=== PATIENT | female | born 1975 | race Caucasian/White ===

== ENCOUNTER 2017-08-04 16:05 | Emergency (ER) | payer MEDICAID, SELFPAY ==
[2017-08-04 16:06] VITALS: BP 149/93; PULSE 108; RESP 14; TEMP 36.5; BMI 62.7
--- NOTE | 2017-08-04 16:38 | ED.VISSUMM ---
- ER Visit Summary Date of Service: 08/04/17 Chief Complaint: Vomiting and diarrhea History of Present Illness: The patient is a [address] Wall. She reports that she has vomiting diarrhea that began approximately 3 days ago. States is vomited 7-8 times without blood or emesis. She has had multiple episodes of diarrhea. She reports that her stools are black after Pepto-Bismol. She has not had any blood in her stools. Patient denies any dysuria or frequency. She reports she has hematuria that began this morning. Less much. Approximate 1 month ago. Patient complains of aching, sharp abdominal pains 1010 worsening a 10 currently is worsened by nothing including movement. Is also relieved by nothing. She reports that she went to [facility] last night and had a CAT scan as well as a urinalysis. CAT scan showed a 3 cm mass on her right kidney, but did not show renal or ureteral stones. Patient denies sick contacts. Has not been camping out of the country. No possible bad food exposure. Does not drink well water. No recent antibiotic use. Physical Examination: Vitals: Stable. Afebrile. General: Well-nourished and well-developed. Head: Normocephalic atraumatic. Neck: Supple, no lymphadenopathy. No JVD. Nontender. Cardiovascular: Regular rate and rhythm. No murmurs. Respiratory: No respiratory distress. Clear to auscultation bilaterally. Abdominal: Soft, moderate tenderness palpation to the right upper and right lower quadrants, no localized pain at McBurney's point, nondistended, normal bowel sounds. No guarding, rebound, or peritoneal signs. Back: Moderate right CVA tenderness. Extremities: Nontender, no edema. Skin: Normal color, no rash. Neurologic: Alert and oriented ?3. Cranial nerves II through XII are intact. Normal strength and sensation. Psych: Normal affect. Test Results: CBC was normal. Chem-7 is marked for chloride of 108 and calcium of 8.4. LFTs are marked for an albumin of 2.9, AST of 48. Lipase is normal. The urinalysis from yesterday at [place] was obtained and is negative. The read from the CT was obtained as well. There were no ureteral or renal stones. She did have a 3.2 cm complicated cyst versus mass in her right kidney. Emergency Department Course and Treatment: Patient had an IV placed. She is given a liter bolus of normal saline. She was treated with Toradol and Zofran. She has had no vomiting or diarrhea while here. Treatment Plan: Patient was discussed with Dr. Smyth. She is instructed to get a CD with the CAT scan on it and follow-up with him in a week for further evaluation of this. She will be discharged with Phenergan for her vomiting and diarrhea. Instructed to follow-up with Dr. Wall in 1-2 days if this is not improving. Disposition: To home in improved and stable condition. Impression: 1. Vomiting/diarrhea. 2. 3.2 cm complicated cyst/mass right kidney. This note was generated with [employer] dictation software. It may contain incorrect words, spelling, and punctuation that were not noted in review of the chart prior to signing ED Disposition - Plan for ED Patient: Disposition: Home or Assisted Living Chief Complaint: Nausea/Vomiting Instructions: ED Vomiting Diarrhea Nonspecific Ad Prescriptions: ProMETHAzine [Phenergan Suppository] 25 mg RECTAL Q6H PRN PRN #6 suppos. PRN Reason: Nausea ProMETHAzine [Phenergan] 25 mg PO Q6H PRN PRN #10 tablet PRN Reason: Nausea Referrals: Matthew Smyth MD [STAFF PHYSICIAN] - 1 Week Additional Instructions: Go to medical records at [facility] and ask them for a CD with your CAT scan on it so Dr. Smyth can look at it.
[2017-08-04] MEDS: Ketorolac 30 MG/ML Syringe IV (16:56)
[2017-08-04] MEDS: Ondansetron 4 MG/2 ML Vial IV (16:56)
[2017-08-04] MEDS: 0.9% Normal Saline 1,000 ML 1000 ML IV (16:56)
[2017-08-04 16:57] LABS: Absolute Lymphocyte Count 1.46 X10^3/ul (0.83-4.51); Absolute Neutrophil Count 3.6 X10^3/uL (2.0-7.7); Basophil# 0.01 X10^3/uL; Basophil% 0.2 % (0-1); Eosinophil# 0.12 X10^3/uL; Eosinophils% 2.1 % (0-5); Hematocrit 40.4 % (37-47); Hemoglobin 12.8 g/dl (12.0-15.0); Lymphocyte # 1.46 X10^3/ul (4.0); Lymphocyte % 25.1 % (19-41); Mean Corp Hgb Conc 31.7 g/gl (32-36); Mean Corpuscular Hgb 30.6 pg (27.0-32.0); Mean Corpuscular Volume 96.7 fL (81-99); Mean Platelet Vol. 8.8 fl (6.2-12.0); Monocyte# 0.58 X10^3/uL; Neutrophil # 3.63 X10^3/uL (2.7-7.7); Neutrophil % 62.4 % (47-70); POSITIVE COUNT NO; POSITIVE DIFFERENTIAL NO; POSITIVE MORPHOLOGY NO; Platelet Count 242 K/mm3 (150-450); Red Blood Count 4.18 M/mm3 (4.2-5.4); White Blood Count 5.8 K/mm3 (4.4-11.0)
[2017-08-04 17:06] LABS: AST(SGOT) 48 U/L (15-37); Alanine Aminotransfer ALT/SGPT 49 U/L (13-56); Albumin, Serum 2.9 g/dL (3.2-5.0); Alkaline Phosphatase 79 U/L (45-117); Anion Gap 5 (5-15); BUN 10 mg/dL (7-18); BUN/Creat Ratio 9.9 RATIO (10-20); Bilirubin, Direct 0.14 mg/dL (0.00-0.30); Calcium,Total 8.4 mg/dL (8.5-10.1); Chloride 108 mmol/L (98-107); Creatinine, Serum 1.01 mg/dL (0.55-1.02); EST Glomerular Filtration Rate 64 mL/min (>60); Est Glom Filt Rate - Afr Amer 77 mL/min (>60); Estimated Creatinine Clearance 67.93 ml/min; Globulin 3.7 g/dL (2.2-4.2); Glucose 99 mg/dL (74-106); Lipase 85 U/L (73-393); Potassium 3.6 mmol/L (3.5-5.1); Protein, Total 6.6 g/dL (6.4-8.2); Sodium Level 143 mmol/L (136-145)
[2017-08-04 18:12] VITALS: PULSE 90; RESP 18; O2SAT 96
== END 2017-08-04 18:14 | disposition home or self-care (01) ==
LOC: ED 16:36
PROVIDERS: Emergency Provider Emergency Medicine; Family Provider Family Medicine; PCP Family Medicine
DX: R11.2 Nausea with vomiting, unspecified (principal); R19.7 Diarrhea, unspecified; R31.9 Hematuria, unspecified; I10 Essential (primary) hypertension; M54.9 Dorsalgia, unspecified; G89.29 Other chronic pain; Z79.899 Other long term (current) drug therapy; Z87.891 Personal history of nicotine dependence
CPT/HCPCS: 80048; 80076; 83690; 85025; 96361; 96374; 96375; 99283; J2405

== ENCOUNTER 2017-12-10 13:10 | Emergency (ER) | payer SELFPAY ==
[2017-12-10 13:10] VITALS: BP 134/94; PULSE 112; RESP 20; TEMP 36.6; O2SAT 97; BMI 61.8
--- NOTE | 2017-12-10 13:32 | CT_ITS ---
STUDY: CT ABDOMEN AND PELVIS WITHOUT CONTRAST REASON FOR EXAM: Female, 42 years old. RT FLANK PIAN, HX RT KIDNEY CA RADIATION DOSAGE (If Supplied By Facility): CTDIvol = ( 24.18 ) mGy, DLP = ( 1292.70 ) mGycm TECHNIQUE: Transaxial images were obtained from the dome of the diaphragm to the symphysis pubis without oral contrast, and without intravenous contrast. Sagittal and coronal images were reconstructed. Individualized dose optimization techniques were used for this CT. COMPARISON: None. FINDINGS: The visualized lung bases are unremarkable. The visualized portions of the heart are within normal limits. There is decreased attenuation of the liver consistent with steatosis. There are surgical clips in the gallbladder fossa consistent with a prior cholecystectomy. Normal spleen. Normal pancreas. Normal bilateral adrenal glands. Postsurgical changes are noted in the right kidney. Normal left kidney. Normal visualized stomach. Normal small intestine. Normal colon. The appendix is visualized and appears normal. Normal abdominal aorta. Normal inferior vena cava. Normal retroperitoneum. Normal urinary bladder. There is a small umbilical hernia containing fat. There are postsurgical changes and degenerative changes of the visualized lumbar spine. CT/Abdomen/Pelvis without Cont IMPRESSION: Fatty infiltration of the liver. There is no evidence of recurrent neoplasm or metastatic disease. Electronically Signed: Chaparrita Weber MD at 14:35 EDT Tel , Service support ,
--- NOTE | 2017-12-10 13:33 | ED.DCSUM_ITS ---
- ER Visit Summary Date of Service: 12/10/17 Chief Complaint: Right flank pain History of Present Illness: The patient is a 42 F presents with 2 days of intermittent right flank pain radiating anteriorly. She describes it as a sharp stabbing pain, not affected by movements or position. No hematuria or dysuria. No anterior abdominal discomfort. No right upper quadrant abdominal pain. She denies history of kidney stone but she did have a kidney mass removed at [facility] on September 03, 2017. She states that she was told that it was cancer and they believed they removed it in its entirety but she has not followed up since then. Physical Examination: Vitals are within normal limits. She is not in distress. Neck is supple. Heart tones are regular and without murmur. Lungs are clear bilaterally. Abdomen is soft and nontender. Minimal right flank tenderness but overlying skin looks normal. No rash. No fluctuance. Test Results: Urine did reveal blood. CT negative for stone or recurrent metastatic disease Emergency Department Course and Treatment: Urinalysis revealed blood. No evidence of stone or recurrent disease on CT scan. Her pain was addressed and she felt better. Exact cause unclear but she has no evidence of an acute surgical abdomen and I believe she can safely follow-up with her doctor. She will return if worse. Treatment Plan: Aloe up with family physician Disposition: Home stable condition Impression: Initial encounter right flank pain uncertain etiology This note was generated with [employer] dictation software. It may contain incorrect words, spelling, and punctuation that were not noted in review of the chart prior to signing ED Disposition - Plan for ED Patient: Chief Complaint: Flank Pain Instructions: ED Flank Pain Uncertain Cause Referrals: Taran Wall MD [Primary Care Provider] -
[2017-12-10 13:45] LABS: Bacteria 0 SEEN /hpf (None Seen); Mucous, Urine 0 SEEN /hpf (<or=2+); White Blood Cells 0 SEEN /hpf (0-5)
[2017-12-10] MEDS: oxyCODONE 5 MG Tablet PO (13:48)
[2017-12-10 13:50] LABS: Color, Urine Straw (Yellow); Glucose, Dipstick 100 mg/dl (Normal); Ketone-Dipstick Negative (Negative); Leukocyte Esterase-Dipstick 25 /ul (Negative); Nitrite-Dipstick Negative (Negative); Occult Blood-Urine 250 /ul (Negative); Protein-Dipstick Negative (Negative); Specific Gravity, Urine 1.005 (1.002-1.030); Urine Bilirubin Dipstick Negative (Negative); Urine Clarity Sl. Cloudy (Clear); Urine Urobilinogen Normal (Normal)
[2017-12-10 14:06] LABS: Red Blood Cells-Urine 5-10 SEEN /hpf (0-5); Squamous Epithelial Cells - UA 0-5 SEEN /hpf (5-10)
[2017-12-10 15:20] VITALS: BP 149/78; PULSE 94; RESP 22; O2SAT 98
--- NOTE | 2017-12-10 15:20 | ED.RN ---
THIS NURSE REVIEWED D/C INSTRUCTIONS WITH PT. PT VERBALIZED UNDERSTANDING OF INSTRUCTIONS. PT DENIES FURTHER NEEDS OR QUESTIONS AT THIS TIME.
== END 2017-12-10 15:21 | disposition home or self-care (01) ==
LOC: ED 14:15
PROVIDERS: Emergency Provider Emergency Medicine; Family Provider Family Medicine; PCP Family Medicine
DX: R10.9 Unspecified abdominal pain (principal); M54.9 Dorsalgia, unspecified; R11.0 Nausea; I10 Essential (primary) hypertension; Z79.899 Other long term (current) drug therapy
CPT/HCPCS: 74176; 81001; 99283

== ENCOUNTER 2018-01-02 16:26 | Emergency (ER) | payer MEDICAID, SELFPAY ==
[2018-01-02] VITALS (14 sets, daily range): BP systolic 123–149; BP diastolic 63–104; PULSE 74–133; RESP 14–24; TEMP 36–37.1; O2SAT 96–100; BMI 59.8
--- NOTE | 2018-01-02 16:56 | ED.RN ---
PT very anxious. Gave emotional support as she was hyperventilating in triage. Placd in 2nd triage room. PT began vomiting in 2nd triage bay. Washcloth and vomit bags given. PT vomited all over herself and on blanket. Sweating. New vitals taken. Emotional support given again.
--- NOTE | 2018-01-02 17:23 | RAD_ITS ---
STUDY: X-RAY CHEST REASON FOR EXAM: Female, 42 years old. ET tube placement TECHNIQUE: Single AP portable view of the chest. COMPARISON: 12/27/2014 FINDINGS: ET tube is noted terminating roughly 4 cm from ming. Enteric tube in the stomach. Lungs are moderately hypoinflated with bibasilar atelectasis. Borderline cardiomegaly. Mildly elevated right hemidiaphragm. Osseous structures are within normal limits RAD/Chest 1 View (Portable) IMPRESSION: ET tube and enteric tube as above. Hypoinflated lungs with bibasilar atelectasis Electronically Signed: Stanislaw Becerril DO at 18:34 EDT Tel , Service support ,
--- NOTE | 2018-01-02 17:23 | CT_ITS ---
STUDY: CT BRAIN WITHOUT CONTRAST REASON FOR EXAM: Female, 42 years old. Altered mental status RADIATION DOSAGE (If Supplied By Facility): CTDIvol = ( 96.72 ) mGy, DLP = ( 1878.48 ) mGycm TECHNIQUE: Transaxial CT imaging of the brain was performed without administration of intravenous contrast material. Individualized dose optimization techniques were used for this CT. COMPARISON: August 01, 2015 FINDINGS: Normal soft tissue structures. Normal calvarium. There is mild cerebral atrophy with widening of the extra-axial spaces and ventricular dilatation. Normal white matter tracts of the cerebral hemispheres. Normal basal ganglia and thalami. Normal brainstem. Normal cerebellum. There is no intracranial hemorrhage. There is an area of mildly decreased attenuation in the right frontal lobe as well as the left temporoparietal lobe. Normal visualized paranasal sinuses. ET tube and enteric tube are noted CT/Brain/Head without Contrast IMPRESSION: Decreased attenuation in the left temporoparietal lobe as well as the right frontal lobe. Findings are suspicious for acute stroke. Recommend MRI brain to further evaluate Electronically Signed: Stanislaw Becerril DO at 18:30 EDT Tel , Service support ,
--- NOTE | 2018-01-02 17:23 | EKG12_ITS ---
Test Reason : Blood Pressure : / mmHG Vent. Rate : 102 BPM Atrial Rate : 102 BPM P-R Int : 168 ms QRS Dur : 102 ms QT Int : 372 ms P-R-T Axes : 045 004 028 degrees QTc Int : 484 ms Sinus tachycardia Low voltage QRS Borderline ECG Confirmed by FIONA RICHARDS, REYNA ([id number]), newspaper copy editor MARYELLEN BARTLETT ([id number]) on 01/08/2018 1:00:59 PM Referred By: DANIELLE Confirmed By:REYNA JAIMES MD
[2018-01-02] MEDS: Etomidate 20 MG/10 ML Vial IV (17:33)
[2018-01-02] MEDS: Succinylcholine Chloride 200 MG/10 ML Vial 125 MG IV (17:34)
[2018-01-02] MEDS: Propofol 200 MG/20 ML Vial 50 MG IV BOLUS (17:44)
[2018-01-02 17:45] LABS: Bedside Glucose 177 mg/dL (70-110)
[2018-01-02] MEDS: Propofol 10MG/Ml 1,000 MG/100 ML Bottle 10.097 MG CONT INF (17:46)
[2018-01-02 17:56] LABS: Absolute Lymphocyte Count 4.23 X10^3/ul (0.83-4.51); Absolute Neutrophil Count 7.9 X10^3/uL (2.0-7.7); Basophil# 0.06 X10^3/uL; Basophil% 0.4 % (0-1); Eosinophils% 1.5 % (0-5); Hematocrit 43.9 % (37-47); Hemoglobin 14.9 g/dl (12.0-15.0); Lymphocyte # 4.23 X10^3/ul (4.0); Lymphocyte % 31.2 % (19-41); Mean Corp Hgb Conc 33.9 g/gl (32-36); Mean Corpuscular Hgb 30.9 pg (27.0-32.0); Mean Corpuscular Volume 91.1 fL (81-99); Mean Platelet Vol. 9.8 fl (6.2-12.0); Monocyte# 1.06 X10^3/uL; Monocyte% 7.8 % (0-10); Neutrophil # 7.93 X10^3/uL (2.7-7.7); Neutrophil % 58.6 % (47-70); POSITIVE COUNT NO; POSITIVE DIFFERENTIAL NO; POSITIVE MORPHOLOGY NO; Platelet Count 352 K/mm3 (150-450); RBC Distribution Width CV 12.8 % (11.6-14.6); RBC Distribution Width SD 41.9 fl (35.1-43.9); Red Blood Count 4.82 M/mm3 (4.2-5.4); White Blood Count 13.6 K/mm3 (4.4-11.0)
[2018-01-02 18:03] LABS: Prothrombin Time (Protime)PT. 13.6 SECONDS (11.7-14.9)
[2018-01-02 18:04] LABS: Partial Thromboplast Time 21.5 Seconds (24.1-36.2)
[2018-01-02 18:13] LABS: ALB/GLOB Ratio 0.9 RATIO (0.9-2.4); AST(SGOT) 56 U/L (15-37); Alanine Aminotransfer ALT/SGPT 53 U/L (13-56); Albumin, Serum 3.7 g/dL (3.2-5.0); Alkaline Phosphatase 93 U/L (45-117); Anion Gap 12 (5-15); BUN 8 mg/dL (7-18); BUN/Creat Ratio 7.3 RATIO (10-20); Calcium,Total 9.4 mg/dL (8.5-10.1); Chloride 104 mmol/L (98-107); Creatinine, Serum 1.09 mg/dL (0.55-1.02); EST Glomerular Filtration Rate 58 mL/min (>60); Est Glom Filt Rate - Afr Amer 71 mL/min (>60); Estimated Creatinine Clearance 62.94 ml/min; Globulin 4.2 g/dL (2.2-4.2); Glucose 179 mg/dL (74-106); Potassium 3.5 mmol/L (3.5-5.1); Protein, Total 7.9 g/dL (6.4-8.2); Sodium Level 140 mmol/L (136-145)
[2018-01-02 18:27] LABS: Lactic Acid 3.2 mmol/L (0.4-2.0)
--- NOTE | 2018-01-02 18:28 | ED.RN ---
LAB CALLED CRITICAL LAB ON PATIENT. LACTIC 3.2, DR SANTOS NOTIFIED
--- NOTE | 2018-01-02 18:56 | CT_ITS ---
STUDY: CTA NECK WITH CONTRAST REASON FOR EXAM: Female, 42 years old. Possible stroke RADIATION DOSAGE (If Supplied By Facility): CTDIvol = ( 13.04 ) mGy, DLP = ( 954.14 ) mGycm TECHNIQUE: CT angiography with multi-detector data acquisition was performed from the aortic arch to the skull base following intravenous administration of 100 ml of Isovue 370 contrast. MIP images were reconstructed from the axial data set. Post-processing of the angiographic images was performed, with multiplanar reformation and 3D reconstruction. Individualized dose optimization techniques were used for this CT. COMPARISON: None. FINDINGS: Nearly nondiagnostic exam with poor IV contrast opacification of the internal carotid arteries as well as the basilar artery and vertebral arteries. Grossly, there appears to be no evidence of large aneurysm or overt occlusion. Findings on CT had earlier demonstrated possible stroke. MRI is needed to further evaluate. IMPRESSION: Nearly nondiagnostic exam with poor IV contrast opacification of the great vessels of the head and neck. Grossly, no evidence of large aneurysm or overt occlusion. Again, MRI brain is recommended to further evaluate CT/CTA Neck W/WO Contrast IMPRESSION: Normal bilateral cervical carotid and vertebral arteries. Electronically Signed: Stanislaw Becerril DO at 21:23 EDT Tel , Service support ,
--- NOTE | 2018-01-02 18:56 | CT_ITS ---
STUDY: CTA OF THE BRAIN REASON FOR EXAM: Female, 42 years old. Headache. Possible CVA RADIATION DOSAGE (If Supplied By Facility): CTDIvol = ( 13.04 ) mGy, DLP = ( 954.14 ) mGycm TECHNIQUE: CT angiography was performed with a multi-detector CT scanner. Data acquisition was obtained from the skull base through the vertex following intravenous administration of 100 ml of Isovue-370. MIP images were reconstructed from the axial data set. Post-processing of the angiographic images was performed, with multiplanar reformation and 3D reconstruction. Individualized dose optimization techniques were used for this CT. COMPARISON: None. FINDINGS: Nearly nondiagnostic exam with poor IV contrast opacification of the internal carotid arteries as well as the basilar artery and vertebral arteries. Grossly, there appears to be no evidence of large aneurysm or overt occlusion. Findings on CT had earlier demonstrated possible stroke. MRI is needed to further evaluate. CT/CTA Head W/WO Contrast IMPRESSION: Nearly nondiagnostic exam with poor IV contrast opacification of the great vessels of the head and neck. Grossly, no evidence of large aneurysm or overt occlusion. Again, MRI brain is recommended to further evaluate N.B. : The above information has been verbally conveyed by Stanislaw Becerril DO to Dr. Williamson, Covering Physician, on 01/02/2018 20:35:03 (ET). Electronically Signed: Stanislaw Becerril DO at 20:35 EDT Tel , Service support , N.B. : The above information has been verbally conveyed by Stanislaw Becerril DO to Dr. Williamson, Covering Physician, on 01/02/2018 20:35:03 (ET).
[2018-01-02] MEDS: levETIRAcetam IV 1,000 MG/100 ML BAG 400 MG IV (19:16)
[2018-01-02] MEDS: 0.9% Normal Saline 1,000 ML 250 ML IV ×2 (19:21→22:18)
[2018-01-02 19:29] LABS: Bacteria 0 SEEN /hpf (None Seen); Mucous, Urine 0 SEEN /hpf (<or=2+); Red Blood Cells-Urine 0 SEEN /hpf (0-5); White Blood Cells 0 SEEN /hpf (0-5)
[2018-01-02 19:58] LABS: Color, Urine Yellow (Yellow); Glucose, Dipstick Normal (Normal); Ketone-Dipstick 5 mg/dl (Negative); Leukocyte Esterase-Dipstick Negative /ul (Negative); Nitrite-Dipstick Negative (Negative); Occult Blood-Urine Negative /ul (Negative); Protein-Dipstick 30 mg/dl (Negative); Urine Bilirubin Dipstick Negative (Negative); Urine Clarity Cloudy (Clear); Urine Urobilinogen Normal (Normal)
[2018-01-02 20:06] LABS: Bedside Glucose 169 mg/dL (70-110)
[2018-01-02 20:10] LABS: Base Excess 1 mmol/L (-2 to +2); Bicarbonate 27.1 mmol/L (22-26); Blood Gas Specimen Type ART; FI02 60; Mode A-C; O2 Delivery Device Vent; PEEP 5; PO2 135 mmHG (75-100); RR 14; SITE R Radial; SO2 99 % (95-99); Time Given 2005; Total Carbon Dioxide 29 mmol/L; Vt 452; pCO2 55.9 mmHg (35-45); pH 7.29 (7.35-7.45)
[2018-01-02 20:22] LABS: Squamous Epithelial Cells - UA 0-5 SEEN /hpf (5-10)
[2018-01-02 20:23] LABS: Hyaline Cast 10-25 SEEN /lpf (0-5)
[2018-01-02 21:50] LABS: Reflex Lactate? Y
--- NOTE | 2018-01-02 21:50 | ED.VISSUMM ---
- ER Visit Summary Date of Service: 01/02/18 Chief Complaint: Altered mental status History of Present Illness: The patient is a 42 F who was triaged for headache for several days. By the time I saw her, the history was limited. She was actively retching, and she was repeatedly asking for Abhijit. She would not cooperate in her exam or provide any historical information. According to the family, she was admitted to [place] about 2 weeks ago for possible stroke. She was sent home the next day and told that she did not have a stroke, according to the family. She has been having a headache for several days and followed up with her PCP today. She was having facial numbness, and was referred to the emergency department for possible stroke. Upon arrival and placement in her room, she became repetitive and less responsive. She has a history of anxiety, paresthesias, vertigo, hypertension, hyperlipidemia, PE. She takes aspirin, but it is unknown if she takes any other blood thinners. No recent fevers or illnesses. Physical Examination: Afebrile and vital signs remarkable for a heart rate of 101 and respiratory rate of 24. Airway is patent, and she repeatedly asks for Abhijit. Lungs are clear. Heart is regular. GCS 12, 4+3+5. She could not cooperate in the neurologic exam or answer questions. She did not have any repetitive movements other than her vocalizations. I believe I noted some disconjugate gaze, but could not reproduce this. She did not have repetitive eye movements. Her pupils were round and reactive. Head appears atraumatic. Neck was nontender. Abdomen soft and nontender. Extremities grossly atraumatic. Skin is flushed and diaphoretic. Test Results: See below Emergency Department Course and Treatment: Patient was seen immediately. Glucose testing was 177. Patient was unable to provide history or cooperate with the exam. I attempted to get information from the family. They did not know the testing she had at [place] or her diagnosis. They did not know if she was on blood thinners or much about her past medical history. They did not know her physician's name. They said that she was normal this morning, but it is unclear when her symptoms started. Patient continued retching. I was concerned for intracranial bleed. I am concerned that she will not be able to protect her airway. She was moved to the resuscitation room right away, where she did vomit. She was sitting upright and we did suction her airway. Patient was intubated for airway protection. She was medicated with etomidate and succinylcholine. Intubated successfully using a Glidescope. Good color change on capnography. Bilateral breath sounds. Stomach quiet. Good pulse ox. Patient was sedated with propofol and placed on a ventilator. CT head showed findings concerning for an acute stroke in the left temporoparietal regions and right frontal region. Patient was discussed with neurology, Dr. Bueno. He recommended MRI brain and CTA head and neck. He also recommended starting Keppra as her repetitive vocalizations and possible abnormal eye movements could be seizure activity. I did not feel that TPA would be a safe option given the unclear onset time, the unclear previous diagnosis, and her constellation of symptoms currently. He also advised that the patient will need care at a facility with 24 hour EEG potentially. Patient was treated with Keppra. We were unable to obtain an MRI secondary to her morbid obesity. CTA head and neck was performed. I called radiology when the read was not coming through. They said that the images were limited and non-diagnostic. There were no major arterial issues. MRI was recommended. The remainder of her workup showed a white count of 13.6, glucose 179, creatinine 1.09, normal INR, and PTT of 21.5. ABG was done and cultures were done. Lactate was 3.2. Patient's vital signs remained stable. She did not have seizure activity while sedated. Family requested [facility] for admission, but they had no ICU beds available. They then requested [facility]. Patient was discussed with Dr. Carreno and accepted. He did request that I speak with Dr. Allen, and at the time of this dictation, I have not heard back from her. Patient will be transferred by ambulance for higher level of care. Will continue to monitor while awaiting transport. Treatment Plan: As above Disposition: Transfer to [facility] Impression: 1. Acute ischemic stroke This note was generated with [employer] software. It may contain incorrect words, spelling, and punctuation that were not noted in review of the chart prior to signing ED Disposition - Plan for ED Patient: Disposition: [facility] Chief Complaint: Headache Referrals: Taran Wall MD [Primary Care Provider] -
--- NOTE | 2018-01-02 22:02 | ED.DCSUM_ITS ---
- ER Visit Summary Date of Service: 01/02/18 Chief Complaint: Altered mental status History of Present Illness: The patient is a 42 F who was triaged for headache for several days. By the time I saw her, the history was limited. She was actively retching, and she was repeatedly asking for Abhijit. She would not cooperate in her exam or provide any historical information. According to the family, she was admitted to [place] about 2 weeks ago for possible stroke. She was sent home the next day and told that she did not have a stroke, according to the family. She has been having a headache for several days and followed up with her PCP today. She was having facial numbness, and was referred to the emergency department for possible stroke. Upon arrival and placement in her room, she became repetitive and less responsive. She has a history of anxiety, paresthesias, vertigo, hypertension, hyperlipidemia, PE. She takes aspirin, but it is unknown if she takes any other blood thinners. No recent fevers or illnesses. Physical Examination: Afebrile and vital signs remarkable for a heart rate of 101 and respiratory rate of 24. Airway is patent, and she repeatedly asks for Abhijit. Lungs are clear. Heart is regular. GCS 12, 4+3+5. She could not cooperate in the neurologic exam or answer questions. She did not have any repetitive movements other than her vocalizations. I believe I noted some disconjugate gaze, but could not reproduce this. She did not have repetitive eye movements. Her pupils were round and reactive. Head appears atraumatic. Neck was nontender. Abdomen soft and nontender. Extremities grossly atraumatic. Skin is flushed and diaphoretic. Test Results: See below Emergency Department Course and Treatment: Patient was seen immediately. Glucose testing was 177. Patient was unable to provide history or cooperate with the exam. I attempted to get information from the family. They did not know the testing she had at [place] or her diagnosis. They did not know if she was on blood thinners or much about her past medical history. They did not know her physician's name. They said that she was normal this morning, but it is unclear when her symptoms started. Patient continued retching. I was concerned for intracranial bleed. I am concerned that she will not be able to protect her airway. She was moved to the resuscitation room right away, where she did vomit. She was sitting upright and we did suction her airway. Patient was intubated for airway protection. She was medicated with etomidate and succinylcholine. Intubated successfully using a Glidescope. Good color change on capnography. Bilateral breath sounds. Stomach quiet. Good pulse ox. Patient was sedated with propofol and placed on a ventilator. CT head showed findings concerning for an acute stroke in the left temporoparietal regions and right frontal region. Patient was discussed with neurology, Dr. Bueno. He recommended MRI brain and CTA head and neck. He also recommended starting Keppra as her repetitive vocalizations and possible abnormal eye movements could be seizure activity. I did not feel that TPA would be a safe option given the unclear onset time, the unclear previous diagnosis, and her constellation of symptoms currently. He also advised that the patient will need care at a facility with 24 hour EEG potentially. Patient was treated with Keppra. We were unable to obtain an MRI secondary to her morbid obesity. CTA head and neck was performed. I called radiology when the read was not coming through. They said that the images were limited and non -diagnostic. There were no major arterial issues. MRI was recommended. The remainder of her workup showed a white count of 13.6, glucose 179, creatinine 1.09, normal INR, and PTT of 21.5. ABG was done and cultures were done. Lactate was 3.2. Patient's vital signs remained stable. She did not have seizure activity while sedated. Family requested [facility] for admission, but they had no ICU beds available. They then requested [facility]. Patient was discussed with Dr. Carreno and accepted. He did request that I speak with Dr. Allen, and at the time of this dictation, I have not heard back from her. Patient will be transferred by ambulance for higher level of care. Will continue to monitor while awaiting transport. Treatment Plan: As above Disposition: Transfer to [facility] Impression: 1. Acute ischemic stroke This note was generated with [employer] software. It may contain incorrect words, spelling, and punctuation that were not noted in review of the chart prior to signing ED Disposition - Plan for ED Patient: Disposition: [facility] Chief Complaint: Headache Referrals: Taran Wall MD [Primary Care Provider] -
== END 2018-01-02 22:15 | disposition short-term general hospital (02) ==
PROVIDERS: Emergency Provider Emergency Medicine; Family Provider Family Medicine; PCP Family Medicine
DX: I63.9 Cerebral infarction, unspecified (principal); I10 Essential (primary) hypertension; E78.5 Hyperlipidemia, unspecified; F41.9 Anxiety disorder, unspecified; E66.01 Morbid (severe) obesity due to excess calories; Z79.82 Long term (current) use of aspirin; Z79.899 Other long term (current) drug therapy; Z86.711 Personal history of pulmonary embolism; Z87.891 Personal history of nicotine dependence
CPT/HCPCS: 31500; 31720; 36415; 36600; 51702; 70450; 70496; 70498; 71045; 80053; 81001; 82803; 82962; 83605; 85025; 85610; 85730; 87040; 87086; 93005; 94002; 96365; 96366; 96367; 96375; 99251; 99285; J7030; Q9967; A4216; G0463; J0330

== ENCOUNTER 2018-04-10 11:32 | Day surgery (SDC) | payer MEDICAID, SELFPAY ==
[2018-04-10] VITALS (8 sets, daily range): BP systolic 119–151; BP diastolic 80–101; PULSE 79–87; RESP 14–16; TEMP 36.8–37.1; O2SAT 80–98; BMI 55.9
--- NOTE | 2018-04-10 11:54 | RAD_ITS ---
STUDY: X-RAY - LEFT WRIST REASON FOR EXAM: Female, 43 years old. TECHNIQUE: view(s) of the wrist were obtained. COMPARISON: None. FINDINGS: Normal visualized distal radius and ulna. There is mild degenerative change of the radiocarpal joint. Normal distal radioulnar articulation. There is a visualized possible small cleft in the scaphoid. There is trace degenerative change at the scaphoid lunate joint space. Normal carpal articulations. Normal carpometacarpal articulation of the thumb. Normal second through fifth carpometacarpal articulations. Normal visualized metacarpal bones. The soft tissue structures are unremarkable. RAD/Wrist min 3 Views IMPRESSION: Minimal degenerative change no visualized fracture. Electronically Signed: Andressa Camargo MD at 9:22 EDT Tel , Service support ,
--- NOTE | 2018-04-10 11:54 | RAD_ITS ---
STUDY: X-RAY - RIGHT WRIST REASON FOR EXAM: Female, 43 years old. 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 COMPARISON: None. FINDINGS: Normal visualized distal radius and ulna. Normal radiocarpal articulation. Normal distal radioulnar articulation. Normal carpal bones. Normal carpal articulations. Normal carpometacarpal articulation of the thumb. Normal second through fifth carpometacarpal articulations. Normal visualized metacarpal bones. The soft tissue structures are unremarkable. RAD/Wrist min 3 Views IMPRESSION: Normal x-ray examination of the wrist. Electronically Signed: Andressa Camargo MD at 9:20 EDT Tel , Service support ,
--- NOTE | 2018-04-10 11:55 | RAD_ITS ---
STUDY: X-RAY - RIGHT HAND REASON FOR EXAM: Female, 43 years old. 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 COMPARISON: None. FINDINGS: Normal radiocarpal articulation. Normal distal radioulnar joint. Normal visualized carpal bones. Normal carpal articulations Normal carpometacarpal articulation of the thumb. Normal second through fifth carpometacarpal joints. Normal metacarpi. Normal metacarpophalangeal joint of the thumb. Normal interphalangeal joint of the thumb. Normal proximal and distal phalanges of the thumb. Normal metacarpophalangeal joints of the second through fifth fingers. Normal proximal and distal interphalangeal joints of the second through fifth fingers. Normal phalanges of the second through fifth fingers. The soft tissue structures are unremarkable. RAD/Hand Min 3 Views IMPRESSION: Normal x-ray examination of the hand. Electronically Signed: Andressa Camargo MD at 9:20 EDT Tel , Service support ,
--- NOTE | 2018-04-10 11:55 | RAD_ITS ---
STUDY: X-RAY - LEFT HAND REASON FOR EXAM: Female, 43 years old. 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 TECHNIQUE: 3 view(s) of the hand. COMPARISON: None. FINDINGS: Normal radiocarpal articulation. Normal distal radioulnar joint. Normal visualized carpal bones. Normal carpal articulations Normal carpometacarpal articulation of the thumb. Normal second through fifth carpometacarpal joints. Normal metacarpi. Normal metacarpophalangeal joint of the thumb. Normal interphalangeal joint of the thumb. Normal proximal and distal phalanges of the thumb. Normal metacarpophalangeal joints of the second through fifth fingers. Normal proximal and distal interphalangeal joints of the second through fifth fingers. Normal phalanges of the second through fifth fingers. The soft tissue structures are unremarkable. RAD/Hand Min 3 Views IMPRESSION: Normal x-ray examination of the hand. Electronically Signed: Andressa Camargo MD at 9:21 EDT Tel , Service support ,
[2018-04-10 12:46] LABS: Internal QC Validated? YES +Cl - CLEAR BKGD; Pregnancy, Urine Negative Negative
[2018-04-10 13:10] LABS: Bedside Glucose 97 mg/dL (70-110)
[2018-04-10 13:30] LABS: Amphetamine Urine VISTA NEGATIVE (<1000 ng/mL); Barbiturate Urine VISTA NEGATIVE (< 200 ng/mL); Benzodiazepine Urine VISTA NEGATIVE (< 200 ng/mL); Cocaine Urine VISTA NEGATIVE (< 300 ng/mL); Ecstacy Urine VISTA NEGATIVE (< 500 ng/mL); Methadone Urine VISTA NEGATIVE (< 300 ng/mL); PCP Urine VISTA NEGATIVE (< 25 ng/mL); THC Urine VISTA NEGATIVE (< 50 ng/mL); Vista UDS pH Range 6
--- NOTE | 2018-04-10 13:45 | RAD_ITS ---
STUDY: X-RAY - LUMBAR SPINE REASON FOR EXAM: Female, 43 years old. Block L5-S1 level. TECHNIQUE: 1 view(s) of the lumbar spine were obtained. COMPARISON: None FINDINGS: Single intraoperative view demonstrate posterior spinal fusion changes with interpeduncular screws and rods from L3 to S1. There are status post laminectomy changes at L3-L5. Gary are demonstrated on the left at the level of the L2-3, L3-4, L4-5, and L5-S1 disc space levels. RAD/Spine 1 View Any Level IMPRESSION: Posterior spinal fusion changes and postlaminectomy changes as detailed above. Gary are demonstrated at the L2-3, L3-4, L4-5, and L5-S1 disc space levels on the left. Electronically Signed: Darrick Casanova MD at 17:12 EDT , Service support ,
--- NOTE | 2018-04-10 14:03 | DCINST_ITS ---
- Discharge Diagnoses Current Active Problems: Lower back pain Reason(s) for Visit for Discharge Instructions: Right side lumbar facets injection under fluoroscopy guidance You will use the following diet at home:: No restrictions Your food should be the consistency of: Regular Discharge Activity: Return to Normal Activity Return to work on:: 04/13/18 May shower in (days): 1 May resume sexual activity in: No Restrictions Weight Bearing Status: Weight bearing as tolerated Call your doctor if your incision/area has: Continuous Slow Oozing, Sudden Increased Bleeding, Increased Pain/ Swelling, Increased Redness, Swelling at the incision site Call your doctor if you observe: Numbness or Tingling, Uncontrolled pain Suture Line Care: Avoid Pulling/Pushing, Avoid Pinching/Bending Cleanse incision/area with: Soap & Water Instructions: What Is Osteoarthritis? Allergies/Adverse Reactions: Allergies amoxicillin trihydrate [From Augmentin] Allergy (Verified 04/10/18 12:36) Rash buspirone HCl [From BuSpar] Allergy (Verified 04/10/18 12:36) Hives fentanyl Allergy (Verified 04/10/18 12:36) Other hallucinations latex Allergy (Verified 04/10/18 12:36) Rash morphine Allergy (Verified 04/10/18 12:36) Itching EMOTIONAL potassium clavulanate [From Augmentin] Allergy (Verified 04/10/18 12:36) Rash Medications to take at Discharge Baclofen [Lioresal] 10 mg PO TID PRN PRN 12/27/14 Amlodipine [Norvasc] 5 mg PO DAILY 08/01/15 Quetiapine Fumarate [Seroquel] 300 mg PO QHS 12/06/15 Benztropine [Cogentin] 1 mg PO QHS 01/13/17 Furosemide [Lasix] 20 mg PO DAILY PRN 01/13/17 Nabumetone [Relafen] 500 mg PO BID 01/13/17 Venlafaxine XR [Effexor Xr] 150 mg PO BID 01/13/17 Aspirin [Aspirin, Baby] 81 mg PO DAILY@0800 01/02/18 Atorvastatin Calcium [Lipitor] 20 mg PO DAILY 01/02/18 Docusate Sodium [Stool Softener] 100 mg PO BID PRN PRN 01/02/18 Metformin HCl 500 mg PO DAILY 01/02/18 Nystatin/Triamcin Cream [Mycolog] 1 applic TOPICAL BID 01/02/18 Ranitidine [Zantac] 150 mg PO BID 01/02/18 traMADol [Ultram] 50 mg PO BID 04/10/18 Primary Care Physician: Taran Wall MD [Primary Care Provider] - Test Results: Test results from this visit will be discussed in further detail at your follow- up appointment, if applicable.
--- NOTE | 2018-04-10 14:03 | PCM.OPRPT ---
Problem List (1) Chronic low back pain Status: Chronic Qualifiers: (2) Spondylosis of lumbar region without myelopathy or radiculopathy Status: Chronic Report of Operation Date of Procedure: 04/10/18 Pre-Operative Diagnosis: Lumbar facets spondylosis without radiculopathy or myelopathy Post-Operative Diagnosis: Same Surgery/Procedure Performed:: Right side lumbar facets injection at the level of the right side L3-4, L4-5, L5-S1, under fluoroscopy guidance Description of Surgical Findings:: Under sterile conditions. Patient placed in the prone position, pressure points were padded, patient was ready from the nursing and the anesthesia team. After identification of the side and the target area for the block under guided fluoroscopy, the entry site was marked with marking pen. I used Betadine for sterilization of the skin, sterile draping were applied. Using 25-gauge needle to infiltrate the skin with local anesthesia using preservative-free lidocaine 0.5% injected 2.5 mL at each site of entry. Using oblique fluoroscopy, accessed the right medial nerve branch supplying the [right] lumbar facets L3-4, L4-5, L5-S1 using 22-gauge spinal needle. After confirmation of appropriate needle placement to the targeted area with AP and lateral fluoroscopy, injected 2.5 mL mixture of preservative-free Marcaine 0.5% and Kenalog [20] mg at each site. [place] was removed, pressure dressing were applied. Patient tolerated the procedure well and was taken to the recovery. Type of Anesthesia:: Local MAC, MAC Special Medications: Bupivacaine 0.5%, lidocaine 0.5% preservative-free Estimated Blood Loss (mL): None Description of Procedure: See above - Complications None
[2018-04-10] MEDS: Triamcinolone Acetonide 40 MG/ML Vial (14:18)
[2018-04-10] MEDS: Bupivacaine Mpf 0.5% 30 ML VIAL (14:18)
== END 2018-04-10 15:31 | disposition home or self-care (01) ==
LOC: SDC 12:16 → AC 12:17
PROVIDERS: Family Provider Family Medicine; PCP Family Medicine; Referring Provider Anesthesiology; Visit Provider Anesthesiology
PROC: 3E0T3BZ Introduction of Anesthetic Agent into Peripheral Nerves and Plexi, Percutaneous Approach (ICD-10-PCS; CPT 64493; principal; 2018-04-10 13:40)
DX: M47.26 Other spondylosis with radiculopathy, lumbar region (principal); M48.062 Spinal stenosis, lumbar region with neurogenic claudication; M51.26 Other intervertebral disc displacement, lumbar region; M51.27 Other intervertebral disc displacement, lumbosacral region; M51.36 Other intervertebral disc degeneration, lumbar region; M51.37 Other intervertebral disc degeneration, lumbosacral region; M46.1 Sacroiliitis, not elsewhere classified; G89.4 Chronic pain syndrome; M48.07 Spinal stenosis, lumbosacral region; M96.1 Postlaminectomy syndrome, not elsewhere classified; M79.10 Myalgia, unspecified site; E11.9 Type 2 diabetes mellitus without complications; I10 Essential (primary) hypertension; F32.9 Major depressive disorder, single episode, unspecified; F41.9 Anxiety disorder, unspecified; E66.9 Obesity, unspecified; F17.210 Nicotine dependence, cigarettes, uncomplicated; Z79.899 Other long term (current) drug therapy; Z86.73 Personal history of transient ischemic attack (TIA), and cerebral infarction without residual deficits; Z86.711 Personal history of pulmonary embolism
CPT/HCPCS: 64493; 64494; 64495; 64483; 72020; 73110; 73130; 80307; 81025; 82962; J7120; J2405

== ENCOUNTER 2018-04-13 14:03 | Emergency (ER) | payer MEDICAID, SELFPAY ==
[2018-04-13 14:48] VITALS: BP 157/98; PULSE 88; RESP 16; TEMP 36.7; O2SAT 98; BMI 55.8
[2018-04-13 14:51] VITALS: BP 157/98; PULSE 88; RESP 16; O2SAT 98
--- NOTE | 2018-04-13 15:04 | ED.VISSUMM ---
- ER Visit Summary Date of Service: 04/13/18 Chief Complaint: Abdominal wall pain History of Present Illness: The patient is a 43 F who states that over the weekend she was stretching and had a hernia come out on her upper abdomen. She states that she went to [place] where she had a CT and was discharged home. Last night due to the pain she states she had a syncopal episode went back to [place]. Today she called general surgery (Dr. Rascon's office) and schedule appointment for Friday. She states in talking with the surgical nurse she told him about her ER visits and was requested that she come back to the emergency department here in [place] to see what can be done about her pain. Physical Examination: Afebrile vital signs are stable Morbidly obese female with no obvious palpable hernia at rest. Diastases is felt. Test Results: CT from 2 days ago was reviewed. Emergency Department Course and Treatment: Recommendations for abdominal binder and a few oxycodone will be given. Impression: 1. Abdominal wall hernia This note was generated with [employer] dictation software. It may contain incorrect words, spelling, and punctuation that were not noted in review of the chart prior to signing ED Disposition - Plan for ED Patient: Disposition: Home or Assisted Living Chief Complaint: Abd Pain Instructions: What Is a Hernia? Prescriptions: Oxycodone [Oxyir] 5 mg PO Q6H PRN PRN 3 Days #12 tab PRN Reason: Pain Referrals: Troy Ghosh MD [STAFF PHYSICIAN] - Additional Instructions: Abdominal binder if you will be moving or attempting to sit up. I would recommend not taking the tramadol if you will be taking the oxycodone.
--- NOTE | 2018-04-13 15:08 | ED.DCSUM_ITS ---
- ER Visit Summary Date of Service: 04/13/18 Chief Complaint: Abdominal wall pain History of Present Illness: The patient is a 43 F who states that over the weekend she was stretching and had a hernia come out on her upper abdomen. She states that she went to [place] where she had a CT and was discharged home. Last night due to the pain she states she had a syncopal episode went back to [place]. Today she called general surgery (Dr. Rascon's office) and schedule appointment for Friday. She states in talking with the surgical nurse she told him about her ER visits and was requested that she come back to the emergency department here in [place] to see what can be done about her pain. Physical Examination: Afebrile vital signs are stable Morbidly obese female with no obvious palpable hernia at rest. Diastases is felt. Test Results: CT from 2 days ago was reviewed. Emergency Department Course and Treatment: Recommendations for abdominal binder and a few oxycodone will be given. Impression: 1. Abdominal wall hernia This note was generated with [employer] dictation software. It may contain incorrect words, spelling, and punctuation that were not noted in review of the chart prior to signing ED Disposition - Plan for ED Patient: Disposition: Home or Assisted Living Chief Complaint: Abd Pain Instructions: What Is a Hernia? Prescriptions: Oxycodone [Oxyir] 5 mg PO Q6H PRN PRN 3 Days #12 tab PRN Reason: Pain Referrals: Troy Ghosh MD [STAFF PHYSICIAN] - Additional Instructions: Abdominal binder if you will be moving or attempting to sit up. I would recommend not taking the tramadol if you will be taking the oxycodone.
--- NOTE | 2018-04-13 15:11 | NURSING ---
VERBAL ORDER GIVEN FOR ADAM VALENZUELA BY DR MARCUS. BINDER OBTAINED FROM [facility]. Wendie BE RN
[2018-04-13] MEDS: oxyCODONE 5 MG Tablet PO (15:59)
[2018-04-13 16:00] VITALS: BP 162/83; PULSE 90; RESP 14; O2SAT 98
== END 2018-04-13 16:01 | disposition home or self-care (01) ==
LOC: ED 15:26
PROVIDERS: Emergency Provider Emergency Medicine; Family Provider Family Medicine; PCP Family Medicine
DX: K46.9 Unspecified abdominal hernia without obstruction or gangrene (principal); E11.9 Type 2 diabetes mellitus without complications; I10 Essential (primary) hypertension; E66.01 Morbid (severe) obesity due to excess calories; Z79.82 Long term (current) use of aspirin; Z79.899 Other long term (current) drug therapy
CPT/HCPCS: 99282

== ENCOUNTER 2018-04-24 11:51 | Day surgery (SDC) | payer MEDICAID, SELFPAY ==
[2018-04-24 12:18] VITALS: BP 130/81; PULSE 77; RESP 18; TEMP 37.4; O2SAT 97; BMI 54.4
[2018-04-24 12:21] LABS: Internal QC Validated? YES +Cl - CLEAR BKGD; Pregnancy, Urine Negative Negative
[2018-04-24 12:35] LABS: Bedside Glucose 95 mg/dL (70-110)
--- NOTE | 2018-04-24 13:45 | RAD_ITS ---
STUDY: Fluoroscopic intraoperative- LUMBAR SPINE REASON FOR EXAM: Female, 43 years old. Fluoroscopic intraoperative study TECHNIQUE: 4 view(s) of the lumbar spine were obtained. COMPARISON: None FINDINGS: There are 4 fluoroscopic images provided with a lumbar spinal fusion in progress. RAD/L/S Spine Min 4 Views IMPRESSION: 4 views of fluoroscopy. Fluoroscopy time recorded is 7.9 seconds per the technologist. Electronically Signed: Andressa Camargo MD at 16:53 EDT Tel , Service support ,
[2018-04-24] MEDS: Bupivacaine Mpf 0.5% 30 ML VIAL (14:30)
[2018-04-24] MEDS: Triamcinolone Acetonide 40 MG/ML Vial (14:30)
--- NOTE | 2018-04-24 14:42 | DCINST_ITS ---
- Discharge Diagnoses Current Active Problems: Lower back pain lumbar facet spondylosis Reason(s) for Visit for Discharge Instructions: Left side lumbar facet blocks You will use the following diet at home:: No restrictions Your food should be the consistency of: Regular Discharge Activity: Return to Normal Activity Return to work on:: 04/27/18 May shower in (days): 1 May resume sexual activity in: No Restrictions Weight Bearing Status: Weight bearing as tolerated Call your doctor if your incision/area has: Continuous Slow Oozing, Swelling at the incision site Call your doctor if you observe: Coldness, Increased Pain, Uncontrolled pain Suture Line Care: Avoid Pulling/Pushing, Avoid Pinching/Bending Cleanse incision/area with: Soap & Water Instructions: What Is Osteoarthritis? Allergies/Adverse Reactions: Allergies amoxicillin trihydrate [From Augmentin] Allergy (Verified 04/13/18 14:51) Rash buspirone HCl [From BuSpar] Allergy (Verified 04/13/18 14:51) Hives fentanyl Allergy (Verified 04/13/18 14:51) Other hallucinations latex Allergy (Verified 04/13/18 14:51) Rash morphine Allergy (Verified 04/13/18 14:51) Itching EMOTIONAL potassium clavulanate [From Augmentin] Allergy (Verified 04/13/18 14:51) Rash Medications to take at Discharge Baclofen [Lioresal] 10 mg PO TID PRN PRN 12/27/14 Amlodipine [Norvasc] 5 mg PO DAILY 08/01/15 Quetiapine Fumarate [Seroquel] 300 mg PO QHS 12/06/15 Benztropine [Cogentin] 1 mg PO QHS 01/13/17 Furosemide [Lasix] 20 mg PO DAILY PRN 01/13/17 Nabumetone [Relafen] 500 mg PO BID 01/13/17 Venlafaxine XR [Effexor Xr] 150 mg PO BID 01/13/17 Aspirin [Aspirin, Baby] 81 mg PO DAILY@0800 01/02/18 Atorvastatin Calcium [Lipitor] 20 mg PO DAILY 01/02/18 Docusate Sodium [Stool Softener] 100 mg PO BID PRN PRN 01/02/18 Metformin HCl 500 mg PO DAILY 01/02/18 Nystatin/Triamcin Cream [Mycolog] 1 applic TOPICAL BID 01/02/18 Ranitidine [Zantac] 150 mg PO BID 01/02/18 traMADol [Ultram] 50 mg PO BID 04/10/18 Primary Care Physician: Taran Wall MD [Primary Care Provider] - Test Results: Test results from this visit will be discussed in further detail at your follow- up appointment, if applicable.
--- NOTE | 2018-04-24 14:43 | PCM.OPRPT ---
Problem List (1) Spondylosis of lumbar region without myelopathy or radiculopathy Status: Chronic Report of Operation Date of Procedure: 04/24/18 Pre-Operative Diagnosis: Lumbar facet spondylosis Post-Operative Diagnosis: Same Surgery/Procedure Performed:: Left side lumbar facet blocks at the level of the L3-4 L4-5 L5-S1 under fluoroscopy guidance Description of Surgical Findings:: Under sterile conditions. Patient placed in the prone position, pressure points were padded, patient was ready from the nursing and the anesthesia team. After identification of the side and the target area for the block under guided fluoroscopy, the entry site was marked with marking pen. I used Betadine for sterilization of the skin, sterile draping were applied. Using 25-gauge needle to infiltrate the skin with local anesthesia using preservative-free lidocaine 0.5% injected 2.5 mL at each site of entry. Using oblique fluoroscopy, accessed the left medial nerve branch supplying the left lumbar facets L3-4, L4-5, L5-S1 using 22-gauge spinal needle. After confirmation of appropriate needle placement to the targeted area with AP and lateral fluoroscopy, injected 2.5 mL mixture of preservative-free Marcaine 0.5% and Kenalog [20] mg at each site. [place] was removed, pressure dressing were applied. Patient tolerated the procedure well and was taken to the recovery. Type of Anesthesia:: Local MAC, MAC Special Medications: Lidocaine 1% preservative-free, bupivacaine 0.5% preservative-free, Kenalog 80 mg total Description of Procedure: See above - Complications None
[2018-04-24 14:44] VITALS: BP 102/72; BP 130/81; PULSE 75; RESP 16; TEMP 36.8; O2SAT 100
[2018-04-24 14:50] VITALS: BP 100/75; BP 130/81; PULSE 80; RESP 16; O2SAT 100
[2018-04-24 14:55] VITALS: BP 108/72; BP 130/81; PULSE 75; RESP 16; O2SAT 100
[2018-04-24 15:00] VITALS: BP 106/70; BP 130/81; PULSE 75; RESP 16; TEMP 36.6; O2SAT 99
[2018-04-24 15:19] VITALS: BP 130/81
== END 2018-04-24 15:21 | disposition home or self-care (01) ==
LOC: SDC 11:53 → AC 11:54
PROVIDERS: Anesthesiology; Family Provider Family Medicine; PCP Family Medicine; Referring Provider Anesthesiology; Visit Provider Anesthesiology
PROC: 3E0T3BZ Introduction of Anesthetic Agent into Peripheral Nerves and Plexi, Percutaneous Approach (ICD-10-PCS; CPT 64493; principal; 2018-04-24 13:40)
DX: M47.26 Other spondylosis with radiculopathy, lumbar region (principal); M47.27 Other spondylosis with radiculopathy, lumbosacral region; M51.16 Intervertebral disc disorders with radiculopathy, lumbar region; M51.27 Other intervertebral disc displacement, lumbosacral region; M51.37 Other intervertebral disc degeneration, lumbosacral region; M51.36 Other intervertebral disc degeneration, lumbar region; M51.26 Other intervertebral disc displacement, lumbar region; M48.07 Spinal stenosis, lumbosacral region; M96.1 Postlaminectomy syndrome, not elsewhere classified; M46.1 Sacroiliitis, not elsewhere classified; G89.4 Chronic pain syndrome; E11.9 Type 2 diabetes mellitus without complications; I10 Essential (primary) hypertension; F32.9 Major depressive disorder, single episode, unspecified; F41.9 Anxiety disorder, unspecified; E66.9 Obesity, unspecified; Z68.43 Body mass index [BMI] 50.0-59.9, adult; Z79.899 Other long term (current) drug therapy; Z86.711 Personal history of pulmonary embolism; Z86.73 Personal history of transient ischemic attack (TIA), and cerebral infarction without residual deficits; Z87.891 Personal history of nicotine dependence
CPT/HCPCS: 01992; 64493; 64494; 64495; 64483; 72100; 72110; 81025; 82962; J7120; J3490

== ENCOUNTER → 2018-05-08 20:19 | Outpatient (CLI) | payer MEDICAID, SELFPAY | PROVIDERS: Family Provider Family Medicine; PCP Family Medicine; Visit Provider Nurse Practitioner Primary Care | DX: G47.33 Obstructive sleep apnea (adult) (pediatric) (principal) | CPT/HCPCS: 95810 ==

== ENCOUNTER → 2018-06-05 20:00 | Outpatient (CLI) | payer MEDICAID, SELFPAY ==
[2018-05-14 16:06] VITALS: BMI 62.7
== END ==
PROVIDERS: Family Provider Family Medicine; PCP Family Medicine; Visit Provider Nurse Practitioner Primary Care
DX: G47.33 Obstructive sleep apnea (adult) (pediatric) (principal)
CPT/HCPCS: 95811

== ENCOUNTER 2018-10-16 10:44 | Day surgery (SDC) | payer MEDICAID, SELFPAY ==
[2018-05-14 16:06] VITALS: BMI 62.7
[2018-10-16] VITALS (9 sets, daily range): BP systolic 106–121; BP diastolic 53–79; PULSE 71–82; RESP 16–20; TEMP 36.4–37; O2SAT 94–100; BMI 49.4
[2018-10-16 11:22] LABS: Internal QC Validated? YES +Cl - CLEAR BKGD; Pregnancy, Urine Negative Negative
[2018-10-16 11:38] LABS: Amphetamine Urine VISTA NEGATIVE (<1000 ng/mL); Barbiturate Urine VISTA NEGATIVE (< 200 ng/mL); Benzodiazepine Urine VISTA NEGATIVE (< 200 ng/mL); Cocaine Urine VISTA NEGATIVE (< 300 ng/mL); Ecstacy Urine VISTA NEGATIVE (< 500 ng/mL); Methadone Urine VISTA NEGATIVE (< 300 ng/mL); PCP Urine VISTA NEGATIVE (< 25 ng/mL); THC Urine VISTA NEGATIVE (< 50 ng/mL); Vista UDS pH Range 5
--- NOTE | 2018-10-16 12:30 | RAD_ITS ---
PROCEDURE: Lumbar facet L3-S1 left side injection. DATE OF EXAMINATION: October 16, 2018. INDICATION: Female, 43 years old. Lower back pain. Status post posterior fusion. PHYSICIAN: Syeda FLUOROSCOPY TIME (if supplied): (0:24) minutes/seconds RADIATION DOSAGE (If Supplied By Facility): CTDIvol = ( ) mGy, DLP = ( ) mGycm PROCEDURE/TECHNIQUE: 3, intraprocedural, fluoroscopic spot images of the lumbosacral spine in anterior and posterior projection demonstrate appropriate needle tip placement. There is no plain film evidence of hardware failure. There are no significant incidental findings. RAD/L/S Spine Min 4 Views IMPRESSION: 3, intraprocedural, fluoroscopic spot images of the lumbosacral spine in anterior and posterior projection demonstrate appropriate needle tip placement. There is no plain film evidence of hardware failure. There are no significant incidental findings. Comment: Fluoroscopy services provided for clinical procedure. Please refer to operating physician's procedure note for additional detail. Electronically Signed: Gregorio Cash MD at 11:36 EDT , Service support ,
[2018-10-16] MEDS: Triamcinolone Acetonide 40 MG/ML Vial (14:05)
[2018-10-16] MEDS: Bupivacaine 0.25% 30 ML Vial (14:06)
--- NOTE | 2018-10-16 14:10 | DCINST_ITS ---
- Discharge Diagnoses Current Active Problems: Lower back pain Reason(s) for Visit for Discharge Instructions: Left-sided lumbar facet block under fluoroscopy guidance You will use the following diet at home:: No restrictions Your food should be the consistency of: Regular Your liquids should be the consistency of: Regular/Thin Discharge Activity: Return to Normal Activity, No Restrictions, May Drive, May Not Drive, May Shower Return to work on:: 10/19/18 May shower in (days): 1 May resume sexual activity in: No Restrictions Weight Bearing Status: Weight bearing as tolerated, Toe touch weight bearing Call your doctor if your incision/area has: Continuous Slow Oozing, Sudden Increased Bleeding, Increased Pain/ Swelling, Increased Redness, Foul Smelling Discharge, Swelling at the incision site Call your doctor if you observe: Fever of 101 or Higher, Coldness, Increased Pain, Numbness or Tingling, Chest pain, Increased palpitations (irregular heartbeat), Calf discomfort, Uncontrolled pain Suture Line Care: Avoid Pulling/Pushing, Avoid Pinching/Bending Remove Dressing in (days):: 1 Cleanse incision/area with: Soap & Water Allergies/Adverse Reactions: Allergies amoxicillin trihydrate [From Augmentin] Allergy (Verified 10/16/18 11:20) Rash buspirone HCl [From BuSpar] Allergy (Verified 10/16/18 11:20) Hives fentanyl Allergy (Verified 10/16/18 11:20) Other hallucinations latex Allergy (Verified 10/16/18 11:20) Rash morphine Allergy (Verified 10/16/18 11:20) Itching EMOTIONAL potassium clavulanate [From Augmentin] Allergy (Verified 10/16/18 11:20) Rash Medications to take at Discharge Baclofen [Lioresal] 10 mg PO TID PRN PRN 12/27/14 Amlodipine [Norvasc] 5 mg PO DAILY 08/01/15 Quetiapine Fumarate [Seroquel] 300 mg PO QHS 12/06/15 Benztropine [Cogentin] 1 mg PO QHS 01/13/17 Furosemide [Lasix] 20 mg PO DAILY PRN 01/13/17 Nabumetone [Relafen] 500 mg PO BID 01/13/17 Venlafaxine XR [Effexor Xr] 150 mg PO BID 01/13/17 Aspirin [Aspirin, Baby] 81 mg PO DAILY@0800 07/06/18 Atorvastatin Calcium [Lipitor] 20 mg PO DAILY 01/02/18 Docusate Sodium [Stool Softener] 100 mg PO BID PRN PRN 01/02/18 Metformin HCl 500 mg PO DAILY 01/02/18 Nystatin/Triamcin Cream [Mycolog] 1 applic TOPICAL BID 01/02/18 Ranitidine [Zantac] 150 mg PO BID 01/02/18 traMADol [Ultram] 50 mg PO BID 04/10/18 Primary Care Physician: Taran Wall MD [Primary Care Provider] - Test Results: Test results from this visit will be discussed in further detail at your follow- up appointment, if applicable. Please Follow Up With: Shantanu Landa MD
--- NOTE | 2018-10-16 14:10 | PCM.OPRPT ---
Problem List (1) Chronic low back pain Status: Chronic Qualifiers: (2) Spondylosis of lumbar region without myelopathy or radiculopathy Status: Chronic Report of Operation Date of Procedure: 10/16/18 Pre-Operative Diagnosis: Lumbar facet spondylosis Post-Operative Diagnosis: Same Surgery/Procedure Performed:: Left-sided lumbar facets injection under fluoroscopy guidance Description of Surgical Findings:: Under sterile conditions. Patient placed in the prone position, pressure points were padded, patient was ready from the nursing and the anesthesia team. After identification of the side and the target area for the block to the left lumbar facets region under guided fluoroscopy, the entry site was marked with marking pen. I used Betadine for sterilization of the skin, sterile draping were applied. Using 25-gauge needle to infiltrate the skin with local anesthesia using preservative-free lidocaine 0.5% injected 2.5 mL at each site of entry. Using oblique fluoroscopy, accessed the left medial nerve branch supplying the left lumbar facets L3-4, L4-5, L5-S1 using 22-gauge 5 inch length spinal needle. After confirmation of appropriate needle placement to the targeted area with AP and lateral fluoroscopy, injected 2.5 mL mixture of preservative-free Marcaine 0.5% and Kenalog [10] mg at each site. Total Kenalog injected 40 mg [place] was removed, pressure dressing were applied. Patient tolerated the procedure well and was taken to the recovery. Type of Anesthesia:: Local MAC Special Medications: Kenalog 40 mg, bupivacaine 0.5% preservative-free, lidocaine 1% preservative-free for local anesthesia Estimated Blood Loss (mL): None - Complications None
== END 2018-10-16 15:38 | disposition home or self-care (01) ==
LOC: SDC 10:49 → AC 10:50
PROVIDERS: Anesthesiology; Family Provider Family Medicine; PCP Family Medicine; Referring Provider Anesthesiology; Visit Provider Anesthesiology
PROC: 3E0T3BZ Introduction of Anesthetic Agent into Peripheral Nerves and Plexi, Percutaneous Approach (ICD-10-PCS; CPT 64493; principal; 2018-10-16 12:25)
DX: M47.816 Spondylosis without myelopathy or radiculopathy, lumbar region (principal); G89.29 Other chronic pain; E11.9 Type 2 diabetes mellitus without complications; Z79.899 Other long term (current) drug therapy; Z79.82 Long term (current) use of aspirin; F17.200 Nicotine dependence, unspecified, uncomplicated; E66.9 Obesity, unspecified; M96.1 Postlaminectomy syndrome, not elsewhere classified; M48.062 Spinal stenosis, lumbar region with neurogenic claudication; M46.1 Sacroiliitis, not elsewhere classified
CPT/HCPCS: 64493; 64494; 64495; 64483; 72110; 80307; 81025; J7120; J3490

== ENCOUNTER 2018-11-13 11:57 | Day surgery (SDC) | payer MEDICAID, SELFPAY ==
[2018-05-14 16:06] VITALS: BMI 62.7
[2018-10-16 11:30] VITALS: BMI 49.4
[2018-11-13] VITALS (7 sets, daily range): BP systolic 101–145; BP diastolic 66–87; PULSE 69–76; RESP 16–18; TEMP 36.4–37.2; O2SAT 97–100; BMI 46.7
[2018-11-13 12:27] LABS: Internal QC Validated? YES +Cl - CLEAR BKGD; Pregnancy, Urine Negative Negative
[2018-11-13 12:45] LABS: Bedside Glucose 71 mg/dL (70-110)
--- NOTE | 2018-11-13 13:30 | RAD_ITS ---
STUDY: X-RAY - LUMBAR SPINE REASON FOR EXAM: Female, 43 years old. Sacroiliac joint injection. TECHNIQUE: 3 intraoperative cone-down view(s) of the lumbar spine were obtained. COMPARISON: None FINDINGS: The spinal needle is seen at the right sacroiliac joint. RAD/Spine 1 View Any Level IMPRESSION: Intraoperative imaging provided for right sacroiliac joint injection. Electronically Signed: Wesly Llanes, at 15:22 EDT , Service support ,
[2018-11-13] MEDS: Bupivacaine 0.25% 30 ML Vial (14:17)
[2018-11-13] MEDS: Triamcinolone Acetonide 40 MG/ML Vial ×2 (14:17)
--- NOTE | 2018-11-13 14:27 | DCINST_ITS ---
- Discharge Diagnoses Current Active Problems: Chronic lumbosacral lower back pain Reason(s) for Visit for Discharge Instructions: Right sacral iliac joint injection and right piriformis muscle injection You will use the following diet at home:: No restrictions Your food should be the consistency of: Regular Discharge Activity: Return to Normal Activity May resume sexual activity in: No Restrictions Weight Bearing Status: Weight bearing as tolerated Call your doctor if your incision/area has: Continuous Slow Oozing, Increased Redness, Foul Smelling Discharge Call your doctor if you observe: Fever of 101 or Higher, Coldness, Increased Pain, Uncontrolled pain Suture Line Care: Avoid Pulling/Pushing, Avoid Pinching/Bending Remove Dressing in (days):: 1 Cleanse incision/area with: Soap & Water Allergies/Adverse Reactions: Allergies amoxicillin trihydrate [From Augmentin] Allergy (Verified 10/16/18 11:20) Rash buspirone HCl [From BuSpar] Allergy (Verified 10/16/18 11:20) Hives fentanyl Allergy (Verified 11/13/18 12:23) Other hallucinations allargy to patch only. does fine with iv latex Allergy (Verified 10/16/18 11:20) Rash potassium clavulanate [From Augmentin] Allergy (Verified 10/16/18 11:20) Rash Medications to take at Discharge Amlodipine [Norvasc] 5 mg PO DAILY 08/01/15 Quetiapine Fumarate [Seroquel] 300 mg PO QHS 12/06/15 Benztropine [Cogentin] 1 mg PO QHS 01/13/17 Furosemide [Lasix] 20 mg PO DAILY PRN 01/13/17 Venlafaxine XR [Effexor Xr] 100 mg PO BID 01/13/17 Aspirin [Aspirin, Baby] 81 mg PO DAILY@0800 01/02/18 Docusate Sodium [Stool Softener] 100 mg PO BID PRN PRN 01/02/18 Nystatin/Triamcin Cream [Mycolog] 1 applic TOPICAL BID 01/02/18 Oxybutynin Chloride [Oxybutynin Chloride ER] 15 mg PO BID 11/13/18 Pantoprazole Sodium [Protonix] 20 mg PO BID 11/13/18 Quetiapine Fumarate [Seroquel] 300 mg PO DAILY 11/13/18 Primary Care Physician: Taran Wall MD [Primary Care Provider] - Test Results: Test results from this visit will be discussed in further detail at your follow- up appointment, if applicable. Please Follow Up With: Shantanu Landa MD
--- NOTE | 2018-11-13 14:32 | OP.PCM_ITS ---
Problem List (1) Sacroiliitis, not elsewhere classified Status: Acute (2) Sacroiliitis, not elsewhere classified Status: Acute (3) Myalgia, other site Status: Acute (4) Myalgia, other site Status: Acute (5) Piriformis muscle pain Status: Acute (6) Piriformis muscle pain Status: Acute (7) Piriformis syndrome Status: Acute (8) Piriformis syndrome Status: Acute Report of Operation Date of Procedure: 11/13/18 Pre-Operative Diagnosis: Right sacroiliac joint pain and right sacroiliitis, right sacroiliac joint dysfunction, right piriformis syndrome Post-Operative Diagnosis: Same Surgery/Procedure Performed:: Right piriformis muscle and right sacral iliac joint injection under fluoroscopy guidance Description of Surgical Findings:: Under sterile conditions. Patient placed in the prone position, pressure points were padded, patient was ready from the nursing and the anesthesia team. After identification of the side and the target area for the block under guided fluoroscopy, the entry site was marked with marking pen. Direction to the right sacroiliac joint under oblique angle fluoroscopy, identified the fluoroscopy image for the right sacroiliac joint, also identified fluoroscopy image for the right pyriformis muscle I used Betadine for sterilization of the skin, sterile draping were applied. Using 25-gauge needle to infiltrate the skin with local anesthesia using preservative-free lidocaine 0.5% injected 2.5 mL at each site of entry. Using oblique fluoroscopy, accessed the [right] sacroiliac joint and right pyriformis muscle using 22-gauge spinal needle. Identification of the joints by injecting of Omnipaque/contrast solution 5 mL showed good distribution across the sacroiliac joint and right pyriformis muscle After confirmation of appropriate needle placement to the targeted area with AP and lateral fluoroscopy, injected 2.5 mL mixture of preservative-free Marcaine 0.5% and Kenalog [80 mg total for both sacroiliac joint and right pyriformis muscle gluteal muscles [place] was removed, pressure dressing were applied. Patient tolerated the procedure well and was taken to the recovery. Type of Anesthesia:: Local MAC Special Medications: Kenalog 80 mg, lidocaine 0.5% preservative-free, Marcaine 0.5% preservative-free
== END 2018-11-13 15:35 | disposition home or self-care (01) ==
LOC: SDC 11:58 → AC 12:09
PROVIDERS: Anesthesiology; Family Provider Family Medicine; PCP Family Medicine; Referring Provider Anesthesiology; Visit Provider Anesthesiology
PROC: 3E0U3GC Introduction of Other Therapeutic Substance into Joints, Percutaneous Approach (ICD-10-PCS; CPT 27096; principal; 2018-11-13 13:25)
DX: M46.1 Sacroiliitis, not elsewhere classified (principal); M53.3 Sacrococcygeal disorders, not elsewhere classified; M79.18 Myalgia, other site; G57.01 Lesion of sciatic nerve, right lower limb; G89.29 Other chronic pain; M25.562 Pain in left knee; E11.9 Type 2 diabetes mellitus without complications; I10 Essential (primary) hypertension; F32.9 Major depressive disorder, single episode, unspecified; F41.9 Anxiety disorder, unspecified; E66.01 Morbid (severe) obesity due to excess calories; Z68.42 Body mass index [BMI] 45.0-49.9, adult; F17.200 Nicotine dependence, unspecified, uncomplicated; Z79.82 Long term (current) use of aspirin; Z79.899 Other long term (current) drug therapy; Z86.711 Personal history of pulmonary embolism
CPT/HCPCS: 01992; 20552; 27096; 64483; 72020; 73564; 81025; 82962; J7120; J2405

== ENCOUNTER → 2018-11-13 17:18 | Outpatient (CLI) | payer MEDICAID, SELFPAY ==
[2018-11-13 12:29] VITALS: BMI 46.7
--- NOTE | 2018-11-13 17:24 | RAD_ITS ---
STUDY: X-RAY - LEFT KNEE REASON FOR EXAM: Female, 43 years old. Pain TECHNIQUE: 5 view(s) of the knee. COMPARISON: None. FINDINGS: Normal visualized distal femur. Normal visualized proximal tibia and fibula. Normal proximal tibiofibular articulation. There is mild degenerative arthrosis of the medial femorotibial compartment. Normal lateral femorotibial compartment. Normal patellofemoral articulation. The soft tissue structures are unremarkable. RAD/Knee 4 or More Views IMPRESSION: Mild medial compartment osteoarthritis. Electronically Signed: Taran Owens MD at 20:27 EDT Tel , Service support ,
== END ==
PROVIDERS: Family Provider Family Medicine; PCP Family Medicine; Referring Provider Anesthesiology; Visit Provider Anesthesiology
DX: M25.562 Pain in left knee (principal)
CPT/HCPCS: 73564

== ENCOUNTER 2018-11-27 16:14 | Observation (INO) | payer MEDICAID, SELFPAY ==
[2018-11-13 12:29] VITALS: BMI 46.7
[2018-11-27] VITALS (8 sets, daily range): BP systolic 117–163; BP diastolic 54–103; PULSE 62–126; RESP 14–27; TEMP 36.3–37; O2SAT 96–99; BMI 45.5; BMI 44.6; BMI 44.7
--- NOTE | 2018-11-27 16:24 | VDLE_ITS ---
Reason For Study: RLE swelling RIGHT GSV is normal. CFV is compressible, spontaneous, phasic, competent and demonstrates normal augmentation. FV is compressible, spontaneous, phasic, competent and demonstrates normal augmentation. POP V is compressible, spontaneous, phasic, competent and demonstrates normal augmentation. T/P Trunk is compressible. PTV is compressible. RT PerV is compressible. Procedure Exam performed portable in ED. The study was technically difficult. Due to body habitus and leg tenderness from cellulitis. A preliminary report was called and/or faxed to ED. Interpretation Summary Deep veins of the right lower extremity are patent and compressible segmentally. There is no evidence of right lower extremity deep vein thrombosis. Valvular competence appears intact within the proximal deep venous system on the right . The right greater saphenous vein appears patent and compressible segmentally. Ordering Physician: Hemant Salinas Referring Physician: Taran Wall Performed By: Marivel Arroyo, ANGIE, RVT
--- NOTE | 2018-11-27 16:25 | EKG12_ITS ---
Test Reason : CELULITIS Blood Pressure : / mmHG Vent. Rate : 092 BPM Atrial Rate : 092 BPM P-R Int : 154 ms QRS Dur : 090 ms QT Int : 356 ms P-R-T Axes : -19 -01 024 degrees QTc Int : 440 ms Normal sinus rhythm with sinus arrhythmia Low voltage QRS Confirmed by FIONA RICHARDS, REYNA ([id number]), food editor MARYELLEN BARTLETT ([id number]) on 11/30/2018 1:45:38 PM Referred By: Ta Roberts Confirmed By:REYNA JAIMES MD
--- NOTE | 2018-11-27 16:25 | ED.VIS.GEN ---
History of Present Illness Chief Complaint: Cellulitis Detail of Chief Complaint: To ER because of concern for cellulitis by PCP Informant: Patient Onset: Days Context: Sudden Onset Timing: Continuous Quality: Discoloration right lower extremity beyond outlined area Location: Right leg Current Severity: Mild Maximum Severity: Moderate Worsened by: Nothing Relieved by: Patient states no longer bright red. Now purplish in color and swollen Associated Symptoms: Patient is tachycardic and she is tachypnic with minimal effort. Narrative: Patient is a 43-year-old woman who was recently admitted to [facility] for cellulitis with sepsis right lower leg. She was released from the hospital 2 days ago. She was seen by her doctor and sent to the ER for worsening cellulitis. Patient reports subjective fever. She does report palpitations and shortness of breath with activity. She noted that the leg is swollen. She states the leg was initially bright red. Is no longer bright red. She has no history of PE or DVT. She reports she is no longer on medicine for diabetes because she lost 138 pounds intentionally. She denies chest pain, pleuritic chest pain, hemoptysis. She denies orthopnea or PND. Prior similar symptoms: No Recent Illness/Hospitalization: Yes - Past Medical History (1) Hypertension Status: Chronic (2) Morbid obesity with body mass index of 50 or higher Status: Chronic (3) Pulmonary emboli Status: Chronic (4) Tobacco abuse disorder Status: Chronic Past Medical History - Allergies and Home Meds Allergies/Adverse Reactions: Allergies amoxicillin trihydrate [From Augmentin] Allergy (Verified 11/27/18 16:15) Rash buspirone HCl [From BuSpar] Allergy (Verified 11/27/18 16:15) Hives fentanyl Allergy (Verified 11/27/18 16:15) Other hallucinations allargy to patch only. does fine with iv latex Allergy (Verified 11/27/18 16:15) Rash potassium clavulanate [From Augmentin] Allergy (Verified 11/27/18 16:15) Rash Primary Care Physician: Taran Wall MD [Primary Care Provider] - Prior records reviewed: Yes - There is history of PE Surgical History: cholecystectomy, - - Cholecystectomy, multiple back surgeries x4 Lives: Alone Smoking Status: Current every day smoker Alcohol: None - Family History Maternal Family History: Reports: No pertinent history Paternal Family History: Reports: Heart Disease Review of Systems General: Denies: Chills, Fever, Malaise, Subjective, Sweats Eyes: Denies: Visual changes - bilaterally, Blurred Vision - bilaterally ENT: Denies: Bilateral ear pain, Rhinorrhea, Sore throat Cardiovascular: Reports: Heart racing. Denies: Chest pain, Palpitations Respiratory: Reports: Dyspnea on exertion. Denies: Dyspnea, Sputum, Orthopnea, Paroxysmal nocturnal dyspnea Gastrointestinal: Denies: Abdominal pain, Nausea, Vomiting, Diarrhea, Melena, Hematochezia Genitourinary: Denies: Dysuria, Hematuria, Frequency Musculoskeletal: Reports: Swelling, Extremity Pain. Denies: Myalgias, Arthralgias, Neck pain, Back pain Skin: Reports: Rash Neurological: Denies: Headache, Weakness, Parasthesia Psych: Denies: Depression Endocrine: Denies: Polyuria Hematologic: Denies: Easy bruising, Easy bleeding Physical Exam Vital Signs/Narrative: Vital Signs Temp Pulse Resp BP Pulse Ox 11/27/18 16:15 97.7 F L 126 H 16 163/103 H 97 Inital Vital Signs reviewed: Yes General: Well nourished, Well developed, Obese, No Acute Distress Head: Normocephalic, Atraumatic Eyes: Perrl, EOMI. Negative for: Pale conjunctiva, Scleral icterus, - ENT: Moist mucous membranes, No rhinorrhea, TM's clear Neck: Supple, Nontender, No lymphadenopathy, No JVD Cardiovascular: Regular rhythm, No murmurs, Normal S1, Normal S2, Tachycardia Respiratory: CTA bilaterally, Chest nontender, - - Patient is breathing more rapidly and 6 times a minute and breathing is labored with conversational dyspnea with activity. Abdomen: Soft, Nontender, Nondistended, Normal bowel sounds, No masses Back: Nontender. Negative for: Normal Inspection Extremities: No edema, Tenderness - There is tenderness along the distribution of deep venous system. There is significant swelling with discoloration. Concerned this represents a DVT and not cellulitis. There is no popliteal or inguinal lymphadenopathy.. Negative for: Nontender Skin: Normal color, Rash. Negative for: Cyanosis, Diaphoresis, Jaundice Neurological: Alert, Oriented x3, Cranial nerves II-XII grossly intact, Normal Strength, Normal Sensation Psychological: Normal affect, Normal Mood Diagnostic/Tx/Re-eval Chest X-Ray - ED: 2 View, Read by ED Physician, Normal, Heart, Lungs, Mediastinum, Bony Structures, No Acute Disease, - - Tory volume is slightly diminished. There is degenerative changes of the thoracic vertebrae noted on lateral. Impressions Chest X-Ray 11/27/18 16:52 IMPRESSION: Normal x-ray examination of the chest. Electronically Signed: Taran Owens MD at 17:16 EDT Tel , Service support , Chest CTA 11/27/18 17:31 IMPRESSION: No pulmonary embolus. Pericardial effusion. Electronically Signed: Taran Owens MD at 18:18 EDT Tel , Service support , 11/27/18 16:52 Chest PA and Lateral [RAD] Stat 11/27/18 17:31 CTA Chest W/WO Contrast [CT] Stat Laboratory Results 11/27/18 11/27/18 16:47 16:47 WBC 10.7 RBC 4.83 Hgb 14.4 Hct 43.2 MCV 89.4 MCH 29.8 MCHC 33.3 RDW 13.4 RDW Differential 43.5 Plt Count 336 MPV 9.6 Immature Gran % (Auto) 0.800 Neut % (Auto) 66.9 Lymph % (Auto) 23.6 [place] % (Auto) 7.9 Eos % (Auto) 0.5 Baso % (Auto) 0.3 Absolute Neuts (auto) 7.1 Absolute Lymphs (auto) 2.52 Total Counted Not Reportable Sodium 139 Potassium 3.7 Chloride 106 Carbon Dioxide 24.0 Anion Gap 9 BUN 20 H Creatinine 0.95 Estim Creat Clear Calc 71.48 Est GFR (MDRD) Af Amer 82 Est GFR (MDRD) Non-Af 68 BUN/Creatinine Ratio 21.1 H Glucose 120 H Calcium 9.3 - Rhythm Strip Rhythm Strip: Sinus Tach Rate: 120 - EKG Initial EKG Interpretation: Sinus Rhythm - Ventricular rate is 92. There is respiratory variation. The EKG is otherwise normal. [place] interval, QRS duration and axis are normal. - Medical Decision Making With prior history of pulmonary embolus tachycardia dyspnea with minimal activity need to entertain possibility of PE. Her right lower leg is markedly swollen compared to left with discoloration of toes on the distribution deep venous system. Will obtain venous duplex study to assess for DVT. If there is a DVT presumed she has a PE. Baseline blood work was obtained to assess CBC and rule out anemia. BMP was obtained to assess electrolytes, CO2 anion gap and renal function in the event a CTA is indicated. EKG was obtained to determine rhythm since she is tachycardic with a heart rate of 126 and evaluate for ischemia. Patient was made aware of CAT scan results. Upon further questioning she had exertional dyspnea over the past 3 days. In light of the pericardial effusion which radiologist measured 16 mm in depth will call hospitalist for admission and echo in the morning. Will add troponin, ESR and CRP. The hospitalist requested I speak with Dr. Chaves. I spoke with Dr. Chaves explain patient's history physical concerns. He states he will evaluate her in the emerge department and perform a bedside ultrasound to determine if it is appropriate to keep her aunt was to come to the hospital versus transfer to tertiary care center. Dr. Chaves did evaluated. Based on his bedside portable ultrasound machine EF appears normal. He recommended 23 observation formal echo in the morning and will determine if the nuclear stress test is warranted. ED Disposition - Plan for ED Patient: Disposition: Acute Care Hospital [facility] Diagnosis: Acute pericardial effusion, Dyspnea on effort, Sinus tachycardia seen on radiation monitor Referrals: Taran Wall MD [Primary Care Provider] -
--- NOTE | 2018-11-27 16:30 | ED.DCSUM_ITS ---
History of Present Illness Chief Complaint: Cellulitis Detail of Chief Complaint: To ER because of concern for cellulitis by PCP Informant: Patient Onset: Days Context: Sudden Onset Timing: Continuous Quality: Discoloration right lower extremity beyond outlined area Location: Right leg Current Severity: Mild Maximum Severity: Moderate Worsened by: Nothing Relieved by: Patient states no longer bright red. Now purplish in color and swollen Associated Symptoms: Patient is tachycardic and she is tachypnic with minimal effort. Narrative: Patient is a 43-year-old woman who was recently admitted to [facility] for cellulitis with sepsis right lower leg. She was released from the hospital 2 days ago. She was seen by her doctor and sent to the ER for worsening cellulitis. Patient reports subjective fever. She does report palpitations and shortness of breath with activity. She noted that the leg is swollen. She states the leg was initially bright red. Is no longer bright red. She has no history of PE or DVT. She reports she is no longer on medicine for diabetes because she lost 138 pounds intentionally. She denies chest pain, pleuritic chest pain, hemoptysis. She denies orthopnea or PND. Prior similar symptoms: No Recent Illness/Hospitalization: Yes - Past Medical History (1) Hypertension Status: Chronic (2) Morbid obesity with body mass index of 50 or higher Status: Chronic (3) Pulmonary emboli Status: Chronic (4) Tobacco abuse disorder Status: Chronic Past Medical History - Allergies and Home Meds Allergies/Adverse Reactions: Allergies amoxicillin trihydrate [From Augmentin] Allergy (Verified 11/27/18 16:15) Rash buspirone HCl [From BuSpar] Allergy (Verified 11/27/18 16:15) Hives fentanyl Allergy (Verified 11/27/18 16:15) Other hallucinations allargy to patch only. does fine with iv latex Allergy (Verified 11/27/18 16:15) Rash potassium clavulanate [From Augmentin] Allergy (Verified 11/27/18 16:15) Rash Primary Care Physician: Taran Wall MD [Primary Care Provider] - Prior records reviewed: Yes - There is history of PE Surgical History: cholecystectomy, - - Cholecystectomy, multiple back surgeries x4 Lives: Alone Smoking Status: Current every day smoker Alcohol: None - Family History Maternal Family History: Reports: No pertinent history Paternal Family History: Reports: Heart Disease Review of Systems General: Denies: Chills, Fever, Malaise, Subjective, Sweats Eyes: Denies: Visual changes - bilaterally, Blurred Vision - bilaterally ENT: Denies: Bilateral ear pain, Rhinorrhea, Sore throat Cardiovascular: Reports: Heart racing. Denies: Chest pain, Palpitations Respiratory: Reports: Dyspnea on exertion. Denies: Dyspnea, Sputum, Orthopnea, Paroxysmal nocturnal dyspnea Gastrointestinal: Denies: Abdominal pain, Nausea, Vomiting, Diarrhea, Melena, Hematochezia Genitourinary: Denies: Dysuria, Hematuria, Frequency Musculoskeletal: Reports: Swelling, Extremity Pain. Denies: Myalgias, Arthralgias, Neck pain, Back pain Skin: Reports: Rash Neurological: Denies: Headache, Weakness, Parasthesia Psych: Denies: Depression Endocrine: Denies: Polyuria Hematologic: Denies: Easy bruising, Easy bleeding Physical Exam Vital Signs/Narrative: Vital Signs Temp Pulse Resp BP Pulse Ox 11/27/18 16:15 97.7 F L 126 H 16 163/103 H 97 Inital Vital Signs reviewed: Yes General: Well nourished, Well developed, Obese, No Acute Distress Head: Normocephalic, Atraumatic Eyes: Perrl, EOMI. Negative for: Pale conjunctiva, Scleral icterus, - ENT: Moist mucous membranes, No rhinorrhea, TM's clear Neck: Supple, Nontender, No lymphadenopathy, No JVD Cardiovascular: Regular rhythm, No murmurs, Normal S1, Normal S2, Tachycardia Respiratory: CTA bilaterally, Chest nontender, - - Patient is breathing more rapidly and 6 times a minute and breathing is labored with conversational dyspnea with activity. Abdomen: Soft, Nontender, Nondistended, Normal bowel sounds, No masses Back: Nontender. Negative for: Normal Inspection Extremities: No edema, Tenderness - There is tenderness along the distribution of deep venous system. There is significant swelling with discoloration. Concerned this represents a DVT and not cellulitis. There is no popliteal or inguinal lymphadenopathy.. Negative for: Nontender Skin: Normal color, Rash. Negative for: Cyanosis, Diaphoresis, Jaundice Neurological: Alert, Oriented x3, Cranial nerves II-XII grossly intact, Normal Strength, Normal Sensation Psychological: Normal affect, Normal Mood Diagnostic/Tx/Re-eval Chest X-Ray - ED: 2 View, Read by ED Physician, Normal, Heart, Lungs, Mediastinum, Bony Structures, No Acute Disease, - - Tory volume is slightly diminished. There is degenerative changes of the thoracic vertebrae noted on lateral. Impressions Chest X-Ray 11/27/18 16:52 IMPRESSION: Normal x-ray examination of the chest. Electronically Signed: Taran Owens MD at 17:16 EDT Tel , Service support , Chest CTA 11/27/18 17:31 IMPRESSION: No pulmonary embolus. Pericardial effusion. Electronically Signed: Taran Owens MD at 18:18 EDT Tel , Service support , 11/27/18 16:52 Chest PA and Lateral [RAD] Stat 11/27/18 17:31 CTA Chest W/WO Contrast [CT] Stat Laboratory Results 11/27/18 11/27/18 16:47 16:47 WBC 10.7 RBC 4.83 Hgb 14.4 Hct 43.2 MCV 89.4 MCH 29.8 MCHC 33.3 RDW 13.4 RDW Differential 43.5 Plt Count 336 MPV 9.6 Immature Gran % (Auto) 0.800 Neut % (Auto) 66.9 Lymph % (Auto) 23.6 [place] % (Auto) 7.9 Eos % (Auto) 0.5 Baso % (Auto) 0.3 Absolute Neuts (auto) 7.1 Absolute Lymphs (auto) 2.52 Total Counted Not Reportable Sodium 139 Potassium 3.7 Chloride 106 Carbon Dioxide 24.0 Anion Gap 9 BUN 20 H Creatinine 0.95 Estim Creat Clear Calc 71.48 Est GFR (MDRD) Af Amer 82 Est GFR (MDRD) Non-Af 68 BUN/Creatinine Ratio 21.1 H Glucose 120 H Calcium 9.3 - Rhythm Strip Rhythm Strip: Sinus Tach Rate: 120 - EKG Initial EKG Interpretation: Sinus Rhythm - Ventricular rate is 92. There is respiratory variation. The EKG is otherwise normal. [place] interval, QRS duration and axis are normal. - Medical Decision Making With prior history of pulmonary embolus tachycardia dyspnea with minimal activity need to entertain possibility of PE. Her right lower leg is markedly swollen compared to left with discoloration of toes on the distribution deep venous system. Will obtain venous duplex study to assess for DVT. If there is a DVT presumed she has a PE. Baseline blood work was obtained to assess CBC and rule out anemia. BMP was obtained to assess electrolytes, CO2 anion gap and renal function in the event a CTA is indicated. EKG was obtained to determine rhythm since she is tachycardic with a heart rate of 126 and evaluate for ischemia. Patient was made aware of CAT scan results. Upon further questioning she had exertional dyspnea over the past 3 days. In light of the pericardial effusion which radiologist measured 16 mm in depth will call hospitalist for admission and echo in the morning. Will add troponin, ESR and CRP. The hospitalist requested I speak with Dr. Chaves. I spoke with Dr. Chaves explain patient's history physical concerns. He states he will evaluate her in the emerge department and perform a bedside ultrasound to determine if it is appropriate to keep her aunt was to come to the hospital versus transfer to tertiary care center. Dr. Chaves did evaluated. Based on his bedside portable ultrasound machine EF appears normal. He recommended 23 observation formal echo in the morning and will determine if the nuclear stress test is warranted. ED Disposition - Plan for ED Patient: Disposition: Acute Care Hospital [facility] Diagnosis: Acute pericardial effusion, Dyspnea on effort, Sinus tachycardia seen on instructional design technologist Referrals: Taran Wall MD [Primary Care Provider] -
--- NOTE | 2018-11-27 16:33 | ED.RN ---
PT WITH ERYTHEMATIC AND PURPLE DISCOLORATION TO RIGHT LOWER LEG. PT REPORTS IT STARTED ON FRIDAY AND SHE WAS ADMITTED TO [facility] ON FRIDAY FOR CELLULITIS. PT REDNESS SPREADING BEYOND MARKED POINT. INCREASED PAIN IN RIGHT LOWER EXTREMITY. PULSES INTACT +2/2. AREA NON BLANCHABLE.
--- NOTE | 2018-11-27 16:52 | RAD_ITS ---
STUDY: X-RAY CHEST REASON FOR EXAM: Female, 43 years old. Shortness of breath TECHNIQUE: Frontal and lateral views of the chest. COMPARISON: 01/02/2018 FINDINGS: The lungs are clear and expanded. There is no demonstrated pleural abnormality. Normal size heart. Normal mediastinum and marilin. Normal visualized pulmonary arteries. Normal visualized aortic arch and descending thoracic aorta. Normal visualized thoracic spine. Normal visualized ribs, clavicles, and shoulders. There is no demonstrated abnormality of the visualized soft tissue structures of the upper abdomen. RAD/Chest PA and Lateral IMPRESSION: Normal x-ray examination of the chest. Electronically Signed: Taran Owens MD at 17:16 EDT Tel , Service support ,
[2018-11-27 17:10] LABS: Anion Gap 9 (5-15); BUN 20 mg/dL (7-18); BUN/Creat Ratio 21.1 RATIO (10-20); Calcium,Total 9.3 mg/dL (8.5-10.1); Chloride 106 mmol/L (98-107); Creatinine, Serum 0.95 mg/dL (0.55-1.02); EST Glomerular Filtration Rate 68 mL/min (>60); Est Glom Filt Rate - Afr Amer 82 mL/min (>60); Estimated Creatinine Clearance 71.48 ml/min; Glucose 120 mg/dL (74-106); Potassium 3.7 mmol/L (3.5-5.1); Sodium Level 139 mmol/L (136-145)
[2018-11-27 17:28] LABS: Absolute Lymphocyte Count 2.52 X10^3/ul (0.83-4.51); Absolute Neutrophil Count 7.1 X10^3/uL (2.0-7.7); Basophil# 0.03 X10^3/uL; Basophil% 0.3 % (0-1); Eosinophil# 0.05 X10^3/uL; Eosinophils% 0.5 % (0-5); Hematocrit 43.2 % (37-47); Hemoglobin 14.4 g/dl (12.0-15.0); Lymphocyte # 2.52 X10^3/ul (4.0); Lymphocyte % 23.6 % (19-41); Mean Corp Hgb Conc 33.3 g/gl (32-36); Mean Corpuscular Hgb 29.8 pg (27.0-32.0); Mean Corpuscular Volume 89.4 fL (81-99); Mean Platelet Vol. 9.6 fl (6.2-12.0); Monocyte# 0.84 X10^3/uL; Monocyte% 7.9 % (0-10); Neutrophil # 7.14 X10^3/uL (2.7-7.7); Neutrophil % 66.9 % (47-70); Platelet Count 336 K/mm3 (150-450); RBC Distribution Width CV 13.4 % (11.6-14.6); RBC Distribution Width SD 43.5 fl (35.1-43.9); Red Blood Count 4.83 M/mm3 (4.2-5.4); White Blood Count 10.7 K/mm3 (4.4-11.0)
--- NOTE | 2018-11-27 17:31 | CT_ITS ---
STUDY: CTA CHEST REASON FOR EXAM: Female, 43 years old. Dyspnea RADIATION DOSAGE (If Supplied By Facility): CTDIvol = ( 12.66 ) mGy, DLP = ( 539.46 ) mGycm TECHNIQUE: The examination was performed with the intravenous administration of 100 IV Isovue 370. Post-processing of the angiographic images was performed, with multiplanar reformation and 3D reconstruction. Individualized dose optimization techniques were used for this CT. COMPARISON: 02/05/2017 FINDINGS: Normal enhancement of the main pulmonary artery and right and left pulmonary arteries. Normal enhancement of the bilateral peripheral pulmonary arteries. There is no demonstrated pulmonary embolism. Normal thoracic aorta and visualized great vessels. There is no demonstrated aortic dissection. Pericardial effusion measuring 16 mm in depth. Normal mediastinum. Normal hilar regions. Normal visualized trachea and bronchi. The lungs are well expanded. Normal pulmonary parenchyma. Normal pleura. Normal chest wall structures. Normal osseous structures. Anterior abdominal wall hernia containing a portion of transverse colon. Gastric bypass. CT/CTA Chest W/WO Contrast IMPRESSION: No pulmonary embolus. Pericardial effusion. Electronically Signed: Taran Owens MD at 18:18 EDT Tel , Service support ,
[2018-11-27 17:34] LABS: POSITIVE COUNT NO; POSITIVE DIFFERENTIAL NO; POSITIVE MORPHOLOGY NO
[2018-11-27] MEDS: Ondansetron 4 MG/2 ML Vial IV (17:47)
[2018-11-27] MEDS: morphine 8 MG/ML Syringe 6 MG IV (17:47)
--- NOTE | 2018-11-27 19:16 | ED.RN ---
PER DR. YUAN. SEPSIS SCREENING CAN BE COMPLETED.
--- NOTE | 2018-11-27 19:24 | HP.PCM_ITS ---
Problem List (1) Pericardial effusion Status: Acute (2) Cellulitis of leg, right Status: Acute History of Present Illness Date of Admission: 11/27/18 Chief Complaint: worsening of recent right leg cellulitis The patient is a 43 year old F with a significant history of hypertension; morbid obesity status post gastric sleeve surgery in August 2018 with resolution of diabetes mellitus; pulmonary embolism; and anxiety disorder who presented to the emergency department because of worsening of right leg cellulitis. Reportedly she may have been bitten by a spider about 2 weeks ago and afterwards developed redness; swelling and pain of her right leg. She was admitted at [facility] on November 22, 2018 and was discharged on November 25, 2018. Reportedly, while inpatient at [facility] she got treated with vancomycin; doxycycline IV and a third antibiotic, that she can not remember the name. She was eventually discharged home on doxycycline p.o. However she reported that while at home she was having low-grade fever with maximal temperature of 100.1 F for which she took Tylenol. Also she reports chills; nausea and pain at her right leg.. She thinks that her cellulitis was rather worsening. She saw her PCP who also noted that the redness on the right lower leg had extended beyond a marked area. She was advised to come to emergency department. Emergent department doctor actually thought that her cellulitis was improving. However because patient complained of shortness of breath a decision was made to admit patient. Patient complains of shortness of breath with mild exertion that has been going on for about 1 week. Venous Doppler of the lower extremities did not show DVT. However a CT chest showed pericardial effusion. Emergency department doctor discussed the case with cardiology who did a bedside echocardiogram. Reportedly her bedside echocardiogram showed normal ejection fraction. Per emergency department doctor cardiology wants patient to be admitted for a comprehensive echo next day. Past Medical History Past Medical History (Chronic Problems): Chronic Problems Anxiety disorder (Chronic) Morbid obesity with body mass index of 50 or higher (Chronic) Pulmonary emboli (Chronic) Chronic low back pain (Chronic) Hypertension (Chronic) Spondylosis of lumbar region without myelopathy or radiculopathy (Chronic) Tobacco abuse disorder (Chronic) Allergies amoxicillin trihydrate [From Augmentin] Allergy (Verified 11/27/18 16:15) Rash buspirone HCl [From BuSpar] Allergy (Verified 11/27/18 16:15) Hives fentanyl Allergy (Verified 11/27/18 16:15) Other hallucinations allargy to patch only. does fine with iv latex Allergy (Verified 11/27/18 16:15) Rash potassium clavulanate [From Augmentin] Allergy (Verified 11/27/18 16:15) Rash Home Medications: Ambulatory Orders Medication Instructions Recorded Amlodipine [Norvasc] 5 mg PO DAILY 08/01/15 Pantoprazole Sodium [Protonix] 20 mg PO BID 11/13/18 Docusate Sodium 200 mg PO QHS PRN PRN 11/27/18 Doxycycline Hyclate 100 mg PO BID 11/27/18 Gabapentin [Neurontin] 300 mg PO BID 11/27/18 Hydrocodone Bitart/Apap 5-325 1 tablet PO BID PRN PRN 11/27/18 [[place] 5MG-325MG] Hydroxyzine HCl 25 mg PO DAILY PRN PRN 11/27/18 Methocarbamol [Robaxin] 500 mg PO BID 11/27/18 Nystatin [Nystop] 1 applic TP TID PRN PRN 11/27/18 Oxybutynin [Ditropan] 5 mg PO BID 11/27/18 Quetiapine Fumarate [Seroquel] 300 mg PO DAILY 11/27/18 Venlafaxine HCl [Effexor] 100 mg PO BID 11/27/18 Surgical History: cholecystectomy, - - Cholecystectomy, multiple back surgeries x4 Lives: With Family Smoking Status: Former smoker Alcohol: None - *Family History Maternal History Items: Heart Disease, Stroke Paternal History Items: Cancer, Diabetes, Heart Disease Review of Systems Constitutional: Reports: Chills, Fever, Weight Change - Lost about 130 pounds after gastric sleeve surgery in August 2018. HEENT: Denies: Head Aches, Sinus Congestion, Sinus Drainage Cardiovascular: Denies: Chest Pain, Palpitations Respiratory: Reports: Shortness of breath upon exertion. Denies: Cough, Shortness of breath at rest, Sputum production Gastrointestinal: Reports: Nausea. Denies: Abdominal Pain, Vomiting Genitourinary: Denies: Dysuria Musculoskeletal: Denies: Joint Pain, Joint Tenderness Skin: Denies: Rash, Wounds Neurological: Denies: Numbness, Tingling, Focal weakness Psychiatric: Reports: Anxiety. Denies: Homicidal Ideations, Suicidal Ideations Hematologic/ Lymphatic: Denies: Easy Bruising, Easy Bleeding VTE Information - Inpt Only VTE Present on Admission: No VTE Mechan Device Prophylaxis: None VTE Pharm Prophylaxis ordered?: Yes Patient Problems: Active and Suspected Problems Acute pericardial effusion (Acute) Dyspnea on effort (Acute) Sinus tachycardia seen on nuclear monitoring technician (Acute) Pericardial effusion (Acute) Cellulitis of leg, right (Acute) - Physical Exam General: Alert, Oriented x3, Cooperative HEENT: Atraumatic, PERRLA, EOMI, Normocephalic Neck: Supple, No JVD, Negative Carotid Bruits Lungs: Clear to auscultation, Normal air movement, Tachypneic Cardiovascular: Regular rate, No murmurs Abdomen: Bowel Sounds Present, Soft, Non Tender Extremities: No edema, Capillary Refill Less than 3 Seconds Skin: - - Erythema and increased warmth on right leg. Scabbed area on right leg attributed to probably a spider bite. Musculoskeletal: Tenderness - R leg Neurological: Neuro grossly intact Psych/Mental Status: Normal Affect, Appropriate Vital Signs Temp Pulse Resp BP Pulse Ox 98.6 F 72 27 H 119/79 99 11/27/18 17:38 11/27/18 18:43 11/27/18 18:43 11/27/18 18:43 11/27/18 18:43 Oxygen Delivery Method Room Air Weight: 128 kg Body Mass Index (BMI) 45.5 Finger Stick Blood Glucose 169 Laboratory Tests Past 24 Hrs 11/27/18 11/27/18 16:47 16:47 WBC 10.7 RBC 4.83 Hgb 14.4 Hct 43.2 MCV 89.4 MCH 29.8 MCHC 33.3 RDW 13.4 RDW Differential 43.5 Plt Count 336 MPV 9.6 Immature Gran % (Auto) 0.800 Neut % (Auto) 66.9 Lymph % (Auto) 23.6 Villalba % (Auto) 7.9 Eos % (Auto) 0.5 Baso % (Auto) 0.3 Absolute Neuts (auto) 7.1 Absolute Lymphs (auto) 2.52 Total Counted Not Reportable Sodium 139 Potassium 3.7 Chloride 106 Carbon Dioxide 24.0 Anion Gap 9 BUN 20 H Creatinine 0.95 Estim Creat Clear Calc 71.48 Est GFR (MDRD) Af Amer 82 Est GFR (MDRD) Non-Af 68 BUN/Creatinine Ratio 21.1 H Glucose 120 H Calcium 9.3 Assessment/Plan All Active Problems Sacroiliitis, not elsewhere classified (Acute) Sacroiliitis, not elsewhere classified (Acute) Myalgia, other site (Acute) Myalgia, other site (Acute) Piriformis muscle pain (Acute) Piriformis muscle pain (Acute) Piriformis syndrome (Acute) Piriformis syndrome (Acute) Acute pericardial effusion (Acute) Dyspnea on effort (Acute) Sinus tachycardia seen on nuclear monitoring technician (Acute) Pericardial effusion (Acute) Cellulitis of leg, right (Acute) Spondylosis of lumbar region without myelopathy or radiculopathy (Acute) Paresthesia of right upper and lower extremity (Acute) Vertigo, constant (Acute) The patient is a 43 year old F with a significant history of hypertension; morbid obesity status post gastric sleeve surgery in August 2018 with resolution of diabetes mellitus; pulmonary embolism; and anxiety disorder who presented to the emergency department because of worsening of right leg cellulitis; shortness of breath with mild exertion and found to have a pericardial effusion on chest CT. Right leg cellulitis We will continue home doxycycline. Meanwhile we will add clindamycin for toxic effects of strep. Trend CBC and BMP. Get blood cultures. Continue home [place] that she takes for chronic back pain. [place] will be ordered for moderate pain. She reported she was given Dilaudid at [facility]. We will start patient on morphine as needed for severe pain. At our emergency department she received 4 mg morphine. Zofran as needed for pain. Continue home Colace PRN pain. Pericardial effusion Patient shortness of breath and radiographic evidence of pericardial effusion. Echocardiogram ordered. Trend troponin. ESR and CRP ordered emergency department was elevated. Get [facility] consult Hypertension On presentation blood pressure was markedly increased at 163/103. However her blood pressure was noted to to be trending down. Amlodipine continued Trend blood pressure and adjust blood pressure medications. Chronic back pain Neurontin; Methocarbamol and [place] prn. Anxiety Disorder Seroquel;Venlafaxine and hydroxyzine continued. Overactive bladder Ditropan continued GERD Protonix continued. DVT prophylaxis Because of her morbid obesity we will put on Lovenox 40 mEq subcutaneous twice daily. Code Visit Inpatient E&M: 28474 Init Hosp L3
[2018-11-27] MEDS: Morphine 4 MG/ML Syringe IV (19:54)
--- NOTE | 2018-11-27 20:44 | ED.RN ---
Dr. Chaves at bedside.
[2018-11-27 20:53] LABS: Erythrocyte Sedimentation Rate 96 mm/hr (0-20)
--- NOTE | 2018-11-27 22:12 | CON.PCM_ITS ---
Reason for Consult Date of Consultation: 11/27/18 Reason for Consultation: Pericardial effusion. Chest discomfort. Shortness of breath. Hypertension. Cellulitis. Obesity History of Present Illness: The patient is a 43 year old white female who is referred for evaluation of pericardial effusion. The patient states the best of her knowledge she has no definitive neovascular history. She states she has been evaluated noninvasively in the past at [facility] where she underwent diagnostic cardiac catheterization which she believes was negative and then a later date a transthoracic echocardiogram which she also believes was negative. She has not required continued outpatient cardiovascular follow-up. Her concerns recently have been the report of an insect bite to her right calf area with subsequent findings compatible with cellulitis. She states this [facility] based upon concerns of fever and cellulitis. She was released home. She presented to her PCP this day for follow-up. Based upon continued concerns of low-grade fevers and an abnormal appearing lower extremity with erythema and edema and also a purplish discoloration she was referred to the emergency department for evaluation. There she was thought to have resolving cellulitis, however, based upon concerns of possible underlying venous thrombosis she underwent evaluation with a noninvasive study which was reportedly negative. Also based upon a past history of thromboembolic disease with pulmonary emboli she underwent a chest CT scan which was negative for great vessel disease or thromboembolic disease but raise concerns of a pericardial effusion. She states she has had intermittent low-grade fevers. She has not complained of ongoing chest discomfort, especially positional suggestive of underlying pericarditis, other than when she takes a deep breath and feels back discomfort. She states she has been somewhat chronically short of breath which she has contributed to her obesity. She denies any other history of acute orthopnea or PND or previous lower extremity edema. There is been no near syncope or syncope. She states she has undergone gastric sleeve surgery earlier this year. Following that she was anticoagulated for approximately 1 month. She states that she has lost well over 100 pounds but still unfortunately remains obese. In the emergency department she was evaluated. She was found to have elevated ESR and CRP levels. An ECG was obtained which demonstrated sinus rhythm with low voltage QRS with no acute ECG changes. Cardiology was consulted to evaluate the patient based upon concerns of the p ericardial effusion. A quick look hand-held bedside portable transthoracic echocardiogram was performed. This was a technically diminished quality study thought secondary the patient's underlying body habitus. However, based on the images obtained, there appeared to be the suggestion of grossly normal right and left ventricular size, wall motion, and systolic function and potentially a small pericardial effusion with no obvious evidence of cardiovascular compromise. [] Past Medical History Allergies/Adverse Reactions: Allergies amoxicillin trihydrate [From Augmentin] Allergy (Verified 11/27/18 16:15) Rash buspirone HCl [From BuSpar] Allergy (Verified 11/27/18 16:15) Hives fentanyl Allergy (Verified 11/27/18 16:15) Other hallucinations allargy to patch only. does fine with iv latex Allergy (Verified 11/27/18 16:15) Rash potassium clavulanate [From Augmentin] Allergy (Verified 11/27/18 16:15) Rash Home Medications: Ambulatory Orders Medication Instructions Recorded Amlodipine [Norvasc] 5 mg PO DAILY 08/01/15 Pantoprazole Sodium [Protonix] 20 mg PO BID 11/13/18 Docusate Sodium 200 mg PO QHS PRN PRN 11/27/18 Doxycycline Hyclate 100 mg PO BID 11/27/18 Gabapentin [Neurontin] 300 mg PO BID 11/27/18 Hydrocodone Bitart/Apap 5-325 1 tablet PO BID PRN PRN 11/27/18 [[place] 5MG-325MG] Hydroxyzine HCl 25 mg PO DAILY PRN PRN 11/27/18 Methocarbamol [Robaxin] 500 mg PO BID 11/27/18 Nystatin [Nystop] 1 applic TP TID PRN PRN 11/27/18 Oxybutynin [Ditropan] 5 mg PO BID 11/27/18 Quetiapine Fumarate [Seroquel] 300 mg PO DAILY 11/27/18 Venlafaxine HCl [Effexor] 100 mg PO BID 11/27/18 Past Medical History (Chronic Problems): Chronic Problems Anxiety disorder (Chronic) Morbid obesity with body mass index of 50 or higher (Chronic) Pulmonary emboli (Chronic) Chronic low back pain (Chronic) Hypertension (Chronic) Spondylosis of lumbar region without myelopathy or radiculopathy (Chronic) Tobacco abuse disorder (Chronic) Surgical History: cholecystectomy, - - Cholecystectomy, multiple back surgeries x4 - *Family History Maternal History Items: Heart Disease, Stroke Paternal History Items: Cancer, Diabetes, Heart Disease Lives: With Family Smoking Status: Former smoker Alcohol: None Drugs: None Review of Systems - Review of Systems General: Reports: Fever. Denies: Fatigue, Night Sweats Cardiovascular: Reports: Chest Discomfort, Shortness of Breath, Peripheral Edema. Denies: Orthopnea, PND, Palpitations, Lightheadedness, Dizziness, Near Syncope, Syncope Respiratory: Reports: Shortness of Breath. Denies: Cough, Sputum Production, Hemoptysis Gastrointestinal: Reports: Abdominal Discomfort - Epigastric tenderness to palpation. Denies: Hematemesis, Hematochezia, Melena Genitourinary: Denies: Dysuria, Hematuria Skin: Denies: Rash Subjectve: This is a 43-year-old obese white female who appears to be in no acute distress. Objective: Vital Signs Temp Pulse Resp BP Pulse Ox 98.4 F 82 20 H 132/73 H 96 11/27/18 21:27 11/27/18 21:27 11/27/18 21:27 11/27/18 21:27 11/27/18 21:27 Oxygen Delivery Method Room Air Weight: 282 lb 3.067 oz Body Mass Index (BMI) 45.5 Finger Stick Blood Glucose 169 General: Awake, Alert, Oriented x 3, Cooperative, No Acute Distress, Obese HEENT: Atraumatic, Normocephalic, PERRL, EOMI, Sclera Non Icteric Oral: Moist Mucosa Neck: Supple, Good ROM, No JVD Lungs: - - No obvious rales or rhonchi Cardiovascular: Regular Rhythm, Normal S1, Normal S2 Abdomen: Bowel Sounds Present, Soft, - - Positive epigastric tenderness to palpation Extremities: Moderate RLE Edema Musculoskeletal: Erythema - Right lower extremity, Warmth - Right lower extremity Psych/Mental Status: Appropriate 11/27/18 16:47: WBC 10.7, RBC 4.83, Hgb 14.4, Hct 43.2, MCV 89.4, MCH 29.8, MCHC 33.3, RDW 13.4, RDW Differential 43.5, Plt Count 336, MPV 9.6, Immature Gran % (Auto) 0.800, Neut % (Auto) 66.9, Lymph % (Auto) 23.6, Luna % (Auto) 7.9, Eos % (Auto) 0.5, Baso % (Auto) 0.3, Absolute Neuts (auto) 7.1, Total Counted Not Reportable 11/27/18 16:47: Sodium 139, Potassium 3.7, Chloride 106, Carbon Dioxide 24.0, Anion Gap 9, BUN 20 H, Creatinine 0.95, Est GFR (MDRD) Af Amer 82, Est GFR (MDRD) Non-Af 68, BUN/Creatinine Ratio 21.1 H, Glucose 120 H, Calcium 9.3 11/27/18 16:47: Troponin I < 0.015 Rhythm: Sinus rhythm EKG: As noted above ECHO: As noted above Chest CT Scan: As noted above Assessment/Plan 1. Pericardial effusion The patient does have an underlying pericardial effusion noted by chest CT scan and subsequently noted by quick look hand-held bedside portable transthoracic echocardiogram. Based upon the echocardiographic images obtained, which were technically difficult secondary to patient's underlying body habitus, the pericardial effusion appeared to be small and there appeared to be no obvious cardiovascular compromise. The etiology of the pericardial effusion is unclear at this time. It is unclear as to whether or not the patient has had a chronic pericardial effusion that has been unknown. It is unclear whether this could be related to an underlying acute inflammatory or infectious related issue at this time if and especially noting the patient has the right lower extremity ongoing cellulitis. At the present time the patient is going to be monitored. A request will be made for a formal transthoracic echocardiogram for further evaluation and care. As the patient's clinical course progresses she may or may not need further cardiovascular diagnostic studies and/or therapeutic intervention with respect to the pericardial effusion. 2. Chest discomfort The patient has chest discomfort when she takes a deep breath. It appears somewhat pleuritic in nature. She has been evaluated for any acute drastic issues involving great vessel disease or thromboembolic disease. Based upon her chest CT scan this was unremarkable. The patient has undergone invasive and noninvasive cardiovascular evaluation in the past which did not demonstrate any evidence of underlying CAD according to her interpretation. She states she never required any additional cardiovascular diagnostic studies, intervention, or follow-up. At the moment she can be followed noninvasively with appropriate laboratory studies and ECG follow-up. She can be considered for a pharmacologic stress nuclear imaging study to evaluate for any obvious evidence of ongoing myocardial ischemia that would warrant further evaluation care when deemed appropriate. She may need continued noncardiac evaluation of her discomfort. 3. Shortness of breath She does have an element of shortness of breath. She states this is been somewhat chronic. She is contributed this to her obesity despite her marked weight loss. She has undergone evaluation for any acute thoracic related issues/pulmonary issues as noted above. This is been negative. She is not known to have other cardiovascular disease that would contribute to her shortness of breath and dyspnea. She will continue noninvasive cardiovascular evaluation as noted above. 4. Hypertension She will need to continue medical management as deemed appropriate. 5. Cellulitis She does have right lower extremity cellulitis. She will continue evaluation care per internal medicine. 6. Obesity She has undergone evaluation care for this. She has lost over 100 pounds. Comment: The patient also had epigastric discomfort on examination. Is unclear whether this is related to her previous gastric sleeve surgery and whether this contributes to her difficulty with chest discomfort with deep inspiration, etc. She may need further evaluation and care by internal medicine for this issue. Comment: The patient's case was discussed and reviewed with patient and Dr. Salinas of the [facility] emergency department staff. This note was generated with [employer] dictation software. It may contain incorrect words, spelling, and punctuation that were not noted in checking the note before signing.
[2018-11-28] VITALS (12 sets, daily range): BP systolic 108–154; BP diastolic 59–92; PULSE 64–84; RESP 14–16; TEMP 36.4–36.9; O2SAT 94–97
[2018-11-28] MEDS: Doxycycline 100 MG CAPSULE PO ×3 (00:58→21:29)
[2018-11-28] MEDS: Oxybutynin 5 MG Tablet PO ×3 (00:58→21:28)
[2018-11-28] MEDS: Gabapentin 300 MG Capsule PO ×3 (00:59→21:30)
[2018-11-28] MEDS: Pantoprazole Sodium 20 MG Tablet PO ×3 (01:00→21:30)
[2018-11-28] MEDS: Methocarbamol 500 MG Tablet PO ×3 (01:00→21:30)
[2018-11-28] MEDS: QUEtiapine 100 MG Tablet 300 MG PO ×2 (01:00→21:30)
[2018-11-28] MEDS: Morphine 2 MG/ML Syringe IV ×6 (01:17→23:57)
[2018-11-28 05:20] LABS: Anion Gap 9 (5-15); BUN 17 mg/dL (7-18); BUN/Creat Ratio 21.1 RATIO (10-20); Calcium,Total 8.9 mg/dL (8.5-10.1); Chloride 109 mmol/L (98-107); EST Glomerular Filtration Rate 83 mL/min (>60); Est Glom Filt Rate - Afr Amer 100 mL/min (>60); Estimated Creatinine Clearance 84.88 ml/min; Glucose 99 mg/dL (74-106); Potassium 3.9 mmol/L (3.5-5.1); Sodium Level 139 mmol/L (136-145)
--- NOTE | 2018-11-28 05:55 | ECHOCS_ITS ---
Reason For Study: DYSPNEA/SOB Procedure This was a 2D Doppler, Color Flow transthoracic echocardiogram. The study was technically difficult. Due to body habitus. Contrast injection was performed. Exam performed portable in patient room. Left Ventricle Normal LV size. Left ventricular systolic function is normal. The estimated ejection fraction is 60 %. Transmitral doppler flow suggestive of impaired relaxation of left ventricle. No regional wall motion abnormalities noted. Right Ventricle Normal RV size. Normal systolic function. Atria Normal left atrium. Normal right atrium. No doppler evidence for ASD. Mitral Valve There is no mitral annular calcification. Normal mitral valve. Trivial mitral valve insufficiency. Tricuspid Valve Normal tricuspid valve. Trivial tricuspid valve insufficiency. Unable to estimate RV systolic pressure/pulmonary artery pressure due to technically difficult study. Aortic Valve The aortic valve is not well visualized. Pulmonic Valve The pulmonic valve is not well visualized. Great Vessels Normal sized aortic root. Pericardium/Pleural Epicardial fat. Trivial pericardial effusion. There are no echocardiographic indications of cardiac tamponade. Medication Diluted definity 3.0ml given slow IV push to enhance endocardial definition. MMode/2D Measurements & Calculations LVIDd: 4.6 cm IVSd: 0.91 cm Ao root diam: 2.8 cm LVIDs: 2.9 cm LVPWd: 0.84 cm RVDd: 2.9 cm FS: 37.5 % LAV(MOD-bp): 40.8 ml LA A4 area: 15.2 cm2 LA dimension(2D): 3.6 cm LAV(MOD-bp) Indexed: 17.6 ml/m2 LAV(MOD-sp2): 34.5 ml LAV(MOD-sp4): 39.4 ml RA A4 area: 13.1 cm2 Time Measurements MV dec time: 0.22 sec Doppler Measurements & Calculations MV E max chavez: 80.1 cm/sec Lat Peak E' Chavez: 8.8 cm/sec Med Peak E' Chavez: 6.7 cm/sec MV A max chavez: 89.5 cm/sec E/E' lat: 9.1 E/E' med: 11.9 MV E/A: 0.90 Ao V2 max: 136.5 cm/sec LV V1 max: 108.0 cm/sec PA V2 max: 96.3 cm/sec Ao max P.5 mmHg LV V1 max P.7 mmHg Interpretation Summary The study was technically difficult. Contrast injection was performed. Left ventricular systolic function is normal. The estimated ejection fraction is 60 %. Trivial mitral valve insufficiency. Trivial tricuspid valve insufficiency. Epicardial fat. Trivial pericardial effusion. There are no echocardiographic indications of cardiac tamponade. Unable to estimate RV systolic pressure/pulmonary artery pressure due to technically difficult study. Transmitral doppler flow suggestive of impaired relaxation of left ventricle Ordering Physician: Ta Roberts Referring Physician: Taran Wall Performed By: Marivel Arroyo RDCS, RVT
--- NOTE | 2018-11-28 05:55 | EKG12_ITS ---
Test Reason : AM EKG Blood Pressure : / mmHG Vent. Rate : 061 BPM Atrial Rate : 061 BPM P-R Int : 150 ms QRS Dur : 098 ms QT Int : 426 ms P-R-T Axes : 007 000 016 degrees QTc Int : 428 ms Normal sinus rhythm Normal ECG Confirmed by FIONA RICHARDS, REYNA ([id number]), electronic news gathering editor MARYELLEN BARTLETT ([id number]) on 12/04/2018 6:47:42 AM Referred By: Ta Roberts Confirmed By:REYNA JAIMES MD
[2018-11-28 06:05] LABS: Hematocrit 39.4 % (37-47); Hemoglobin 13.5 g/dl (12.0-15.0); Mean Corp Hgb Conc 34.3 g/gl (32-36); Mean Corpuscular Hgb 31.2 pg (27.0-32.0); Mean Platelet Vol. 9.2 fl (6.2-12.0); Platelet Count 270 K/mm3 (150-450); RBC Distribution Width CV 13.5 % (11.6-14.6); RBC Distribution Width SD 45.2 fl (35.1-43.9); Red Blood Count 4.33 M/mm3 (4.2-5.4); White Blood Count 7.6 K/mm3 (4.4-11.0)
[2018-11-28 06:06] LABS: Scan Indicated on CBC? Y/N NO
[2018-11-28 06:09] LABS: International Normalized Ratio 1.1
[2018-11-28 06:10] LABS: Partial Thromboplast Time 28.7 Seconds (24.1-36.2)
--- NOTE | 2018-11-28 10:49 | PCM.PN.HOSP ---
Patient Problems: Active and Suspected Problems Acute pericardial effusion (Acute) Dyspnea on effort (Acute) Sinus tachycardia seen on psychiatric social worker (Acute) Pericardial effusion (Acute) Cellulitis of leg, right (Acute) Subjective: Still with redness on right leg. Was hospitalized at [facility] with cellulitis from 11/22-and discharged with doxycylcine, which she said she was complaint with. Vitals/I&O's: Vital Signs Temp Pulse Resp BP Pulse Ox 36.4 C L 64 16 119/63 94 11/28/18 05:00 11/28/18 06:55 11/28/18 05:00 11/28/18 05:00 11/28/18 07:11 Oxygen Delivery Method Room Air Weight: 125.5 kg Body Mass Index (BMI) 44.6 Finger Stick Blood Glucose 169 Intake and Output for Last 24 Hours 11/26/18 11/27/18 11/28/18 23:59 23:59 23:59 Intake Total 502 / 502 Balance 502 / 502 General: Alert, No apparent distress HEENT: Atraumatic, Normocephalic Oral: Moist Mucosa, No Gingival or Mucosal Lesions/ Ulcerations Neck: No Nodes, Thyroid Normal Size and Texture Lungs: Clear to auscultation, Normal air movement Cardiovascular: Regular rate, Regular Rhythm, - - distant HS. Abdomen: Bowel Sounds Present, Soft Extremities: No edema, No Calf Tenderness Psych/Mental Status: Normal Affect, Appropriate Laboratory Results 11/27/18 16:47: WBC 10.7, RBC 4.83, Hgb 14.4, Hct 43.2, MCV 89.4, MCH 29.8, MCHC 33.3, RDW 13.4, RDW Differential 43.5, Plt Count 336, MPV 9.6, Immature Gran % (Auto) 0.800, Neut % (Auto) 66.9, Lymph % (Auto) 23.6, [place] % (Auto) 7.9, Eos % (Auto) 0.5, Baso % (Auto) 0.3, Absolute Neuts (auto) 7.1, Absolute Lymphs (auto) 2.52, Total Counted Not Reportable 11/27/18 16:47: Sodium 139, Potassium 3.7, Chloride 106, Carbon Dioxide 24.0, Anion Gap 9, BUN 20 H, Creatinine 0.95, Estim Creat Clear Calc 71.48, Est GFR (MDRD) Af Amer 82, Est GFR (MDRD) Non-Af 68, BUN/Creatinine Ratio 21.1 H, Glucose 120 H, Calcium 9.3 11/27/18 16:47: Troponin I < 0.015, C-React Prot Ext Range 24.80 H 11/27/18 16:47: ESR 96 H 11/27/18 22:59: Troponin I < 0.015 11/28/18 01:50: Troponin I < 0.015 11/28/18 04:30: Sodium 139, Potassium 3.9, Chloride 109 H, Carbon Dioxide 21.0, Anion Gap 9, BUN 17, Creatinine 0.80, Estim Creat Clear Calc 84.88, Est GFR (MDRD) Af Amer 100, Est GFR (MDRD) Non-Af 83, BUN/Creatinine Ratio 21.1 H, Glucose 99, Calcium 8.9, Troponin I < 0.015 11/28/18 05:48: GRAYSON Screen Pending, ALBA-1 Antibody Pending, SS-A/Ro IgG Antibody Pending, SS-B/La IgG Antibody Pending, Sm ([place]) Antibody Pending, WHIPPED TOPPING SUPERVISOR Antibody Pending, Scl-70 Scleroderma Ab Pending, Double Strand DNA Ab Pending, Centromere B Antibody Pending 11/28/18 05:48: WBC 7.6, RBC 4.33, Hgb 13.5, Hct 39.4, MCV 91.0, MCH 31.2, MCHC 34.3, RDW 13.5, RDW Differential 45.2 H, Plt Count 270, MPV 9.2 11/28/18 05:48: PT 14.0, INR 1.1, APTT 28.7 Current Medications Acetaminophen (Tylenol) 650 mg PO Q6H PRN PRN PRN Reason: Mild pain 1-3/Temp > 100.7 F Hydrocodone Bitart/Acetaminophen ([place] 5mg-325mg) 1 tablet PO BID PRN PRN PRN Reason: MODERATE PAIN (4-5/10) Amlodipine Besylate (Norvasc) 5 mg PO DAILY ISATU Dextrose (D50w Syringe) 0 gm IV X1 PRN; Protocol PRN Reason: Hypoglycemia Docusate Sodium (Colace) 200 mg PO QHS PRN PRN PRN Reason: Constipation Doxycycline Monohydrate (Doxycycline) 100 mg PO BID [facility] Last Admin: 11/28/18 00:58 Dose: 100 mg Enoxaparin Sodium (Lovenox) 40 mg SC BID [facility] Last Admin: 11/28/18 00:26 Dose: Not Given Gabapentin (Neurontin) 300 mg PO BID [facility] Last Admin: 11/28/18 00:59 Dose: 300 mg Glucagon () 1 mg IM .X1 PRN PRN Reason: Hypoglycemia Hydroxyzine Pamoate (Vistaril Pamoate Capsule) 25 mg PO DAILY PRN PRN PRN Reason: ANXIETY Vancomycin IV Pharmacy to Dose (1 ea/ Sodium Chloride) 500 mls @ 250 mls/hr IV X1 PRN; Protocol PRN Reason: Rx to Dose Melatonin (Melatonin) 3 mg PO QHS PRN PRN PRN Reason: INSOMNIA Methocarbamol (Robaxin) 500 mg PO BID [facility] Last Admin: 11/28/18 01:00 Dose: 500 mg Morphine Sulfate () 2 mg IV Q3H PRN PRN PRN Reason: Severe Pain (7-10/10) Last Admin: 11/28/18 05:09 Dose: 2 mg Nystatin (Mycostatin Powder) 1 applic TOPICAL TID [facility]; Protocol Last Admin: 11/28/18 05:10 Dose: Not Given Ondansetron HCl (Zofran) 4 mg IV Q8H PRN PRN PRN Reason: NAUSEA/VOMITING Oxybutynin Chloride (Ditropan) 5 mg PO BID [facility] Last Admin: 11/28/18 00:58 Dose: 5 mg Pantoprazole Sodium (Protonix) 20 mg PO BID [facility] Last Admin: 11/28/18 01:00 Dose: 20 mg Quetiapine Fumarate (Seroquel) 300 mg PO DAILY@2200 [facility] Last Admin: 11/28/18 01:00 Dose: 300 mg Sodium Chloride () 5 - 15 ml IV UD PRN PRN Reason: SALINE FLUSH Venlafaxine HCl (Effexor) 100 mg PO BID [facility] Last Admin: 11/28/18 00:59 Dose: 100 mg Medical Necessity - Tobacco Use Smoking Status: Former smoker Tobacco Use: Cigarettes Assessment/Plan All Active Problems Sacroiliitis, not elsewhere classified (Acute) Sacroiliitis, not elsewhere classified (Acute) Myalgia, other site (Acute) Myalgia, other site (Acute) Piriformis muscle pain (Acute) Piriformis muscle pain (Acute) Piriformis syndrome (Acute) Piriformis syndrome (Acute) Acute pericardial effusion (Acute) Dyspnea on effort (Acute) Sinus tachycardia seen on psychiatric social worker (Acute) Pericardial effusion (Acute) Cellulitis of leg, right (Acute) Spondylosis of lumbar region without myelopathy or radiculopathy (Acute) Paresthesia of right upper and lower extremity (Acute) Vertigo, constant (Acute) 1. RLE cellulitis expanded beyond the prior line of demarcation check MRSA DC clindamycin, start vancomycin monitor reviewed records from [facility] 2. pericardial effusion reviewed records from [facility] December 2017: no pericardial effusion at that time follow up echo Autoimmune panel ordered cardiology following 3. chest pain: resting only stress performed in [place] in 05/2018, which was negative (could not find out why an exercise portion not completed) stress ordered trops negative x 4 4. VTE prophylaxis: LMWH Code Visit Inpatient E&M: 99970 Subs Hosp L2
--- NOTE | 2018-11-28 10:59 | PN_ITS ---
Patient Problems: Active and Suspected Problems Acute pericardial effusion (Acute) Dyspnea on effort (Acute) Sinus tachycardia seen on panel monitor (Acute) Pericardial effusion (Acute) Cellulitis of leg, right (Acute) Subjective: Still with redness on right leg. Was hospitalized at [facility] with cellulitis from 11/22-and discharged with doxycylcine, which she said she was complaint with. Vitals/I&O's: Vital Signs Temp Pulse Resp BP Pulse Ox 36.4 C L 64 16 119/63 94 11/28/18 05:00 11/28/18 06:55 11/28/18 05:00 11/28/18 05:00 11/28/18 07:11 Oxygen Delivery Method Room Air Weight: 125.5 kg Body Mass Index (BMI) 44.6 Finger Stick Blood Glucose 169 Intake and Output for Last 24 Hours 11/26/18 11/27/18 11/28/18 23:59 23:59 23:59 Intake Total 502 / 502 Balance 502 / 502 General: Alert, No apparent distress HEENT: Atraumatic, Normocephalic Oral: Moist Mucosa, No Gingival or Mucosal Lesions/ Ulcerations Neck: No Nodes, Thyroid Normal Size and Texture Lungs: Clear to auscultation, Normal air movement Cardiovascular: Regular rate, Regular Rhythm, - - distant HS. Abdomen: Bowel Sounds Present, Soft Extremities: No edema, No Calf Tenderness Psych/Mental Status: Normal Affect, Appropriate Laboratory Results 11/27/18 16:47: WBC 10.7, RBC 4.83, Hgb 14.4, Hct 43.2, MCV 89.4, MCH 29.8, MCHC 33.3, RDW 13.4, RDW Differential 43.5, Plt Count 336, MPV 9.6, Immature Gran % (Auto) 0.800, Neut % (Auto) 66.9, Lymph % (Auto) 23.6, [place] % (Auto) 7.9, Eos % (Auto) 0.5, Baso % (Auto) 0.3, Absolute Neuts (auto) 7.1, Absolute Lymphs (auto) 2.52, Total Counted Not Reportable 11/27/18 16:47: Sodium 139, Potassium 3.7, Chloride 106, Carbon Dioxide 24.0, Anion Gap 9, BUN 20 H, Creatinine 0.95, Estim Creat Clear Calc 71.48, Est GFR (MDRD) Af Amer 82, Est GFR (MDRD) Non-Af 68, BUN/Creatinine Ratio 21.1 H, Glucose 120 H, Calcium 9.3 11/27/18 16:47: Troponin I < 0.015, C-React Prot Ext Range 24.80 H 11/27/18 16:47: ESR 96 H 11/27/18 22:59: Troponin I < 0.015 11/28/18 01:50: Troponin I < 0.015 11/28/18 04:30: Sodium 139, Potassium 3.9, Chloride 109 H, Carbon Dioxide 21.0, Anion Gap 9, BUN 17, Creatinine 0.80, Estim Creat Clear Calc 84.88, Est GFR (MDRD) Af Amer 100, Est GFR (MDRD) Non-Af 83, BUN/Creatinine Ratio 21.1 H, Glucose 99, Calcium 8.9, Troponin I < 0.015 11/28/18 05:48: GRAYSON Screen Pending, ALBA-1 Antibody Pending, SS-A/Ro IgG Antibody Pending, SS-B/La IgG Antibody Pending, Sm ([place]) Antibody Pending, DESK CLERKS SUPERVISOR Antibody Pending, Scl-70 Scleroderma Ab Pending, Double Strand DNA Ab Pending, Centromere B Antibody Pending 11/28/18 05:48: WBC 7.6, RBC 4.33, Hgb 13.5, Hct 39.4, MCV 91.0, MCH 31.2, MCHC 34.3, RDW 13.5, RDW Differential 45.2 H, Plt Count 270, MPV 9.2 11/28/18 05:48: PT 14.0, INR 1.1, APTT 28.7 Current Medications Acetaminophen (Tylenol) 650 mg PO Q6H PRN PRN PRN Reason: Mild pain 1-3/Temp > 100.7 F Hydrocodone Bitart/Acetaminophen ([place] 5mg-325mg) 1 tablet PO BID PRN PRN PRN Reason: MODERATE PAIN (4-5/10) Amlodipine Besylate (Norvasc) 5 mg PO DAILY ISATU Dextrose (D50w Syringe) 0 gm IV X1 PRN; Protocol PRN Reason: Hypoglycemia Docusate Sodium (Colace) 200 mg PO QHS PRN PRN PRN Reason: Constipation Doxycycline Monohydrate (Doxycycline) 100 mg PO BID [facility] Last Admin: 11/28/18 00:58 Dose: 100 mg Enoxaparin Sodium (Lovenox) 40 mg SC BID [facility] Last Admin: 11/28/18 00:26 Dose: Not Given Gabapentin (Neurontin) 300 mg PO BID [facility] Last Admin: 11/28/18 00:59 Dose: 300 mg Glucagon () 1 mg IM .X1 PRN PRN Reason: Hypoglycemia Hydroxyzine Pamoate (Vistaril Pamoate Capsule) 25 mg PO DAILY PRN PRN PRN Reason: ANXIETY Vancomycin IV Pharmacy to Dose (1 ea/ Sodium Chloride) 500 mls @ 250 mls/hr IV X1 PRN; Protocol PRN Reason: Rx to Dose Melatonin (Melatonin) 3 mg PO QHS PRN PRN PRN Reason: INSOMNIA Methocarbamol (Robaxin) 500 mg PO BID [facility] Last Admin: 11/28/18 01:00 Dose: 500 mg Morphine Sulfate () 2 mg IV Q3H PRN PRN PRN Reason: Severe Pain (7-10/10) Last Admin: 11/28/18 05:09 Dose: 2 mg Nystatin (Mycostatin Powder) 1 applic TOPICAL TID [facility]; Protocol Last Admin: 11/28/18 05:10 Dose: Not Given Ondansetron HCl (Zofran) 4 mg IV Q8H PRN PRN PRN Reason: NAUSEA/VOMITING Oxybutynin Chloride (Ditropan) 5 mg PO BID [facility] Last Admin: 11/28/18 00:58 Dose: 5 mg Pantoprazole Sodium (Protonix) 20 mg PO BID [facility] Last Admin: 11/28/18 01:00 Dose: 20 mg Quetiapine Fumarate (Seroquel) 300 mg PO DAILY@2200 [facility] Last Admin: 11/28/18 01:00 Dose: 300 mg Sodium Chloride () 5 - 15 ml IV UD PRN PRN Reason: SALINE FLUSH Venlafaxine HCl (Effexor) 100 mg PO BID [facility] Last Admin: 11/28/18 00:59 Dose: 100 mg Medical Necessity - Tobacco Use Smoking Status: Former smoker Tobacco Use: Cigarettes Assessment/Plan All Active Problems Sacroiliitis, not elsewhere classified (Acute) Sacroiliitis, not elsewhere classified (Acute) Myalgia, other site (Acute) Myalgia, other site (Acute) Piriformis muscle pain (Acute) Piriformis muscle pain (Acute) Piriformis syndrome (Acute) Piriformis syndrome (Acute) Acute pericardial effusion (Acute) Dyspnea on effort (Acute) Sinus tachycardia seen on panel monitor (Acute) Pericardial effusion (Acute) Cellulitis of leg, right (Acute) Spondylosis of lumbar region without myelopathy or radiculopathy (Acute) Paresthesia of right upper and lower extremity (Acute) Vertigo, constant (Acute) 1. RLE cellulitis * expanded beyond the prior line of demarcation * check MRSA * DC clindamycin, start vancomycin * monitor * reviewed records from [facility] 2. pericardial effusion * reviewed records [facility] December 2017: no pericardial effusion at that time * follow up echo * Autoimmune panel ordered * cardiology following 3. chest pain: * resting only stress performed in [place] in 05/2018, which was negative (could not find out why an exercise portion not completed) * stress ordered * trops negative x 4 4. VTE prophylaxis: LMWH Code Visit Inpatient E&M: 90915 Subs Hosp L2
[2018-11-28] MEDS: amLODIPine 5 MG Tablet PO (11:01)
[2018-11-28] MEDS: Enoxaparin 40 MG/0.4 ML Syringe SC ×2 (11:02→21:29)
--- NOTE | 2018-11-28 11:02 | PCM.RX.CS ---
Consult Pharmacy has been consulted to manage selected antiobiotic: Vancomycin Type of Consult: New start Suspected Infection: Skin/Soft tissue Prior Doses of Antibiotics Received/Current Regimen: NONE Labs: Sodium 139 mmol/L (136-145) 11/28/18 04:30 Potassium 3.9 mmol/L (3.5-5.1) 11/28/18 04:30 Chloride 109 mmol/L (98-107) H 11/28/18 04:30 Carbon Dioxide 21.0 mmol/L (21.0-32.0) 11/28/18 04:30 Anion Gap 9 (5-15) 11/28/18 04:30 BUN 17 mg/dL (7-18) 11/28/18 04:30 Creatinine 0.80 mg/dL (0.55-1.02) 11/28/18 04:30 Est GFR (MDRD) Af Amer 100 mL/min (>60) 11/28/18 04:30 Est GFR (MDRD) Non-Af 83 mL/min (>60) 11/28/18 04:30 BUN/Creatinine Ratio 21.1 RATIO (10-20) H 11/28/18 04:30 Glucose 99 mg/dL (74-106) 11/28/18 04:30 Weight used for dosin.5 kg Estimated Creatinine Clearance: 85 ML/MIN Goal Trough: 15-20 mcg/mL Pharmacy Plan for Drug Dosing: Pharmacy to manage vancomycin per consult. Initial dose and scheduled dose is the same, will just start with scheduled dosing. PLAN/RECOMMENDATIONS 1. Vancomycin 2000mg IV Q12hrs to start 11/28/18 @1130 2. Trough scheduled prior to 4th total dose 11/29/18 @2300 3. Pharmacy Service will continue to monitor and adjust dosing as required.
[2018-11-28] MEDS: 0.9% NaCl Peripheral Flush Adult/Peds IV ×3 (11:10→20:18)
--- NOTE | 2018-11-28 12:38 | STRESSREP ---
Stress Test Report Date: 11-28-18 Procedure: Pharmacologic stress nuclear imaging study Indications: Chest pain Consent: Per the patient Procedure: The patient underwent pharmacologic (Regadenoson) evaluation with a peak heart rate of 98 beats per minute (55 %predicted maximal heart rate) and a peak blood pressure of 118/64 mmHg. The baseline ECG demonstrated normal sinus rhythm. The peak pharmacologic ECG demonstrated no obvious ECG changes. There were no cardiac dysrhythmias pretest, during pharmacologic infusion, or recovery. There was no complaint of chest discomfort during pharmacologic infusion or recovery. The examination was discontinued secondary to completion of protocol. Impression: 1. Pharmacologic (Regadenoson) evaluation 2. Peak pharmacologic ECG with no obvious ECG changes. 3. There were no cardiac dysrhythmias pretest, during pharmacologic infusion, or recovery. 4. Nuclear images pending Myocardial perfusion imaging study: Technique: The patient was injected with 15.0 millicuries of technetium 99m Cardiolite and subsequently rest SPECT Cardiolite nuclear imaging was obtained in the horizontal long, vertical long, and short axis views. The patient underwent pharmacologic (Regadenoson) evaluation with a peak heart rate of 98 beats per minute (55 % percent predicted maximal heart rate) and a peak blood pressure of 118/64 mmHg. The patient was injected with 45.0 millicuries of technetium 99m Cardiolite and subsequently stress SPECT Cardiolite nuclear imaging was obtained in the horizontal long, vertical long, and short axis views. A gated Cardiolite study at peak stress was obtained. Interpretation: Rest and stress SPECT Cardiolite nuclear imaging status post realignment, normalization, and attenuation correction demonstrate relative uniform tracer uptake and myocardial perfusion appearing within normal limits. There is end systolic thickening and brightening. The gated Cardiolite study demonstrates myocardial thickening and inward wall motion. The reported LVEF is 80 %. Impression: 1. Rest and stress SPECT Cardiolite nuclear imaging demonstrate relative uniform tracer uptake and myocardial perfusion appearing within normal limits. 2. The gated Cardiolite study reports an LVEF of 80 %. This note was generated with [employer] software. It may contain incorrect words, spelling, and punctuation that were not noted in checking the note before signing.
--- NOTE | 2018-11-28 14:23 | PN.CARD_ITS ---
Subjectve: The patient was evaluated earlier this day. She had no new acute cardiovascular complaints. Objective: Vital Signs Temp Pulse Resp BP Pulse Ox 97.9 F 78 14 139/75 H 97 11/28/18 10:55 11/28/18 11:33 11/28/18 10:55 11/28/18 10:55 11/28/18 10:55 Oxygen Delivery Method Room Air Weight: 276 lb 10.882 oz Body Mass Index (BMI) 44.6 Finger Stick Blood Glucose 169 Intake and Output for Last 24 Hours 11/26/18 11/27/18 11/28/18 23:59 23:59 23:59 Intake Total 742 / 742 Balance 742 / 742 General: Awake, Alert, Oriented x 3, Cooperative, No Acute Distress, Obese HEENT: Atraumatic, Normocephalic, PERRL, EOMI, Sclera Non Icteric Oral: Moist Mucosa Neck: Supple, Good ROM, No JVD Lungs: - - No obvious rales or rhonchi Cardiovascular: Regular Rhythm, Normal S1, Normal S2 Abdomen: Bowel Sounds Present, Soft, - - Positive epigastric tenderness to palpation Extremities: Moderate RLE Edema Psych/Mental Status: Appropriate 11/27/18 16:47: WBC 10.7, RBC 4.83, Hgb 14.4, Hct 43.2, MCV 89.4, MCH 29.8, MCHC 33.3, RDW 13.4, RDW Differential 43.5, Plt Count 336, MPV 9.6, Immature Gran % (Auto) 0.800, Neut % (Auto) 66.9, Lymph % (Auto) 23.6, [place] % (Auto) 7.9, Eos % (Auto) 0.5, Baso % (Auto) 0.3, Absolute Neuts (auto) 7.1, Total Counted Not Reportable 11/27/18 16:47: Sodium 139, Potassium 3.7, Chloride 106, Carbon Dioxide 24.0, Anion Gap 9, BUN 20 H, Creatinine 0.95, Est GFR (MDRD) Af Amer 82, Est GFR (MDRD) Non-Af 68, BUN/Creatinine Ratio 21.1 H, Glucose 120 H, Calcium 9.3 11/27/18 16:47: Troponin I < 0.015 11/27/18 22:59: Troponin I < 0.015 11/28/18 01:50: Troponin I < 0.015 11/28/18 04:30: Sodium 139, Potassium 3.9, Chloride 109 H, Carbon Dioxide 21.0, Anion Gap 9, BUN 17, Creatinine 0.80, Est GFR (MDRD) Af Amer 100, Est GFR (MDRD) Non-Af 83, BUN/Creatinine Ratio 21.1 H, Glucose 99, Calcium 8.9, Troponin I < 0.015 11/28/18 05:48: WBC 7.6, RBC 4.33, Hgb 13.5, Hct 39.4, MCV 91.0, MCH 31.2, MCHC 34.3, RDW 13.5, RDW Differential 45.2 H, Plt Count 270, MPV 9.2 11/28/18 05:48: PT 14.0, INR 1.1, APTT 28.7 Rhythm: Sinus rhythm EKG: Sinus rhythm Echocardiogram: Interpretation Summary The study was technically difficult. Contrast injection was performed. Left ventricular systolic function is normal. The estimated ejection fraction is 60 %. Trivial mitral valve insufficiency. Trivial tricuspid valve insufficiency. Epicardial fat. Trivial pericardial effusion. There are no echocardiographic indications of cardiac tamponade. Unable to estimate RV systolic pressure/pulmonary artery pressure due to technically difficult study. Transmitral doppler flow suggestive of impaired relaxation of left ventricle Stress test: Stress Test Report Date: 11-28-18 Procedure: Pharmacologic stress nuclear imaging study Indications: Chest pain Consent: Per the patient Procedure: The patient underwent pharmacologic (Regadenoson) evaluation with a peak heart rate of 98 beats per minute (55 %predicted maximal heart rate) and a peak blood pressure of 118/64 mmHg. The baseline ECG demonstrated normal sinus rhythm. The peak pharmacologic ECG demonstrated no obvious ECG changes. There were no cardiac dysrhythmias pretest, during pharmacologic infusion, or recovery. There was no complaint of chest discomfort during pharmacologic infusion or recovery. The examination was discontinued secondary to completion of protocol. Impression: 1. Pharmacologic (Regadenoson) evaluation 2. Peak pharmacologic ECG with no obvious ECG changes. 3. There were no cardiac dysrhythmias pretest, during pharmacologic infusion, or recovery. 4. Nuclear images pending Myocardial perfusion imaging study: Technique: The patient was injected with 15.0 millicuries of technetium 99m Cardiolite and subsequently rest SPECT Cardiolite nuclear imaging was obtained in the horizontal long, vertical long, and short axis views. The patient underwent pharmacologic (Regadenoson) evaluation with a peak heart rate of 98 beats per minute (55 % percent predicted maximal heart rate) and a peak blood pressure of 118/64 mmHg. The patient was injected with 45.0 millicuries of technetium 99m Cardiolite and subsequently stress SPECT Cardiolite nuclear imaging was obtained in the horizontal long, vertical long, and short axis views. A gated Cardiolite study at peak stress was obtained. Interpretation: Rest and stress SPECT Cardiolite nuclear imaging status post realignment, normalization, and attenuation correction demonstrate relative uniform tracer uptake and myocardial perfusion appearing within normal limits. There is end systolic thickening and brightening. The gated Cardiolite study demonstrates myocardial thickening and inward wall motion. The reported LVEF is 80 %. Impression: 1. Rest and stress SPECT Cardiolite nuclear imaging demonstrate relative uniform tracer uptake and myocardial perfusion appearing within normal limits. 2. The gated Cardiolite study reports an LVEF of 80 %. Medical Necessity - Tobacco Use Smoking Status: Former smoker Tobacco Use: Cigarettes Assessment/Plan 1. Pericardial effusion The patient has undergone further evaluation with transthoracic echocardiogram. Based upon her echocardiographic images it appears she has an underlying epicardial fat pad and a trivial pericardial effusion with no obvious cardiovascular compromise. The present time it does not appear she requires further cardiac diagnostic studies or therapeutic intervention with respect to this finding. She should continue noncardiovascular evaluation of her underlying inflammatory/infectious disease issue. 2. Chest discomfort The patient has also undergone further evaluation with cardiac enzyme analysis. This was negative. Her ECG is demonstrated no acute ECG changes. Her pharmacologic stress nuclear imaging study demonstrates no obvious evidence of underlying stress-induced myocardial ischemia. She should continue noncardiac evaluation of her chest discomfort. 3. Shortness of breath She does have an element of shortness of breath. She states this is been somewhat chronic. She is contributed this to her obesity despite her marked weight loss. She has undergone evaluation for any acute thoracic related issues/pulmonary issues as noted above. This is been negative. Based upon her above noninvasive studies it does not appear that she has an underlying obvious cardiovascular issue to explain her shortness of breath/dyspnea. Thus she should continue noncardiac evaluation of this concern. 4. Hypertension She will need to continue medical management as deemed appropriate. 5. Cellulitis She does have right lower extremity cellulitis. She will continue evaluation care per internal medicine. 6. Obesity She has undergone evaluation care for this. She has lost over 100 pounds. Comment: The patient also had epigastric discomfort on examination. Is unclear whether this is related to her previous gastric sleeve surgery and whether this contributes to her difficulty with chest discomfort with deep inspiration, etc. She may need further evaluation and care by internal medicine for this issue. Comment: From a cardiovascular standpoint, at the present time, barring a change in her clinical course, it does not appear she requires further cardiac diagnostic studies or therapeutic intervention other than risk factor evaluation care as deemed appropriate. She can be reassessed from a cardiovascular standpoint as deemed appropriate. Otherwise she will continue under the care of internal medicine for her noncardiovascular conditions. This note was generated with [employer] dictation software. It may contain incorrect words, spelling, and punctuation that were not noted in checking the note before signing.
[2018-11-28] MEDS: Nystatin Powder 15gm Bottle 1 APPLIC TOPICAL ×2 (16:16→21:27)
--- NOTE | 2018-11-28 22:54 | NURSING ---
IV restart attempted x 3, unable to obtain. Called nursing construction supervisor/carpenter to start.
[2018-11-29] VITALS: PULSE 88
[2018-11-29 02:56] VITALS: BP 114/57; PULSE 87; RESP 18; TEMP 36.6; O2SAT 97
[2018-11-29 03:26] VITALS: PULSE 67
[2018-11-29 05:47] VITALS: BP 113/76; PULSE 53; RESP 16
[2018-11-29] MEDS: Morphine 2 MG/ML Syringe IV ×2 (05:49→09:33)
[2018-11-29] MEDS: 0.9% NaCl Peripheral Flush Adult/Peds IV ×2 (05:50→09:33)
[2018-11-29] MEDS: Nystatin Powder 15gm Bottle 1 APPLIC TOPICAL (05:50)
[2018-11-29 06:56] VITALS: PULSE 67
[2018-11-29 08:44] VITALS: BP 118/58; PULSE 60; RESP 14; TEMP 36.6; O2SAT 99
[2018-11-29] MEDS: Gabapentin 300 MG Capsule PO (08:48)
[2018-11-29] MEDS: Oxybutynin 5 MG Tablet PO (08:48)
[2018-11-29] MEDS: Pantoprazole Sodium 20 MG Tablet PO (08:48)
[2018-11-29] MEDS: Methocarbamol 500 MG Tablet PO (08:48)
[2018-11-29] MEDS: Doxycycline 100 MG CAPSULE PO (08:49)
[2018-11-29] MEDS: amLODIPine 5 MG Tablet PO (08:49)
[2018-11-29] MEDS: Enoxaparin 40 MG/0.4 ML Syringe SC (10:25)
--- NOTE | 2018-11-29 10:33 | PCM.DC ---
- Discharge Diagnoses Current Active Problems: Current Active and Chronic Problems Acute pericardial effusion (Acute) Dyspnea on effort (Acute) Sinus tachycardia seen on night monitor (Acute) Pericardial effusion (Acute) Cellulitis of leg, right (Acute) You will use the following diet at home:: No restrictions Your food should be the consistency of: Regular Discharge Activity: Return to Normal Activity Call your doctor if your incision/area has: Increased Pain/ Swelling, Increased Redness Call your doctor if you observe: Fever of 101 or Higher Allergies/Adverse Reactions: Allergies amoxicillin trihydrate [From Augmentin] Allergy (Verified 11/27/18 16:15) Rash buspirone HCl [From BuSpar] Allergy (Verified 11/27/18 16:15) Hives fentanyl Allergy (Verified 11/27/18 16:15) Other hallucinations allargy to patch only. does fine with iv latex Allergy (Verified 11/27/18 16:15) Rash potassium clavulanate [From Augmentin] Allergy (Verified 11/27/18 16:15) Rash Medications to take at Discharge Amlodipine [Norvasc] 5 mg PO DAILY 08/01/15 Pantoprazole Sodium [Protonix] 20 mg PO BID 11/13/18 Docusate Sodium 200 mg PO QHS PRN PRN 11/27/18 Gabapentin [Neurontin] 300 mg PO BID 11/27/18 Hydrocodone Bitart/Apap 5-325 [[place] 5/325] 1 tablet PO BID PRN PRN 11/27/18 Hydroxyzine HCl 25 mg PO QHS PRN PRN 11/27/18 Methocarbamol [Robaxin] 500 mg PO BID 11/27/18 Nystatin [Nystop] 1 applic TP TID PRN PRN 11/27/18 Oxybutynin [Ditropan] 5 mg PO BID 11/27/18 Quetiapine Fumarate [Seroquel] 300 mg PO QHS 11/27/18 Venlafaxine HCl [Effexor] 100 mg PO BID 11/27/18 Ibuprofen 600 mg PO 4X/DAY #1 tablet 11/29/18 Smz/Tmp Ds [Bactrim Ds] 1 tablet PO BID #12 tablet 11/29/18 The following prescriptions were given: Smz/Tmp Ds [Bactrim Ds] 1 tablet PO BID #12 tablet Ibuprofen 600 mg PO 4X/DAY #1 tablet Primary Care Physician: Taran Wall MD [Primary Care Provider] - Within 1 Week Test Results: Test results from this visit will be discussed in further detail at your follow-up appointment, if applicable. Proposed Discharge Date: 11/29/18
--- NOTE | 2018-11-29 10:35 | PCM.DC.SUM ---
Discharge Date and Diagnosis - Problem List Patient Problems: Active and Suspected Problems Cellulitis of right leg without foot (Acute) Cellulitis of leg, right (Acute) Date of Admission: 11/27/18 Date of Discharge: 11/29/18 - Primary Discharge Diagnosis Active and Suspected Problems Cellulitis of right leg without foot (Acute) Acute pericardial effusion (Acute) Dyspnea on effort (Acute) Sinus tachycardia seen on phototypesetting equipment monitor (Acute) Pericardial effusion (Acute) Cellulitis of leg, right (Acute) 1. RLE cellulitis improving with vancomycin will DC with Bactrim DS (no keflex given pcn allergy). dc doxycylcine. for 6 more days (7 total) reviewed records from [facility] 2. pericardial effusion ruled out epicardial fat on echo reviewed records from [facility] December 2017: no pericardial effusion at that time no further cardiac work up. 3. chest pain: stress negative resting only stress performed in [place] in 05/2018, which was negative (could not find out why an exercise portion not completed) trops negative x 4 - Secondary Discharge Diagnosis Chronic Problems Anxiety disorder (Chronic) Morbid obesity with body mass index of 50 or higher (Chronic) Pulmonary emboli (Chronic) Chronic low back pain (Chronic) Hypertension (Chronic) Spondylosis of lumbar region without myelopathy or radiculopathy (Chronic) Tobacco abuse disorder (Chronic) Hospital Course and Treatment Imaging Results: Clinical Impression(s) from Imaging Studies Chest X-Ray 11/27/18 16:52 IMPRESSION: Normal x-ray examination of the chest. Electronically Signed: Taran Owens MD at 17:16 EDT Tel , Service support , Chest CTA 11/27/18 17:31 IMPRESSION: No pulmonary embolus. Pericardial effusion. Electronically Signed: Taran Owens MD at 18:18 EDT Tel , Service support , Carl Chaves MD: cardiology. Operations: None Procedures: 2-D Echocardiogram, Stress test Summary of Care Provided: The patient is a 43 year old F is with worsening of her colitis. Patient was seen at outside hospital and was discharged on the . Patient was discharged with doxycycline. Patient noted increased redness of her lower extremity. Patient was started on Alistair Meissen but it was really not improving much and then subsequent changed over to vancomycin did have dramatic improvement. Patient today will be discharged with the Bactrim to complete a 7-day course of antibiotics including the day of vancomycin that she received here. Patient had a CAT scan because she was having chest pain and showed a possible pericardial effusion. Patient was seen in consultation by cardiology and did a preliminary echocardiogram that showed no tamponade. Patient underwent a formal echocardiogram that just showed epicardial fat. Therefore the effusion that was seen was really this epicardial fat. She did have a trace pericardial effusion but not what was seen on the CAT scan. No further cardiac work-up was necessary. Patient did have chest pain and did undergo stress test that was negative. No additional chest pain work-up was necessary. Patient was also very concerned about pain medications and ask for pain medications for her cellulitis. Patient has some very faint cellulitis at this point time and no additional narcotic pain medication is warranted outside of the [place] that she is been prescribed recently. Patient may take some ibuprofen on top of that, if needed.[] Patient Problems: Active and Suspected Problems Cellulitis of right leg without foot (Acute) Cellulitis of leg, right (Acute) - Physical Exam General: Alert, No apparent distress HEENT: Atraumatic, Normocephalic Oral: Moist Mucosa, No Gingival or Mucosal Lesions/ Ulcerations Neck: No Nodes, Thyroid Normal Size and Texture Skin: - - decreasing erythema of RLE. no induration. Psych/Mental Status: Normal Affect, Appropriate Vital Signs Temp Pulse Resp BP Pulse Ox 36.6 C 60 14 118/58 L 99 11/29/18 08:44 11/29/18 08:44 11/29/18 08:44 11/29/18 08:44 11/29/18 08:44 Oxygen Delivery Method Room Air Weight: 125.5 kg Body Mass Index (BMI) 44.6 Finger Stick Blood Glucose 169 Intake and Output for Last 24 Hours 11/27/18 11/28/18 11/29/18 23:59 23:59 23:59 Intake Total 1392 / 1392 240 / 240 Balance 1392 / 1392 240 / 240 Discharge Diet: Low fat/ Low Cholesterol Discharge Activity: Return to Normal Activity Call your doctor if your incision/area has: Increased Pain/ Swelling, Increased Redness Call your doctor if you observe: Fever of 101 or Higher Home Medications: Medications to take at Discharge Amlodipine [Norvasc] 5 mg PO DAILY 08/01/15 Pantoprazole Sodium [Protonix] 20 mg PO BID 11/13/18 Docusate Sodium 200 mg PO QHS PRN PRN 11/27/18 Gabapentin [Neurontin] 300 mg PO BID 11/27/18 Hydrocodone Bitart/Apap 5-325 [[place] 5/325] 1 tablet PO BID PRN PRN 11/27/18 Hydroxyzine HCl 25 mg PO QHS PRN PRN 11/27/18 Methocarbamol [Robaxin] 500 mg PO BID 11/27/18 Nystatin [Nystop] 1 applic TP TID PRN PRN 11/27/18 Oxybutynin [Ditropan] 5 mg PO BID 11/27/18 Quetiapine Fumarate [Seroquel] 300 mg PO QHS 11/27/18 Venlafaxine HCl [Effexor] 100 mg PO BID 11/27/18 Ibuprofen 600 mg PO 4X/DAY #1 tablet 11/29/18 Smz/Tmp Ds [Bactrim Ds] 1 tablet PO BID #12 tablet 11/29/18 Following Prescrptions Were Given to Patient: Smz/Tmp Ds [Bactrim Ds] 1 tablet PO BID #12 tablet Ibuprofen 600 mg PO 4X/DAY #1 tablet Primary Care Physician: Taran Wall MD [Primary Care Provider] - Within 1 Week Disposition: Home Minutes spent on discharge:: 32 Patient Condition:: Good Medical Necessity - Tobacco Use Smoking Status: Former smoker Tobacco Use: Cigarettes Meaningful Use Info Meaningful Use Diagnoses (Choose all that apply): None applicable Code Visit Inpatient E&M: 13063 Disch Hosp
--- NOTE | 2018-11-29 10:39 | DS.PCM_ITS ---
Discharge Date and Diagnosis - Problem List Patient Problems: Active and Suspected Problems Cellulitis of right leg without foot (Acute) Cellulitis of leg, right (Acute) Date of Admission: 11/27/18 Date of Discharge: 11/29/18 - Primary Discharge Diagnosis Active and Suspected Problems Cellulitis of right leg without foot (Acute) Acute pericardial effusion (Acute) Dyspnea on effort (Acute) Sinus tachycardia seen on director of cardiac cath lab (Acute) Pericardial effusion (Acute) Cellulitis of leg, right (Acute) 1. RLE cellulitis * improving with vancomycin * will DC with Bactrim DS (no keflex given pcn allergy). dc doxycylcine. for 6 more days (7 total) * reviewed records from [facility] 2. pericardial effusion * ruled out * epicardial fat on echo * reviewed records from [facility] December 2017: no pericardial effusion at that time * no further cardiac work up. 3. chest pain: * stress negative * resting only stress performed in [place] in 05/2018, which was negative (could not find out why an exercise portion not completed) * trops negative x 4 - Secondary Discharge Diagnosis Chronic Problems Anxiety disorder (Chronic) Morbid obesity with body mass index of 50 or higher (Chronic) Pulmonary emboli (Chronic) Chronic low back pain (Chronic) Hypertension (Chronic) Spondylosis of lumbar region without myelopathy or radiculopathy (Chronic) Tobacco abuse disorder (Chronic) Hospital Course and Treatment Imaging Results: Clinical Impression(s) from Imaging Studies Chest X-Ray 11/27/18 16:52 IMPRESSION: Normal x-ray examination of the chest. Electronically Signed: Taran Owens MD at 17:16 EDT Tel , Service support , Chest CTA 11/27/18 17:31 IMPRESSION: No pulmonary embolus. Pericardial effusion. Electronically Signed: Taran Owens MD at 18:18 EDT Tel , Service support , Carl Chaves MD: cardiology. Operations: None Procedures: 2-D Echocardiogram, Stress test Summary of Care Provided: The patient is a 43 year old F is with worsening of her colitis. Patient was seen at outside hospital and was discharged on the . Patient was discharged with doxycycline. Patient noted increased redness of her lower extremity. Patient was started on Alistair Meissen but it was really not improving much and then subsequent changed over to vancomycin did have dramatic improvement. Patient today will be discharged with the Bactrim to complete a 7-day course of antibiotics including the day of vancomycin that she received here. Patient had a CAT scan because she was having chest pain and showed a possible pericardial effusion. Patient was seen in consultation by cardiology and did a preliminary echocardiogram that showed no tamponade. Patient underwent a formal echocardiogram that just showed epicardial fat. Therefore the effusion that was seen was really this epicardial fat. She did have a trace pericardial effusion but not what was seen on the CAT scan. No further cardiac work-up was necessary. Patient did have chest pain and did undergo stress test that was negative. No additional chest pain work-up was necessary. Patient was also very concerned about pain medications and ask for pain medications for her cellulitis. Patient has some very faint cellulitis at this point time and no additional narcotic pain medication is warranted outside of the [place] that she is been prescribed recently. Patient may take some ibuprofen on top of that, if needed.[] Patient Problems: Active and Suspected Problems Cellulitis of right leg without foot (Acute) Cellulitis of leg, right (Acute) - Physical Exam General: Alert, No apparent distress HEENT: Atraumatic, Normocephalic Oral: Moist Mucosa, No Gingival or Mucosal Lesions/ Ulcerations Neck: No Nodes, Thyroid Normal Size and Texture Skin: - - decreasing erythema of RLE. no induration. Psych/Mental Status: Normal Affect, Appropriate Vital Signs Temp Pulse Resp BP Pulse Ox 36.6 C 60 14 118/58 L 99 11/29/18 08:44 11/29/18 08:44 11/29/18 08:44 11/29/18 08:44 11/29/18 08:44 Oxygen Delivery Method Room Air Weight: 125.5 kg Body Mass Index (BMI) 44.6 Finger Stick Blood Glucose 169 Intake and Output for Last 24 Hours 11/27/18 11/28/18 11/29/18 23:59 23:59 23:59 Intake Total 1392 / 1392 240 / 240 Balance 1392 / 1392 240 / 240 Discharge Diet: Low fat/ Low Cholesterol Discharge Activity: Return to Normal Activity Call your doctor if your incision/area has: Increased Pain/ Swelling, Increased Redness Call your doctor if you observe: Fever of 101 or Higher Home Medications: Medications to take at Discharge Amlodipine [Norvasc] 5 mg PO DAILY 08/01/15 Pantoprazole Sodium [Protonix] 20 mg PO BID 11/13/18 Docusate Sodium 200 mg PO QHS PRN PRN 11/27/18 Gabapentin [Neurontin] 300 mg PO BID 11/27/18 Hydrocodone Bitart/Apap 5-325 [[place] 5/325] 1 tablet PO BID PRN PRN 11/27/18 Hydroxyzine HCl 25 mg PO QHS PRN PRN 11/27/18 Methocarbamol [Robaxin] 500 mg PO BID 11/27/18 Nystatin [Nystop] 1 applic TP TID PRN PRN 11/27/18 Oxybutynin [Ditropan] 5 mg PO BID 11/27/18 Quetiapine Fumarate [Seroquel] 300 mg PO QHS 11/27/18 Venlafaxine HCl [Effexor] 100 mg PO BID 11/27/18 Ibuprofen 600 mg PO 4X/DAY #1 tablet 11/29/18 Smz/Tmp Ds [Bactrim Ds] 1 tablet PO BID #12 tablet 11/29/18 Following Prescrptions Were Given to Patient: Smz/Tmp Ds [Bactrim Ds] 1 tablet PO BID #12 tablet Ibuprofen 600 mg PO 4X/DAY #1 tablet Primary Care Physician: Taran Wall MD [Primary Care Provider] - Within 1 Week Disposition: Home Minutes spent on discharge:: 32 Patient Condition:: Good Medical Necessity - Tobacco Use Smoking Status: Former smoker Tobacco Use: Cigarettes Meaningful Use Info Meaningful Use Diagnoses (Choose all that apply): None applicable Code Visit Inpatient E&M: 88391 Disch Hosp
--- NOTE | 2018-11-29 11:02 | PN.CARD_ITS ---
Subjectve: The patient states she is feeling better overall. She notes her right lower extremity appears to be improved with respect to erythema and edema. She has no other new acute cardiovascular complaints. Objective: Vital Signs Temp Pulse Resp BP Pulse Ox 97.9 F 60 14 118/58 L 99 11/29/18 08:44 11/29/18 08:44 11/29/18 08:44 11/29/18 08:44 11/29/18 08:44 Oxygen Delivery Method Room Air Weight: 276 lb 10.882 oz Body Mass Index (BMI) 44.6 Finger Stick Blood Glucose 169 Intake and Output for Last 24 Hours 11/27/18 11/28/18 11/29/18 23:59 23:59 23:59 Intake Total 1392 / 1392 240 / 240 Balance 1392 / 1392 240 / 240 General: Awake, Alert, Oriented x 3, Cooperative, No Acute Distress HEENT: Atraumatic, Normocephalic, PERRL, EOMI, Sclera Non Icteric Oral: Moist Mucosa Neck: Supple, Good ROM, No JVD Lungs: Clear to auscultation Cardiovascular: Regular Rhythm, Normal S1, Normal S2 Abdomen: Bowel Sounds Present, Soft, Non Tender Extremities: Mild RLE Edema Musculoskeletal: Erythema - Right lower extremity: Improved compared to admission Neurological: No Focal Motor or Sensory Deficit Psych/Mental Status: Appropriate Rhythm: Sinus rhythm Medical Necessity - Tobacco Use Smoking Status: Former smoker Tobacco Use: Cigarettes Assessment/Plan 1. Pericardial effusion The patient has undergone further evaluation with transthoracic echocardiogram. Based upon her echocardiographic images it appears she has an underlying epicardial fat pad and a trivial pericardial effusion with no obvious cardiovascular compromise. At the the present time it does not appear she requires further cardiac diagnostic studies or therapeutic intervention with respect to this finding. She should continue noncardiovascular evaluation of her underlying inflammatory/infectious disease issue. 2. Chest discomfort The patient has also undergone further evaluation with cardiac enzyme analysis. This was negative. Her ECG is demonstrated no acute ECG changes. Her pharmacologic stress nuclear imaging study demonstrates no obvious evidence of underlying stress-induced myocardial ischemia. She should continue noncardiac evaluation of her chest discomfort. 3. Shortness of breath She does have an element of shortness of breath. She states this is been some what chronic. She is contributed this to her obesity despite her marked weight loss. She has undergone evaluation for any acute thoracic related issues/pulmonary issues as noted above. This is been negative. Based upon her above noninvasive studies it does not appear that she has an underlying obvious cardiovascular issue to explain her shortness of breath/dyspnea. Thus she should continue noncardiac evaluation of this concern. 4. Hypertension She will need to continue medical management as deemed appropriate. 5. Cellulitis She does have right lower extremity cellulitis. Her antibiotics have been adjusted. Her right lower extremity appears to be much improved at this time. 6. Obesity She has undergone evaluation care for this. She has lost over 100 pounds. Comment: The patient also had epigastric discomfort on examination. Is unclear whether this is related to her previous gastric sleeve surgery and whether this contributes to her difficulty with chest discomfort with deep inspiration, etc. She may need further evaluation and care by internal medicine for this issue. Comment: From a cardiovascular standpoint, at the present time, barring a change in her clinical course, it does not appear she requires further cardiac diagnostic studies or therapeutic intervention other than risk factor evaluation care as deemed appropriate. She can be reassessed from a cardiovascular standpoint as deemed appropriate. Otherwise she will continue under the care of internal medicine for her noncardiovascular conditions. Comment: The above was discussed and reviewed with the [facility] hospitalist staff. This note was generated with [employer] dictation software. It may contain incorrect words, spelling, and punctuation that were not noted in checking the note before signing.
--- NOTE | 2018-11-29 12:39 | CM.UR ---
RN CM Assessment Met face to face with patient for initial transition planning/care coordination assessment. Introduced myself and my role. Verb understanding and agreement for assessment. Presentation: To ER w/concerns of cellulitis. + palpitations and sob. PCP: guerita Specialists: only bariatrics team at [facility] Preferred Pharmacy: [facility] Insurance: [employer] Prescription Benefit: Yes via [employer]. No co-pay for medications. LNOK: Father. Home: Lives in 2 story home with her boyfriend, brother and father. ADLs: independent. DME: Walker, shower chair and grab bars. Uses [facility] in [place]. SNF/HHC: Had home PT once but doesn't remember agency name; was in [facility] as well. Advance Directives: none on file. Keegan Quan (best friend is her DPOA for healthcare per patient). DC PLAN: Home, no needs. Patient did express she would like compression for her legs. States she has occasional swelling and asked about compression wraps. Explained with what she is describing sounds more appropriate for compression stockings. Explained she just needs to get an RX from her PCP and take to DME to get measured. Also instructed on self care for preventing and treating LE edema. Verb understanding. Denies any other needs at this time. Bety Rose RN, CCM.
[2018-12-01 12:03] LABS: ANTINUCLEAR ANTIBODIES DIRECT Negative (Negative)
== END 2018-11-29 13:18 | disposition home or self-care (01) | DRG 383 ==
LOC: ED 19:14 → PCU 21:43
PROVIDERS: Internal Medicine Cardiovascular Disease; Admitting Provider Hospitalist; Emergency Provider Emergency Medicine; Family Provider Family Medicine; PCP Family Medicine; Referring Provider Hospitalist
DX: L03.115 Cellulitis of right lower limb (principal); R07.9 Chest pain, unspecified; E66.01 Morbid (severe) obesity due to excess calories; G89.29 Other chronic pain; I10 Essential (primary) hypertension; F41.9 Anxiety disorder, unspecified; N32.81 Overactive bladder; R06.02 Shortness of breath; R00.0 Tachycardia, unspecified; M47.816 Spondylosis without myelopathy or radiculopathy, lumbar region; K21.9 Gastro-esophageal reflux disease without esophagitis; Z68.41 Body mass index [BMI] 40.0-44.9, adult; Z79.899 Other long term (current) drug therapy; Z86.711 Personal history of pulmonary embolism; Z98.84 Bariatric surgery status; Z87.891 Personal history of nicotine dependence
CPT/HCPCS: 36415; 71046; 71275; 78452; 80048; 84484; 85025; 85027; 85610; 85652; 85730; 86038; 86140; 86225; 86235; 87040; 87081; 93005; 93017; 93306; 93971; 97162; 97165; 97530; 99218; 99285; A9500; J7040; Q9957; Q9967; A4216; C8929; G0378; J2405; J2785

== ENCOUNTER 2018-12-22 12:40 | Inpatient (IN) | payer MEDICAID, SELFPAY ==
[2018-11-27 22:17] VITALS: BMI 44.6
[2018-12-22] VITALS (21 sets, daily range): BP systolic 78–154; BP diastolic 36–130; PULSE 71–137; RESP 11–29; TEMP 36.6–36.9; O2SAT 95–100; BMI 44.4; BMI 44.3
--- NOTE | 2018-12-22 12:45 | EKG12_ITS ---
Test Reason : VTAC Blood Pressure : / mmHG Vent. Rate : 072 BPM Atrial Rate : 072 BPM P-R Int : 150 ms QRS Dur : 094 ms QT Int : 362 ms P-R-T Axes : -13 -05 008 degrees QTc Int : 396 ms Normal sinus rhythm Low voltage QRS Borderline ECG Confirmed by CHARLES PRECIADO ([id number]), film editor RAMÓN LOCKETT ([id number]) on 12/23/2018 1:43:07 PM Referred By: Yuri Walsh Confirmed By:CHARLES PRECAIDO
--- NOTE | 2018-12-22 13:10 | RAD_ITS ---
STUDY: X-RAY CHEST REASON FOR EXAM: Female, 43 years old. TECHNIQUE: COMPARISON: November 27, 2018. FINDINGS: There is limited infiltration in the left base behind the heart, Otherwise the rest of the lung anguiano and costophrenic angles are clear. The heart is not enlarged. The trachea is in the midline. The visualized bones are intact RAD/Chest 1 View (Portable) IMPRESSION: Limited infiltrate left lower lobe new since November 27, 2018 Electronically Signed: Zion Vieira, at 13:34 EDT Tel , Service support ,
--- NOTE | 2018-12-22 13:25 | MRI_ITS ---
STUDY: MRI LUMBAR SPINE WITH AND WITHOUT CONTRAST REASON FOR EXAM: Female, 43 years old. Low back pain and urinary retention TECHNIQUE: Standardized fat and water weighted pulse sequences were obtained in the sagittal and axial planes. 25 IV Dotarem was administered for the contrast portion of the examination. COMPARISON: September 30, 2016 FINDINGS: T12-L1: Normal endplates. Normal disc height, hydration and morphology. Normal bilateral facet joints. Normal central canal and bilateral lateral recesses. Normal bilateral intervertebral neural foramina. Normal lumbar lordosis. There is no substantial scoliosis. Normal conus medullaris that terminates at the L1 level. Bilateral posterior pedicle fusions from L3 through L5. L1-2: Bulging annulus and bilateral facet and ligamentum flavum hypertrophy with moderate central canal and mild bilateral foraminal stenoses. L2-3: Bulging annulus and bilateral facet hypertrophy with moderate central canal and mild bilateral foraminal stenoses. L3-4: Bilateral laminectomies. Disc space fusion. Residual disc osteophyte complex with mild central canal stenosis and moderate right and mild left foraminal stenoses. L4-5: Bilateral laminectomies. Probable prior discectomy. Residual disc osteophyte complex with moderate right and mild left foraminal stenoses. L5-S1: Bilateral laminectomies. No residual compressive sequelae. Normal visualized sacral ala. A well-defined stable T2 hyperintense fluid collection is present along the dorsal margin of the thecal sac at the L4-5 level that measures 1.9 x 2.5 x 1.2 cm, likely a small postoperative seroma. MRI/Spine Lumbar W/WO Contrast IMPRESSION: Multilevel degenerative disease and postoperative change as described, not significant changed compared to prior study. Moderate central canal stenoses at L1-2 and L2-3. Moderate foraminal stenosis on the right at L3-4. Stable seroma along the dorsal margin of the thecal sac at the L4-5 level. Electronically Signed: Taran Owens MD at 16:25 EDT Tel , Service support ,
[2018-12-22 13:27] LABS: Absolute Neutrophil Count 6.9 X10^3/uL (2.0-7.7); Basophil# 0.01 X10^3/uL; Basophil% 0.1 % (0-1); Hematocrit 42.1 % (37-47); Hemoglobin 14.3 g/dl (12.0-15.0); Lymphocyte % 12.4 % (19-41); Mean Corpuscular Hgb 30.5 pg (27.0-32.0); Mean Corpuscular Volume 89.8 fL (81-99); Mean Platelet Vol. 9.3 fl (6.2-12.0); Monocyte% 1.2 % (0-10); Neutrophil # 6.94 X10^3/uL (2.7-7.7); Neutrophil % 86.2 % (47-70); Platelet Count 268 K/mm3 (150-450); RBC Distribution Width CV 13.7 % (11.6-14.6); RBC Distribution Width SD 44.3 fl (35.1-43.9); Red Blood Count 4.69 M/mm3 (4.2-5.4); White Blood Count 8.1 K/mm3 (4.4-11.0)
[2018-12-22 13:28] LABS: POSITIVE COUNT NO; POSITIVE DIFFERENTIAL NO; POSITIVE MORPHOLOGY NO
[2018-12-22] MEDS: Ondansetron 4 MG/2 ML Vial IV ×2 (13:35→16:20)
[2018-12-22] MEDS: HYDROmorphone 0.5 MG/0.5 ML SYRINGE IV (13:35)
[2018-12-22 13:42] LABS: Anion Gap 14 (5-15); BUN 17 mg/dL (7-18); BUN/Creat Ratio 18.5 RATIO (10-20); Calcium,Total 9.2 mg/dL (8.5-10.1); Chloride 108 mmol/L (98-107); Creatinine, Serum 0.92 mg/dL (0.55-1.02); EST Glomerular Filtration Rate 71 mL/min (>60); Est Glom Filt Rate - Afr Amer 86 mL/min (>60); Estimated Creatinine Clearance 73.81 ml/min; Glucose 157 mg/dL (74-106); Potassium 3.6 mmol/L (3.5-5.1); Sodium Level 141 mmol/L (136-145)
--- NOTE | 2018-12-22 14:04 | ED.RN ---
IV LOCATED IN LEFT AC INFILTRATED. WARM BLANKET APPLIED TO SITE. SECOND IV STARTED AND INFILTRATED LINE REMOVE. DR. CARDOZA MADE AWARE. Wendie BE RN [id number]
[2018-12-22] MEDS: LORazepam 2 MG/ML Syringe 1 MG IV (14:40)
[2018-12-22 16:17] LABS: Bacteria 0 SEEN /hpf (None Seen); Mucous, Urine 0 SEEN /hpf (<or=2+)
[2018-12-22] MEDS: Morphine 4 MG/ML Syringe IV (16:20)
[2018-12-22 16:23] LABS: Color, Urine Yellow (Yellow); Glucose, Dipstick Normal (Normal); Ketone-Dipstick 50 mg/dl (Negative); Leukocyte Esterase-Dipstick Negative /ul (Negative); Nitrite-Dipstick Negative (Negative); Occult Blood-Urine Negative /ul (Negative); Protein-Dipstick 15 mg/dl (Negative); Urine Bilirubin Dipstick Negative (Negative); Urine Clarity Clear (Clear); Urine Urobilinogen Normal (Normal)
--- NOTE | 2018-12-22 16:34 | EKG12_ITS ---
Test Reason : CP PALPS Blood Pressure : / mmHG Vent. Rate : 098 BPM Atrial Rate : 098 BPM P-R Int : 150 ms QRS Dur : 092 ms QT Int : 348 ms P-R-T Axes : 040 005 028 degrees QTc Int : 444 ms Sinus rhythm with marked sinus arrhythmia Low voltage QRS Borderline ECG Confirmed by CHARLES PRECIADO ([id number]), production editor RAMÓN LOCKETT ([id number]) on 12/23/2018 1:43:29 PM Referred By: Yuri Walsh Confirmed By:CHARLES PRECIADO
[2018-12-22 16:39] LABS: Red Blood Cells-Urine 0-5 SEEN /hpf (0-5); Squamous Epithelial Cells - UA 0-5 SEEN /hpf (5-10); White Blood Cells 0-5 SEEN /hpf (0-5)
--- NOTE | 2018-12-22 16:54 | ED.VISSUMM ---
- ER Visit Summary Date of Service: 12/22/18 Chief Complaint: Back pain, palpitations History of Present Illness: The patient is a 43 F who had back pain starting last night. She states when across her lower back and down her left leg. She went to [facility] where a CAT scan per patient revealed a distended bladder. Comer was placed and 1200 cc of urine was drained. She states she still has back pain. This morning she had some chest pressure and her heart was racing. She went back to [facility]. She states that they dismissed her without doing anything other than an EKG. Patient was admitted here earlier this month with cellulitis. While here she is complaining of chest pain. Troponins were negative and she had a stress test that was unremarkable. A CTA of her chest was also negative. There was concerned that she may have a pericardial effusion but she was evaluate by cardiology and this was found to be very trivial. Physical Examination: Vital signs in triage include a blood pressure of 07/23/1993, temp 97.8, heart rate 137, respiratory rate 16, pulse ox 96% on room air. The time of my examination her heart rate was 106. Patient sitting upright in bed. She is in no acute distress. Heart is slightly tachycardic and regular. Lung sounds clear. Abdomen is soft and nontender. Back examination was tenderness through the mid lumbar region. Neuro exam reveals decreased sensation to light touch to the left lower extremity. She has strong distal pulses. She has good strength. She has 2+ bilateral patellar reflexes. Test Results: EKG is sinus at 98 with no acute ischemia. CBC is normal. Chemistry studies reveal bicarb of 19. Her glucose is 157. Urinalysis shows 50 ketones. Troponin is negative. Portable chest x-ray shows limited infiltrate in the left lower lobe. Emergency Department Course and Treatment: Patient initially received Dilaudid and Zofran for pain. MRI of the lumbar spine was obtained secondary to prior surgical history as well as problems with urinary retention. She was given 1 mg of Ativan prior to MRI. MRI reveals multilevel degenerative changes with postop changes similar to prior. Moderate canal stenosis is noted at L1-2 and L2-3. There is a stable seroma over the dorsal thecal sac of L4-5. Patient did receive a dose of morphine after returning from MRI. I was notified a short time later that patient appeared to have runs of V. tach and was complaining of increased chest pain. equipment monitor phototypesetting history is reviewed. There are at least 2 separate episodes that do appear to be consistent with V. tach, the longest of which lasted 26 beats. There are other episodes that appear to be more consistent with artifact. Patient was given 150 mg of IV amiodarone and drip is initiated. Patient is on continuous cardiac monitoring at this time but has not had any further runs. I spoke with cardiology. She will likely undergo cardiac cath tomorrow. Treatment Plan: [] Disposition: Admit Impression: 1. V. tach with chest pain 2. Back pain This note was generated with [employer] dictation software. It may contain incorrect words, spelling, and punctuation that were not noted in review of the chart prior to signing ED Disposition - Plan for ED Patient: Referrals: Taran Wall MD [Primary Care Provider] -
--- NOTE | 2018-12-22 17:12 | ED.RN ---
upon pt returning from mri pt started having runs of v tach. pt was placed on monitor and given amiodarone 150 mg iv and drip started. unable to obtain a 12 lead with v tach. multiple obtained on portable monitor. 1:1 care started and orders placed by ed dr for admission. chris christian, rn [id number]
--- NOTE | 2018-12-22 17:18 | PCM.HP.STD ---
<Aparna Britt - Last Filed: 12/22/18 17:37> Problem List (1) Cellulitis of right leg without foot Status: Resolved (2) Sacroiliitis, not elsewhere classified Status: Chronic (3) Sinus tachycardia seen on potline monitor Status: Resolved (4) Pericardial effusion Status: Ruled-out (5) Spondylosis of lumbar region without myelopathy or radiculopathy Status: Chronic (6) Paresthesia of right upper and lower extremity Status: Chronic (7) Anxiety disorder Status: Chronic (8) Morbid obesity with body mass index of 50 or higher Status: Chronic (9) Pulmonary emboli Status: Chronic (10) Chronic low back pain Status: Chronic (11) Hypertension Status: Chronic (12) Spondylosis of lumbar region without myelopathy or radiculopathy Status: Chronic (13) Tobacco abuse disorder Status: Chronic History of Present Illness Date of Admission: 12/22/18 Chief Complaint: Palpitations, chest pain. The patient is a 43 year old F who presents to the emergency room due to palpitations, chest pain and lower back pain. Patient reports she developed significant lower back pain 2 days ago and reports she had minimal urine output. She then went to [facility] last night where she was found to have urinary retention and Comer was placed with a leg bag and she was discharged home. She continues to have lower back pain and this morning began having heart palpitations. She describes associated shortness of breath and chest pain which radiates to her left shoulder. She reports palpitations and associated symptoms are worsened with movement. Denies other current complaints. She has a past medical history of hypertension, morbid obesity, anxiety, chronic back pain. Past Medical History Past Medical History (Chronic Problems): Chronic Problems Sacroiliitis, not elsewhere classified (Chronic) Spondylosis of lumbar region without myelopathy or radiculopathy (Chronic) Paresthesia of right upper and lower extremity (Chronic) Anxiety disorder (Chronic) Morbid obesity with body mass index of 50 or higher (Chronic) Pulmonary emboli (Chronic) Chronic low back pain (Chronic) Hypertension (Chronic) Spondylosis of lumbar region without myelopathy or radiculopathy (Chronic) Tobacco abuse disorder (Chronic) Allergies amoxicillin trihydrate [From Augmentin] Allergy (Verified 12/22/18 12:42) Rash buspirone HCl [From BuSpar] Allergy (Verified 12/22/18 12:42) Hives fentanyl Allergy (Verified 12/22/18 12:42) Other hallucinations allargy to patch only. does fine with iv latex Allergy (Verified 12/22/18 12:42) Rash potassium clavulanate [From Augmentin] Allergy (Verified 12/22/18 12:42) Rash Home Medications: Ambulatory Orders Medication Instructions Recorded Amlodipine [Norvasc] 5 mg PO BID 08/01/15 Pantoprazole Sodium [Protonix] 20 mg PO BID 11/13/18 Docusate Sodium 200 mg PO QHS PRN PRN 11/27/18 Gabapentin [Neurontin] 300 mg PO BID 11/27/18 Hydrocodone Bitart/Apap 5-325 1 tablet PO BID PRN PRN 11/27/18 [Raymond 5/325] Hydroxyzine HCl 25 mg PO QHS PRN PRN 11/27/18 Methocarbamol [Robaxin] 500 mg PO BID 11/27/18 Nystatin [Nystop] 1 applic TP TID PRN PRN 11/27/18 Oxybutynin [Ditropan] 5 mg PO BID 11/27/18 Quetiapine Fumarate [Seroquel] 300 mg PO QHS 11/27/18 Venlafaxine HCl [Effexor] 100 mg PO BID 11/27/18 Surgical History: - - Cholecystectomy, multiple back surgeries x4. 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 Denies: Edema, Light Headedness, Syncope Respiratory: Reports: Shortness of breath upon exertion. Denies: Cough, Shortness of breath at rest, Sputum production Gastrointestinal: Denies: Constipation, Diarrhea, Nausea, Vomiting Genitourinary: Reports: Retention. Denies: Dysuria, Frequency, Incontinence Musculoskeletal: Reports: Back Pain. Denies: Joint Pain, Joint Tenderness Skin: Denies: Rash, Wounds Neurological: Denies: Numbness, Tingling, Focal weakness Psychiatric: Reports: Anxiety, Depression Hematologic/ Lymphatic: Denies: Easy Bruising, Easy Bleeding VTE Information - Inpt Only VTE Present on Admission: No VTE Mechan Device Prophylaxis: None VTE Pharm Prophylaxis ordered?: Yes Patient Problems: Active and Suspected Problems NSVT (nonsustained ventricular tachycardia) (Acute) Urinary retention (Acute) - Physical Exam General: Alert, Oriented x3, Cooperative HEENT: Atraumatic, PERRLA, EOMI, Normocephalic Neck: Supple, No JVD, Negative Carotid Bruits Lungs: Clear to auscultation, Diminished Cardiovascular: Regular rate, Regular Rhythm, Normal S1, Normal S2, No murmurs Abdomen: Bowel Sounds Present, Soft, Non Tender, Non-Distended, Obese Extremities: No clubbing, No cyanosis, No edema, Capillary Refill Less than 3 Seconds Skin: No rashes, No breakdown, - - Feet right lower extremity erythema secondary to recent cellulitis. Appears mostly resolved. Musculoskeletal: No Tenderness to Palpation of Joints or Extremities Neurological: Cranial nerves II-XII grossly intact, Neuro grossly intact Vital Signs Temp Pulse Resp BP Pulse Ox 97.8 F 72 23 H 136/91 H 97 12/22/18 12:40 12/22/18 17:11 12/22/18 17:11 12/22/18 17:11 12/22/18 17:11 Oxygen Flow Rate (L/min) 2 Oxygen Delivery Method Nasal Cannula Weight: 275 lb Body Mass Index (BMI) 44.4 Finger Stick Blood Glucose 169 Laboratory Tests Past 24 Hrs 12/22/18 12/22/18 12/22/18 13:14 13:14 16:13 WBC 8.1 RBC 4.69 Hgb 14.3 Hct 42.1 MCV 89.8 MCH 30.5 MCHC 34.0 RDW 13.7 RDW Differential 44.3 H Plt Count 268 MPV 9.3 Immature Gran % (Auto) 0.100 Neut % (Auto) 86.2 H Lymph % (Auto) 12.4 L Morehouse % (Auto) 1.2 Eos % (Auto) 0.0 Baso % (Auto) 0.1 Absolute Neuts (auto) 6.9 Absolute Lymphs (auto) 1.00 Total Counted Not Reportable Sodium 141 Potassium 3.6 Chloride 108 H Carbon Dioxide 19.0 L Anion Gap 14 BUN 17 Creatinine 0.92 Estim Creat Clear Calc 73.81 Est GFR (MDRD) Af Amer 86 Est GFR (MDRD) Non-Af 71 BUN/Creatinine Ratio 18.5 Glucose 157 H Calcium 9.2 Troponin I < 0.015 Urine Color Yellow Urine Clarity Clear Urine pH 7.0 Ur Specific Oatman 1.010 Urine Protein 15 H Urine Glucose (UA) Normal Urine Ketones 50 H Urine Occult Blood Negative Urine Nitrite Negative Urine Bilirubin Negative Urine Urobilinogen Normal Ur Leukocyte Esterase Negative Urine RBC 0-5 SEEN Urine WBC 0-5 SEEN Ur Squamous Epith Cells 0-5 SEEN Urine Bacteria 0 SEEN Urine Mucus 0 SEEN Assessment/Plan All Active Problems NSVT (nonsustained ventricular tachycardia) (Acute) Urinary retention (Acute) Sinus tachycardia seen on potline monitor (Resolved) Cellulitis of right leg without foot (Resolved) Pericardial effusion (Ruled-out) 1. Possible wide complex tachycardia/Chest pain-amiodarone initiated in ER due to episodes which appeared to be V. tach. Cardiology consulted. Trend enzymes. Check mag. Anticipate cardiac catheterization tomorrow. Patient had echo earlier in November 2017 which showed an EF of 60%, epicardial fat, trivial pericardial effusion. She also had a stress test November 28, 2017 which was negative for ischemia. Monitor telemetry. 2. Acute on chronic back pain-MRI of lumbar spine completed which shows multilevel degenerative disease and postoperative change, not significant compared to prior study. Moderate central canal stenosis at L1-L2 and L2-L3. Moderate foraminal stenosis on the right at L3-L4. Continue gabapentin regimen. PRN pain regimen. Obtain MRI of the thoracic spine. Outpatient follow-up with spine surgery. 3. Urinary retention-Comer catheter placed at outside hospital. Follow-up with urology as outpatient. Continue Ditropan regimen. 4. Hypertension-stable, continue amlodipine regimen. 5. Morbid obesity-encouraged diet and lifestyle modifications. Nutrition consult. 6. Anxiety/Depression-continue Effexor, Seroquel regimen. 7. GERD-continue PPI. DVT prophylaxis-Lovenox subcu This patient was seen by AMALIA Barron under the supervision of Dr. Walsh. <Yuri Walsh - Last Filed: 12/22/18 17:46> Problem List (1) NSVT (nonsustained ventricular tachycardia) Status: Acute (2) Urinary retention Status: Acute History of Present Illness The patient is a 43 year old F presents with back pain and a urinary retention. Went to outside hospital and received a Comer but was still having the back pain. Presented to the ER here and had an MRI that showed no acute process. After coming back from MRI was noted the patient was having nonsustained ventricular tachycardia around 26 beats at times. Cardiology was contacted and patient received a bolus of amiodarone and then an amiodarone drip. Patient does state that she is having chest pain and shortness of breath radiating to her shoulder. [] Past Medical History Allergies amoxicillin trihydrate [From Augmentin] Allergy (Verified 12/22/18 12:42) Rash buspirone HCl [From BuSpar] Allergy (Verified 12/22/18 12:42) Hives fentanyl Allergy (Verified 12/22/18 12:42) Other hallucinations allargy to patch only. 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 Denies: Edema, Light Headedness, Syncope Respiratory: Reports: Shortness of breath upon exertion. Denies: Cough, Shortness of breath at rest, Sputum production Gastrointestinal: Denies: Constipation, Diarrhea, Nausea, Vomiting Genitourinary: Reports: Retention. Denies: Dysuria, Frequency, Incontinence Musculoskeletal: Reports: Back Pain. Denies: Joint Pain, Joint swelling Skin: Denies: Rash, Wounds Neurological: Denies: Focal weakness, Numbness, Tingling Psychiatric: Reports: Anxiety, Depression Hematologic/ Lymphatic: Denies: Easy Bruising, Easy Bleeding VTE Information - Inpt Only VTE Present on Admission: No VTE Mechan Device Prophylaxis: None VTE Pharm Prophylaxis ordered?: Yes - Physical Exam General: Alert, Cooperative HEENT: Atraumatic, Normocephalic Oral: Moist Mucosa, No Gingival or Mucosal Lesions/ Ulcerations Neck: No Nodes, Thyroid Normal Size and Texture Lungs: Clear to auscultation, Normal air movement, No rhonchi, No wheeze Cardiovascular: Regular rate, Regular Rhythm, Normal S1, Normal S2, No murmurs, - - Telemetry reviewed and patient had what may have the nonsustained ventricular tachycardia on several occasions during her visit in the emergency room. Abdomen: Bowel Sounds Present, Soft, Non Tender, Non-Distended, Obese Skin: No rashes, No breakdown, - Neurological: - - DTRs 3 out of 4 in the lower extremity's bilaterally. Diminished sensation in the left lower extremity as compared to the right. Psych/Mental Status: Normal Affect, Appropriate Vital Signs Temp Pulse Resp BP Pulse Ox 36.6 C 72 23 H 136/91 H 97 12/22/18 12:40 12/22/18 17:11 12/22/18 17:11 12/22/18 17:11 12/22/18 17:11 Oxygen Flow Rate (L/min) 2 Oxygen Delivery Method Nasal Cannula Weight: 124.738 kg Body Mass Index (BMI) 44.4 Finger Stick Blood Glucose 169 Laboratory Tests Past 24 Hrs 12/22/18 12/22/18 12/22/18 13:14 13:14 16:13 WBC 8.1 RBC 4.69 Hgb 14.3 Hct 42.1 MCV 89.8 MCH 30.5 MCHC 34.0 RDW 13.7 RDW Differential 44.3 H Plt Count 268 MPV 9.3 Immature Gran % (Auto) 0.100 Neut % (Auto) 86.2 H Lymph % (Auto) 12.4 L Morehouse % (Auto) 1.2 Eos % (Auto) 0.0 Baso % (Auto) 0.1 Absolute Neuts (auto) 6.9 Absolute Lymphs (auto) 1.00 Total Counted Not Reportable Sodium 141 Potassium 3.6 Chloride 108 H Carbon Dioxide 19.0 L Anion Gap 14 BUN 17 Creatinine 0.92 Estim Creat Clear Calc 73.81 Est GFR (MDRD) Af Amer 86 Est GFR (MDRD) Non-Af 71 BUN/Creatinine Ratio 18.5 Glucose 157 H Calcium 9.2 Troponin I < 0.015 Urine Color Yellow Urine Clarity Clear Urine pH 7.0 Ur Specific Oatman 1.010 Urine Protein 15 H Urine Glucose (UA) Normal Urine Ketones 50 H Urine Occult Blood Negative Urine Nitrite Negative Urine Bilirubin Negative Urine Urobilinogen Normal Ur Leukocyte Esterase Negative Urine RBC 0-5 SEEN Urine WBC 0-5 SEEN Ur Squamous Epith Cells 0-5 SEEN Urine Bacteria 0 SEEN Urine Mucus 0 SEEN Assessment/Plan Patient seen and examined independently. Data reviewed. I agree with the above note by the nurse practitioner. 1. Possible nonsustained ventricular tachycardia Received amiodarone bolus and currently on amiodarone drip Cardiology consultation. Possible left heart catheterization on the . 2. Back pain: Lumbar spine MRI showed no acute process. Given the urinary retention, will check thoracic spine MRI. 3. Urinary retention Patient denies issues with constipation May consider taking the catheter out here to check a postvoid residual. Patient stated at the outside facility she 1200 cc of urine in her bladder on the catheterized her. 4. Chronic pain Reviewed the patient's OARRS and shows that she is receiving Raymond 5/[address] Landa. Last received on December 13. She had received 28 at that time. In addition receives gabapentin. Did receive hydromorphone in the emergency room. We will not add anything additional at this time. 5. VTE prophylaxis with Lovenox
--- NOTE | 2018-12-22 17:30 | ED.RN ---
per dr menard order for 150mg iv push wanted. unable to order as ordered.
--- NOTE | 2018-12-22 17:33 | CASEMGMT ---
RN CM Assessment Introduced role of RN CM to patient.? Patient is alert, oriented and able?to participate in RN CM Assessment. ?Care providers, pharmacy, and demographics verified. Presentation: Lower Back pain radiating down leg, Went to [facility] and had CT-revealed a distended bladder, Comer was placed. C/o still having back pain and this morning chest pressure and heart racing. Went back to [facility]- had an EKG done and dismissed her per patient. Admit Dx: V. Tach Re-Admit: Yes, 11/27-11/29/18 for Cellulitis, Pericardial Effusion?- Per ER MD note patient was evaluated by Cardiology and this was found to be very trivial. Barriers/Issues: None PCP: Taran Wall Specialists: Bariatrics Team at [facility], [facility]- Dr Landa Preferred Pharmacy: [facility] Insurance: Employma Rx Benefit: Yes? LNOK: Father Gian Mccall [phone], Brother Abhijit Mccall [phone] LW/HPOA: Per patient states has a HPOA who is her friend Keegan Quan- states she has a copy at home. Living Arrangements:?Lives in a 2 story with her boyfriend, brother and father. Has 1 step in the back to enter. States on the side of home has about 12 steps to get to her bedroom. ADL?s: Independent with ambulation and ADL's Transportation: Patient drives, drove self to hospital. States if unable to drive self at time of DC, a family member would be able to take her home. DME: Walker, Shower Chair, grab bars. Uses [facility] in [place]. HHC: Has had HH in the past SNF: Past- [facility] Goal: Home, does not think will have any needs. DC PLAN: Home with no anticipated needs identified at this time, CM remains available for any emerging needs. MELANIE White
[2018-12-22] MEDS: HYDROcodone Bitartrate/Apap 5/325 Tablet PO ×2 (18:07→23:40)
--- NOTE | 2018-12-22 20:59 | CON.PCM_ITS ---
Problem List (1) NSVT (nonsustained ventricular tachycardia) Status: Acute (2) Chest pain Status: Acute (3) Hypertension Status: Chronic Reason for Consult Date of Consultation: 12/22/18 History of Present Illness: The patient is a 43 year old white female who is referred for evaluation of nonsustained ventricular tachycardia and chest pain superimposed upon a history of hypertension as well as a history of a previous pericardial effusion. The patient was recently evaluated on 11-27-18 for concerns of a pericardial effusion found during a noninvasive cardiovascular evaluation including a chest CT scan as well as chest discomfort and shortness of breath superimposed upon hypertension, cellulitis, and morbid obesity. During that evaluation she had a chest CT scan based upon concerns of a history of possible underlying thromboembolic disease. Her chest CT scan was negative at that time for great vessel disease or thrombi embolic disease but raised concerns of underlying pericardial effusion. At that time she had no hemodynamic compromise. She had undergone additional evaluation which included a transthoracic echocardiogram. This was a technically diminished quality study and contrast enhancement was used in the left ventricle appeared to be normal with an LVEF of 60% with no hemodynamically significant valvular heart disease and only a trivial pe ricardial effusion being found. Also based upon her chest discomfort she underwent a pharmacologic stress nuclear imaging study which appeared to demonstrate myocardial perfusion within normal limits with a gated LVEF of 60%. She required no further cardiovascular diagnostic studies or therapeutic intervention at that time. She continued ongoing evaluation care for her lower extremity cellulitis. She presents now back for initial concerns of urinary retention being treated at an outside emergency department. She states she was due to be transferred to [facility] for further urologic evaluation but was released home with a urinary catheter. Based upon her concerns of her urologic issues and concerns of chest discomfort which she describes as a combination of heavy and sharp as well as having palpitations she elected to present to the [facility] emergency department for further evaluation and care. During her evaluation in the emergency department she was found on cardiac rhythm monitor to have concerns of nonsustained wide- complex tachycardia being compatible with a combination of artifact as well as nonsustained ventricular tachycardia. Her cardiac enzymes were negative. Her baseline ECG demonstrated sinus rhythm with no acute ECG changes. She was noted to have low voltage QRS which was noted on previous electrocardiograms. She was treated medically with IV amiodarone and subsequently placed in the PCU for further evaluation and care. She continues with an indwelling urinary catheter. She states she was feeling fine with respect to any concerns of chest discomfort and palpitations until approximately 1 to 2 days ago. She has noticed these events over the last 1 to 2 days. She has chronic shortness of breath. She has not noted any acute orthopnea or PND or worsening lower extremity peripheral pitting edema. Her right lower extremity, which was a site of her previous cellulitis, has demonstrated resolving erythema. She states she has no longer been on antibiotic therapy. She is also had no near syncope or syncope but believes she may have had transient episodes of lightheadedness. [] Past Medical History Allergies/Adverse Reactions: Allergies amoxicillin trihydrate [From Augmentin] Allergy (Verified 12/22/18 12:42) Rash buspirone HCl [From BuSpar] Allergy (Verified 12/22/18 12:42) Hives fentanyl Allergy (Verified 12/22/18 12:42) Other hallucinations allargy to patch only. does fine with iv latex Allergy (Verified 12/22/18 12:42) Rash potassium clavulanate [From Augmentin] Allergy (Verified 12/22/18 12:42) Rash Home Medications: Ambulatory Orders Medication Instructions Recorded RX: Amlodipine [Norvasc] 5 mg PO BID 08/01/15 RX: Pantoprazole Sodium [Protonix] 20 mg PO BID 11/13/18 RX: Docusate Sodium 200 mg PO QHS PRN PRN 11/27/18 RX: Gabapentin [Neurontin] 300 mg PO BID 11/27/18 RX: Hydrocodone Bitart/Apap 5-325 1 tablet PO BID PRN PRN 11/27/18 [Climax 5/325] RX: Hydroxyzine HCl 25 mg PO QHS PRN PRN 11/27/18 RX: Methocarbamol [Robaxin] 500 mg PO BID 11/27/18 RX: Nystatin [Nystop] 1 applic TP TID PRN PRN 11/27/18 RX: Oxybutynin [Ditropan] 5 mg PO BID 11/27/18 RX: Quetiapine Fumarate [Seroquel] 300 mg PO QHS 11/27/18 RX: Venlafaxine HCl [Effexor] 100 mg PO BID 11/27/18 Past Medical History (Chronic Problems): Chronic Problems Sacroiliitis, not elsewhere classified (Chronic) Spondylosis of lumbar region without myelopathy or radiculopathy (Chronic) Paresthesia of right upper and lower extremity (Chronic) Anxiety disorder (Chronic) Morbid obesity with body mass index of 50 or higher (Chronic) Pulmonary emboli (Chronic) Chronic low back pain (Chronic) Hypertension (Chronic) Spondylosis of lumbar region without myelopathy or radiculopathy (Chronic) Tobacco abuse disorder (Chronic) Surgical History: - Psychiatric History: Anxiety, Depression 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 Denies: Orthopnea, PND, Peripheral Edema, Dizziness, Near Syncope, Syncope Respiratory: Reports: Shortness of Breath. Denies: Cough, Sputum Production, Hemoptysis Gastrointestinal: Denies: Hematemesis, Hematochezia, Melena Genitourinary: Denies: Dysuria, Hematuria Skin: Denies: Rash Subjectve: This is a 43-year-old obese white female who appears to be resting comfortably in the supine position at this time in no acute distress. Objective: Vital Signs Temp Pulse Resp BP Pulse Ox 98.4 F 101 H 16 93/79 100 12/22/18 17:53 12/22/18 19:00 12/22/18 19:00 12/22/18 19:00 12/22/18 19:00 Oxygen Flow Rate (L/min) 2 Oxygen Delivery Method Nasal Cannula Weight: 274 lb 11.135 oz Body Mass Index (BMI) 44.3 Finger Stick Blood Glucose 169 Intake and Output for Last 24 Hours 12/20/18 12/21/18 12/22/18 23:59 23:59 23:59 Intake Total 280.6 / 280.6 Output Total 200 / 200 Balance 80.6 / 80.6 General: Awake, Alert, Oriented x 3, Cooperative, No Acute Distress, Obese HEENT: Atraumatic, Normocephalic, PERRL, EOMI Oral: Moist Mucosa Neck: Supple, Good ROM, No JVD Lungs: Clear to auscultation Cardiovascular: Regular Rhythm, Normal S1, Normal S2 Vascular: No Carotid Bruits Abdomen: Bowel Sounds Present, Soft, Non Tender Extremities: Trace RLE Edema, Trace LLE Edema Musculoskeletal: Erythema - Right lower extremity Psych/Mental Status: Appropriate 12/22/18 13:14: WBC 8.1, RBC 4.69, Hgb 14.3, Hct 42.1, MCV 89.8, MCH 30.5, MCHC 34.0, RDW 13.7, RDW Differential 44.3 H, Plt Count 268, MPV 9.3, Immature Gran % (Auto) 0.100, Neut % (Auto) 86.2 H, Lymph % (Auto) 12.4 L, [place] % (Auto) 1.2, Eos % (Auto) 0.0, Baso % (Auto) 0.1, Absolute Neuts (auto) 6.9, Total Counted Not Reportable 12/22/18 13:14: Sodium 141, Potassium 3.6, Chloride 108 H, Carbon Dioxide 19.0 L , Anion Gap 14, BUN 17, Creatinine 0.92, Est GFR (MDRD) Af Amer 86, Est GFR (MDRD) Non-Af 71, BUN/Creatinine Ratio 18.5, Glucose 157 H, Calcium 9.2, Troponin I < 0.015 12/22/18 16:13: Urine Color Yellow, Urine Clarity Clear, Urine pH 7.0, Ur Specific [place] 1.010, Urine Protein 15 H, Urine Glucose (UA) Normal, Urine Ketones 50 H, Urine Occult Blood Negative, Urine Nitrite Negative, Urine Bilirubin Negative, Urine Urobilinogen Normal, Ur Leukocyte Esterase Negative, Urine RBC 0-5 SEEN, Urine WBC 0-5 SEEN 12/22/18 18:05: Troponin I < 0.015 Rhythm: As noted above EKG: As noted above ECHO: As noted above Stress Test: As noted above Cardiac Cath: Adding to the patient she had undergone previous evaluation with diagnostic cardiac catheterization which she believes was performed at [facility] in [place], [place] in the past which was reportedly negative and required no further cardiovascular follow-up. The report is unavailable for review. Chest x-ray: Per the radiology report there is concern of a limited infiltrate in the left lower lobe area: Please see the official report Assessment/Plan 1. Nonsustained wide-complex tachycardia/nonsustained ventricular tachycardia The patient presents with a history of chest discomfort, chronic shortness of breath, and palpitations. During her evaluation she has been noted to have episodes of nonsustained wide-complex tachycardia concerning for nonsustained ventricular tachycardia. Based upon review of her cardiac rhythm strips there are cardiac rhythm strip suggestive of underlying artifact. However there are cardiac rhythm strips that are more challenging to interpret and may be compatible with nonsustained wide-complex tachycardia/nonsustained ventricular tachycardia. This would be in the setting of a recent transthoracic echocardiogram suggesting overall preserved left ventricular wall motion and systolic function and a pharmacologic stress nuclear imaging study suggesting no obvious ongoing myocardial ischemia. At the present time the patient will continue to be monitored. She continues with cardiac enzyme follow-up and ECG follow-up. Her left ventricular wall motion systolic function can be reassessed with a transthoracic echocardiogram. However based upon her ongoing symptoms and objective findings she should be considered for further definitive evaluation of her coronary anatomy with diagnostic cardiac catheterization which may or may not lead to additional evaluation and/or care. The procedure and risks were discussed with her. She was agreeable to this approach. In the meantime she will continue medical management. This will include the addition of beta-darnell therapy as tolerated as well as continuation of her antiarrhythmic with IV amiodarone therapy. 2. Chest pain She does have chest pain. Again it is unclear as to whether this is truly cardiac or noncardiac as her symptoms are somewhat mixed. She has recently undergone noninvasive evaluation as noted above. Her current cardiac enzymes are negative. Her ECG demonstrates no acute ECG changes. At the present time she will continue her noninvasive evaluation. However she will be considered for further definitive evaluation of her coronary anatomy with diagnostic cardiac catheterization especially in light of any concerns of her underlying rhythm with a nonsustained wide-complex tachycardia. In the meantime she will continue medical therapy. This can include the addition of aspirin/antiplatelet agents, nitrates as needed, beta-blockers, and anticoagulants as deemed appropriate. 3. Hypertension She does have a history of hypertension. She will continue medical management with adjustment of medications as deemed appropriate. Comment: The patient's case has been discussed and reviewed with the patient and Dr. Gordon of the [facility] emergency department staff. This note was generated with Briggoation software. It may contain incorrect words, spelling, and punctuation that were not noted in checking the note before signing.
--- NOTE | 2018-12-22 21:13 | ECHOCS_ITS ---
Reason For Study: ARRHYTHMIA Procedure This was a 2D Doppler, Color Flow transthoracic echocardiogram. The study was technically difficult. Due to body habitus. Contrast injection was performed. Limited views were obtained. Exam performed portable in patient room. Left Ventricle Normal LV size. Left ventricular systolic function is normal. The estimated ejection fraction is 60 %. Unable to assess diastolic dysfunction. Right Ventricle Normal RV size. Normal systolic function. Atria Normal left atrium. Normal right atrium. Mitral Valve There is no mitral annular calcification. Normal mitral valve. Tricuspid Valve Normal tricuspid valve. Aortic Valve The aortic valve is not well visualized. Pulmonic Valve The pulmonic valve is not well visualized. Pericardium/Pleural No pericardial effusion. Epicardial fat. Medication Diluted definity 2.5ml given slow IV push to enhance endocardial definition. MMode/2D Measurements & Calculations LVIDd: 5.5 cm IVSd: 1.0 cm Ao root diam: 2.9 cm LVIDs: 4.0 cm LVPWd: 1.0 cm LA dimension: 3.6 cm RVDd: 3.0 cm FS: 27.4 % LAV(MOD-bp): 50.7 ml LA A4 area: 17.4 cm2 RA A4 area: 15.3 cm2 LAV(MOD-bp) Indexed: 22.2 ml/m2 LAV(MOD-sp2): 49.7 ml LAV(MOD-sp4): 45.6 ml Interpretation Summary The study was technically difficult. Contrast injection was performed. Limited views were obtained. Left ventricular systolic function is normal. The estimated ejection fraction is 60 %. No pericardial effusion. Epicardial fat. Unable to assess diastolic dysfunction. Ordering Physician: Carl Chaves Referring Physician: Taran Wall Performed By: Marivel Arroyo, ANGIE, RVT
[2018-12-22] MEDS: QUEtiapine 100 MG Tablet 300 MG PO (22:06)
[2018-12-22] MEDS: Methocarbamol 500 MG Tablet PO (22:07)
[2018-12-22] MEDS: Pantoprazole Sodium 20 MG Tablet PO (22:07)
[2018-12-22] MEDS: Oxybutynin 5 MG Tablet PO (22:07)
[2018-12-22] MEDS: Gabapentin 300 MG Capsule PO (22:08)
[2018-12-22] MEDS: amLODIPine 5 MG Tablet PO (22:08)
[2018-12-22] MEDS: Aspirin 325 MG Tablet PO (22:11)
[2018-12-22] MEDS: Clopidogrel Bisulfate 300 MG Tablet PO (22:11)
[2018-12-22] MEDS: Metoprolol Tartrate 25 MG Tablet PO (22:11)
[2018-12-22] MEDS: hydrOXYzine PAM 25 MG Capsule PO (22:22)
[2018-12-23] VITALS (21 sets, daily range): BP systolic 95–118; BP diastolic 52–86; PULSE 64–82; RESP 12–18; TEMP 36.4–37.1; O2SAT 96–100
[2018-12-23] MEDS: Morphine 2 MG/ML Syringe IV ×2 (01:07→06:10)
[2018-12-23] MEDS: 0.9% NaCl Peripheral Flush Adult/Peds IV ×6 (01:08→21:52)
--- NOTE | 2018-12-23 05:55 | EKG12_ITS ---
Test Reason : Blood Pressure : / mmHG Vent. Rate : 051 BPM Atrial Rate : 051 BPM P-R Int : 152 ms QRS Dur : 102 ms QT Int : 448 ms P-R-T Axes : 003 004 029 degrees QTc Int : 412 ms Sinus bradycardia with sinus arrhythmia Otherwise normal ECG When compared with ECG of 22-DEC-2018 16:37, MANUAL COMPARISON REQUIRED, DATA IS UNCONFIRMED Confirmed by CHARLES PRECIADO ([id number]), news editor RAMÓN LOCKETT ([id number]) on 12/23/2018 2:19:55 PM Referred By: Yuri Walsh Confirmed By:CHARLES PRECIADO
[2018-12-23] MEDS: Metoprolol Tartrate 25 MG Tablet PO ×2 (06:10→21:50)
[2018-12-23] MEDS: amLODIPine 5 MG Tablet PO ×2 (06:10→21:51)
[2018-12-23 06:28] LABS: Prothrombin Time (Protime)PT. 12.8 SECONDS (11.7-14.9)
[2018-12-23 06:29] LABS: Partial Thromboplast Time 22.2 Seconds (24.1-36.2)
[2018-12-23 06:35] LABS: Absolute Lymphocyte Count 2.73 X10^3/ul (0.83-4.51); Basophil# 0.02 X10^3/uL; Basophil% 0.1 % (0-1); Eosinophil# 0.02 X10^3/uL; Eosinophils% 0.1 % (0-5); Hematocrit 39.4 % (37-47); Hemoglobin 13.4 g/dl (12.0-15.0); Lymphocyte # 2.73 X10^3/ul (4.0); Lymphocyte % 18.6 % (19-41); Mean Corpuscular Hgb 30.5 pg (27.0-32.0); Mean Corpuscular Volume 89.7 fL (81-99); Mean Platelet Vol. 9.8 fl (6.2-12.0); Monocyte# 0.84 X10^3/uL; Monocyte% 5.7 % (0-10); Neutrophil # 11.01 X10^3/uL (2.7-7.7); Neutrophil % 75.2 % (47-70); Platelet Count 257 K/mm3 (150-450); RBC Distribution Width SD 45.8 fl (35.1-43.9); Red Blood Count 4.39 M/mm3 (4.2-5.4); White Blood Count 14.7 K/mm3 (4.4-11.0)
[2018-12-23 06:39] LABS: Differential Indicated SCAN CRITERIA MET; POSITIVE COUNT YES; POSITIVE DIFFERENTIAL NO; POSITIVE MORPHOLOGY NO
[2018-12-23 06:44] LABS: Anion Gap 10 (5-15); BUN 13 mg/dL (7-18); BUN/Creat Ratio 14.8 RATIO (10-20); Calcium,Total 8.8 mg/dL (8.5-10.1); Chloride 114 mmol/L (98-107); Creatinine, Serum 0.88 mg/dL (0.55-1.02); EST Glomerular Filtration Rate 74 mL/min (>60); Est Glom Filt Rate - Afr Amer 90 mL/min (>60); Estimated Creatinine Clearance 77.17 ml/min; Glucose 98 mg/dL (74-106); Potassium 4.1 mmol/L (3.5-5.1); Sodium Level 144 mmol/L (136-145)
[2018-12-23 06:54] LABS: Differential Comment SCANNED; Platelet Estimate ADEQUATE (ADEQ)
[2018-12-23 07:57] LABS: Internal QC Validated? YES +Cl - CLEAR BKGD; Pregnancy, Urine Negative Negative
--- NOTE | 2018-12-23 08:49 | PN.CARD_ITS ---
Subjectve: The patient stated she rested calmly last night. She does not recall having additional chest pain or palpitations. The patient is now status post di agnostic cardiac catheterization no obvious adverse event. Objective: Vital Signs Temp Pulse Resp BP Pulse Ox 97.6 F L 67 18 98/65 100 12/23/18 06:05 12/23/18 06:10 12/23/18 06:05 12/23/18 06:10 12/23/18 06:05 Oxygen Flow Rate (L/min) 2 Oxygen Delivery Method Room Air Weight: 274 lb 11.135 oz Body Mass Index (BMI) 44.3 Finger Stick Blood Glucose 169 Intake and Output for Last 24 Hours 12/21/18 12/22/18 12/23/18 23:59 23:59 23:59 Intake Total 428.6 / 428.6 Output Total 900 / 900 350 / 350 Balance -471.4 / -471.4 -350 / -350 General: Awake, Alert, Oriented x 3, Cooperative, No Acute Distress, Obese HEENT: Atraumatic, Normocephalic, PERRL, EOMI, Sclera Non Icteric Oral: Moist Mucosa Neck: Supple, Good ROM, No JVD Lungs: Clear to auscultation Cardiovascular: Regular Rhythm, Normal S1, Normal S2 Vascular: - - Normal right brachial pulse Abdomen: Bowel Sounds Present, Soft, Non Tender Extremities: Trace RLE Edema, Severe RLE Edema, Trace LLE Edema Musculoskeletal: Erythema - Right lower extremity Neurological: No Focal Motor or Sensory Deficit Psych/Mental Status: Appropriate 12/22/18 13:14: WBC 8.1, RBC 4.69, Hgb 14.3, Hct 42.1, MCV 89.8, MCH 30.5, MCHC 34.0, RDW 13.7, RDW Differential 44.3 H, Plt Count 268, MPV 9.3, Immature Gran % (Auto) 0.100, Neut % (Auto) 86.2 H, Lymph % (Auto) 12.4 L, [place] % (Auto) 1.2, Eos % (Auto) 0.0, Baso % (Auto) 0.1, Absolute Neuts (auto) 6.9, Total Counted Not Reportable 12/22/18 13:14: Sodium 141, Potassium 3.6, Chloride 108 H, Carbon Dioxide 19.0 L , Anion Gap 14, BUN 17, Creatinine 0.92, Est GFR (MDRD) Af Amer 86, Est GFR (MDRD) Non-Af 71, BUN/Creatinine Ratio 18.5, Glucose 157 H, Calcium 9.2, Troponin I < 0.015 12/22/18 16:13: Urine Color Yellow, Urine Clarity Clear, Urine pH 7.0, Ur Specif ic [place] 1.010, Urine Protein 15 H, Urine Glucose (UA) Normal, Urine Ketones 50 H, Urine Occult Blood Negative, Urine Nitrite Negative, Urine Bilirubin Negative, Urine Urobilinogen Normal, Ur Leukocyte Esterase Negative, Urine RBC 0-5 SEEN, Urine WBC 0-5 SEEN 12/22/18 18:05: Troponin I < 0.015 12/22/18 20:40: Troponin I < 0.015 12/23/18 06:00: Sodium 144, Potassium 4.1, Chloride 114 H, Carbon Dioxide 20.0 L , Anion Gap 10, BUN 13, Creatinine 0.88, Est GFR (MDRD) Af Amer 90, Est GFR (MDRD) Non-Af 74, BUN/Creatinine Ratio 14.8, Glucose 98, Calcium 8.8 12/23/18 06:00: WBC 14.7 H, RBC 4.39, Hgb 13.4, Hct 39.4, MCV 89.7, MCH 30.5, MCHC 34.0, RDW 14.0, RDW Differential 45.8 H, Plt Count 257, MPV 9.8, Immature Gran % (Auto) 0.300, Neut % (Auto) 75.2 H, Lymph % (Auto) 18.6 L, [place] % (Auto) 5.7, Eos % (Auto) 0.1, Baso % (Auto) 0.1, Absolute Neuts (auto) 11.0 H, Total Counted Not Reportable 12/23/18 06:00: PT 12.8, INR 1.0, APTT 22.2 L Rhythm: Sinus rhythm EKG: Sinus rhythm; no acute ECG changes ECHO: Pending Cardiac Cath: Preliminary report: Overall left ventricular systolic function appears to be preserved with an estimated LVEF 55%; left coronary dominant system; angiographically normal-appearing coronary arteries Medical Necessity - Tobacco Use Smoking Status: Former smoker Tobacco Use: Cigarettes Assessment/Plan 1. Nonsustained wide-complex tachycardia/nonsustained ventricular tachycardia The patient presents with a history of chest discomfort, chronic shortness of breath, and palpitations. During her evaluation she has been noted to have episodes of nonsustained wide-complex tachycardia concerning for nonsustained ventricular tachycardia. Based upon review of her cardiac rhythm strips there are cardiac rhythm strip suggestive of underlying artifact. However there are cardiac rhythm strips that are more challenging to interpret and may be compatible with nonsustained wide-complex tachycardia/nonsustained ventricular tachycardia. The patient has now undergone evaluation with cardiac enzymes. They have remained negative. Her follow-up ECG is demonstrated sinus rhythm with no acute ECG changes. Her cardiac rhythm has remained sinus rhythm. She is now undergoing evaluation with diagnostic cardiac catheterization. Her overall LV systolic function appears to be preserved. Her coronary anatomy appears to demonstrate angiographically normal-appearing coronary arteries. At the present time she will continue medical management as deemed appropriate. Based upon concerns of her cardiac rhythm strips consideration may have to be given to EP consultation for further evaluation and care. 2. Chest pain The patient has had chest pain. It appears it is not related to classic atherosclerotic coronary artery disease. She needs continued noncardiac evaluation of her chest discomfort. 3. Hypertension She does have a history of hypertension. She will continue medical management with adjustment of medications as deemed appropriate. This note was generated with [employer] dictation software. It may contain incorrect words, spelling, and punctuation that were not noted in checking the note before signing.
--- NOTE | 2018-12-23 09:24 | CL.D_ITS ---
Patient Name: MINA GAINES Study Date: 12/23/2018 Performing: Carl Chaves MD Ht: 66 inches 168 cm : 1975 Wt: 275.9 lbs 125 kg Age: 43 Gender: female BSA: 2.3 PROCEDURE(S) PERFORMED [id number]/LV CLINICAL PROFILE AND INDICATIONS Indications: Suspected CAD, Cardiac Arrythmia Heart Failure: None Stress/Imaging Date: 11/28/2018Stress Test with SPECT MPI: Negative Angina Classification Anginal Classification w/in 2 Weeks: No symptoms CAD Presentations: Other: Ventricular Tachycardia CONCLUSIONS Elevated Left Ventricular End Diastolic Pressure Normal LV size, wall motion,and systolic function LVEF: by LV gram 55 % Normal coronary arteries RECOMMENDATIONS Risk factor modification Medical therapy DESCRIPTION OF PROCEDURE The patient arrived to the procedure lab. The risks and benefits of the procedure as well as a full d escription of our services here and current unavailability of surgical backup were fully explained to the patient and/or their significant other prior to the catheterization. The Timeout was completed, verifying the correct patient and procedure. The patient's procedural site was prepped and draped in the usual fashion. Local anesthetic was given subcutaneously to left brachial region with Lidocaine 2 %. Using a modified Seldinger technique, arterial access was obtained via the right brachial artery, a 6Fr sheath was inserted. Right Coronary Artery selective angiography was then performed in multipl e views using a 5 Fr. 4.0 [place] catheter. Left Coronary Artery selective angiography was performed in multiple views using a 5 Fr. 4.0 [place] catheter. Left Ventriculography was performed in JOYA projecti on using a 5 Fr. [place] catheter. LV to AO pullback pressures were then recorded.The arterial sheath was pulled and manual compression applied until hemostasis is achieved. CORONARY ANGIOGRAPHY DOMINANCE: Left Dominant LEFT HEART ASSESSMENT Left Ventricular Ejection Fraction: by LV Gram 55 % Normal LV wall motion Elevated Left Ventricular End Diastolic Pressure LVEDP: 19 mmHg LEFT MAIN: Angiographically normal LEFT ANTERIOR DESCENDING ARTERY: Angiographically normal CIRCUMFLEX ARTERY: Angiographically normal RIGHT CORONARY ARTERY: Angiographically normal VALVE FINDINGS: Normal Aortic Valve function Normal Mitral Valve function AORTIC ROOT: Angiographically normal COMPLICATIONS No Complications PROCEDURE MEDICATIONS Fentanyl 50 mcg IV Versed 1 mg IV Versed 1 mg IV Fentanyl 50 mcg IV Oxygen: 2 L/min via nasal cannula Baby Aspirin (81mg) 1 Tabs PO @ 12/23/2018 07:43:29 Plavix 75 mg PO 12/23/2018 07:43:29 SUMMARY OF HEMODYNAMIC DATA Time AIR REST ECG 07:29:49 AO 98/72 (86) SA 08:25:06 LV 115/0, 18 08:34:34 LV 117/-1, 19 08:34:42 LV 116/-2, 20 08:35:47 LVp 117/-3, 15 08:35:52 AOp 110/69 (89) 08:35:57 AO 111/70 (91) 08:36:06 Signed By Carl Chaves MD On 12/23/2018 9:24:16 AM Carl Chaves MD
--- NOTE | 2018-12-23 09:28 | CASEMGMT ---
According to [facility] Website, the following [facility] are In-network with [facility]: [facility], [facility], , [place], [facility], [facility], [facility], [facility], [facility], and [facility]. Thompson BSN RN CM
[2018-12-23] MEDS: Oxybutynin 5 MG Tablet PO ×2 (11:16→21:50)
[2018-12-23] MEDS: Gabapentin 300 MG Capsule PO ×2 (11:16→21:50)
[2018-12-23] MEDS: HYDROcodone Bitartrate/Apap 5/325 Tablet PO ×2 (11:16→18:21)
[2018-12-23] MEDS: Pantoprazole Sodium 20 MG Tablet PO ×2 (11:16→21:51)
[2018-12-23] MEDS: Methocarbamol 500 MG Tablet PO ×2 (11:16→21:51)
--- NOTE | 2018-12-23 13:08 | CHAPLAIN ---
Type of Pastoral Visit _x__ Initial Visit ___ Follow-up Visit ___ On-call Visit ___ General Patient Visit ___ Spiritual Assessment ___ Family Conference ___ Bereavement ___ Rapid Response ___ Code Blue ___ Other (describe below) Pastoral Care Referral From _x__ Patient ___ Family ___ Nurse ___ Physician ___ Risk Tech ___ Nurse Practitioner Physician Assistant ___ Other (describe below) Sacrament/Intervention _x__ Active listening ___ Anointing ___ Spiritism ___ Bereavement ___ Communion ___ Nayla exploration ___ ___ Life review _x__ Prayer ___ Reconciliation ___ Sacrament of Sick _x__ Supportive presence ___ Wedding ___ Other (describe below) Pastoral Comments
--- NOTE | 2018-12-23 13:34 | MRI_ITS ---
STUDY: MRI THORACIC SPINE WITHOUT CONTRAST REASON FOR EXAM: Female, 43 years old. Back pain, urinary retention, hyperreflexia TECHNIQUE: Standardized fat and water weighted pulse sequences were obtained in the sagittal and axial planes. COMPARISON: None. FINDINGS: Normal kyphosis of the thoracic spine. There is no substantial scoliosis. T1-2, T2-3, T4-5, T6-7, T9-10, T11-12: Normal endplates. Normal disc hydration, heights and morphology of the corresponding intervertebral discs. Normal central canal and intervertebral neural foramina at the corresponding levels. T3-4: Disc osteophyte complex without compressive sequelae. T5-6: Disc space narrowing and desiccation. T7-8: Disc osteophyte complex without compressive sequelae. T8-9: Right paracentral disc protrusion with minimal central canal stenosis. T10-11: Small central disc protrusion without compressive sequelae. Normal visualized thoracic cord. MRI/Spine Thoracic (Routine) IMPRESSION: Multilevel degenerative disease as described. No evidence of cord pathology or nerve root impingement. No acute compression fracture. Electronically Signed: Taran Owens MD at 16:03 EDT Tel , Service support ,
[2018-12-23] MEDS: LORazepam 2 MG/ML Syringe 1 MG IV (13:37)
[2018-12-23] MEDS: Heparin Injection (Vial) 5,000 UNIT/ML VIAL 5000 UNIT SC ×2 (13:37→21:50)
--- NOTE | 2018-12-23 14:38 | PCM.PROGNOTE ---
<Aparna Britt - Last Filed: 12/23/18 14:55> Patient Problems: Active and Suspected Problems NSVT (nonsustained ventricular tachycardia) (Acute) Urinary retention (Acute) Chest pain (Acute) Subjective: Patient seen and examined. Underwent cardiac catheterization this morning which showed normal coronary arteries. Patient continues to complain of palpitations and shortness of breath. Complains of severe back pain. - Physical Exam General: Alert, Oriented x3, Cooperative HEENT: Atraumatic, PERRLA, EOMI, Normocephalic Neck: Supple, No JVD, Negative Carotid Bruits Lungs: Clear to auscultation, Diminished Cardiovascular: Regular rate, Regular Rhythm, Normal S1, Normal S2, No murmurs Abdomen: Bowel Sounds Present, Soft, Non Tender, Non-Distended, Obese Extremities: No clubbing, No cyanosis, No edema, Capillary Refill Less than 3 Seconds Skin: No rashes, No breakdown Musculoskeletal: No Tenderness to Palpation of Joints or Extremities Neurological: Cranial nerves II-XII grossly intact, Neuro grossly intact Psych/Mental Status: Normal Affect, Appropriate Vital Signs Temp Pulse Resp BP Pulse Ox 98 F 71 18 107/52 L 99 12/23/18 10:45 12/23/18 12:30 12/23/18 12:30 12/23/18 12:30 12/23/18 12:30 Oxygen Flow Rate (L/min) 2 Oxygen Delivery Method Room Air Weight: 274 lb 11.135 oz Body Mass Index (BMI) 44.3 Finger Stick Blood Glucose 169 Intake and Output for Last 24 Hours 12/21/18 12/22/18 12/23/18 23:59 23:59 23:59 Intake Total 428.6 / 428.6 480 / 480 Output Total 900 / 900 500 / 500 Balance -471.4 / -471.4 -20 / -20 Laboratory Tests Past 24 Hrs 12/22/18 12/22/18 12/22/18 16:13 18:05 20:40 WBC RBC Hgb Hct MCV MCH MCHC RDW RDW Differential Plt Count MPV Immature Gran % (Auto) Neut % (Auto) Lymph % (Auto) [place] % (Auto) Eos % (Auto) Baso % (Auto) Absolute Neuts (auto) Absolute Lymphs (auto) Total Counted Differential Comment Platelet Estimate PT INR APTT Sodium Potassium Chloride Carbon Dioxide Anion Gap BUN Creatinine Estim Creat Clear Calc Est GFR (MDRD) Af Amer Est GFR (MDRD) Non-Af BUN/Creatinine Ratio Glucose Calcium Troponin I < 0.015 < 0.015 Urine Color Yellow Urine Clarity Clear Urine pH 7.0 Ur Specific [place] 1.010 Urine Protein 15 H Urine Glucose (UA) Normal Urine Ketones 50 H Urine Occult Blood Negative Urine Nitrite Negative Urine Bilirubin Negative Urine Urobilinogen Normal Ur Leukocyte Esterase Negative Urine RBC 0-5 SEEN Urine WBC 0-5 SEEN Ur Squamous Epith Cells 0-5 SEEN Urine Bacteria 0 SEEN Urine Mucus 0 SEEN Urine Test 12/23/18 12/23/18 12/23/18 06:00 06:00 06:00 WBC 14.7 H RBC 4.39 Hgb 13.4 Hct 39.4 MCV 89.7 MCH 30.5 MCHC 34.0 RDW 14.0 RDW Differential 45.8 H Plt Count 257 MPV 9.8 Immature Gran % (Auto) 0.300 Neut % (Auto) 75.2 H Lymph % (Auto) 18.6 L [place] % (Auto) 5.7 Eos % (Auto) 0.1 Baso % (Auto) 0.1 Absolute Neuts (auto) 11.0 H Absolute Lymphs (auto) 2.73 Total Counted Not Reportable Differential Comment SCANNED Platelet Estimate ADEQUATE PT 12.8 INR 1.0 APTT 22.2 L Sodium 144 Potassium 4.1 Chloride 114 H Carbon Dioxide 20.0 L Anion Gap 10 BUN 13 Creatinine 0.88 Estim Creat Clear Calc 77.17 Est GFR (MDRD) Af Amer 90 Est GFR (MDRD) Non-Af 74 BUN/Creatinine Ratio 14.8 Glucose 98 Calcium 8.8 Troponin I Urine Color Urine Clarity Urine pH Ur Specific [place] Urine Protein Urine Glucose (UA) Urine Ketones Urine Occult Blood Urine Nitrite Urine Bilirubin Urine Urobilinogen Ur Leukocyte Esterase Urine RBC Urine WBC Ur Squamous Epith Cells Urine Bacteria Urine Mucus Urine Test 12/23/18 07:00 WBC RBC Hgb Hct MCV MCH MCHC RDW RDW Differential Plt Count MPV Immature Gran % (Auto) Neut % (Auto) Lymph % (Auto) [place] % (Auto) Eos % (Auto) Baso % (Auto) Absolute Neuts (auto) Absolute Lymphs (auto) Total Counted Differential Comment Platelet Estimate PT INR APTT Sodium Potassium Chloride Carbon Dioxide Anion Gap BUN Creatinine Estim Creat Clear Calc Est GFR (MDRD) Af Amer Est GFR (MDRD) Non-Af BUN/Creatinine Ratio Glucose Calcium Troponin I Urine Color Urine Clarity Urine pH Ur Specific [place] Urine Protein Urine Glucose (UA) Urine Ketones Urine Occult Blood Urine Nitrite Urine Bilirubin Urine Urobilinogen Ur Leukocyte Esterase Urine RBC Urine WBC Ur Squamous Epith Cells Urine Bacteria Urine Mucus Urine Test Negative Medical Necessity - Tobacco Use Smoking Status: Former smoker Tobacco Use: Cigarettes Assessment/Plan All Active Problems NSVT (nonsustained ventricular tachycardia) (Acute) Urinary retention (Acute) Chest pain (Acute) Sinus tachycardia seen on satellite project site monitor (Resolved) Cellulitis of right leg without foot (Resolved) Pericardial effusion (Ruled-out) 1. Possible wide complex tachycardia/Chest pain-Cardiology consulted. Troponin negative. Echo earlier in November 2018 showed an EF of 60%, epicardial fat, trivial pericardial effusion. She also had a stress test November 28, 2018 which was negative for ischemia. Patient underwent cardiac catheterization which showed normal coronary arteries. Cardiology recommended transfer to tertiary facility for EP evaluation. Patient chose [facility]. [facility] weighter, Dr. Nani Coleman was contacted and faxed rhythm strips and EKGs. Dr. Coleman reports he reviewed this with an additional colleague EP and they both feel with 99.9% certainty that this is artifact and not V. tach or other concerning arrhythmia. Recommendation from Dr. Coleman based on review of EKG/rhythm strips as well as known normal coronary arteries and normal EF is to discharge with 30-day event monitor. He did not recommend antiarrhythmic, beta-darnell or initiating any medications prior to reviewing 30-day event monitor. Patient will follow-up with Dr. Coleman following 30-day event monitor completion. Monitor telemetry overnight. 2. Acute on chronic back pain-MRI of lumbar spine completed which shows multilevel degenerative disease and postoperative change, not significant compared to prior study. Moderate central canal stenosis at L1-L2 and L2-L3. Moderate foraminal stenosis on the right at L3-L4. Continue gabapentin regimen. PRN pain regimen. Obtain MRI of the thoracic spine. Outpatient follow-up with spine surgery. 3. Urinary retention-Comer catheter placed at outside hospital. Follow-up with urology as outpatient. Continue Ditropan regimen. MRI of thoracic spine pending as noted above. May remove Comer and check postvoid residual. If patient continues to have urinary retention, will need discharge with Comer catheter and urology follow-up. 4. Hypertension-stable, continue amlodipine regimen. 5. Morbid obesity-encouraged diet and lifestyle modifications. Nutrition consult. 6. Anxiety/Depression-continue Effexor, Seroquel regimen. 7. GERD-continue PPI. DVT prophylaxis-Lovenox subcu Discharge planning: Pending MRI of thoracic spine results. Discharged tomorrow with a 30-day event monitor which was unable to be placed today in time for DC. Prescription given to nursing for 30-day event monitor with Dr. Chaves will read and forward results to EP at [facility]. This patient was seen by AMALIA Barron under the supervision of Dr. Chavez. <Rea Chavez - Last Filed: 12/23/18 16:33> - Physical Exam Vital Signs Temp Pulse Resp BP Pulse Ox 98.7 F 70 16 105/54 L 98 12/23/18 15:41 12/23/18 15:41 12/23/18 15:41 12/23/18 15:41 12/23/18 15:41 Oxygen Flow Rate (L/min) 2 Oxygen Delivery Method Room Air Weight: 124.6 kg Body Mass Index (BMI) 44.3 Finger Stick Blood Glucose 169 Intake and Output for Last 24 Hours 12/21/18 12/22/18 12/23/18 23:59 23:59 23:59 Intake Total 428.6 / 428.6 480 / 480 Output Total 900 / 900 500 / 500 Balance -471.4 / -471.4 -20 / -20 Laboratory Tests Past 24 Hrs 12/22/18 12/22/18 12/22/18 16:13 18:05 20:40 WBC RBC Hgb Hct MCV MCH MCHC RDW RDW Differential Plt Count MPV Immature Gran % (Auto) Neut % (Auto) Lymph % (Auto) [place] % (Auto) Eos % (Auto) Baso % (Auto) Absolute Neuts (auto) Absolute Lymphs (auto) Total Counted Differential Comment Platelet Estimate PT INR APTT Sodium Potassium Chloride Carbon Dioxide Anion Gap BUN Creatinine Estim Creat Clear Calc Est GFR (MDRD) Af Amer Est GFR (MDRD) Non-Af BUN/Creatinine Ratio Glucose Calcium Magnesium Troponin I < 0.015 < 0.015 Urine Color Yellow Urine Clarity Clear Urine pH 7.0 Ur Specific [place] 1.010 Urine Protein 15 H Urine Glucose (UA) Normal Urine Ketones 50 H Urine Occult Blood Negative Urine Nitrite Negative Urine Bilirubin Negative Urine Urobilinogen Normal Ur Leukocyte Esterase Negative Urine RBC 0-5 SEEN Urine WBC 0-5 SEEN Ur Squamous Epith Cells 0-5 SEEN Urine Bacteria 0 SEEN Urine Mucus 0 SEEN Urine Test 12/22/18 12/23/18 12/23/18 20:40 06:00 06:00 WBC 14.7 H RBC 4.39 Hgb 13.4 Hct 39.4 MCV 89.7 MCH 30.5 MCHC 34.0 RDW 14.0 RDW Differential 45.8 H Plt Count 257 MPV 9.8 Immature Gran % (Auto) 0.300 Neut % (Auto) 75.2 H Lymph % (Auto) 18.6 L [place] % (Auto) 5.7 Eos % (Auto) 0.1 Baso % (Auto) 0.1 Absolute Neuts (auto) 11.0 H Absolute Lymphs (auto) 2.73 Total Counted Not Reportable Differential Comment SCANNED Platelet Estimate ADEQUATE PT INR APTT Sodium 144 Potassium 4.1 Chloride 114 H Carbon Dioxide 20.0 L Anion Gap 10 BUN 13 Creatinine 0.88 Estim Creat Clear Calc 77.17 Est GFR (MDRD) Af Amer 90 Est GFR (MDRD) Non-Af 74 BUN/Creatinine Ratio 14.8 Glucose 98 Calcium 8.8 Magnesium 1.9 Troponin I Urine Color Urine Clarity Urine pH Ur Specific [place] Urine Protein Urine Glucose (UA) Urine Ketones Urine Occult Blood Urine Nitrite Urine Bilirubin Urine Urobilinogen Ur Leukocyte Esterase Urine RBC Urine WBC Ur Squamous Epith Cells Urine Bacteria Urine Mucus Urine Test 12/23/18 12/23/18 06:00 07:00 WBC RBC Hgb Hct MCV MCH MCHC RDW RDW Differential Plt Count MPV Immature Gran % (Auto) Neut % (Auto) Lymph % (Auto) [place] % (Auto) Eos % (Auto) Baso % (Auto) Absolute Neuts (auto) Absolute Lymphs (auto) Total Counted Differential Comment Platelet Estimate PT 12.8 INR 1.0 APTT 22.2 L Sodium Potassium Chloride Carbon Dioxide Anion Gap BUN Creatinine Estim Creat Clear Calc Est GFR (MDRD) Af Amer Est GFR (MDRD) Non-Af BUN/Creatinine Ratio Glucose Calcium Magnesium Troponin I Urine Color Urine Clarity Urine pH Ur Specific [place] Urine Protein Urine Glucose (UA) Urine Ketones Urine Occult Blood Urine Nitrite Urine Bilirubin Urine Urobilinogen Ur Leukocyte Esterase Urine RBC Urine WBC Ur Squamous Epith Cells Urine Bacteria Urine Mucus Urine Test Negative Assessment/Plan This patient was seen in conjunction with Aparna Britt NP. I have independently interviewed and examined the patient and reviewed pertinent historical, laboratory, and other data. Please refer to her note for patient's presentation, findings, and recommendations. Patient was seen and examined. Patient complains of palpitations and chest discomfort. She had a cardiac cath done today that was unremarkable. Was recommended by cardiology that patient be transferred to have a weighter. Upon discussion with the weighter by the nurse practitioner, they recommended the patient be discharged with a 30-day event monitor and follow-up with them. Vitals were reviewed -stable Physical Exam: Gen: Morbid obesity, not pale, not jaundiced, alert oriented x3 CVS:HS I +II, regular, no murmurs RESP: CTA GI: BS present and normal, nontender, no palpable organs EXT:No edema Labs reviewed -slight elevation in white cell count ASSESSMENT: 1. Possible wide-complex tachycardia, cardiac cath negative 2. Acute on chronic back pain 3. Acute urinary retention 4. Hypertension 5. Morbid obesity 6. Anxiety/depression 7. GERD 8. Leucocytosis, reactive Meds reviewed Plan: Continue to monitor on telemetry, follow-up on MRI of the back, discontinue Comer catheter Possible discharge in a.m. with 30-day event monitor Code Visit Inpatient E&M: 74393 Subs Hosp L2
[2018-12-23 15:26] LABS: Magnesium 1.9 mg/dL (1.6-2.6)
[2018-12-23] MEDS: QUEtiapine 100 MG Tablet 300 MG PO (21:51)
[2018-12-23] MEDS: hydrOXYzine PAM 25 MG Capsule PO (21:51)
[2018-12-24 03:00] VITALS: PULSE 73
[2018-12-24 03:20] VITALS: BP 93/59; PULSE 62; RESP 16; TEMP 36.5; O2SAT 96
[2018-12-24 05:32] LABS: Absolute Lymphocyte Count 3.61 X10^3/ul (0.83-4.51); Absolute Neutrophil Count 3.6 X10^3/uL (2.0-7.7); Basophil# 0.02 X10^3/uL; Basophil% 0.3 % (0-1); Eosinophil# 0.04 X10^3/uL; Eosinophils% 0.5 % (0-5); Hematocrit 37.8 % (37-47); Hemoglobin 12.2 g/dl (12.0-15.0); Lymphocyte # 3.61 X10^3/ul (4.0); Lymphocyte % 46.3 % (19-41); Mean Corp Hgb Conc 32.3 g/gl (32-36); Mean Corpuscular Volume 92.9 fL (81-99); Mean Platelet Vol. 9.2 fl (6.2-12.0); Monocyte# 0.53 X10^3/uL; Monocyte% 6.8 % (0-10); Neutrophil # 3.57 X10^3/uL (2.7-7.7); Neutrophil % 45.8 % (47-70); Platelet Count 225 K/mm3 (150-450); RBC Distribution Width CV 14.6 % (11.6-14.6); RBC Distribution Width SD 48.9 fl (35.1-43.9); Red Blood Count 4.07 M/mm3 (4.2-5.4); White Blood Count 7.8 K/mm3 (4.4-11.0)
[2018-12-24 05:33] LABS: POSITIVE COUNT NO; POSITIVE DIFFERENTIAL NO; POSITIVE MORPHOLOGY NO
[2018-12-24 05:44] LABS: Anion Gap 6 (5-15); BUN 14 mg/dL (7-18); BUN/Creat Ratio 13.9 RATIO (10-20); Calcium,Total 8.4 mg/dL (8.5-10.1); Chloride 113 mmol/L (98-107); Creatinine, Serum 1.01 mg/dL (0.55-1.02); EST Glomerular Filtration Rate 63 mL/min (>60); Est Glom Filt Rate - Afr Amer 77 mL/min (>60); Estimated Creatinine Clearance 67.23 ml/min; Glucose 82 mg/dL (74-106); Potassium 3.6 mmol/L (3.5-5.1); Sodium Level 148 mmol/L (136-145)
--- NOTE | 2018-12-24 05:55 | EKG12_ITS ---
Test Reason : AM EKG Blood Pressure : / mmHG Vent. Rate : 051 BPM Atrial Rate : 051 BPM P-R Int : 150 ms QRS Dur : 100 ms QT Int : 430 ms P-R-T Axes : 003 -03 027 degrees QTc Int : 396 ms Sinus bradycardia Otherwise normal ECG When compared with ECG of 23-DEC-2018 06:04, No significant change was found Confirmed by CAMRON RICHARDS, JAROCHO ([id number]), web editor RAMÓN LOCKETT ([id number]) on 12/25/2018 11:08:12 AM Referred By: Yuri Walsh Confirmed By:LUCY LYON MD
[2018-12-24] MEDS: Heparin Injection (Vial) 5,000 UNIT/ML VIAL 5000 UNIT SC (06:37)
[2018-12-24 07:15] VITALS: PULSE 61
[2018-12-24] MEDS: Oxybutynin 5 MG Tablet PO (07:53)
[2018-12-24] MEDS: amLODIPine 5 MG Tablet PO (07:53)
[2018-12-24] MEDS: Pantoprazole Sodium 20 MG Tablet PO (07:53)
[2018-12-24] MEDS: Gabapentin 300 MG Capsule PO (07:53)
[2018-12-24] MEDS: Methocarbamol 500 MG Tablet PO (07:53)
[2018-12-24 07:54] VITALS: PULSE 71
[2018-12-24] MEDS: Metoprolol Tartrate 25 MG Tablet PO (07:54)
[2018-12-24 09:20] VITALS: BP 98/57; PULSE 57; RESP 16; TEMP 36.6; O2SAT 97
--- NOTE | 2018-12-24 09:56 | PCM.PN.CARD ---
Subjectve: The patient is awake and alert. She denies ongoing chest discomfort or ongoing palpitations. Objective: Vital Signs Temp Pulse Resp BP Pulse Ox 97.9 F 57 L 16 98/57 L 97 12/24/18 09:20 12/24/18 09:20 12/24/18 09:20 12/24/18 09:20 12/24/18 09:20 Oxygen Flow Rate (L/min) 2 Oxygen Delivery Method Room Air Weight: 274 lb 11.135 oz Body Mass Index (BMI) 44.3 Finger Stick Blood Glucose 169 Intake and Output for Last 24 Hours 12/22/18 12/23/18 12/24/18 23:59 23:59 23:59 Intake Total 428.6 / 428.6 480 / 840 600 / 600 Output Total 900 / 900 1200 / 1200 Balance -471.4 / -471.4 -720 / -360 600 / 600 General: Awake, Alert, Oriented x 3, Cooperative, No Acute Distress, Obese HEENT: Atraumatic, Normocephalic, PERRL, EOMI, Sclera Non Icteric Oral: Moist Mucosa Neck: Supple, Good ROM, No JVD Lungs: Clear to auscultation Cardiovascular: Regular Rhythm, Normal S1, Normal S2 Vascular: - - Right brachial pulse/right radial pulse: 2+/4+; no bruits; no hematoma Abdomen: Bowel Sounds Present, Soft Extremities: Trace RLE Edema, Trace LLE Edema Psych/Mental Status: Appropriate 12/22/18 20:40: Magnesium 1.9 12/24/18 05:10: WBC 7.8, RBC 4.07 L, Hgb 12.2, Hct 37.8, MCV 92.9, MCH 30.0, MCHC 32.3, RDW 14.6, RDW Differential 48.9 H, Plt Count 225, MPV 9.2, Immature Gran % (Auto) 0.300, Neut % (Auto) 45.8 L, Lymph % (Auto) 46.3 H, [place] % (Auto) 6.8, Eos % (Auto) 0.5, Baso % (Auto) 0.3, Absolute Neuts (auto) 3.6, Total Counted Not Reportable 12/24/18 05:10: Sodium 148 H, Potassium 3.6, Chloride 113 H, Carbon Dioxide 29.0, Anion Gap 6, BUN 14, Creatinine 1.01, Est GFR (MDRD) Af Amer 77, Est GFR (MDRD) Non-Af 63, BUN/Creatinine Ratio 13.9, Glucose 82, Calcium 8.4 L Rhythm: Sinus rhythm ECHO: Interpretation Summary The study was technically difficult. Contrast injection was performed. Limited views were obtained. Left ventricular systolic function is normal. The estimated ejection fraction is 60 %. No pericardial effusion. Epicardial fat. Unable to assess diastolic dysfunction. Cardiac catheterization: CORONARY ANGIOGRAPHY DOMINANCE: Left Dominant LEFT HEART ASSESSMENT Left Ventricular Ejection Fraction: by LV Gram 55 % Normal LV wall motion Elevated Left Ventricular End Diastolic Pressure LVEDP: 19 mmHg LEFT MAIN: Angiographically normal LEFT ANTERIOR DESCENDING ARTERY: Angiographically normal CIRCUMFLEX ARTERY: Angiographically normal RIGHT CORONARY ARTERY: Angiographically normal VALVE FINDINGS: Normal Aortic Valve function Normal Mitral Valve function AORTIC ROOT: Angiographically normal Medical Necessity - Tobacco Use Smoking Status: Former smoker Tobacco Use: Cigarettes Assessment/Plan 1. Nonsustained wide-complex tachycardia/nonsustained ventricular tachycardia The patient's case has been reviewed by [facility] electrophysiology as detailed in the [facility] hospitalist note from yesterday. Based upon their review of the patient's cardiac rhythm strips they appeared to be confident that the patient's cardiac rhythm strips represent an underlying artifact as opposed to ventricular tachycardia. They recommended no medical management, outpatient follow-up with a 30-day ambulatory event monitor to correlate any other symptoms with her underlying cardiac rate and rhythm, and they agreed to evaluate her as an outpatient. This is been discussed with the patient and she is agreeable to this approach. 2. Chest pain Her chest discomfort does not appear to be related to classic underlying atherosclerotic CAD. There is no obvious ongoing pericardial involvement. Thus she should be considered for further noncardiac evaluation of her chest discomfort. 3. Hypertension She does have a history of hypertension. She will continue medical management with adjustment of medications as deemed appropriate. This note was generated with [employer] software. It may contain incorrect words, spelling, and punctuation that were not noted in checking the note before signing.
--- NOTE | 2018-12-24 11:29 | DCINST_ITS ---
- Discharge Diagnoses Current Active Problems: Current Active and Chronic Problems NSVT (nonsustained ventricular tachycardia) (Acute) Urinary retention (Acute) Chest pain (Acute) Reason(s) for Visit for Discharge Instructions: Chest pain, palpitations You will use the following diet at home:: Cardiac Your food should be the consistency of: Regular Your liquids should be the consistency of: Regular/Thin Discharge Activity: Return to Normal Activity Additional Instructions: You are going to be discharged with a 30-day event monitor. Follow-up with your manager research and development within 2 weeks. Follow-up with your plumber apprentice within 2 weeks. Continue to take all your medications as prescribed. Allergies/Adverse Reactions: Allergies amoxicillin trihydrate [From Augmentin] Allergy (Verified 12/22/18 12:42) Rash buspirone HCl [From BuSpar] Allergy (Verified 12/22/18 12:42) Hives fentanyl Allergy (Verified 12/22/18 12:42) Other hallucinations allargy to patch only. does fine with iv latex Allergy (Verified 12/22/18 12:42) Rash potassium clavulanate [From Augmentin] Allergy (Verified 12/22/18 12:42) Rash Medications to take at Discharge Amlodipine [Norvasc] 5 mg PO BID 08/01/15 Pantoprazole Sodium [Protonix] 20 mg PO BID 11/13/18 Docusate Sodium 200 mg PO QHS PRN PRN 11/27/18 Gabapentin [Neurontin] 300 mg PO BID 11/27/18 Hydrocodone Bitart/Apap 5-325 [[place] 5/325] 1 tablet PO BID PRN PRN 11/27/18 Hydroxyzine HCl 25 mg PO QHS PRN PRN 11/27/18 Methocarbamol [Robaxin] 500 mg PO BID 11/27/18 Nystatin [Nystop] 1 applic TP TID PRN PRN 11/27/18 Oxybutynin [Ditropan] 5 mg PO BID 11/27/18 Quetiapine Fumarate [Seroquel] 300 mg PO QHS 11/27/18 Venlafaxine HCl [Effexor] 100 mg PO BID 11/27/18 Acetaminophen [Tylenol Tablet] 650 mg PO Q6H PRN PRN tab 12/24/18 Orders to be completed after discharge: 30-Day Event Recorder [[facility]] Location: None Selected Primary Care Physician: Taran Wall MD [Primary Care Provider] - Please follow up with your Primary Care Physician in: within 1-2 weeks Test Results: Test results from this visit will be discussed in further detail at your follow- up appointment, if applicable. Please Follow Up With: Carl Chvaes MD When: in 2 weeks Proposed Discharge Date: 12/24/18
--- NOTE | 2018-12-24 11:30 | NURSING ---
CALLED CARDIOVASCULAR TO SET UP 30 DAY MONITOR
--- NOTE | 2018-12-24 11:31 | DS.PCM_ITS ---
Discharge Date and Diagnosis Date of Admission: 12/22/18 Date of Discharge: 12/24/18 - Primary Discharge Diagnosis Active and Suspected Problems 1. Possible wide-complex tachycardia, cardiac cath negative 2. Acute on chronic back pain 3. Acute urinary retention 4. Hypertension 5. Morbid obesity 6. Anxiety/depression 7. GERD 8. Leucocytosis, reactive - Secondary Discharge Diagnosis Chronic Problems Sacroiliitis, not elsewhere classified (Chronic) Spondylosis of lumbar region without myelopathy or radiculopathy (Chronic) Paresthesia of right upper and lower extremity (Chronic) Anxiety disorder (Chronic) Morbid obesity with body mass index of 50 or higher (Chronic) Pulmonary emboli (Chronic) Chronic low back pain (Chronic) Hypertension (Chronic) Spondylosis of lumbar region without myelopathy or radiculopathy (Chronic) Tobacco abuse disorder (Chronic) Hospital Course and Treatment Imaging Results: Clinical Impression(s) from Imaging Studies Chest X-Ray 12/22/18 13:10 IMPRESSION: Limited infiltrate left lower lobe new since November 27, 2018 Electronically Signed: Zion Vieira, at 13:34 EDT Tel , Service support , Lumbar Spine MRI 12/22/18 13:25 IMPRESSION: Multilevel degenerative disease and postoperative change as described, not significant changed compared to prior study. Moderate central canal stenoses at L1-2 and L2-3. Moderate foraminal stenosis on the right at L3-4. Stable seroma along the dorsal margin of the thecal sac at the L4-5 level. Electronically Signed: Taran Owens MD at 16:25 EDT Tel , Service support , Thoracic Spine MRI 12/23/18 13:34 IMPRESSION: Multilevel degenerative disease as described. No evidence of cord pathology or nerve root impingement. No acute compression fracture. Electronically Signed: Taran Owens MD at 16:03 EDT Tel , Service support , Cardiology Operations: None Procedures: None Summary of Care Provided: 3-year-old patient with chronic back pain who comes in with palpitations chest pain and low back pain. She had gone to [facility] in night before admission and was found to have urine retention and Comer catheter was placed with a leg bag and discharged home she continued to have low back pain and started having palpitations. This was associated with chest pain and shortness of breath. In the ED, she was found to have questionable nonsustained ventricular tachycardia, cardiology was consulted from the ED, receive amiodarone bolus and maintain amiodarone drip. She had a cardiac cath done the next day which showed no acute abnormalities. It was discussed to transfer patient to a tertiary facility for EP evaluation. Upon discussion with the EP team, they felt that patient should rather be discharged 30-day event monitor and follow-up with them in the clinic. Patient had an MRI of the lumbar spine during this admission, that showed moderate central canal stenosis at L1-L2 and L2-L3. Moderate central canal stenosis at L1-L2 and L2-L3. Patient had a Comer catheter removed with no urine retention. She was discharged to follow-up with cardiology and EP in the outpatient. Subjective: On the day of discharge, she complained of feeling sad because her mother was admitted very sick in the hospital. Denies any chest pain or dyspnea. No acute events that happened overnight. Objective: Physical Exam General: Alert, Oriented x3, Cooperative, morbidly obese HEENT: Atraumatic, PERRLA, EOMI, Normocephalic Neck: Supple, No JVD, Negative Carotid Bruits Lungs: Clear to auscultation, Diminished Cardiovascular: Regular rate, Regular Rhythm, Normal S1, Normal S2, No murmurs Abdomen: Bowel Sounds Present, Soft, Non Tender, Non-Distended, Obese Extremities: No clubbing, No cyanosis, No edema, Capillary Refill Less than 3 Seconds Skin: No rashes, No breakdown Musculoskeletal: No Tenderness to Palpation of Joints or Extremities Neurological: Cranial nerves II-XII grossly intact, Neuro grossly intact Psych/Mental Status: Normal Affect, Appropriate - Physical Exam Vital Signs Temp Pulse Resp BP Pulse Ox 97.9 F 57 L 16 98/57 L 97 12/24/18 09:20 12/24/18 09:20 12/24/18 09:20 12/24/18 09:20 12/24/18 09:20 Oxygen Flow Rate (L/min) 2 Oxygen Delivery Method Room Air Weight: 124.6 kg Body Mass Index (BMI) 44.3 Finger Stick Blood Glucose 169 Intake and Output for Last 24 Hours 12/22/18 12/23/18 12/24/18 23:59 23:59 23:59 Intake Total 428.6 / 428.6 480 / 840 600 / 600 Output Total 900 / 900 1200 / 1200 Balance -471.4 / -471.4 -720 / -360 600 / 600 Laboratory Tests Past 24 Hrs 12/22/18 12/24/18 12/24/18 20:40 05:10 05:10 WBC 7.8 RBC 4.07 L Hgb 12.2 Hct 37.8 MCV 92.9 MCH 30.0 MCHC 32.3 RDW 14.6 RDW Differential 48.9 H Plt Count 225 MPV 9.2 Immature Gran % (Auto) 0.300 Neut % (Auto) 45.8 L Lymph % (Auto) 46.3 H [place] % (Auto) 6.8 Eos % (Auto) 0.5 Baso % (Auto) 0.3 Absolute Neuts (auto) 3.6 Absolute Lymphs (auto) 3.61 Total Counted Not Reportable Sodium 148 H Potassium 3.6 Chloride 113 H Carbon Dioxide 29.0 Anion Gap 6 BUN 14 Creatinine 1.01 Estim Creat Clear Calc 67.23 Est GFR (MDRD) Af Amer 77 Est GFR (MDRD) Non-Af 63 BUN/Creatinine Ratio 13.9 Glucose 82 Calcium 8.4 L Magnesium 1.9 Discharge Diet: No Restrictions Discharge Activity: Return to Normal Activity Home Medications: Medications to take at Discharge Amlodipine [Norvasc] 5 mg PO BID 08/01/15 Pantoprazole Sodium [Protonix] 20 mg PO BID 11/13/18 Docusate Sodium 200 mg PO QHS PRN PRN 11/27/18 Gabapentin [Neurontin] 300 mg PO BID 11/27/18 Hydrocodone Bitart/Apap 5-325 [[place] 5/325] 1 tablet PO BID PRN PRN 11/27/18 Hydroxyzine HCl 25 mg PO QHS PRN PRN 11/27/18 Methocarbamol [Robaxin] 500 mg PO BID 11/27/18 Nystatin [Nystop] 1 applic TP TID PRN PRN 11/27/18 Oxybutynin [Ditropan] 5 mg PO BID 11/27/18 Quetiapine Fumarate [Seroquel] 300 mg PO QHS 11/27/18 Venlafaxine HCl [Effexor] 100 mg PO BID 11/27/18 Acetaminophen [Tylenol Tablet] 650 mg PO Q6H PRN PRN tab 12/24/18 Other Amb Orders: 30-Day Event Recorder [[facility]] Location: None Selected Primary Care Physician: Taran Wall MD [Primary Care Provider] - Please follow up with your Primary Care Physician in: within 1-2 weeks Please Follow Up With: Carl Chaves MD When: in 2 weeks Disposition: Home Minutes spent on discharge:: 45 Patient Condition:: Stable Medical Necessity - Tobacco Use Smoking Status: Former smoker Tobacco Use: Cigarettes Meaningful Use Info Meaningful Use Diagnoses (Choose all that apply): None applicable Code Visit Inpatient E&M: 48678 Disch Hosp
== END 2018-12-24 11:43 | disposition home or self-care (01) | DRG 192 ==
LOC: ED 13:38 → PCU 17:27
PROVIDERS: Internal Medicine Cardiovascular Disease; Nurse Practitioner Family; Emergency Provider Emergency Medicine; Family Provider Family Medicine; PCP Family Medicine; Visit Provider Internal Medicine
DX: I47.2 Ventricular tachycardia (principal); I10 Essential (primary) hypertension; E66.01 Morbid (severe) obesity due to excess calories; M48.061 Spinal stenosis, lumbar region without neurogenic claudication; R33.9 Retention of urine, unspecified; Z68.41 Body mass index [BMI] 40.0-44.9, adult; G89.29 Other chronic pain; R07.89 Other chest pain; F32.9 Major depressive disorder, single episode, unspecified; Z87.891 Personal history of nicotine dependence; F41.9 Anxiety disorder, unspecified; K21.9 Gastro-esophageal reflux disease without esophagitis; M47.816 Spondylosis without myelopathy or radiculopathy, lumbar region
CPT/HCPCS: 36415; 71045; 72146; 72158; 80048; 81001; 81025; 83735; 84484; 85025; 85610; 85730; 93005; 93306; 93458; 99152; 99153; 99285; A9575; J7040; Q9957; A4216; C1769; C1894; C8929; J2405; Q9967

== ENCOUNTER → 2018-12-24 11:47 | Outpatient (REF) | payer MEDICAID, SELFPAY ==
[2018-12-22 17:53] VITALS: BMI 44.3
== END ==
LOC: CVS 11:47
PROVIDERS: Family Provider Family Medicine; PCP Family Medicine; Referring Provider Internal Medicine; Visit Provider Internal Medicine
DX: R00.1 Bradycardia, unspecified (principal)
CPT/HCPCS: 93270

== ENCOUNTER 2018-12-25 14:15 | Day surgery (SDC) | payer MEDICAID, SELFPAY ==
[2018-11-27 22:17] VITALS: BMI 44.6
[2018-12-22 17:53] VITALS: BMI 44.3
[2018-12-25] VITALS (7 sets, daily range): BP systolic 99–127; BP diastolic 66–82; PULSE 83–92; RESP 18; TEMP 36.5–37.1; O2SAT 96–98; BMI 45.3
[2018-12-25 14:41] LABS: Internal QC Validated? YES +Cl - CLEAR BKGD; Pregnancy, Urine Negative Negative
[2018-12-25 14:56] LABS: Bedside Glucose 92 mg/dL (70-110)
--- NOTE | 2018-12-25 16:51 | DCINST_ITS ---
- Discharge Diagnoses Current Active Problems: Lower back and sacroiliac joint pain Reason(s) for Visit for Discharge Instructions: Sacroiliac joint injection on the right side You will use the following diet at home:: No restrictions Your food should be the consistency of: Regular Discharge Activity: Return to Normal Activity May shower in (days): 1 May resume sexual activity in: No Restrictions Weight Bearing Status: Weight bearing as tolerated, Full weight bearing, Toe touch weight bearing, No weight bearing Call your doctor if your incision/area has: Continuous Slow Oozing, Sudden Increased Bleeding, Increased Pain/ Swelling, Increased Redness, Foul Smelling Discharge, Swelling at the incision site Call your doctor if you observe: Fever of 101 or Higher, Coldness, Increased Pain Suture Line Care: Avoid Pulling/Pushing, Avoid Pinching/Bending Remove Dressing in (days):: 1 Cleanse incision/area with: Soap & Water Allergies/Adverse Reactions: Allergies amoxicillin trihydrate [From Augmentin] Allergy (Verified 12/25/18 14:28) Rash buspirone HCl [From BuSpar] Allergy (Verified 12/25/18 14:28) Hives fentanyl Allergy (Verified 12/25/18 14:28) Other hallucinations allargy to patch only. does fine with iv latex Allergy (Verified 12/25/18 14:28) Rash potassium clavulanate [From Augmentin] Allergy (Verified 12/25/18 14:28) Rash Medications to take at Discharge Amlodipine [Norvasc] 5 mg PO BID 08/01/15 Pantoprazole Sodium [Protonix] 20 mg PO BID 11/13/18 Docusate Sodium 200 mg PO QHS PRN PRN 11/27/18 Gabapentin [Neurontin] 300 mg PO BID 11/27/18 Hydrocodone Bitart/Apap 5-325 [[place] 5/325] 1 tablet PO BID PRN PRN 11/27/18 Hydroxyzine HCl 25 mg PO QHS PRN PRN 11/27/18 Methocarbamol [Robaxin] 500 mg PO BID 11/27/18 Nystatin [Nystop] 1 applic TP TID PRN PRN 11/27/18 Oxybutynin [Ditropan] 5 mg PO BID 11/27/18 Quetiapine Fumarate [Seroquel] 300 mg PO QHS 11/27/18 Venlafaxine HCl [Effexor] 100 mg PO BID 11/27/18 Acetaminophen [Tylenol Tablet] 650 mg PO Q6H PRN PRN tab 12/24/18 Primary Care Physician: Taran Wall MD [Primary Care Provider] - Test Results: Test results from this visit will be discussed in further detail at your follow- up appointment, if applicable. Please Follow Up With: Shantanu Landa MD
--- NOTE | 2018-12-25 16:52 | PCM.OPRPT ---
Problem List (1) Sacroiliitis, not elsewhere classified Status: Acute (2) Chronic low back pain Status: Chronic Qualifiers: Report of Operation Date of Procedure: 12/25/18 Pre-Operative Diagnosis: Sacroiliac joint dysfunction and sacroiliac joint pain Post-Operative Diagnosis: Same Surgery/Procedure Performed:: Right sacroiliac joint injection under fluoroscopy guidance Description of Surgical Findings:: Under sterile conditions. Patient placed in the prone position, pressure points were padded, patient was ready from the nursing and the anesthesia team. After identification of the side and the target area for the block under guided fluoroscopy, tolerated the right sacroiliac joint under oblique fluoroscopy from AP posterior view, the entry site was marked with marking pen. I used Betadine for sterilization of the skin, sterile draping were applied. Using 25-gauge needle to infiltrate the skin with local anesthesia using preservative-free lidocaine 0.5% injected 5 mL at each site of entry. Using oblique fluoroscopy, accessed the right medial nerve branch supplying the [right] sacroiliac joint posterior border using 22-gauge spinal needle. After confirmation of appropriate needle placement to the targeted area with AP and lateral fluoroscopy, injected 10 mL mixture of preservative-free Marcaine 0.5% and Kenalog [80] mg at each site. [place] was removed, pressure dressing were applied. Patient tolerated the procedure well and was taken to the recovery. Type of Anesthesia:: Local MAC Description of Procedure: See above - Complications None
[2018-12-25] MEDS: Triamcinolone Acetonide 40 MG/ML Vial (17:09)
[2018-12-25] MEDS: Bupivacaine 0.25% 30 ML Vial (17:09)
--- NOTE | 2018-12-25 17:11 | RAD_ITS ---
STUDY: X-RAY - SACROILIAC JOINTS REASON FOR EXAM: Female, 43 years old. Right sacroiliac joint injection TECHNIQUE: 3 intraoperative view(s) of the sacroiliac joint COMPARISON: None. FINDINGS: A needle is noted overlying the inferior aspect of the right sacroiliac joint with injection of contrast confirming location. Sagittal surgical fusion from L3 through S1. Laminectomy of L3-L5. RAD/Fluoro Guided Needle Placement IMPRESSION: Intraoperative localizing images for right sacroiliac joint injection. Electronically Signed: Kyler Handy DO at 18:07 EDT Tel [phone], Service support ,
== END 2018-12-25 18:10 | disposition home or self-care (01) ==
LOC: SDC 14:16 → AC 14:18
PROVIDERS: Anesthesiology; Family Provider Family Medicine; PCP Family Medicine; Referring Provider Anesthesiology; Visit Provider Anesthesiology
PROC: 3E0U3GC Introduction of Other Therapeutic Substance into Joints, Percutaneous Approach (ICD-10-PCS; CPT 27096; principal; 2018-12-25 15:25)
DX: M46.1 Sacroiliitis, not elsewhere classified (principal); M51.16 Intervertebral disc disorders with radiculopathy, lumbar region; M48.062 Spinal stenosis, lumbar region with neurogenic claudication; M47.817 Spondylosis without myelopathy or radiculopathy, lumbosacral region; M51.26 Other intervertebral disc displacement, lumbar region; M51.27 Other intervertebral disc displacement, lumbosacral region; M51.37 Other intervertebral disc degeneration, lumbosacral region; M96.1 Postlaminectomy syndrome, not elsewhere classified; M48.07 Spinal stenosis, lumbosacral region; M47.896 Other spondylosis, lumbar region; G89.4 Chronic pain syndrome; I10 Essential (primary) hypertension; E78.00 Pure hypercholesterolemia, unspecified; G47.30 Sleep apnea, unspecified; E66.9 Obesity, unspecified; F32.9 Major depressive disorder, single episode, unspecified; F41.9 Anxiety disorder, unspecified; F17.200 Nicotine dependence, unspecified, uncomplicated; Z79.899 Other long term (current) drug therapy; Z86.718 Personal history of other venous thrombosis and embolism; Z86.711 Personal history of pulmonary embolism
CPT/HCPCS: 27096; 76000; 77002; 81025; 82962; J7120

== ENCOUNTER 2019-02-05 14:54 | Day surgery (SDC) | payer MEDICAID, SELFPAY ==
[2018-12-25 14:34] VITALS: BMI 45.3
[2019-02-05] VITALS (10 sets, daily range): BP systolic 117–152; BP diastolic 73–92; PULSE 60–70; RESP 18–20; TEMP 36.9–37.2; O2SAT 92–99; BMI 42.2
[2019-02-05 15:24] LABS: Internal QC Validated? YES +Cl - CLEAR BKGD; Pregnancy, Urine Negative Negative
--- NOTE | 2019-02-05 16:15 | RAD_ITS ---
STUDY: X-RAY - LUMBAR SPINE REASON FOR EXAM: Female, 43 years old. Facet block TECHNIQUE: 3 intraoperative view(s) of the lumbar spine were obtained. COMPARISON: None FINDINGS: Status post surgical fusion from L2 to L5 with laminectomy. Localizing needles are noted over the right facets from L2-3 through L5-S1. RAD/L/S Spine Min 4 Views IMPRESSION: Localizing images from facet block of the lumbar spine. Electronically Signed: Kyler Handy DO at 17:55 EDT Tel [phone], Service support ,
[2019-02-05] MEDS: Triamcinolone Acetonide 40 MG/ML Vial (16:38)
[2019-02-05] MEDS: Bupivacaine 0.25% 30 ML Vial (16:39)
--- NOTE | 2019-02-05 16:49 | DCINST_ITS ---
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 Reason(s) for Visit for Discharge Instructions: Lumbar facet spondylosis, patient is here for lumbar facets injection to the right side You will use the following diet at home:: No restrictions Your food should be the consistency of: Regular Discharge Activity: Return to Normal Activity, No Restrictions May shower in (days): 1 May resume sexual activity in: No Restrictions Weight Bearing Status: Weight bearing as tolerated Call your doctor if your incision/area has: Continuous Slow Oozing, Sudden Increased Bleeding, Increased Pain/ Swelling, Increased Redness, Foul Smelling Discharge, Swelling at the incision site Call your doctor if you observe: Fever of 101 or Higher, Coldness, Increased Pain, Numbness or Tingling, Uncontrolled pain Suture Line Care: Avoid Pulling/Pushing, Avoid Pinching/Bending Remove Dressing in (days):: 1 Cleanse incision/area with: Soap & Water Instructions: What Is Osteoarthritis?, Living with Osteoarthritis, Understanding Osteoarthritis, Osteoarthritis: Common Sites, Osteoarthritis: Injections or Surgery Allergies/Adverse Reactions: Allergies amoxicillin trihydrate [From Augmentin] Allergy (Verified 02/03/19 11:50) Rash buspirone HCl [From BuSpar] Allergy (Verified 02/03/19 11:50) Hives fentanyl Allergy (Verified 02/03/19 11:51) hallucinations only with patch hallucinations allargy to patch only. does fine with iv latex Allergy (Verified 02/03/19 11:50) Rash potassium clavulanate [From Augmentin] Allergy (Verified 02/03/19 11:50) Rash Medications to take at Discharge Amlodipine [Norvasc] 5 mg PO DAILY 08/01/15 Pantoprazole Sodium [Protonix] 20 mg PO BID 11/13/18 Docusate Sodium 200 mg PO QHS PRN PRN 11/27/18 Gabapentin [Neurontin] 300 mg PO BID 11/27/18 Hydrocodone Bitart/Apap 5-325 [[place] 5/325] 1 - 2 tablet PO BID PRN PRN 11/27/18 Hydroxyzine HCl 25 mg PO QHS PRN PRN 11/27/18 Methocarbamol [Robaxin] 500 mg PO BID 11/27/18 Nystatin [Nystop] 1 applic TP TID PRN PRN 11/27/18 Oxybutynin [Ditropan] 5 mg PO BID 11/27/18 Quetiapine Fumarate [Seroquel] 300 mg PO QHS 11/27/18 Venlafaxine HCl [Effexor] 100 mg PO BID 11/27/18 Acetaminophen [Tylenol Tablet] 650 mg PO Q6H PRN PRN tab 12/24/18 Primary Care Physician: Taran Wall MD [Primary Care Provider] - Test Results: Test results from this visit will be discussed in further detail at your follow- up appointment, if applicable. Please Follow Up With: Shantanu Landa MD
--- NOTE | 2019-02-05 16:51 | OP.PCM_ITS ---
Problem List (1) Spondylosis of lumbar region without myelopathy or radiculopathy Status: Chronic Report of Operation Date of Procedure: 02/05/19 Pre-Operative Diagnosis: Lumbar facet spondylosis and lower back pain Post-Operative Diagnosis: Lumbar facet spondylosis Surgery/Procedure Performed:: Right sided lumbar facets injection at the level of the L2-3 , L3-4, L4-5 and 5 S1 under fluoroscopy guidance Description of Surgical Findings:: Under sterile conditions. Patient placed in the prone position, pressure points were padded, patient was ready from the nursing and the anesthesia team. After identification of the side and the target area for the block under guided fluoroscopy, the entry site was marked with marking pen. I used Betadine for sterilization of the skin, sterile draping were applied. Using 25-gauge needle to infiltrate the skin with local anesthesia using preservative-free lidocaine 0.5% injected 2.5 mL at each site of entry. Using oblique fluoroscopy, accessed the right medial nerve branch supplying the [right] lumbar facets L2-3, L3-4, L4-5, L5-S1 using 22-gauge spinal needle. After confirmation of appropriate needle placement to the targeted area with AP and lateral fluoroscopy, injected 2.5 mL mixture of preservative-free Marcaine 0.5% and Kenalog [20] mg at each site. [place] was removed, pressure dressing were applied. Patient tolerated the pro cedure well and was taken to the recovery. Type of Anesthesia:: Local MAC - Complications None
== END 2019-02-05 17:38 | disposition home or self-care (01) ==
LOC: SDC 14:55 → AC 14:56
PROVIDERS: Anesthesiology; Family Provider Family Medicine; PCP Family Medicine; Referring Provider Anesthesiology; Visit Provider Anesthesiology
PROC: 3E0T3BZ Introduction of Anesthetic Agent into Peripheral Nerves and Plexi, Percutaneous Approach (ICD-10-PCS; CPT 64493; principal; 2019-02-05 16:10)
DX: M47.816 Spondylosis without myelopathy or radiculopathy, lumbar region (principal); E11.9 Type 2 diabetes mellitus without complications; I10 Essential (primary) hypertension; E78.00 Pure hypercholesterolemia, unspecified; K21.9 Gastro-esophageal reflux disease without esophagitis; F32.9 Major depressive disorder, single episode, unspecified; F17.200 Nicotine dependence, unspecified, uncomplicated; Z79.899 Other long term (current) drug therapy; Z86.711 Personal history of pulmonary embolism; Z86.718 Personal history of other venous thrombosis and embolism
CPT/HCPCS: 01992; 64493; 64494; 64495; 64483; 72110; 81025; J7120

== ENCOUNTER → 2019-02-09 12:00 | Outpatient (CLI) | payer MEDICAID, SELFPAY ==
[2019-02-05 15:36] VITALS: BMI 42.2
--- NOTE | 2019-02-09 12:03 | RAD_ITS ---
STUDY: X-RAY - THORACIC SPINE REASON FOR EXAM: Female, 43 years old. Pain TECHNIQUE: 4 view(s) of the thoracic spine were obtained. COMPARISON: 12/23/2018 FINDINGS: There is no evidence of fracture or dislocation in the thoracic spine. The vertebral body heights are well-maintained. There are stable moderate multilevel degenerative changes. RAD/Thoracic Spine 2 Views IMPRESSION: No fracture or dislocation in the thoracic spine. Stable moderate multilevel degenerative change. Electronically Signed: Sukh Judge, at 17:04 EDT Tel , Service support ,
--- NOTE | 2019-02-09 12:05 | RAD_ITS ---
STUDY: X-RAY - LUMBAR SPINE REASON FOR EXAM: Female, 43 years old. Pain TECHNIQUE: 3 view(s) of the lumbar spine were obtained. COMPARISON: MRI dated 12/22/2018 FINDINGS: There is no evidence of fracture or dislocation in the lumbar spine. There are stable postsurgical changes from posterior fusion of L3-S1 with intact hardware in satisfactory alignment. There is stable moderate degenerative changes. RAD/Lumbar Spine 2 or 3 Views IMPRESSION: No fracture or dislocation in the lumbar spine. Stable postsurgical and degenerative change. Electronically Signed: Sukh Judge, at 17:05 EDT Tel , Service support ,
== END ==
PROVIDERS: Family Provider Family Medicine; PCP Family Medicine; Referring Provider Anesthesiology Pain Medicine; Visit Provider Anesthesiology Pain Medicine
DX: M54.5 Low back pain (principal)
CPT/HCPCS: 72070; 72100

== ENCOUNTER 2019-02-11 14:49 | Emergency (ER) | payer MEDICAID, SELFPAY ==
[2019-02-05 15:36] VITALS: BMI 42.2
[2019-02-11 14:50] VITALS: BP 144/87; PULSE 83; RESP 18; TEMP 36.8; O2SAT 98; BMI 42.3
--- NOTE | 2019-02-11 15:11 | ED.VIS.BACK ---
History of Present Illness Chief Complaint: Back Informant: Patient Onset: Days Context: Gradual Onset Timing: Continuous Quality: Burning Location: Lumbar Current Severity: 02/06 Maximum Severity: 10 Worsened by: improves with: Movement Associated Symptoms: Tingling, Radiation to Left Leg, Urinary Retention Narrative: The patient presents to the emergency department with low back pain. Patient has a history of chronic low back pain. She does follow with pain management. The patient had epidural injections done on the eighth of this month. She states by the next day, she was having increasing pain. She states she was having burning in her back and down her legs. She states that she began to have numbness in her groin and weakness of her left leg. She states the point where she is had 2 falls. She was actually seen at [place] emergency department 2 days ago. She had an MRI which showed severe spinal stenosis. She does feel that she had a low-grade fever yesterday. Also she denies any other systemic symptoms. She is been taking her [place] with little improvement. Prior similar symptoms: No Recent Illness/Hospitalization: No Past Medical History - Allergies and Home Meds Allergies/Adverse Reactions: Allergies amoxicillin trihydrate [From Augmentin] Allergy (Verified 02/11/19 14:52) Rash buspirone HCl [From BuSpar] Allergy (Verified 02/11/19 14:52) Hives fentanyl Allergy (Verified 02/11/19 14:52) hallucinations only with patch hallucinations allargy to patch only. does fine with iv latex Allergy (Verified 02/11/19 14:52) Rash potassium clavulanate [From Augmentin] Allergy (Verified 02/11/19 14:52) Rash Primary Care Physician: Taran Wall MD [Primary Care Provider] - Prior records reviewed: Yes Surgical History: - Lives: With Family Smoking Status: Former smoker Alcohol: None Drugs: None - Family History Maternal Family History: Reports: Heart Disease, Stroke Paternal Family History: Reports: Cancer, Diabetes, Heart Disease Review of Systems General: Denies: Chills, Fever, Sweats Eyes: Denies: Visual changes - bilaterally, Diplopia ENT: Denies: Rhinorrhea, Sore throat Cardiovascular: Denies: Chest pain, Palpitations Respiratory: Denies: Dyspnea, Cough, Dyspnea on exertion Gastrointestinal: Denies: Abdominal pain, Nausea, Vomiting, Diarrhea, Melena, Hematochezia Genitourinary: Denies: Dysuria, Hematuria, Frequency Musculoskeletal: Reports: Arthralgias, Back pain Skin: Denies: Rash, Wounds Neurological: Denies: Headache, Weakness, Numbness Physical Exam Vital Signs/Narrative: Vital Signs Temp Pulse Resp BP Pulse Ox 02/11/19 14:50 98.2 F 83 18 144/87 H 98 Inital Vital Signs reviewed: Yes General: Well nourished - He is, Well developed Head: Normocephalic, Atraumatic Eyes: Perrl, EOMI ENT: Moist mucous membranes, No rhinorrhea Neck: Supple, Nontender Cardiovascular: Regular rate, Regular rhythm, No murmurs Respiratory: No distress, CTA bilaterally, Chest nontender Abdomen: Soft, Nontender, Nondistended, Normal bowel sounds, No masses - The Back: Normal Inspection, Nontender, Positive SLR - Left - Is Extremeties: Nontender, No edema Skin: Normal color, No rash Neuro: Alert, Oriented, Normal Sensation, Normal DTR, Normal Gait, - - Weakness DF, PF Left leg Psychological: Normal affect Diagnostic/Tx/Re-eval Clinical Impression(s) from Imaging Studies Lumbar Spine MRI 02/11/19 16:39 IMPRESSION: Posterior interbody fusion L3-S1. Stable nonspecific posterior paraspinal fluid collection. Multilevel central and lateral spinal stenosis. Electronically Signed: Blaine Leonardo MD at 18:34 EDT , Service support , Abnormal Lab Results 02/11/19 02/11/19 02/11/19 15:35 15:35 16:00 WBC 14.3 H RBC 4.63 Hgb 14.8 Hct 43.5 MCV 94.0 MCH 32.0 MCHC 34.0 RDW Std Deviation 45.5 H RDW Coeff of Satya 13.2 Plt Count 326 MPV 8.9 Immature Gran % (Auto) 0.700 Neut % (Auto) 79.3 H Lymph % (Auto) 13.9 L [place] % (Auto) 5.8 Eos % (Auto) 0.1 Baso % (Auto) 0.2 Absolute Neuts (auto) 11.3 H Absolute Lymphs (auto) 1.98 Nucleated RBC % 0 Sodium 144 Potassium 4.0 Chloride 114 H Carbon Dioxide 24.0 Anion Gap 6 BUN 12 Creatinine 0.85 Estim Creat Clear Calc 79.89 Est GFR (MDRD) Af Amer 93 Est GFR (MDRD) Non-Af 77 BUN/Creatinine Ratio 14.1 Glucose 93 Calcium 9.0 Total Bilirubin 0.20 AST 16 ALT 29 Alkaline Phosphatase 96 Total Protein 6.7 Albumin 3.1 L Globulin 3.6 Albumin/Globulin Ratio 0.9 Urine Color Yellow Urine Clarity Clear Urine pH 7.0 Ur Specific [place] 1.005 Urine Protein Negative Urine Glucose (UA) Normal Urine Ketones Negative Urine Occult Blood Negative Urine Nitrite Negative Urine Bilirubin Negative Urine Urobilinogen Normal Ur Leukocyte Esterase Negative Urine RBC 0 SEEN Urine WBC 0 SEEN Ur Squamous Epith Cells 0 SEEN Urine Bacteria 0 SEEN Urine Mucus 0 SEEN - Medical Decision Making The patient presents with worsening back pain radiating to her left lower extremity. She has diminished strength. She also has diminished sensation in her groin. My concern is obviously for cauda equina. The patient did have a recent MRI, I wanted her to be transferred where she could be evaluated by neurosurgery. Patient requested transfer to [place]. Unfortunately, they would not accept the patient without an MRI. We are able to rearrange and get the patient's MRI done. There is no evidence of acute cord compression, but there is rather significant stenosis. Given the patient's symptoms, I do feel that she is going to require higher level of care. The patient was accepted at [place] and will be transferred. Impression Acute back pain with radiculopathy ED Disposition - Plan for ED Patient: Disposition: Acute Care Hospital - Other Referrals: Taran Wall MD [Primary Care Provider] -
[2019-02-11] MEDS: Ondansetron 4 MG/2 ML Vial IV (15:31)
[2019-02-11] MEDS: Morphine 4 MG/ML Syringe IV (15:32)
[2019-02-11 15:48] VITALS: PULSE 68; RESP 12; O2SAT 94
[2019-02-11 15:49] LABS: Absolute Lymphocyte Count 1.98 X10^3/uL (0.83-4.51); Absolute Neutrophil Count 11.3 X10^3/uL (2.0-7.7); Basophil# 0.03 X10^3/uL; Basophil% 0.2 % (0-1); Eosinophil# 0.02 X10^3/uL; Eosinophils% 0.1 % (0-5); Hematocrit 43.5 % (37-47); Hemoglobin 14.8 g/dL (12.0-15.0); Lymphocyte # 1.98 X10^3/ul (4.0); Lymphocyte % 13.9 % (19-41); Mean Platelet Vol. 8.9 fl (6.2-12.0); Monocyte# 0.83 X10^3/uL; Monocyte% 5.8 % (0-10); NRBC Flagged by Analyzer 0 % (0-5); Neutrophil % 79.3 % (47-70); Platelet Count 326 K/mm3 (150-450); RBC Distribution Width CV 13.2 % (11.6-14.6); RBC Distribution Width SD 45.5 fl (35.1-43.9); Red Blood Count 4.63 M/mm3 (4.2-5.4); White Blood Count 14.3 K/mm3 (4.4-11.0)
[2019-02-11 16:01] LABS: ALB/GLOB Ratio 0.9 RATIO (0.9-2.4); AST(SGOT) 16 U/L (15-37); Alanine Aminotransfer ALT/SGPT 29 U/L (13-56); Albumin, Serum 3.1 g/dL (3.2-5.0); Alkaline Phosphatase 96 U/L (45-117); Anion Gap 6 (5-15); BUN 12 mg/dL (7-18); BUN/Creat Ratio 14.1 RATIO (10-20); Chloride 114 mmol/L (98-107); Creatinine, Serum 0.85 mg/dL (0.55-1.02); EST Glomerular Filtration Rate 77 mL/min (>60); Est Glom Filt Rate - Afr Amer 93 mL/min (>60); Estimated Creatinine Clearance 79.89 ml/min; Globulin 3.6 g/dL (2.2-4.2); Glucose 93 mg/dL (74-106); Protein, Total 6.7 g/dL (6.4-8.2); Sodium Level 144 mmol/L (136-145)
--- NOTE | 2019-02-11 16:04 | ED.RN ---
STRAIGHT CATH FOR 450 ML. PATIENT UNABLE TO FEEL CATHETER. DR. TORREZ NOTIFIED.
[2019-02-11 16:05] LABS: Bacteria 0 SEEN /hpf (None Seen); Mucous, Urine 0 SEEN /hpf (<or=2+); Red Blood Cells-Urine 0 SEEN /hpf (0-5); Squamous Epithelial Cells - UA 0 SEEN /hpf (5-10); White Blood Cells 0 SEEN /hpf (0-5)
[2019-02-11] MEDS: HYDROmorphone 1 MG/ML Syringe IV ×3 (16:07→20:28)
[2019-02-11 16:11] LABS: Color, Urine Yellow (Yellow); Glucose, Dipstick Normal (Normal); Ketone-Dipstick Negative (Negative); Leukocyte Esterase-Dipstick Negative /ul (Negative); Nitrite-Dipstick Negative (Negative); Occult Blood-Urine Negative /ul (Negative); Protein-Dipstick Negative (Negative); Specific Gravity, Urine 1.005 (1.002-1.030); Urine Bilirubin Dipstick Negative (Negative); Urine Clarity Clear (Clear); Urine Urobilinogen Normal (Normal)
--- NOTE | 2019-02-11 16:39 | MRI_ITS ---
STUDY: MRI LUMBAR SPINE WITH AND WITHOUT CONTRAST REASON FOR EXAM: Female, 43 years old. Back pain radiating to the left groin. Recent steroid injection. TECHNIQUE: Standardized fat and water weighted pulse sequences were obtained in the sagittal and axial planes. 24 IV Dotarem was administered for the contrast portion of the examination. COMPARISON: Radiograph lumbar spine February 09, 2019 and MRI lumbar spine December 22, 2018 FINDINGS: T12-L1: Normal endplates. Normal disc height, hydration and morphology. Normal bilateral facet joints. Normal central canal and bilateral lateral recesses. Normal bilateral intervertebral neural foramina. Normal lumbar lordosis. There is no substantial scoliosis. Normal conus medullaris that terminates at the L1 level. L1-2: Mild broadbase annular bulge and trefoil type narrowing of the central and lateral spinal canal. L2-3: Moderate broadbase annular bulge and trefoil type narrowing of the central and lateral spinal canal. L3-4: Moderate left paracentral posterior disc marginal osteophyte and severe narrowing of the neural foramina bilaterally. Central thecal sac measures 7 mm in the midline. Bilateral pedicular screws. L4-5: Bilateral pedicular screws. There is severe narrowing of the neural foramina bilaterally. Central thecal sac is patent. Posterior paraspinal fluid collection measures 10 x 22 mm in AP and transverse dimensions. L5-S1: Bilateral pedicular screws. Moderate hypertrophic facet disease causing moderate narrowing of the neural foramina bilaterally. Central thecal sac is patent. Normal visualized sacral ala. Bilateral pedicular screws in S1. Normal visualized paraspinous soft tissue structures. MRI/Spine Lumbar W/WO Contrast IMPRESSION: Posterior interbody fusion L3-S1. Stable nonspecific posterior paraspinal fluid collection. Multilevel central and lateral spinal stenosis. Electronically Signed: Blaine Leonardo MD at 18:34 EDT , Service support ,
[2019-02-11] MEDS: LORazepam 2 MG/ML Syringe 1 MG IV (16:57)
[2019-02-11 18:09] VITALS: BP 140/80; PULSE 70; RESP 13; O2SAT 97
[2019-02-11] MEDS: diazePAM 5 MG Tablet PO (18:20)
[2019-02-11 19:03] VITALS: BP 158/64; PULSE 61; RESP 17; O2SAT 96
== END 2019-02-11 20:30 | disposition short-term general hospital (02) ==
LOC: ED 15:25
PROVIDERS: Emergency Provider Emergency Medicine; Family Provider Family Medicine; PCP Family Medicine
DX: M54.5 Low back pain (principal); M54.10 Radiculopathy, site unspecified; G89.29 Other chronic pain; R33.9 Retention of urine, unspecified; Z79.899 Other long term (current) drug therapy; Z88.0 Allergy status to penicillin; Z87.891 Personal history of nicotine dependence
CPT/HCPCS: 72158; 80053; 81001; 85025; 96361; 96374; 96375; 96376; 99285; A9575; J7030; P9612; A4216; J2405

== ENCOUNTER → 2019-02-19 13:37 | Outpatient (CLI) | payer MEDICAID, SELFPAY ==
[2019-02-11 14:50] VITALS: BMI 42.3
[2019-02-19 14:38] LABS: Amphetamine Urine VISTA NEGATIVE (<1000 ng/mL); Barbiturate Urine VISTA NEGATIVE (< 200 ng/mL); Benzodiazepine Urine VISTA POSITIVE (< 200 ng/mL); Cocaine Urine VISTA NEGATIVE (< 300 ng/mL); Ecstacy Urine VISTA NEGATIVE (< 500 ng/mL); Methadone Urine VISTA NEGATIVE (< 300 ng/mL); PCP Urine VISTA NEGATIVE (< 25 ng/mL); THC Urine VISTA NEGATIVE (< 50 ng/mL); Vista UDS pH Range 6
== END ==
PROVIDERS: Family Provider Family Medicine; PCP Family Medicine; Referring Provider Anesthesiology; Visit Provider Anesthesiology
DX: F11.20 Opioid dependence, uncomplicated (principal)
CPT/HCPCS: 80307

== ENCOUNTER 2019-02-26 12:51 | Day surgery (SDC) | payer MEDICAID, SELFPAY ==
[2019-02-26] VITALS (7 sets, daily range): BP systolic 116–131; BP diastolic 72–88; PULSE 85–89; RESP 16–20; TEMP 36.3–36.9; O2SAT 93–95; BMI 42.7
[2019-02-26 14:10] LABS: Internal QC Validated? YES +Cl - CLEAR BKGD; Pregnancy, Urine Negative Negative
[2019-02-26] MEDS: Lactated Ringers 1,000 ML 75 ML IV (14:25)
--- NOTE | 2019-02-26 14:59 | PCM.DC ---
- Discharge Diagnoses Current Active Problems: Lower back pain due to lumbar facet spondylosis, worse on the left L3-4, L4-5, L5-S1 Reason(s) for Visit for Discharge Instructions: Receiving left lumbar facet blocks at the left L3-4 L4-5 5 S1 You will use the following diet at home:: No restrictions Your food should be the consistency of: Regular Discharge Activity: Return to Normal Activity May shower in (days): 1 May resume sexual activity in: No Restrictions Weight Bearing Status: Weight bearing as tolerated Call your doctor if your incision/area has: Continuous Slow Oozing, Sudden Increased Bleeding, Increased Pain/ Swelling, Increased Redness, Swelling at the incision site Allergies/Adverse Reactions: Allergies buspirone HCl [From BuSpar] Allergy (Verified 02/11/19 14:52) Hives fentanyl Allergy (Verified 02/11/19 14:52) hallucinations only with patch hallucinations allargy to patch only. does fine with iv latex Allergy (Verified 02/11/19 14:52) Rash Medications to take at Discharge Amlodipine [Norvasc] 5 mg PO DAILY 08/01/15 Pantoprazole Sodium [Protonix] 20 mg PO BID 11/13/18 Gabapentin [Neurontin] 300 mg PO BID 11/27/18 Hydrocodone Bitart/Apap 5-325 [[place] 5/325] 1 - 2 tablet PO TID PRN PRN 11/27/18 Hydroxyzine HCl 25 mg PO QHS PRN PRN 11/27/18 Methocarbamol [Robaxin] 500 mg PO BID 11/27/18 Nystatin [Nystop] 1 applic TP TID PRN PRN 11/27/18 Oxybutynin [Ditropan] 5 mg PO BID 11/27/18 Quetiapine Fumarate [Seroquel] 300 mg PO QHS 11/27/18 Venlafaxine HCl [Effexor] 100 mg PO BID 11/27/18 Acetaminophen [Tylenol Tablet] 650 mg PO Q6H PRN PRN tab 12/24/18 Primary Care Physician: Taran Wall MD [Primary Care Provider] - Test Results: Test results from this visit will be discussed in further detail at your follow-up appointment, if applicable. Please Follow Up With: Shantanu Landa MD
--- NOTE | 2019-02-26 15:01 | PCM.OPRPT ---
Problem List (1) Spondylosis of lumbar region without myelopathy or radiculopathy Status: Acute (2) Spondylosis of lumbar region without myelopathy or radiculopathy Status: Acute Report of Operation Date of Procedure: 02/26/19 Pre-Operative Diagnosis: Lumbar facet spondylosis Post-Operative Diagnosis: Lumbar facet spondylosis Surgery/Procedure Performed:: Left-sided lumbar facet blocks at the level of the left L3-4 L4-5 5 S1 under fluoroscopy guidance Description of Surgical Findings:: Under sterile conditions. Patient placed in the prone position, pressure points were padded, patient was ready from the nursing and the anesthesia team. After identification of the side and the target area for the block under guided fluoroscopy, the entry site was marked with marking pen. I used Betadine for sterilization of the skin, sterile draping were applied. Using 25-gauge needle to infiltrate the skin with local anesthesia using preservative-free lidocaine 0.5% injected 2.5 mL at each site of entry. Using oblique fluoroscopy, accessed the right medial nerve branch supplying the left lumbar facets L3-4, L4-5, L5-S1 using 22-gauge spinal needle. After confirmation of appropriate needle placement to the targeted area with AP and lateral fluoroscopy, injected 2.5 mL mixture of preservative-free Marcaine 0.5% and Kenalog [20] mg at each site. Limestone was removed, pressure dressing were applied. Patient tolerated the procedure well and was taken to the recovery. Type of Anesthesia:: Local MAC - Complications None
--- NOTE | 2019-02-26 15:25 | RAD_ITS ---
PROCEDURE: Left L3-S1 facet joint block. DATE OF EXAMINATION: February 26, 2019. INDICATION: Female, 43 years old. Chronic low back pain. FLUOROSCOPY TIME (if supplied): (0:17) minutes/seconds. 3 coned-down images were obtained. Intraoperative imaging provided for left L3-S1 facet joint block. RAD/Lumbar Spine 2 or 3 Views IMPRESSION: Intraoperative imaging provided for left L3-S1 facet joint block. Electronically Signed: Wesly Llanes, at 9:47 EDT , Service support ,
[2019-02-26] MEDS: Triamcinolone Acetonide 40 MG/ML Vial (15:33)
[2019-02-26] MEDS: Bupivacaine 0.25% 30 ML Vial (15:33)
== END 2019-02-26 16:18 | disposition home or self-care (01) ==
LOC: SDC 12:52 → AC 12:53
PROVIDERS: Anesthesiology; Family Provider Family Medicine; PCP Family Medicine; Referring Provider Anesthesiology; Visit Provider Anesthesiology
PROC: 3E0T3BZ Introduction of Anesthetic Agent into Peripheral Nerves and Plexi, Percutaneous Approach (ICD-10-PCS; CPT 64493; principal; 2019-02-26 14:10)
DX: M47.816 Spondylosis without myelopathy or radiculopathy, lumbar region (principal); M47.817 Spondylosis without myelopathy or radiculopathy, lumbosacral region; M48.07 Spinal stenosis, lumbosacral region; M96.1 Postlaminectomy syndrome, not elsewhere classified; M46.1 Sacroiliitis, not elsewhere classified; G89.4 Chronic pain syndrome; I10 Essential (primary) hypertension; K21.9 Gastro-esophageal reflux disease without esophagitis; F32.9 Major depressive disorder, single episode, unspecified; F41.9 Anxiety disorder, unspecified; F17.200 Nicotine dependence, unspecified, uncomplicated; E66.9 Obesity, unspecified; Z68.41 Body mass index [BMI] 40.0-44.9, adult; Z79.899 Other long term (current) drug therapy; Z86.711 Personal history of pulmonary embolism
CPT/HCPCS: 64493; 64494; 64495; 64483; 72100; 81025; J7120

== ENCOUNTER → 2019-05-18 12:08 | Outpatient (CLI) | payer OTHER, SELFPAY ==
[2019-02-26 13:47] VITALS: BMI 42.7
[2019-05-18 13:07] LABS: Amphetamine Urine VISTA NEGATIVE (<1000 ng/mL); Barbiturate Urine VISTA NEGATIVE (< 200 ng/mL); Benzodiazepine Urine VISTA NEGATIVE (< 200 ng/mL); Cocaine Urine VISTA NEGATIVE (< 300 ng/mL); Ecstacy Urine VISTA NEGATIVE (< 500 ng/mL); Methadone Urine VISTA NEGATIVE (< 300 ng/mL); PCP Urine VISTA NEGATIVE (< 25 ng/mL); THC Urine VISTA NEGATIVE (< 50 ng/mL); Vista UDS pH Range 6
== END ==
PROVIDERS: Family Provider Family Medicine; PCP Family Medicine; Referring Provider Anesthesiology; Visit Provider Anesthesiology
DX: F11.20 Opioid dependence, uncomplicated (principal)
CPT/HCPCS: 80307

== ENCOUNTER 2019-07-05 15:07 | Observation (INO) | payer OTHER, SELFPAY ==
[2019-02-26 13:47] VITALS: BMI 42.7
[2019-07-05] VITALS (10 sets, daily range): BP systolic 95–128; BP diastolic 47–88; PULSE 71–105; RESP 10–18; TEMP 36.3–37.1; O2SAT 95–100; BMI 40.8; BMI 40.3
--- NOTE | 2019-07-05 15:27 | CT_ITS ---
STUDY: CT BRAIN WITHOUT CONTRAST REASON FOR EXAM: Female, 44 years old. LEFT PARASTHESIS, LETHARGIC RADIATION DOSAGE (If Supplied By Facility): CTDIvol = ( 44.99 ) mGy, DLP = ( 812.98 ) mGycm TECHNIQUE: Transaxial CT imaging of the brain was performed without administration of intravenous contrast material. Individualized dose optimization techniques were used for this CT. COMPARISON: No relevant priors. FINDINGS: Normal soft tissue structures. Normal calvarium. Normal size ventricles and extra-axial spaces for the patient''s age. Normal white matter tracts of the cerebral hemispheres. Normal basal ganglia and thalami. Normal brainstem. Normal cerebellum. There is no intracranial hemorrhage. There are no findings of an acute ischemic infarction. Normal visualized paranasal sinuses. CT/Brain/Head without Contrast IMPRESSION: Normal unenhanced CT scan of the brain. Electronically Signed: Stanislaw Becerril DO at 16:29 EST Tel , Service support ,
--- NOTE | 2019-07-05 15:28 | EKG12_ITS ---
Test Reason : Blood Pressure : / mmHG Vent. Rate : 099 BPM Atrial Rate : 099 BPM P-R Int : 152 ms QRS Dur : 092 ms QT Int : 354 ms P-R-T Axes : 029 -06 023 degrees QTc Int : 454 ms Normal sinus rhythm Poor R wave progression Confirmed by FIONA RICHARDS, REYNA ([id number]), manager editorial MARYELLEN BARTLETT ([id number]) on 07/07/2019 11:00:08 AM Referred By: HERNAN Confirmed By:REYNA JAIMES MD
--- NOTE | 2019-07-05 15:30 | RAD_ITS ---
STUDY: X-RAY CHEST REASON FOR EXAM: Female, 44 years old. Fatigue, headache, weakness and tachycardia x 3 days. TECHNIQUE: Single AP portable view of the chest. COMPARISON: Comparison is made with prior study dated December 22, 2018 FINDINGS: EKG electrodes are seen. Stable increased markings at the left lung base suggestive of left basilar atelectasis and/or early infiltrate. There is no demonstrated pleural abnormality. Normal size heart. Normal mediastinum and marilin. Normal visualized pulmonary arteries. Normal visualized aortic arch and descending thoracic aorta. Normal visualized thoracic spine. Normal visualized ribs, clavicles, and shoulders. There is no demonstrated abnormality of the visualized soft tissue structures of the upper abdomen. RAD/Chest 1 View (Portable) IMPRESSION: Stable atelectasis and/or infiltrate in the left lower lobe. Electronically Signed: Wesly Llanes, at 15:50 EST , Service support ,
--- NOTE | 2019-07-05 15:38 | ED.DCSUM_ITS ---
History of Present Illness Chief Complaint: Mental Status Change Informant: Patient Onset: Yesterday Context: Gradual Onset Timing: Continuous Narrative: Patient is a 44-year-old female with history of chronic low back pain and anxiety, hypertension and obesity presenting with fast heart rate and feeling unwell. Patient states she feels that her heart rate has been going fast especially with exertion over the past few days. She states is gone up to 140- 150. She also notes that last night she was starting to have paresthesias on her left side. Patient was seen at [facility] yesterday as well as [place] 4 days ago. Patient was at the hospital last night for chest pain. 4 days ago she was seen for abdominal pain. At that time she was diagnosed with a nonincarcerated ventral hernia. She went to her PCP for follow-up today where she was found to have some mildly garbled speech. They were concerned about a stroke and transferred her to the emergency room by EMS. Patient states she has been having a headache that is on the right side of her head. She states he has a history of migraines but this feels different. She no sometimes her vision feels blurry when she stands up too fast. Patient denies any history of stroke. She denies any fever or chills. She denies any history of stroke. She denies any other complaints at this time. Past Medical History - Allergies and Home Meds Allergies/Adverse Reactions: Allergies buspirone HCl [From BuSpar] Allergy (Verified 07/05/19 15:20) Hives fentanyl Allergy (Verified 07/05/19 15:20) hallucinations only with patch hallucinations allargy to patch only. does fine with iv latex Allergy (Verified 07/05/19 15:20) Rash morphine Adverse Reaction (Verified 07/05/19 15:22) Other emotional and itching Past Medical History: - - Anxiety, obesity, hypertension, hyperglycemia Surgical History: - Smoking Status: Never smoker - Family History Maternal Family History: Family History (Last Reviewed 07/05/19 @ 18:42 by Yuri Walsh DO) Other CVA (cerebral vascular accident) Cancer Diabetes Heart disease Family History: Reports: Heart Disease, Stroke Paternal Family History: Family History (Last Reviewed 07/05/19 @ 18:42 by Yuri Walsh DO) Other CVA (cerebral vascular accident) Cancer Diabetes Heart disease Family History: Reports: Cancer, Diabetes, Heart Disease Review of Systems General: Reports: Malaise. Denies: Chills, Fever, Sweats Eyes: Reports: Blurred Vision - bilaterally. Denies: Visual changes - bilaterally, Diplopia ENT: Denies: Rhinorrhea, Sore throat Cardiovascular: Reports: Chest pain, Heart racing. Denies: Palpitations Respiratory: Denies: Dyspnea, Cough, Dyspnea on exertion Gastrointestinal: Denies: Abdominal pain, Nausea, Vomiting, Diarrhea, Melena, Hematochezia Genitourinary: Denies: Dysuria, Hematuria, Frequency Musculoskeletal: Denies: Back pain, Extremity Pain Skin: Denies: Rash, Wounds Neurological: Reports: Headache, Parasthesia - left sided . Denies: Weakness, Numbness Physical Exam Vital Signs/Narrative: Vital Signs Temp Pulse Resp BP Pulse Ox 07/05/19 15:09 97.8 F 105 H 14 115/88 H 97 Inital Vital Signs reviewed: Yes General: Well nourished, Well developed, Obese, No Acute Distress Head: Normocephalic, Atraumatic Eyes: Perrl, EOMI ENT: Moist mucous membranes, No rhinorrhea, TM's clear Neck: Supple, Nontender, No JVD Cardiovascular: Regular rhythm, No murmurs, Tachycardia Respiratory: No distress, CTA bilaterally, Chest nontender. Negative for: Rales, Rhonchi, Wheezing Abdomen: Soft, Nontender, Nondistended, Normal bowel sounds Back: Nontender, Normal Inspection. Negative for: CVA tenderness Extremities: Nontender, No edema Skin: Normal color, No rash Neurological: Alert, Oriented x3, Cranial nerves II-XII grossly intact, Normal Strength, Parasthesia - Left upper and lower extremity, - - NIH of 1 for subjective paresthesias on left, normal clear speech. Negative for: Weakness Psychological: Normal affect, Normal Mood Diagnostic/Tx/Re-eval Clinical Impression(s) from Imaging Studies Brain CT 07/05/19 15:27 IMPRESSION: Normal unenhanced CT scan of the brain. Electronically Signed: Stanislaw Becerril DO at 16:29 EST Tel , Service support , Chest X-Ray 07/05/19 15:30 IMPRESSION: Stable atelectasis and/or infiltrate in the left lower lobe. Electronically Signed: Wesly Llanes, at 15:50 EST , Service support , Laboratory Data 07/05/19 07/05/19 07/05/19 15:30 15:30 15:30 WBC 7.7 RBC 4.64 Hgb 14.4 Hct 43.4 MCV 93.5 MCH 31.0 MCHC 33.2 RDW Std Deviation 39.9 RDW Coeff of Satya 11.8 Plt Count 278 MPV 8.6 Immature Gran % (Auto) 0.400 Neut % (Auto) 67.6 Lymph % (Auto) 24.6 [place] % (Auto) 6.3 Eos % (Auto) 0.7 Baso % (Auto) 0.4 Absolute Neuts (auto) 5.2 Absolute Lymphs (auto) 1.88 Nucleated RBC % 0 PT 13.9 INR 1.1 APTT 23.9 L D-Dimer Quant (PE/DVT) Sodium 142 Potassium 3.6 Chloride 110 H Carbon Dioxide 28.0 Anion Gap 4 L BUN 10 Creatinine 1.11 H Estim Creat Clear Calc 60.55 Est GFR (MDRD) Af Amer 69 Est GFR (MDRD) Non-Af 57 L BUN/Creatinine Ratio 9.0 L Glucose 126 H Lactic Acid Calcium 9.3 Total Bilirubin 0.40 AST 23 ALT 21 Alkaline Phosphatase 91 Troponin I < 0.015 Total Protein 7.0 Albumin 3.1 L Globulin 3.9 Albumin/Globulin Ratio 0.8 L HCG, Quant Urine Color Urine Clarity Urine pH Ur Specific [place] Urine Protein Urine Glucose (UA) Urine Ketones Urine Occult Blood Urine Nitrite Urine Bilirubin Urine Urobilinogen Ur Leukocyte Esterase Urine RBC Urine WBC Ur Squamous Epith Cells Urine Bacteria Urine Mucus Urine Test 07/05/19 07/05/19 07/05/19 15:30 15:30 15:45 WBC RBC Hgb Hct MCV MCH MCHC RDW Std Deviation RDW Coeff of Satya Plt Count MPV Immature Gran % (Auto) Neut % (Auto) Lymph % (Auto) [place] % (Auto) Eos % (Auto) Baso % (Auto) Absolute Neuts (auto) Absolute Lymphs (auto) Nucleated RBC % PT INR APTT D-Dimer Quant (PE/DVT) < 0.27 L Sodium Potassium Chloride Carbon Dioxide Anion Gap BUN Creatinine Estim Creat Clear Calc Est GFR (MDRD) Af Amer Est GFR (MDRD) Non-Af BUN/Creatinine Ratio Glucose Lactic Acid 1.7 Calcium Total Bilirubin AST ALT Alkaline Phosphatase Troponin I Total Protein Albumin Globulin Albumin/Globulin Ratio HCG, Quant < 1 Urine Color Urine Clarity Urine pH Ur Specific [place] Urine Protein Urine Glucose (UA) Urine Ketones Urine Occult Blood Urine Nitrite Urine Bilirubin Urine Urobilinogen Ur Leukocyte Esterase Urine RBC Urine WBC Ur Squamous Epith Cells Urine Bacteria Urine Mucus Urine Test 07/05/19 07/05/19 17:05 17:05 WBC RBC Hgb Hct MCV MCH MCHC RDW Std Deviation RDW Coeff of Satya Plt Count MPV Immature Gran % (Auto) Neut % (Auto) Lymph % (Auto) [place] % (Auto) Eos % (Auto) Baso % (Auto) Absolute Neuts (auto) Absolute Lymphs (auto) Nucleated RBC % PT INR APTT D-Dimer Quant (PE/DVT) Sodium Potassium Chloride Carbon Dioxide Anion Gap BUN Creatinine Estim Creat Clear Calc Est GFR (MDRD) Af Amer Est GFR (MDRD) Non-Af BUN/Creatinine Ratio Glucose Lactic Acid Calcium Total Bilirubin AST ALT Alkaline Phosphatase Troponin I Total Protein Albumin Globulin Albumin/Globulin Ratio HCG, Quant Urine Color Yellow Urine Clarity Clear Urine pH 5.0 Ur Specific [place] 1.025 Urine Protein 30 H Urine Glucose (UA) Normal Urine Ketones 15 H Urine Occult Blood Negative Urine Nitrite Negative Urine Bilirubin Negative Urine Urobilinogen Normal Ur Leukocyte Esterase Negative Urine RBC 0 SEEN Urine WBC 0-5 SEEN Ur Squamous Epith Cells 0-5 SEEN Urine Bacteria 0 SEEN Urine Mucus 2+ Urine Test Negative - Rhythm Strip Rhythm Strip: Sinus Rhythm Rate: 99 Ectopy: None - EKG Initial EKG Interpretation: Sinus Rhythm, - - Rate of [address] segments normal axis - Medical Decision Making Patient is evaluated for generalized malaise, feeling that her heart is beating fast as well as left-sided paresthesias. Patient symptoms been going on since yesterday and she is not a TPA candidate. A stroke alert is not called. She did have an episode apparently of garbled speech at her PCP office does not have any while in the emergency room. CT of the brain does not show any acute intracranial process. Patient is given aspirin in the emergency room. She is also given IV fluids. Patient is mildly tachycardic in the ER. A d-dimer is negative. She is not having this of breath. She does have chest pain. Her troponin is normal. Patient states she feels fuzzy and possibly she is dehydrated.CBC is unremarkable. CMP is largely normal. Her glucose is mildly elevated at 126. Her lactate is normal at 1.7. Urinalysis does show 15 ketones but no signs of infection. Chest x-ray shows stable atelectasis versus infiltrate of the left lower lobe. While patient has had cough and chest pain she does not have a fever or leukocytosis. Discussed with hospitalist who does not want to start antibiotics at this time. We will continue to monitor her respiratory status. Patient be admitted for evaluation of TIA with her paresthesias. She is agreeable this plan. She stable for the general medical floor at time of disposition. ED Disposition - Plan for ED Patient: Disposition: [facility] Diagnosis: Left leg paresthesias, Dehydration, Chest pain
[2019-07-05] MEDS: 0.9% Normal Saline 1,000 ML 1000 ML IV (15:43)
[2019-07-05] MEDS: Acetaminophen 500 MG Tablet 1000 MG PO (15:43)
[2019-07-05 15:49] LABS: Absolute Lymphocyte Count 1.88 X10^3/uL (0.83-4.51); Absolute Neutrophil Count 5.2 X10^3/uL (2.0-7.7); Basophil# 0.03 X10^3/uL; Basophil% 0.4 % (0-1); Eosinophil# 0.05 X10^3/uL; Eosinophils% 0.7 % (0-5); Hematocrit 43.4 % (37-47); Hemoglobin 14.4 g/dL (12.0-15.0); Lymphocyte # 1.88 X10^3/ul (4.0); Lymphocyte % 24.6 % (19-41); Mean Corp Hgb Conc 33.2 g/dL (32-36); Mean Corpuscular Volume 93.5 fL (81-99); Mean Platelet Vol. 8.6 fl (6.2-12.0); Monocyte# 0.48 X10^3/uL; Monocyte% 6.3 % (0-10); NRBC Flagged by Analyzer 0 % (0-5); Neutrophil # 5.18 X10^3/uL (2.7-7.7); Neutrophil % 67.6 % (47-70); Platelet Count 278 K/mm3 (150-450); RBC Distribution Width CV 11.8 % (11.6-14.6); RBC Distribution Width SD 39.9 fl (35.1-43.9); Red Blood Count 4.64 M/mm3 (4.2-5.4); White Blood Count 7.7 K/mm3 (4.4-11.0)
[2019-07-05 16:05] LABS: ALB/GLOB Ratio 0.8 RATIO (0.9-2.4); AST(SGOT) 23 U/L (15-37); Alanine Aminotransfer ALT/SGPT 21 U/L (13-56); Albumin, Serum 3.1 g/dL (3.2-5.0); Alkaline Phosphatase 91 U/L (45-117); Anion Gap 4 (5-15); BUN 10 mg/dL (7-18); Calcium,Total 9.3 mg/dL (8.5-10.1); Chloride 110 mmol/L (98-107); Creatinine, Serum 1.11 mg/dL (0.55-1.02); EST Glomerular Filtration Rate 57 mL/min (>60); Est Glom Filt Rate - Afr Amer 69 mL/min (>60); Estimated Creatinine Clearance 60.55 ml/min; Globulin 3.9 g/dL (2.2-4.2); Glucose 126 mg/dL (74-106); Potassium 3.6 mmol/L (3.5-5.1); Sodium Level 142 mmol/L (136-145)
[2019-07-05 16:06] LABS: Lactic Acid 1.7 mmol/L (0.4-1.9)
[2019-07-05 16:12] LABS: International Normalized Ratio 1.1; Prothrombin Time (Protime)PT. 13.9 SECONDS (11.7-14.9)
[2019-07-05 16:13] LABS: Partial Thromboplast Time 23.9 Seconds (24.1-36.2)
[2019-07-05 16:20] LABS: hCG Titer Quant., Serum < 1 mIU/mL (1-3)
--- NOTE | 2019-07-05 16:34 | ED.RN ---
called lab about d-dimer, they are running the test now.
[2019-07-05 17:22] LABS: Bacteria 0 SEEN /hpf (None Seen); Red Blood Cells-Urine 0 SEEN /hpf (0-5)
[2019-07-05 17:50] LABS: Internal QC Validated? YES +Cl - CLEAR BKGD; Pregnancy, Urine Negative Negative
[2019-07-05 17:58] LABS: Color, Urine Yellow (Yellow); Glucose, Dipstick Normal (Normal); Ketone-Dipstick 15 mg/dl (Negative); Leukocyte Esterase-Dipstick Negative /ul (Negative); Nitrite-Dipstick Negative (Negative); Occult Blood-Urine Negative /ul (Negative); Protein-Dipstick 30 mg/dl (Negative); Specific Gravity, Urine 1.025 (1.002-1.030); Urine Bilirubin Dipstick Negative (Negative); Urine Clarity Clear (Clear); Urine Urobilinogen Normal (Normal)
[2019-07-05 18:00] LABS: D-Dimer Quantitative (DVT/PE) < 0.27 FEU/ug/m (0.27-0.49)
--- NOTE | 2019-07-05 18:16 | NURSING ---
DR CAMPBELL FOR DR BECERRA
--- NOTE | 2019-07-05 18:41 | PCM.HP.STD ---
History of Present Illness Date of Admission: 07/05/19 Chief Complaint: left sided numbness The patient is a 44 year old F presents with a 1 day history of left-sided paresthesias. Patient states that this occurred last night and went to bed and symptoms still persisted. Patient presented to her primary care's office where she was noted to have some slurred speech. Patient was seeing her primary care physician as a post hospital follow-up for a hernia as well as blood in her stools. But with a slurred speech, patient was directed to the emergency room. In the emergency room, patient had an NIH of 1. The hospital service was contacted for admission for further evaluation of the left-sided numbness. Patient states that she is never had left-sided numbness like this before. She states that left-sided numbness involves her face arm and leg on the left side. [] Past Medical History Past Medical History (Chronic Problems): Chronic Problems (Last Updated 02/21/19 @ 18:05 by Gissel Melara) Essential hypertension (Chronic) Morbid obesity with body mass index of 50 or higher (Chronic) Pulmonary emboli (Chronic) Medical History: Medical History (Last Reviewed 07/05/19 @ 18:42 by Yuri Walsh DO) Essential hypertension (Chronic) I10 Status post left heart catheterization (LHC) (Resolved) Onset Date: ~12/23/18 Z98.890 Normal coronaries NSVT (nonsustained ventricular tachycardia) (Acute) I47.2 Urinary retention (Acute) R33.9 Chest pain (Acute) R07.9 Sinus tachycardia seen on security monitor (Resolved) R00.0 Morbid obesity with body mass index of 50 or higher (Chronic) E66.01 Pulmonary emboli (Chronic) I26.99 Anxiety disorder F41.9 Chronic low back pain M54.5, G89.29 Paresthesia of right upper and lower extremity R20.2 Sacroiliitis, not elsewhere classified M46.1 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 does fine with iv latex Allergy (Verified 07/05/19 15:20) Rash morphine Adverse Reaction (Verified 07/05/19 15:22) Other emotional and itching Home Medications: Ambulatory Orders Medication Instructions Recorded Amlodipine [Norvasc] 5 mg PO BID 08/01/15 Gabapentin [Neurontin] 300 mg PO TID 11/27/18 Hydroxyzine HCl 25 mg PO QHS PRN PRN 11/27/18 Oxybutynin [Ditropan] 5 mg PO BID 11/27/18 Quetiapine Fumarate [Seroquel] 300 mg PO QHS 11/27/18 Venlafaxine HCl [Effexor] 100 mg PO BID 11/27/18 Multivitamin [Multivitamins] 1 tab PO DAILY 07/05/19 Surgical History: - Psychiatric History: Anxiety, Depression 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 Denies: Anorexia, Chills, Malaise Eyes: Denies: Blurred vision, Double vision HEENT: Denies: Head Aches, Sinus Congestion, Sinus Drainage Cardiovascular: Reports: Chest Pain, Palpitations Respiratory: Denies: Cough, Shortness of breath at rest, Sputum production Gastrointestinal: Reports: Hematochezia. Denies: Abdominal Pain, Nausea, Vomiting Genitourinary: Denies: Dysuria Musculoskeletal: Denies: Joint Pain, Joint Tenderness Skin: Denies: Rash, Wounds Neurological: Denies: Numbness, Tingling, Focal weakness Psychiatric: Denies: Anxiety, Depression Hematologic/ Lymphatic: Denies: Easy Bruising, Easy Bleeding, Hx of blood clot VTE Information - Inpt Only VTE Present on Admission: No VTE Mechan Device Prophylaxis: None VTE Pharm Prophylaxis ordered?: No - Physical Exam Vitals/I&O's: Vital Signs Temp Pulse Resp BP Pulse Ox 36.6 C 74 10 L 115/69 100 07/05/19 15:09 07/05/19 17:05 07/05/19 17:05 07/05/19 17:05 07/05/19 17:05 Oxygen Delivery Method Room Air Weight: 114.7 kg Body Mass Index (BMI) 40.8 Finger Stick Blood Glucose 169 General: Alert, Well developed, Well nourished HEENT: Atraumatic, Normocephalic Oral: Moist Mucosa, No Gingival or Mucosal Lesions/ Ulcerations, - - Edentulous in the upper teeth. Neck: No Nodes, Trachea Midline Lungs: Clear to auscultation, Normal air movement Cardiovascular: Regular rate, Regular Rhythm, Normal S1, Normal S2, No murmurs Abdomen: Bowel Sounds Present, Soft, Non Tender, Non-Distended, No Hepato-splenomegaly, Obese, - - Rectal exam with female nurse present, showed no obvious external hemorrhoids. Some light brown stool noted. Extremities: No edema, No Calf Tenderness Skin: No rashes, No breakdown Musculoskeletal: No Tenderness to Palpation of Joints or Extremities, No Muscle Wasting Neurological: Cranial nerves II-XII grossly intact, - - Muscle strength out of 5 in the right upper and right lower extremity. 4-5 in the left upper extremity but there was some giveaway weakness with distraction. Muscle strength is 3 out of 5 in the left lower extremity. Psych/Mental Status: Appropriate, Flat Affect Microbiology Past 72 Hours 07/05/19 15:44 Mucosa - Nose Influenza Types A,B Direct FA (JEREMIE) - Final Laboratory Results 07/05/19 15:30: WBC 7.7, RBC 4.64, Hgb 14.4, Hct 43.4, MCV 93.5, MCH 31.0, MCHC 33.2, RDW Std Deviation 39.9, RDW Coeff of Satya 11.8, Plt Count 278, MPV 8.6, Immature Gran % (Auto) 0.400, Neut % (Auto) 67.6, Lymph % (Auto) 24.6, [place] % (Auto) 6.3, Eos % (Auto) 0.7, Baso % (Auto) 0.4, Absolute Neuts (auto) 5.2, Absolute Lymphs (auto) 1.88, Nucleated RBC % 0 07/05/19 15:30: PT 13.9, INR 1.1, APTT 23.9 L 07/05/19 15:30: Sodium 142, Potassium 3.6, Chloride 110 H, Carbon Dioxide 28.0, Anion Gap 4 L, BUN 10, Creatinine 1.11 H, Estim Creat Clear Calc 60.55, Est GFR (MDRD) Af Amer 69, Est GFR (MDRD) Non-Af 57 L, BUN/Creatinine Ratio 9.0 L, Glucose 126 H, Calcium 9.3, Total Bilirubin 0.40, AST 23, ALT 21, Alkaline Phosphatase 91, Troponin I < 0.015, Total Protein 7.0, Albumin 3.1 L, Globulin 3.9, Albumin/Globulin Ratio 0.8 L 07/05/19 15:30: Lactic Acid 1.7 07/05/19 15:30: D-Dimer Quant (PE/DVT) < 0.27 L 07/05/19 15:45: HCG, Quant < 1 07/05/19 17:05: Urine Test Negative 07/05/19 17:05: Urine Color Yellow, Urine Clarity Clear, Urine pH 5.0, Ur Specific [place] 1.025, Urine Protein 30 H, Urine Glucose (UA) Normal, Urine Ketones 15 H, Urine Occult Blood Negative, Urine Nitrite Negative, Urine Bilirubin Negative, Urine Urobilinogen Normal, Ur Leukocyte Esterase Negative, Urine RBC Pending, Urine WBC Pending, Ur Squamous Epith Cells Pending, Urine Bacteria Pending, Urine Mucus Pending EKG showed sinus tach without any acute changes. Clinical Impression(s) from Imaging Studies Brain CT 07/05/19 15:27 IMPRESSION: Normal unenhanced CT scan of the brain. Electronically Signed: Stanislaw Becerril DO at 16:29 EST Tel , Service support , Chest X-Ray 07/05/19 15:30 IMPRESSION: Stable atelectasis and/or infiltrate in the left lower lobe. Electronically Signed: Wesly Llanes, at 15:50 EST , Service support , Assessment/Plan All Active Problems (Last Updated 02/21/19 @ 18:05 by Gissel Melara) Spondylosis of lumbar region without myelopathy or radiculopathy (Acute) Spondylosis of lumbar region without myelopathy or radiculopathy (Acute) Status post left heart catheterization (LHC) (Resolved ~12/23/18) NSVT (nonsustained ventricular tachycardia) (Acute) Urinary retention (Acute) Chest pain (Acute) Sinus tachycardia seen on security monitor (Resolved) Cellulitis of right leg without foot (Resolved) Pericardial effusion (Ruled-out) 1. Left-sided paresthesias and weakness Possibilities could be a acute versus subacute stroke, radiculopathy versus conversion disorder versus malingering Exam is inconsistent Will proceed with an MRI of the brain, MRA of the head neck, echocardiogram, physical and occupational therapy evaluation Patient did receive aspirin in the emergency room and will continue on the floor If stroke identified on the MRI, then consult neurology 2. Chest pain Patient had a normal cardiac cath back in December 23. No additional work-up at this time unless the quality changes or has other concerning symptoms. 3. Hematochezia Patient reports josé miguel blood in toilet On exam, patient has light brown stool. No obvious external hemorrhoids Hemoglobin is currently stable Patient will need to follow-up with gastroenterology or general surgery on outpatient basis unless patient has voluminous blood while she is here 4. VTE prophylaxis: Not indicated patient is low risk as she is observation status at this time. Code Visit OBSV E&M: 24697 Initial observation care L3
[2019-07-05] MEDS: Aspirin 81 MG TAB.CHEW 324 MG PO (18:47)
[2019-07-05 18:48] LABS: Mucous, Urine 2+ /hpf (<or=2+); Squamous Epithelial Cells - UA 0-5 SEEN /hpf (5-10); White Blood Cells 0-5 SEEN /hpf (0-5)
[2019-07-05] MEDS: DiphenhydrAMINE 50 MG/ML Syringe 25 MG IV (18:48)
[2019-07-05] MEDS: proCHLORPERazine 10 MG/2 ML Vial IV (18:50)
[2019-07-05] MEDS: Ketorolac 15 MG/ML Vial IV (18:56)
--- NOTE | 2019-07-05 19:15 | ECHOCS_ITS ---
Reason For Study: TIA/CVA Procedure This was a 2D Doppler, Color Flow transthoracic echocardiogram. The study was technically difficult. Contrast injection was performed. Exam performed portable in patient room. Left Ventricle Normal LV size. Left ventricular systolic function is normal. The estimated ejection fraction is 65 %. Transmitral doppler flow suggestive of impaired relaxation of left ventricle. No regional wall motion abnormalities noted. Right Ventricle Normal RV size. Normal systolic function. Atria Normal left atrium. Normal right atrium. No doppler evidence for ASD. Mitral Valve There is mild mitral annular calcification. Normal mitral valve. Trivial mitral valve insufficiency. Tricuspid Valve Normal tricuspid valve. Trivial tricuspid valve insufficiency. Unable to estimate RV systolic pressure/pulmonary artery pressure due to technically difficult study. Aortic Valve The aortic valve is not well visualized. Pulmonic Valve The pulmonic valve is not well visualized. Great Vessels Normal sized aortic root. Pericardium/Pleural Trivial pericardial effusion. There are no echocardiographic indications of cardiac tamponade. Epicardial fat. Medication Performed a rapid injection of agitated mix of 9 cc saline and 1cc air to assess for atrial septal defect. Diluted definity 2ml given slow IV push to enhance endocardial definition. MMode/2D Measurements & Calculations LVIDd: 4.1 cm IVSd: 1.1 cm Ao root diam: 2.7 cm LVIDs: 2.3 cm LVPWd: 1.1 cm RVDd: 3.2 cm FS: 43.7 % LAV(MOD-sp4): 38.5 ml LA A4 area: 16.3 cm2 LA dimension(2D): 3.7 cm RA A4 area: 13.2 cm2 Doppler Measurements & Calculations MV E max chavez: 73.3 cm/sec Lat Peak E' Chavez: 8.9 cm/sec Med Peak E' Chavez: 7.6 cm/sec MV A max chavez: 91.8 cm/sec E/E' lat: 8.2 E/E' med: 9.6 MV E/A: 0.80 Ao V2 max: 151.3 cm/sec LV V1 max: 120.9 cm/sec PA V2 max: 115.4 cm/sec Ao max P.2 mmHg LV V1 max P.8 mmHg Interpretation Summary The study was technically difficult. Contrast injection was performed. Left ventricular systolic function is normal. The estimated ejection fraction is 65 %. There is mild mitral annular calcification. Trivial mitral valve insufficiency. Trivial tricuspid valve insufficiency. Trivial pericardial effusion. There are no echocardiographic indications of cardiac tamponade. Epicardial fat. Unable to estimate RV systolic pressure/pulmonary artery pressure due to technically difficult study. Ordering Physician: Yuri Walsh Referring Physician: Taran Wall Performed By: Zhane Bashir RDCS
[2019-07-05] MEDS: 0.9% Normal Saline 1,000 ML 150 ML IV (20:30)
--- NOTE | 2019-07-05 20:37 | NURSING ---
Primary nurse asked this RN to start IV on patient. Attept x 3 on patient, unsuccessful, will notify putty and caulking supervisor to start.
[2019-07-05] MEDS: Gabapentin 300 MG Capsule PO (21:24)
[2019-07-05] MEDS: Oxybutynin 5 MG Tablet PO (21:24)
[2019-07-05] MEDS: amLODIPine 5 MG Tablet PO (21:24)
[2019-07-05] MEDS: QUEtiapine 100 MG Tablet 300 MG PO (21:24)
[2019-07-06] VITALS (12 sets, daily range): BP systolic 94–114; BP diastolic 52–62; PULSE 80–97; RESP 14–18; TEMP 36.5–37; O2SAT 92–99
[2019-07-06] MEDS: Gabapentin 300 MG Capsule PO ×3 (05:05→21:15)
[2019-07-06 06:47] LABS: Cholesterol 146 mg/dL (200); High Density Lipoprotein 41 mg/dL; Triglycerides 184 mg/dL; Very Low Density Lipoprotein 37 mg/dL (5-40)
[2019-07-06] MEDS: LORazepam 2 MG/ML Syringe 1 MG IV (07:35)
[2019-07-06] MEDS: 0.9% Saline Lock 10 ML Syringe IV ×5 (07:35→21:15)
--- NOTE | 2019-07-06 08:00 | MRI_ITS ---
STUDY: MRA OF THE HEAD WITHOUT CONTRAST REASON FOR EXAM: Female, 44 years old. LEFT paresthesias AND slurred speech -- Pt was pre-medicated, would not hold still TECHNIQUE: 3-D aqpq-kk-poqene (TOF) imaging was performed with MIPs. The study was performed unenhanced. COMPARISON: None. FINDINGS: Normal bilateral petrous carotid arteries. Normal right cavernous carotid artery with a normal supraclinoid bifurcation. Normal left cavernous carotid artery with a normal supraclinoid bifurcation. Normal right A1 segments of the anterior cerebral artery. Normal left A1 segments of the anterior cerebral artery. Normal intact anterior communicating artery (ACOM). Normal bilateral A2 segments of the anterior cerebral arteries. Normal right M1 and M2 segments of the middle cerebral arteries, with a normal M1 bifurcation. Normal left M1 and M2 segments of the middle cerebral arteries, with a normal M1 bifurcation. There is a persistent origin of the right posterior cerebral artery with absence of the P1 segment of the right posterior cerebral artery. Normal left posterior communicating artery (PCOM). Normal bilateral vertebral arteries. Normal basilar artery with a normal basilar bifurcation. The visualized bilateral superior cerebellar (SCA) arteries are normal. Normal bilateral P1, P2 and visualized P3 segments of the posterior cerebral arteries. There is no demonstrated aneurysm of the the [place] of [place]. There is no major vessel occlusion or hemodynamically significant stenosis. There is no demonstrated abnormality of the visualized brain. MRI/MRA Head ONLY without Contrast IMPRESSION: Normal MRA of the head Electronically Signed: Troy Mahmood MD at 10:03 EST Tel , Service support ,
--- NOTE | 2019-07-06 08:00 | MRI_ITS ---
STUDY: MRA NECK WITH AND WITHOUT CONTRAST REASON FOR EXAM: Female, 44 years old. LEFT paresthesias AND slurred speech -- Pt was pre-medicated, would not hold still TECHNIQUE: 3-D ckts-cq-axbzvp (TOF) imaging was performed in an 1.5 T MRI scanner. Pt received 22ml Dotarem via IV was administered for the contrast enhanced images. COMPARISON: None. FINDINGS: RIGHT CAROTID ARTERIES: Normal right common carotid artery (CCA). Normal right common carotid bulb. Normal origin of the right internal carotid (ICA) artery without a hemodynamically significant stenosis. Normal visualized cervical portion of the right internal carotid artery. Normal origin of the right external carotid artery (ECA). LEFT CAROTID ARTERIES: Normal left common carotid artery (CCA). Normal left common carotid bulb. Normal origin of the left internal carotid (ICA) artery without a hemodynamically significant stenosis. Normal visualized cervical portion of the left internal carotid artery. Normal origin of the left external carotid artery (ECA). VERTEBRAL ARTERIES: Normal antegrade flow within the bilateral vertebral artery without a hemodynamically significant stenosis. MRI/MRA Neck WITH and W/O Contrast IMPRESSION: Normal bilateral cervical carotid and vertebral arteries. Electronically Signed: Troy Mahmood MD at 10:03 EST Tel , Service support ,
--- NOTE | 2019-07-06 08:00 | MRI_ITS ---
STUDY: MRI BRAIN WITHOUT CONTRAST REASON FOR EXAM: Female, 44 years old. LEFT paresthesias AND slurred speech -- Pt was pre-medicated, would not hold still TECHNIQUE: Standardized multiplanar fat and water weighted pulse sequences were obtained. COMPARISON: 08/01/2015 FINDINGS: Normal size of the ventricles and extra-axial spaces for the patient''s age. Normal white matter tracts of the supratentorial brain. There is no evidence for recent intracranial ischemia or other cause of cytotoxic edema on diffusion weighted imaging (DWI). Normal T2* images of the brain without demonstrated susceptibility artifact. There is no demonstrated hemosiderin stain. Normal bilateral basal ganglia. Normal thalami. There is no extra-axial fluid accumulation. Normal flow voids within the major intracranial circulation suggesting patency by spin echo criteria. Normal sella turcica, pituitary gland, infundibular stalk, optic chiasm and hypothalamus. Normal tectal plate and pineal gland. Normal midbrain, bernard and medulla. Normal cerebellum. Normal basal cisterns. Normal bilateral temporal bones. Normal bilateral internal auditory canals. No demonstrated orbital abnormality, within the constraints of a routine brain study. Normal visualized paranasal sinuses. Normal calvarium and skull base. Normal visualized soft tissue structures. Normal visualized upper cervical spine. MRI/Brain without Contrast IMPRESSION: Normal unenhanced MRI of the brain. Electronically Signed: Troy Mahmood MD at 10:02 EST Tel , Service support ,
[2019-07-06 08:11] LABS: Hemoglobin A1c 5.1 % (4.2-6.3)
[2019-07-06] MEDS: Oxybutynin 5 MG Tablet PO ×2 (09:17→21:15)
[2019-07-06] MEDS: Aspirin 81 MG TAB.CHEW PO (09:17)
--- NOTE | 2019-07-06 11:34 | EKG12_ITS ---
Test Reason : CP Blood Pressure : / mmHG Vent. Rate : 082 BPM Atrial Rate : 082 BPM P-R Int : 156 ms QRS Dur : 098 ms QT Int : 390 ms P-R-T Axes : -08 -03 016 degrees QTc Int : 455 ms Normal sinus rhythm Normal ECG Confirmed by FIONA RICHARDS, REYNA ([id number]), legal editor MARYELLEN BARTLETT ([id number] on 07/07/2019 11:48:05 AM Referred By: SHANNAN Confirmed By:REYNA JAIMES MD
[2019-07-06] MEDS: Acetaminophen 325 MG Tablet 650 MG PO (12:49)
[2019-07-06] MEDS: Ondansetron 4 MG/2 ML Vial IV ×2 (12:49→21:15)
[2019-07-06] MEDS: Morphine 2 MG/ML Syringe 1 MG IV (13:45)
--- NOTE | 2019-07-06 16:21 | PCM.PN.HOSP ---
Patient Problems: Active and Suspected Problems (Last Reviewed 07/05/19 @ 18:42 by Yuri Walsh DO) Left leg paresthesias (Acute) Dehydration (Acute) Chest pain (Acute) Subjective: Patient seen and examined. She complained of chest pain which he states was her primary complaint when she came. She states pain was left-sided and radiated to her left arm and aggravated by exertion and relieved by rest. The numbness and paresthesias on the left side had resolved. Review of systems otherwise negative. Vitals/I&O's: Vital Signs Temp Pulse Resp BP Pulse Ox 97.8 F 89 14 100/52 L 99 07/06/19 15:40 07/06/19 15:40 07/06/19 15:40 07/06/19 15:40 07/06/19 15:40 Oxygen Delivery Method Room Air Weight: 249 lb 12.54 oz Body Mass Index (BMI) 40.3 Finger Stick Blood Glucose 169 Intake and Output for Last 24 Hours 07/04/19 07/05/19 07/06/19 23:59 23:59 23:59 Intake Total 1510 / 1510 790 / 790 Balance 1510 / 1510 790 / 790 General: Alert, Oriented x3, Cooperative, No apparent distress, Lethargic HEENT: Atraumatic, PERRLA, EOMI, Normocephalic Oral: Moist Mucosa Neck: Supple, No JVD, Negative Carotid Bruits Lungs: Clear to auscultation, Normal air movement, No rhonchi, No wheeze Cardiovascular: Regular rate, Regular Rhythm, Normal S1, Normal S2, No murmurs Abdomen: Bowel Sounds Present, Soft, Non Tender Extremities: No clubbing, No cyanosis, No edema, Capillary Refill Less than 3 Seconds Skin: No rashes, No breakdown Musculoskeletal: No Tenderness to Palpation of Joints or Extremities Lymphatic: No Cervical, Supraclavicular, or Inguinal Adenopathy Neurological: Cranial nerves II-XII grossly intact, Neuro grossly intact, Motor Exam 5/5 strength throughout Psych/Mental Status: Normal Affect, Appropriate, Alert and oriented to time, place, person, mood and affect Microbiology Past 72 Hours 07/05/19 15:44 Mucosa - Nose Influenza Types A,B Direct FA (JEREMIE) - Final Laboratory Results 07/05/19 15:30: D-Dimer Quant (PE/DVT) < 0.27 L 07/05/19 17:05: Urine Test Negative 07/05/19 17:05: Urine Color Yellow, Urine Clarity Clear, Urine pH 5.0, Ur Specific [place] 1.025, Urine Protein 30 H, Urine Glucose (UA) Normal, Urine Ketones 15 H, Urine Occult Blood Negative, Urine Nitrite Negative, Urine Bilirubin Negative, Urine Urobilinogen Normal, Ur Leukocyte Esterase Negative, Urine RBC 0 SEEN, Urine WBC 0-5 SEEN, Ur Squamous Epith Cells 0-5 SEEN, Urine Bacteria 0 SEEN, Urine Mucus 2+ 07/06/19 05:50: Triglycerides 184, Cholesterol 146, LDL Cholesterol 68, VLDL Cholesterol 37, HDL Cholesterol 41 07/06/19 05:50: Hemoglobin A1c 5.1 07/06/19 11:35: Troponin I < 0.015 07/06/19 13:55: Troponin I < 0.[address] 07/05/19 15:27 IMPRESSION: Normal unenhanced CT scan of the brain. Electronically Signed: Stanislaw Becerril DO at 16:29 EST Tel , Service support , Chest X-Ray 07/05/19 15:30 IMPRESSION: Stable atelectasis and/or infiltrate in the left lower lobe. Electronically Signed: Wesly Llanes, at 15:50 EST , Service support , Brain MRI 07/06/19 08:00 IMPRESSION: Normal unenhanced MRI of the brain. Electronically Signed: Troy Mahmood MD at 10:02 EST Tel , Service support , Head MRA 07/06/19 08:00 IMPRESSION: Normal MRA of the head Electronically Signed: Troy Mahmood MD at 10:03 EST Tel , Service support , Neck MRA 07/06/19 08:00 IMPRESSION: Normal bilateral cervical carotid and vertebral arteries. Electronically Signed: Troy Mahmood MD at 10:03 EST Tel , Service support , Current Medications Acetaminophen (Tylenol) 650 mg PO Q6H PRN PRN PRN Reason: Pain Score 1-3/Temp > 100.7 F Last Admin: 07/06/19 12:49 Dose: 650 mg Documented by: Amlodipine Besylate (Norvasc) 5 mg PO BID [facility] Last Admin: 07/06/19 09:47 Dose: Not Given Documented by: Aspirin (Aspirin, Baby) 81 mg PO DAILY@0800 [facility] Last Admin: 07/06/19 09:17 Dose: 81 mg Documented by: Dextrose (D50w Syringe) 0 gm IV X1 PRN; Protocol PRN Reason: Hypoglycemia Gabapentin (Neurontin) 300 mg PO TID [facility] Last Admin: 07/06/19 12:51 Dose: 300 mg Documented by: Glucagon () 1 mg IM .X1 PRN PRN Reason: Hypoglycemia Nitroglycerin (Nitrostat) 0.4 mg SUBLINGUAL Q5M PRN PRN Reason: CARDIAC/CHEST PAIN Ondansetron HCl (Zofran) 4 mg IV Q8H PRN PRN PRN Reason: NAUSEA/VOMITING Last Admin: 07/06/19 12:49 Dose: 4 mg Documented by: Oxybutynin Chloride (Ditropan) 5 mg PO BID [facility] Last Admin: 07/06/19 09:17 Dose: 5 mg Documented by: Quetiapine Fumarate (Seroquel) 300 mg PO QHS [facility] Last Admin: 07/05/19 21:24 Dose: 300 mg Documented by: Sodium Chloride () 10 - 40 ml IV UD PRN PRN Reason: SALINE FLUSH Last Admin: 07/06/19 13:45 Dose: 10 ml Documented by: Venlafaxine HCl (Effexor) 100 mg PO BID [facility] Last Admin: 07/06/19 09:17 Dose: 100 mg Documented by: STROKE Vital Signs/Narrative: Vital Signs Temp Pulse Resp BP Pulse Ox 07/06/19 15:40 97.8 F 89 14 100/52 L 99 07/06/19 14:57 90 Medical Necessity - Tobacco Use Smoking Status: Former smoker Tobacco Use: Cigarettes Assessment/Plan All Active Problems (Last Reviewed 07/05/19 @ 18:42 by Yuri Walsh DO) Spondylosis of lumbar region without myelopathy or radiculopathy (Acute) Spondylosis of lumbar region without myelopathy or radiculopathy (Acute) Left leg paresthesias (Acute) Dehydration (Acute) Status post left heart catheterization (LHC) (Resolved ~12/23/18) NSVT (nonsustained ventricular tachycardia) (Acute) Urinary retention (Acute) Chest pain (Acute) Sinus tachycardia seen on behavioral health worker (Resolved) Cellulitis of right leg without foot (Resolved) Pericardial effusion (Ruled-out) 1. Left sided parasthesia and weakness Resolved. MRI of the brain was negative for stroke and MRA of the head and neck were normal. PT OT on board. 2. Chest pain Patient insisted to me that her chest pain is her main problem and describes a left-sided and radiating to her left shoulder, aggravated by exertion and relieved by rest. Troponins x3 are negative. Stress test tomorrow. Note, patient had a normal cardiac cath in November 2018. 3. Hematochezia Complaint of hematochezia but this has not occurred since admission and rectal exam done on admission showed no hemorrhoids and light brown stool. Hemoglobin was also 14.4 To follow-up with gastroenterology upon discharge. DVT prophylaxis: SCDs Code Visit OBSV E&M: 32770 Subsequent observation care L2
--- NOTE | 2019-07-06 19:40 | CT_ITS ---
STUDY: CT ABDOMEN AND PELVIS WITH CONTRAST REASON FOR EXAM: Female, 44 years old. Right upper abdominal pain and vomiting. TECHNIQUE: Transaxial images were obtained from the dome of the diaphragm to the symphysis pubis with oral contrast. Oral and amp; IV Gastrografin and amp; 100mL Isovue-300 was administered. Sagittal and coronal images were reconstructed. Individualized dose optimization techniques were used for this CT. COMPARISON: 12/10/2017 CT abdomen pelvis. FINDINGS: Partially visualized lower chest: Lung bases unremarkable. Liver: No concerning lesions. Gallbladder and biliary tree: Status post cholecystectomy. No biliary ductal dilation. Pancreas: No pancreatic lesions or inflammation. Spleen: Normal size, no splenic lesions. Adrenal glands: No concerning masses. Kidneys and ureters: No hydronephrosis or renal stones. No concerning masses. No ureteral dilation. Scarring mid pole cortex right kidney with evidence of previous partial nephrectomy. Bowel: Normal appendix. Previous sleeve gastrectomy. Right of midline upper anterior abdominal wall hernia contains a loop of proximal transverse colon with no evidence of obstruction or strangulation. Enteric contrast reaches the ascending colon. No obstruction or inflammation of the bowel. Urinary bladder: No stones or wall thickening. Reproductive:Normal uterus and ovaries. Vascular: No abdominal aortic aneurysm. Retroperitoneal and peritoneal spaces: No ascites or free air. No retroperitoneal lesions. Osseous: No acute osseous abnormality. Posterior fusion and laminectomy L3-S1, intact hardware. Abdominal and pelvic wall: Small umbilical hernia contains fat but no bowel. Please see bowel portion of the report regarding the more cephalad hernia. No acute findings. CT/Abdomen/Pelvis WITH Contrast IMPRESSION: No acute findings. No bowel obstruction. Electronically Signed: Darrick Hein, at 22:23 EST Tel , Service support ,
[2019-07-06] MEDS: Morphine 2 MG/ML Syringe IV (20:06)
[2019-07-06] MEDS: QUEtiapine 100 MG Tablet 300 MG PO (21:15)
[2019-07-07] VITALS (7 sets, daily range): BP systolic 93–121; BP diastolic 53–62; PULSE 65–81; RESP 14–20; TEMP 36.6–36.9; O2SAT 93–99
--- NOTE | 2019-07-07 01:48 | EKG12_ITS ---
Test Reason : AM Blood Pressure : / mmHG Vent. Rate : 070 BPM Atrial Rate : 070 BPM P-R Int : 158 ms QRS Dur : 102 ms QT Int : 394 ms P-R-T Axes : 003 001 017 degrees QTc Int : 425 ms Normal sinus rhythm Normal ECG When compared with ECG of 06-JUL-2019 11:43, MANUAL COMPARISON REQUIRED, DATA IS UNCONFIRMED Confirmed by CHARLES PRECIADO ([id number]), writer editor MARYELLEN BARTLETT ([id number]) on 07/08/2019 11:22:13 AM Referred By: MARIAMA Confirmed By:CHARLES PRECIADO
[2019-07-07] MEDS: Acetaminophen 325 MG Tablet 650 MG PO (03:17)
[2019-07-07 06:12] LABS: Absolute Lymphocyte Count 3.02 X10^3/uL (0.83-4.51); Absolute Neutrophil Count 3.3 X10^3/uL (2.0-7.7); Basophil# 0.04 X10^3/uL; Basophil% 0.6 % (0-1); Eosinophil# 0.13 X10^3/uL; Eosinophils% 1.9 % (0-5); Hematocrit 40.1 % (37-47); Lymphocyte # 3.02 X10^3/ul (4.0); Lymphocyte % 43.3 % (19-41); Mean Corp Hgb Conc 32.4 g/dL (32-36); Mean Corpuscular Volume 95.5 fL (81-99); Mean Platelet Vol. 9.1 fl (6.2-12.0); Monocyte% 7.2 % (0-10); NRBC Flagged by Analyzer 0 % (0-5); Neutrophil # 3.26 X10^3/uL (2.7-7.7); Neutrophil % 46.7 % (47-70); Platelet Count 271 K/mm3 (150-450); RBC Distribution Width CV 11.9 % (11.6-14.6); RBC Distribution Width SD 40.8 fl (35.1-43.9)
[2019-07-07] MEDS: Gabapentin 300 MG Capsule PO ×2 (06:13→13:05)
[2019-07-07] MEDS: Aspirin 81 MG TAB.CHEW PO (06:13)
[2019-07-07 06:30] LABS: Anion Gap 3 (5-15); BUN 11 mg/dL (7-18); BUN/Creat Ratio 12.2 RATIO (10-20); Calcium,Total 8.7 mg/dL (8.5-10.1); Chloride 112 mmol/L (98-107); EST Glomerular Filtration Rate 72 mL/min (>60); Est Glom Filt Rate - Afr Amer 88 mL/min (>60); Estimated Creatinine Clearance 74.67 ml/min; Glucose 75 mg/dL (74-106); Potassium 3.7 mmol/L (3.5-5.1); Sodium Level 144 mmol/L (136-145)
[2019-07-07] MEDS: Morphine 2 MG/ML Syringe IV (09:46)
[2019-07-07] MEDS: 0.9% Saline Lock 10 ML Syringe IV (09:46)
[2019-07-07] MEDS: Ondansetron 4 MG/2 ML Vial IV (09:46)
[2019-07-07] MEDS: amLODIPine 5 MG Tablet PO (09:50)
[2019-07-07] MEDS: Oxybutynin 5 MG Tablet PO (09:50)
--- NOTE | 2019-07-07 11:54 | DCINST_ITS ---
- Discharge Diagnoses Current Active Problems: Current Active and Chronic Problems (Last Reviewed 07/05/19 @ 18:42 by Yuri Walsh DO) Left leg paresthesias (Acute) Dehydration (Acute) Chest pain (Acute) You will use the following diet at home:: Cardiac Your food should be the consistency of: Regular Your liquids should be the consistency of: Regular/Thin Discharge Activity: Return to Normal Activity Weight Bearing Status: Weight bearing as tolerated Call your doctor if you observe: Fever of 101 or Higher, Numbness or Tingling, Shortness of breath, Chest pain Instructions: Angina, Warning Signs of a Heart Attack Allergies/Adverse Reactions: Allergies buspirone HCl [From BuSpar] Allergy (Verified 07/05/19 15:20) Hives fentanyl Allergy (Verified 07/05/19 15:20) hallucinations only with patch hallucinations allargy to patch only. does fine with iv latex Allergy (Verified 07/05/19 15:20) Rash Medications to take at Discharge Amlodipine [Norvasc] 5 mg PO BID 08/01/15 Gabapentin [Neurontin] 300 mg PO TID 11/27/18 Hydroxyzine HCl 25 mg PO QHS PRN PRN 11/27/18 Oxybutynin [Ditropan] 5 mg PO BID 11/27/18 Quetiapine Fumarate [Seroquel] 300 mg PO QHS 11/27/18 Venlafaxine HCl [Effexor] 100 mg PO BID 11/27/18 Multivitamin [Multivitamins] 1 tab PO DAILY 07/05/19 Primary Care Physician: Taran Wall MD [Primary Care Provider] - Please follow up with your Primary Care Physician in: one week Test Results: Test results from this visit will be discussed in further detail at your follow- up appointment, if applicable. Proposed Discharge Date: 07/07/19
--- NOTE | 2019-07-07 12:04 | CASEMGMT ---
SW did not complete a PHQ 9 with patient as she did not have a Stroke or TIA per physician. Codie ALMANZAR MSW
--- NOTE | 2019-07-07 12:21 | PHA.DC.MR ---
Pharmacy Service has performed discharge medication reconciliation for this patient. Home Medications Amlodipine [Norvasc] 5 mg PO BID 08/01/15 Gabapentin [Neurontin] 300 mg PO TID 11/27/18 Hydroxyzine HCl 25 mg PO QHS PRN PRN 11/27/18 Oxybutynin [Ditropan] 5 mg PO BID 11/27/18 Quetiapine Fumarate [Seroquel] 300 mg PO QHS 11/27/18 Venlafaxine HCl [Effexor] 100 mg PO BID 11/27/18 Multivitamin [Multivitamins] 1 tab PO DAILY 07/05/19 The patient's discharge medication list was reviewed for discrepancies and discrepancies were resolved.
--- NOTE | 2019-07-07 13:54 | STRESSREP_ITS ---
Stress Test Report Date: 07/07/2019 Procedure: Pharmacologic stress nuclear imaging study Indications: Chest pain Consent: Per the patient Procedure: The patient underwent pharmacologic (Regadenoson) evaluation with a peak heart rate of 100 beats per minute (56 %predicted maximal heart rate) and a peak blood pressure of 118/70 mmHg. The baseline ECG demonstrated normal sinus rhythm. EKG during lexiscan infusion revealed no significant ischemic changes. EKG post infusion revealed no significant ischemic changes [There were no cardiac dysrhythmias pretest, during pharmacologic infusion, or recovery]. [There was no complaint of chest discomfort during pharmacologic infusion or recovery]. The examination was discontinued secondary to completion of protocol. Impression: 1. Lexiscan stress test test is negative for Lexiscan infusion induced EKG changes of ischemia. 2. Lexiscan stress test test is negative for Lexiscan infusion induced chest pain. 3. Results of the nuclear portion of the test is as below Myocardial perfusion imaging study: Technique: The patient was injected with 13.9 millicuries of technetium 99m Cardiolite and subsequently rest SPECT Cardiolite nuclear imaging was obtained in the horizontal long, vertical long, and short axis views. The patient underwent pharmacologic (Regadenoson) evaluation. Please see above for details. The patient was injected with 45 millicuries of technetium 99m Cardiolite and subsequently stress SPECT Cardiolite nuclear imaging was obtained in the horizontal long, vertical long, and short axis views. A gated Cardiolite study at peak stress was obtained. Interpretation: Rest and stress SPECT Cardiolite nuclear imaging status post realignment, normalization, and attenuation correction demonstrate [no significant fixed or reversible defects suggestive of significant ischemia or infarction]. Gated images reveal no significant regional wall motion abnormalities. The reported LVEF is greater than 70 %. Impression: 1. There is no evidence of significant ischemia or infarction. 2. Estimated ejection fraction is greater than 70%. This note was generated with [employer] software. It may contain incorrect words, spelling, and punctuation that were not noted in checking the note before signing.
--- NOTE | 2019-07-07 16:04 | PCM.DC.SUM ---
Discharge Date and Diagnosis Date of Admission: 07/05/19 Date of Discharge: 07/07/19 - Primary Discharge Diagnosis chest pain LLE paresthesia - Secondary Discharge Diagnosis Chronic Problems (Last Reviewed 07/05/19 @ 18:42 by Yuri Walsh DO) Essential hypertension (Chronic) Morbid obesity with body mass index of 50 or higher (Chronic) Pulmonary emboli (Chronic) Hospital Course and Treatment Imaging Results: 07/07/19 09:00 Nuclear Stress Test - Chemical [NM] Routine Operations: None Procedures: None Summary of Care Provided: The patient is a 44 year old F with a past medical history as listed who was admitted through the ED on 07/05/2019 with a complaint of left-sided paresthesias which occurred the day before admission. She went to bed but symptoms persisted so he decided to come to the ED. She had presented to her primary care doctor's office where she was noted to have slurred speech. In the ED, NIH stroke scale was 1. She was admitted to be managed for left-sided numbness and strokelike symptoms. She said left-sided numbness also progressed to involve her left arm and face. She had a CT of the brain which was negative for any acute intracranial pathology. MRA of the head and neck were normal. Patient also says she had her chest pain which she says was what brought her to the hospital in addition to the numbness. Troponins x3 were negative and she had a stress test on 07/07/2019 which was also normal. Significantly, patient had had a negative cardiac cath in November 2018. Of note, patient said she had been having hematochezia but she never had any during admission and rectal exam did show to hemorrhoids to really light brown stool. She was being followed up on outpatient basis for this apparently. Patient remained stable and was discharged home on 07/07/2019. She is follow-up with her primary care doctor within 1 week. Patient seen and examined prior to discharge. She had no complaints. Review systems otherwise negative. Labs and vitals reviewed. Home medication reviewed and reconciled. o/e: Vital Signs Height 5 ft 6 in Weight: 249 lb 12.54 oz Weight in Pounds 249.8 lbs Pulse Ox 97 Temperature 97.9 F Pulse Rate [Sitting] 76 Pulse Rate [Lying] 74 Pulse Rate 77 Respiratory Rate 14 Blood Pressure [Sitting] 109/65 Blood Pressure [Lying] 115/69 Blood Pressure 112/62 Blood Pressure Position Sitting [] General: Alert, Oriented x3, Cooperative, No apparent distress HEENT: Atraumatic, PERRLA, EOMI, Normocephalic Oral: Moist Mucosa Neck: Supple, No JVD, Negative Carotid Bruits Lungs: Clear to auscultation, Normal air movement, No rhonchi, No wheeze Cardiovascular: Regular rate, Regular Rhythm, Normal S1, Normal S2, No murmurs Abdomen: Bowel Sounds Present, Soft, Non Tender Extremities: No clubbing, No cyanosis, No edema, Capillary Refill Less than 3 Seconds Skin: No rashes, No breakdown Musculoskeletal: No Tenderness to Palpation of Joints or Extremities Lymphatic: No Cervical, Supraclavicular, or Inguinal Adenopathy Neurological: Cranial nerves II-XII grossly intact, Neuro grossly intact, Motor Exam 5/5 strength throughout Psych/Mental Status: Normal Affect, Appropriate, Alert and oriented to time, place, person, mood and affect Plan is as above. - Physical Exam Vitals/I&O's: Vital Signs Temp Pulse Resp BP Pulse Ox 97.9 F 77 14 112/62 97 07/07/19 14:44 07/07/19 14:44 07/07/19 14:44 07/07/19 14:44 07/07/19 14:44 Oxygen Delivery Method Room Air Weight: 249 lb 12.54 oz Body Mass Index (BMI) 40.3 Finger Stick Blood Glucose 169 Intake and Output for Last 24 Hours 07/05/19 07/06/19 07/07/19 23:59 23:59 23:59 Intake Total 1510 / 1510 1480 / 1480 350 / 350 Output Total 150 / 150 Balance 1510 / 1510 1330 / 1330 350 / 350 Microbiology Past 72 Hours 07/05/19 15:30 Blood Culture (Wb) - Anticubital Left Blood Culture - Preliminary No growth in 48 hours. 07/05/19 15:45 Blood Culture (Wb) - Left Forearm Blood Culture - Preliminary No growth in 48 hours. 07/05/19 15:44 Mucosa - Nose Influenza Types A,B Direct FA (JEREMIE) - Final Laboratory Results 07/06/19 17:21: Troponin I < 0.015 07/07/19 05:15: WBC 7.0, RBC 4.20, Hgb 13.0, Hct 40.1, MCV 95.5, MCH 31.0, MCHC 32.4, RDW Std Deviation 40.8, RDW Coeff of Satya 11.9, Plt Count 271, MPV 9.1, Immature Gran % (Auto) 0.300, Neut % (Auto) 46.7 L, Lymph % (Auto) 43.3 H, Young % (Auto) 7.2, Eos % (Auto) 1.9, Baso % (Auto) 0.6, Absolute Neuts (auto) 3.3, Absolute Lymphs (auto) 3.02, Nucleated RBC % 0 07/07/19 05:15: Sodium 144, Potassium 3.7, Chloride 112 H, Carbon Dioxide 29.0, Anion Gap 3 L, BUN 11, Creatinine 0.90, Estim Creat Clear Calc 74.67, Est GFR (MDRD) Af Amer 88, Est GFR (MDRD) Non-Af 72, BUN/Creatinine Ratio 12.2, Glucose 75, Calcium 8.7 Discharge Diet: Low fat/ Low Cholesterol Discharge Activity: Return to Normal Activity Weight Bearing Status: Weight bearing as tolerated Call your doctor if you observe: Fever of 101 or Higher, Numbness or Tingling, Shortness of breath, Chest pain Home Medications: Medications to take at Discharge Amlodipine [Norvasc] 5 mg PO BID 08/01/15 Gabapentin [Neurontin] 300 mg PO TID 11/27/18 Hydroxyzine HCl 25 mg PO QHS PRN PRN 11/27/18 Oxybutynin [Ditropan] 5 mg PO BID 11/27/18 Quetiapine Fumarate [Seroquel] 300 mg PO QHS 11/27/18 Venlafaxine HCl [Effexor] 100 mg PO BID 11/27/18 Multivitamin [Multivitamins] 1 tab PO DAILY 07/05/19 Primary Care Physician: Taran Wall MD [Primary Care Provider] - Please follow up with your Primary Care Physician in: one week Patient Instructions: Angina, Warning Signs of a Heart Attack Disposition: Home Minutes spent on discharge:: 40 Patient Condition:: Stable Medical Necessity - Tobacco Use Smoking Status: Former smoker Tobacco Use: Cigarettes Meaningful Use Info Meaningful Use Diagnoses (Choose all that apply): None applicable Code Visit OBSV E&M: 48016 Observation care discharge
== END 2019-07-07 11:55 | disposition home or self-care (01) ==
LOC: ED 17:03 → PCU 18:54
PROVIDERS: Emergency Provider Emergency Medicine; Family Provider Family Medicine; PCP Family Medicine; Visit Provider Student in an Organized Health Care Education/Training Program
DX: R07.89 Other chest pain (principal); R20.2 Paresthesia of skin; I10 Essential (primary) hypertension; E66.01 Morbid (severe) obesity due to excess calories; Z23 Encounter for immunization; G89.29 Other chronic pain; F41.9 Anxiety disorder, unspecified; E86.0 Dehydration; F32.9 Major depressive disorder, single episode, unspecified; K92.1 Melena; R47.81 Slurred speech; R20.0 Anesthesia of skin; Z86.711 Personal history of pulmonary embolism; Z79.899 Other long term (current) drug therapy; Z68.41 Body mass index [BMI] 40.0-44.9, adult; Z71.3 Dietary counseling and surveillance; Z87.891 Personal history of nicotine dependence
CPT/HCPCS: 36415; 70450; 70544; 70549; 70551; 71045; 74177; 78452; 80048; 80053; 80061; 81001; 81025; 83036; 83605; 84484; 84702; 85025; 85379; 85610; 85730; 87040; 87804; 93005; 93017; 93306; 94762; 96361; 96374; 96375; 96376; 99218; 99285; A9500; A9575; J7030; Q9957; Q9967; 90686; A4216; C8929; G0378; J2405; J2785

== ENCOUNTER 2019-07-08 02:31 | Observation (INO) | payer OTHER, SELFPAY ==
[2019-07-05 22:00] VITALS: BMI 40.3
[2019-07-08] VITALS (16 sets, daily range): BP systolic 99–154; BP diastolic 67–105; PULSE 76–151; RESP 10–26; TEMP 36.4–37.1; O2SAT 98–100; BMI 44.6; BMI 40.6
--- NOTE | 2019-07-08 03:05 | RAD_ITS ---
HISTORY: Chest pain EXAMINATION/TECHNIQUE: XR Chest 1 View: Portable COMPARISON: 07/05/2019 FINDINGS: Cardiac telemetry leads in place. Shallow inspiration. Normal heart size. No focal infiltrate. No vascular congestion or pleural effusion. No pneumothorax. RAD/Chest 1 View (Portable) IMPRESSION: No acute cardiopulmonary disease. at 0321 Reported and signed by: Sage Rodriges MD Electronically Signed: Sage Rodriges, at 3:20 EST Tel , Service support ,
--- NOTE | 2019-07-08 03:05 | EKG12_ITS ---
Test Reason : CP Blood Pressure : / mmHG Vent. Rate : 101 BPM Atrial Rate : 101 BPM P-R Int : 132 ms QRS Dur : 092 ms QT Int : 360 ms P-R-T Axes : -01 004 022 degrees QTc Int : 466 ms Sinus tachycardia Nonspecific ST abnormality Abnormal ECG Confirmed by FIONA RICHARDS, REYNA ([id number]), non linear editor NEO FORD ([id number]) on 07/12/2019 10:12:27 AM Referred By: Caryl Harper Confirmed By:REYNA JAIMES MD
[2019-07-08 03:10] LABS: Absolute Lymphocyte Count 2.12 X10^3/uL (0.83-4.51); Absolute Neutrophil Count 6.5 X10^3/uL (2.0-7.7); Basophil# 0.05 X10^3/uL; Basophil% 0.5 % (0-1); Eosinophil# 0.04 X10^3/uL; Eosinophils% 0.4 % (0-5); Hematocrit 42.2 % (37-47); Hemoglobin 14.5 g/dL (12.0-15.0); Lymphocyte # 2.12 X10^3/ul (4.0); Lymphocyte % 22.8 % (19-41); Mean Corp Hgb Conc 34.4 g/dL (32-36); Mean Corpuscular Hgb 30.8 pg (27.0-32.0); Mean Corpuscular Volume 89.6 fL (81-99); Mean Platelet Vol. 8.7 fl (6.2-12.0); Monocyte# 0.56 X10^3/uL; NRBC Flagged by Analyzer 0 % (0-5); Neutrophil % 70.1 % (47-70); Platelet Count 297 K/mm3 (150-450); RBC Distribution Width CV 11.5 % (11.6-14.6); RBC Distribution Width SD 37.2 fl (35.1-43.9); Red Blood Count 4.71 M/mm3 (4.2-5.4); White Blood Count 9.3 K/mm3 (4.4-11.0)
--- NOTE | 2019-07-08 03:26 | CT_ITS ---
HISTORY: CHEST PAIN THAT RADIATES INTO NECK AND BACK,SOB,DIZZINESS,ELEVATED HEART RATE WITH MOVEMENTHX:HTN,RT KIDNEY TUMOR REMOVED,GASTRIC SLEEVECTOMY,BACK SURGERY X 4 EXAMINATION: CTA Chest WO/W Contrast Injection TECHNIQUE: Helically acquired images were obtained of the chest following IV contrast as per pulmonary angiogram protocol with 3D reconstructions. A radiation dose optimization technique was used for this scan. IV Contrast dosage and agent: 100mL Isovue-370 IV COMPARISON: 11/27/2018 FINDINGS: PULMONARY ARTERIES: Pulmonary artery contrast opacification is satisfactory but less than optimal. The pulmonary arteries are normal in size. No PE. AORTA AND GREAT VESSELS: No aortic aneurysm or dissection. HEART AND PERICARDIUM: Heart size is normal. Tiny pericardial effusion and pericardial effusion is decreased in size compared to previous. MEDIASTINUM AND RAMBO: No mediastinal or hilar adenopathy. Esophagus is unremarkable. No hiatal hernia. LUNGS, PLEURA AND LARGE AIRWAYS: No masses, consolidation, or edema. No pleural effusion or thickening. No pneumothorax. BONES: No acute osseous abnormality. Mild pectus excavatum deformity. UPPER ABDOMEN: No acute pathology. Previous gastric sleeve surgery. Upper midline ventral hernia, unchanged. CT/CTA Chest W/WO Contrast IMPRESSION: 1. No PE, pneumonia, or acute chest disease identified. 2. Tiny pericardial effusion, improved compared to previous. 3. Gastric sleeve surgery and upper abdominal midline ventral hernia, unchanged. Individualized dose optimization techniques were used for this CT. at 0507 Reported and signed by: Sage Rodriges MD Electronically Signed: Sage Rodriges, at 5:06 EST Tel , Service support ,
--- NOTE | 2019-07-08 03:27 | ED.VIS.GEN ---
History of Present Illness Chief Complaint: Chest Pain Narrative: Patient is a 44-year-old female who presents with chest pain. She was recently hospitalized for multiple complaints. She had developed left-sided paresthesias and at her primary care physician's office there was concern for slurred speech. She was sent to the emergency department. NIH on initial presentation was 1. She was admitted and underwent MRI and MRAs of the head. She also was complaining of chest pain. She underwent serial enzymes and also had a negative stress test. She also has a history of prior normal cardiac catheterization. She was just discharged yesterday. At home yesterday evening she developed shortness of breath recurrent chest pain and palpitations. She states she checked her heart rate on a family member's pulse oximeter and it was reading 180. As she was able to calm herself and took Vistaril for anxiety her heart rate improved to 130. She also reports associated vomiting. No diarrhea. She has had some mild cough. No fevers. No congestion or rhinorrhea. She does have a history of prior pulmonary embolism 6 years ago but is no longer on anticoagulation. Past Medical History - Allergies and Home Meds Allergies/Adverse Reactions: Allergies buspirone HCl [From BuSpar] Allergy (Verified 07/08/19 02:32) Hives fentanyl Allergy (Verified 07/08/19 02:32) hallucinations only with patch hallucinations allargy to patch only. does fine with iv latex Allergy (Verified 07/08/19 02:32) Rash Primary Care Physician: Taran Wall MD [Primary Care Provider] - Past Medical History: - - Hypertension, anxiety Surgical History: - Smoking Status: Former smoker - Family History Maternal Family History: Family History (Last Reviewed 07/05/19 @ 18:42 by Yuri Walsh DO) Other CVA (cerebral vascular accident) Cancer Diabetes Heart disease Family History: Reports: Heart Disease, Stroke Paternal Family History: Family History (Last Reviewed 07/05/19 @ 18:42 by Yuri Walsh DO) Other CVA (cerebral vascular accident) Cancer Diabetes Heart disease Family History: Reports: Cancer, Diabetes, Heart Disease Review of Systems All systems negative except as indicated General: Denies: Fever Eyes: Denies: Visual changes - bilaterally ENT: Denies: Bilateral ear pain Cardiovascular: Reports: Chest pain, Palpitations, Heart racing Respiratory: Reports: Dyspnea Gastrointestinal: Reports: Nausea, Vomiting Musculoskeletal: Denies: Myalgias Skin: Denies: Rash Neurological: Denies: Headache Psych: Reports: Anxiety Hematologic: Denies: Easy bruising Allergy: Denies: Uticaria Physical Exam Vital Signs/Narrative: Vital Signs Temp Pulse Resp BP Pulse Ox 07/08/19 02:35 98.3 F 116 H 25 H 154/86 H 100 Inital Vital Signs reviewed: Yes General: Well nourished Head: Normocephalic Eyes: EOMI ENT: Moist mucous membranes Neck: Supple Cardiovascular: - - Heart is regular tachycardia, no murmur, gallop, rub Respiratory: No distress, CTA bilaterally Abdomen: Soft, Nontender Back: Nontender Extremities: Nontender Skin: Normal color. Negative for: Diaphoresis Neurological: Alert Psychological: - - Anxious Diagnostic/Tx/Re-eval Impressions Chest X-Ray 07/08/19 03:05 IMPRESSION: No acute cardiopulmonary disease. at 0321 Reported and signed by: Sage Rodriges MD Electronically Signed: Sage Rodriges, at 3:20 EST Tel , Service support , Chest CTA 07/08/19 03:26 IMPRESSION: 1. No PE, pneumonia, or acute chest disease identified. 2. Tiny pericardial effusion, improved compared to previous. 3. Gastric sleeve surgery and upper abdominal midline ventral hernia, unchanged. Individualized dose optimization techniques were used for this CT. at 0507 Reported and signed by: Sage Rodriges MD Electronically Signed: Sage Rodriges at 5:06 EST Tel , Service support , 07/08/19 03:05 Chest 1 View (Portable) [RAD] Stat 07/08/19 03:26 CTA Chest W/WO Contrast [CT] Stat Laboratory Results 07/08/19 07/08/19 03:00 03:00 WBC 9.3 RBC 4.71 Hgb 14.5 Hct 42.2 MCV 89.6 D MCH 30.8 MCHC 34.4 RDW Std Deviation 37.2 RDW Coeff of Satya 11.5 L Plt Count 297 MPV 8.7 Immature Gran % (Auto) 0.200 Neut % (Auto) 70.1 H Lymph % (Auto) 22.8 Walker % (Auto) 6.0 Eos % (Auto) 0.4 Baso % (Auto) 0.5 Absolute Neuts (auto) 6.5 Absolute Lymphs (auto) 2.12 Nucleated RBC % 0 Sodium 139 Potassium 4.0 Chloride 109 H Carbon Dioxide 22.0 Anion Gap 8 BUN 7 Creatinine 0.95 Estim Creat Clear Calc 70.74 Est GFR (MDRD) Af Amer 82 Est GFR (MDRD) Non-Af 68 BUN/Creatinine Ratio 7.3 L Glucose 117 H Calcium 9.1 Troponin I < 0.015 - Medical Decision Making EKG shows sinus tachycardia at a rate of 101. No acute ischemic changes. Laboratory studies normal with a negative troponin. Chest x-ray unremarkable. Given patient's recent hospitalization, chest pain and tachycardia, history of pulmonary embolism a CTA was obtained to rule out pulmonary embolism. CTA is negative. While patient is resting her heart rate is in the 80s. However on discussing results she becomes anxious again her heart rate increases to about 110. I do believe there is a significant amount of anxiety related to her symptoms. She recently had an extensive work-up and recent normal stress test and cardiac catheterization last year. I do not believe her symptoms are due to acute serious or life-threatening pathology. She is requesting something for pain and reported vomiting yesterday. She was given Toradol Zofran and we will also give a fluid bolus as she may have some mild dehydration. At this point I do not see an indication for hospitalization. I do believe she is safe for discharge. She was advised to follow-up as an outpatient and was discharged home. ED Disposition - Plan for ED Patient: Disposition: Home or Assisted Living Diagnosis: Chest pain, Anxiety Instructions: CHEST PAIN, NonCardiac Referrals: Taran Wall MD [Primary Care Provider] -
[2019-07-08] MEDS: LORazepam 2 MG/ML Syringe 1 MG IV ×2 (03:51→18:20)
[2019-07-08 04:11] LABS: Anion Gap 8 (5-15); BUN 7 mg/dL (7-18); BUN/Creat Ratio 7.3 RATIO (10-20); Calcium,Total 9.1 mg/dL (8.5-10.1); Chloride 109 mmol/L (98-107); Creatinine, Serum 0.95 mg/dL (0.55-1.02); EST Glomerular Filtration Rate 68 mL/min (>60); Est Glom Filt Rate - Afr Amer 82 mL/min (>60); Estimated Creatinine Clearance 70.74 ml/min; Glucose 117 mg/dL (74-106); Sodium Level 139 mmol/L (136-145)
[2019-07-08] MEDS: 0.9% Normal Saline 1,000 ML 999 ML IV (05:29)
[2019-07-08] MEDS: Ketorolac 30 MG/ML Syringe IV (05:30)
[2019-07-08] MEDS: Ondansetron 4 MG/2 ML Vial IV (05:30)
--- NOTE | 2019-07-08 06:37 | ED.RN ---
PT informed to start making phone calls for ride home.
--- NOTE | 2019-07-08 08:16 | ED.RN ---
pt continues to state that she is very dizzy and that her legs go numb. this rn and charge nurse in to talk with pt. sat pt up and heart rate elevates. attempted to stand pt and hr elevates up in the 150 's. dr sheffield aware
[2019-07-08] MEDS: LORazepam 1 MG Tablet PO (08:33)
--- NOTE | 2019-07-08 08:41 | HP.PCM_ITS ---
History of Present Illness Date of Admission: 07/08/19 Chief Complaint: Tachycardia The patient is a 44 year old F with a past medical history as listed. She was admitted through the ED on 07/08/2019 with a complaint of tachycardia. Patient is well-known to me from her previous admission and was just discharged 1 day ago. In the previous admission, patient was admitted with left-sided paresthesias and stroke was ruled out with negative CT and MRI. Subsequently complained of chest pain and a stress test done was negative and 2D echo was also unremarkable. Patient was discharged home on 07/07/2019. She states when she went home, she went to take a shower and felt very dizzy on getting up. She checked her heart rate and was 180. She therefore decided to come into the ED today. She complains of chest pain and palpitations and says she has occasional dizziness. Patient also says she has abdominal pain which she thinks is due to her gastric sleeve surgery she had in 2018 at [facility]. Patient had a multitude of vague complaints and says she also had back pain which was chronic and still had tingling and numbness in her feet and extremities. Heart rate was 138 in the ED but has subsequently normalized at time of review. Vitals were otherwise within normal limits. Patient states he does not think it was due to her anxiety as she took Vistaril to help control the heart rate. CBC and CMP were unremarkable and initial troponin was negative. On admission she had a CT of the chest which was negative for PE. Chest x-ray showed no acute cardiopulmonary process and EKG showed sinus tachycardia with heart rate been in the low 110s. She has been admitted to be managed for tachycardia. [] Past Medical History Past Medical History (Chronic Problems): Chronic Problems (Last Reviewed 07/05/19 @ 18:42 by Yuri Walsh DO) Essential hypertension (Chronic) Morbid obesity with body mass index of 50 or higher (Chronic) Pulmonary emboli (Chronic) Medical History: Medical History (Last Reviewed 07/05/19 @ 18:42 by Yuri Walsh DO) Essential hypertension (Chronic) I10 Status post left heart catheterization (LHC) (Resolved) Onset Date: ~12/23/18 Z98.890 Normal coronaries NSVT (nonsustained ventricular tachycardia) (Acute) I47.2 Urinary retention (Acute) R33.9 Chest pain (Acute) R07.9 Sinus tachycardia seen on manager skilled (Resolved) R00.0 Morbid obesity with body mass index of 50 or higher (Chronic) E66.01 Pulmonary emboli (Chronic) I26.99 Anxiety disorder F41.9 Chronic low back pain M54.5, G89.29 Paresthesia of right upper and lower extremity R20.2 Sacroiliitis, not elsewhere classified M46.1 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 Denies: Anorexia, Chills, Fever, Weakness, Fatigue Eyes: Denies: Blurred vision HEENT: Denies: Head Aches, Sinus Congestion, Sinus Drainage Cardiovascular: Reports: Chest Pain, Heaviness, Light Headedness, Palpitations. Denies: Chest Pressure, Chest Tightness, Edema, Orthopnea, Paroxysmal Noc. Dy spnea, Syncope Respiratory: Denies: Cough, Shortness of Breath, Shortness of breath at rest, Sputum production Gastrointestinal: Denies: Abdominal Pain, Nausea, Vomiting Genitourinary: Denies: Dysuria Musculoskeletal: Denies: Joint Pain, Joint Tenderness Skin: Denies: Rash, Wounds Neurological: Denies: Numbness, Tingling, Focal weakness Psychiatric: Denies: Anxiety, Depression, Homicidal Ideations, Suicidal Ideations Hematologic/ Lymphatic: Denies: Easy Bruising, Easy Bleeding VTE Information - Inpt Only VTE Present on Admission: No VTE Pharm Prophylaxis ordered?: Yes Patient Problems: Active and Suspected Problems (Last Reviewed 07/05/19 @ 18:42 by Yuri Walsh DO) Anxiety (Acute) Chest pain (Acute) - Physical Exam Vitals/I&O's: Vital Signs Temp Pulse Resp BP Pulse Ox 98.3 F 97 20 H 127/91 H 99 07/08/19 02:35 07/08/19 08:35 07/08/19 08:35 07/08/19 08:35 07/08/19 08:35 Oxygen Delivery Method Room Air Weight: 276 lb 3.827 oz Body Mass Index (BMI) 44.6 Finger Stick Blood Glucose 169 Intake and Output for Last 24 Hours 07/06/19 07/07/19 07/08/19 23:59 23:59 23:59 Intake Total 1000 / 1000 Balance 1000 / 1000 General: Alert, Oriented x3, Cooperative, No apparent distress HEENT: Atraumatic, PERRLA, EOMI, Normocephalic Oral: Moist Mucosa Neck: Supple, No JVD, Negative Carotid Bruits Lungs: Clear to auscultation, Normal air movement, No rhonchi, No wheeze, No rales Cardiovascular: Regular rate, Regular Rhythm, Normal S1, Normal S2, No murmurs Abdomen: Bowel Sounds Present, Soft, Non Tender, Non-Distended, No Hepato- splenomegaly Extremities: No clubbing, No cyanosis, No edema, Capillary Refill Less than 3 Seconds Skin: No rashes, No breakdown Musculoskeletal: No Tenderness to Palpation of Joints or Extremities Neurological: Cranial nerves II-XII grossly intact, Neuro grossly intact, Motor Exam 5/5 strength throughout Psych/Mental Status: Anxious, Alert and oriented to time, place, person, mood and affect Laboratory Results 07/08/19 03:00: WBC 9.3, RBC 4.71, Hgb 14.5, Hct 42.2, MCV 89.6 D, MCH 30.8, MCHC 34.4, RDW Std Deviation 37.2, RDW Coeff of Satya 11.5 L, Plt Count 297, MPV 8.7, Immature Gran % (Auto) 0.200, Neut % (Auto) 70.1 H, Lymph % (Auto) 22.8, Real % (Auto) 6.0, Eos % (Auto) 0.4, Baso % (Auto) 0.5, Absolute Neuts (auto) 6.5, Absolute Lymphs (auto) 2.12, Nucleated RBC % 0 07/08/19 03:00: Sodium 139, Potassium 4.0, Chloride 109 H, Carbon Dioxide 22.0, Anion Gap 8, BUN 7, Creatinine 0.95, Estim Creat Clear Calc 70.74, Est GFR (MDRD) Af Amer 82, Est GFR (MDRD) Non-Af 68, BUN/Creatinine Ratio 7.3 L, Glucose 117 H, Calcium 9.1, Troponin I < 0.015 Diagnostic Data Chest X-Ray 07/08/19 03:05 IMPRESSION: No acute cardiopulmonary disease. at 0321 Reported and signed by: Sage Rodriges MD Electronically Signed: Sage Rodriges at 3:20 EST Tel , Service support , Chest CTA 07/08/19 03:26 IMPRESSION: 1. No PE, pneumonia, or acute chest disease identified. 2. Tiny pericardial effusion, improved compared to previous. 3. Gastric sleeve surgery and upper abdominal midline ventral hernia, unchanged. Individualized dose optimization techniques were used for this CT. at 0507 Reported and signed by: Sage Rodriges MD Electronically Signed: Sage Rodriges, at 5:06 EST Tel , Service support , Assessment/Plan All Active Problems (Last Reviewed 07/05/19 @ 18:42 by Yuri Walsh DO) Spondylosis of lumbar region without myelopathy or radiculopathy (Acute) Spondylosis of lumbar region without myelopathy or radiculopathy (Acute) Left leg paresthesias (Acute) Dehydration (Acute) Anxiety (Acute) Status post left heart catheterization (LHC) (Resolved ~12/23/18) NSVT (nonsustained ventricular tachycardia) (Acute) Urinary retention (Acute) Chest pain (Acute) Sinus tachycardia seen on manager skilled (Resolved) Cellulitis of right leg without foot (Resolved) Pericardial effusion (Ruled-out) 44 y/o admitted with a complaint of chest pain and tachycardia 1.SInus tachycardia * Patient states her heart rate went up to the 180s while at home. On admission heart rate was in the 130s. EKG showed sinus tachycardia. * initial troponin was negative. Patient was just discharged yesterday after she had a negative stress test. * Will admit to PCU with telemetry. Patient was boarded in ICU on account of lack of beds in PCU * Check TSH. * Heart rate is now in the normal range and I believe anxiety may have played a part in it as patient also seems to be malingering and has numerous unrelated complaints. * Consult cardiology on account of persistent chest pain. * 2. Chest pain rule out ACS * Patient was just discharged yesterday after she was here complaining of chest pain and had a negative stress test. * 2D echo on 07/05/2018 showed EF of 65% with impaired relaxation of left ventricle and no regional motion abnormalities there was trivial pericardial effusion. * She had a negative cardiac cath in November 2018 the patient denies ever having a cardiac cath. * Consult cardiology. * 3. Abdominal pain * Patient keeps complaining of abdominal pain. She does have a history of an umbilical hernia and also said she had gastric sleeve bypass surgery in 2018 at [facility]. Patient states she is convinced that there is something going on in her abdomen and wants an EGD. When counseled that it is likely that surgeon would not to do any acute intervention while she was in the hospital, patient requested that she be transferred to the [facility] as a surgeon had left lung clinic and so could not do anything for head then. * I called [facility] transfer line per patient request and spoke to the admitting hospitalist but they did not see an acute need for transfer and so did not accept patient. * Will give IV pantoprazole. * Get a CT abdomen with oral and IV contrast tomorrow. Patient received contrast today with a CTA so cannot have another contrast load. * , Patient had a CT abdomen with IV contrast 2 days ago due to complaints of similar pain and it was negative. * 4. ? hematochezia * Patient states she has been having dark stools as well as bright red blood per rectum. She complained of this on previous admission but rectal exam done was negative and hemoglobin is remained stable at 14.4. * Check stool for occult blood. * If this is positive for blood is visualized during this admission, will consult general surgery. At this point, patient is stable and so recommend follow-up with general surgery and gastroenterology on outpatient basis. VT prophylaxis: SCDs Code Visit OBSV E&M: 92389 Initial observation care L2
--- NOTE | 2019-07-08 08:42 | ED.VISSUMM ---
- ER Visit Summary Date of Service: 07/08/19 Chief Complaint: [Chest pain and tachycardia, addendum to initial dictation by Dr. José Miguel Munoz] History of Present Illness: The patient is a 44 F [presented to the emergency department complaint of chest pain and was fully evaluated by Dr. José Miguel Munoz and was written up for discharge. Patient had recent admission to rule out stroke and had recent MRI and MRAs of the brain. Patient also had a stress test with her recent admission within the last week. She had a CT of the chest today that was negative for PE. Prior to discharge nursing staff was made aware that patient did not feel comfortable going home and that she felt dizzy with standing and did not feel like she could walk very well. Nursing staff performed orthostatic vital signs and it was noted that with standing patient's heart rate went up into the 150s. Patient had received Ativan earlier in the evening and IV fluids. Given these findings at this time and continued complaint of tachycardia and dizziness Case was discussed with hospitalist who agreed to admit patient for observation and further evaluation.] Physical Examination: [HEENT-PERRLA, EOMI. Cranial nerves II through XII grossly intact. TMs clear. Mucous membranes moist. No adenopathy. Cardiovascular-regular rate and rhythm without murmur or ectopy Lungs-clear to auscultation, chest wall stable without crepitus or subcu emphysema Abdomen-normoactive bowel sounds, soft, nontender, no rebound or rigidity, no peritoneal signs. Extremities-intact ?4, normal range of motion, normal pulses, atraumatic] Test Results: [] Emergency Department Course and Treatment: [] Treatment Plan: [Admit for observation for symptomatic tachycardia] Disposition: [Admit] Impression: [Chest pain Tachycardia] This note was generated with [employer] dictation software. It may contain incorrect words, spelling, and punctuation that were not noted in review of the chart prior to signing ED Disposition - Plan for ED Patient: Disposition: Home or Assisted Living Diagnosis: Chest pain, Anxiety Instructions: CHEST PAIN, NonCardiac Referrals: Taran Wall MD [Primary Care Provider] -
[2019-07-08] MEDS: HYDROcodone Bitartrate/Apap 5/325 Tablet PO ×2 (11:45→18:03)
[2019-07-08] MEDS: QUEtiapine 100 MG Tablet 150 MG PO ×2 (11:45→20:48)
[2019-07-08] MEDS: Gabapentin 300 MG Capsule PO ×3 (11:51→20:48)
--- NOTE | 2019-07-08 13:36 | NURSING ---
pt called seamer panty hose in to say that scooted self down and sat up on bedside but that forgot that purewick catheter in and she fell hitting side of her head and elbow but that got self back to bed. pt obs on camera pulling out purwick and blankets off and did not fall as reported. prompt care rn aware and community health worker.
--- NOTE | 2019-07-08 13:45 | NURSING ---
went in to reposition and explained that had to turn bed alarm off before could pull up in bed . pt did not mention falling at all now to rn in room. purewick replaced by sales representative consultant. pt talking on phone now to family.
--- NOTE | 2019-07-08 15:21 | NURSING ---
pt called out and c/o numbness getting worse to legs and babinski b/l very weak. unable to distinguish between lower ext's with sharp object. on camera pt moving legs off and on.dr marquis will come to see pt. request for old records from last back surgery in [place] to be obtained.
--- NOTE | 2019-07-08 16:49 | MRI_ITS ---
HISTORY: leg weakness EXAMINATION: MR Spine Cervical W/O Contrast TECHNIQUE: Multiplanar and multisequence MR images of the cervical spine were performed. IV Contrast dosage and agent: None. COMPARISON: None FINDINGS: Some motion artifact and cervical coil-related artifact but the exam remains diagnostic. The cervical vertebra show normal height and alignment. No fracture or acute osseous abnormality. No suspicious bony lesion. The cervical cord shows normal thickness and signal intensity without findings of myelomalacia, syrinx, or atrophy. No cerebellar ectopia. C2-3 through C4-5: The disc space heights are preserved. No posterior disc protrusion, foraminal narrowing, or spinal stenosis. C5-6: Degenerative disc disease with mild disc space narrowing accompanied by endplate spurring. Posterior disc-osteophyte complex with effacement of the anterior subarachnoid space and minimal deformity of the anterior cord. Mild central canal narrowing with AP diameter of the canal measuring 7 mm. Suboptimal visualization of the neuroforamina related to patient motion. Allowing for this, uncovertebral spurring with foraminal narrowing on the right is suggested. C6-7: Degenerative disc disease with mild disc space narrowing. Mild posterior disc bulge without significant central canal narrowing. Neuroforamina are patent. C7-T1: No posterior disc protrusion, foraminal narrowing, or spinal stenosis. MRI/Spine Cervical (Routine) IMPRESSION: 1. C5-6 acquired spinal stenosis with mild central canal narrowing together with foraminal narrowing on the right at this level. 2. No cervical myelomalacia or suspicious cord compression. 3. Normal cervical vertebral alignment. at 0427 Reported and signed by: Sage Rodriges MD Electronically Signed: Sage Rodriges, at 4:26 EST Tel , Service support ,
--- NOTE | 2019-07-08 16:50 | MRI_ITS ---
HISTORY: c/o low back pain, bilateral leg weakness. Previous lumbar spine laminectomy and fusion EXAMINATION: MR Spine Lumbar W/O Contrast TECHNIQUE: Multiplanar and multisequence MR images of the lumbar spine. IV Contrast dosage and agent: None. COMPARISON: CT abdomen and pelvis 07/06/2019 and MR lumbar spine 02/11/2019 FINDINGS: With comparison to previous MRI, no significant change. L3-4 through L5-S1 midline decompression laminectomy with posterior pedicle screw fixation. Unavoidable ferromagnetic artifact related to surgical hardware. Normal, stable lumbar vertebral alignment. Lumbar vertebra are normal in height. No fracture or acute osseous abnormality. The conus shows normal signal intensity and terminates normally at the L1 level. T12-L1: The disc space height is preserved. No posterior disc protrusion, foraminal narrowing, or spinal stenosis. L1-2: Degenerative disc disease with mild disc dehydration. Posterior disc bulge versus broad-based posterior disc protrusion with mild deformity of the anterior thecal sac and secondary mild central canal narrowing. AP diameter of the canal is 9 mm. No significant foraminal narrowing. L2-3: Posterior mild disc space narrowing and mild posterior disc bulging with mild deformity of the thecal sac. Facet joint arthritis with bilateral ligamentum flavum thickening resulting in moderate central canal narrowing in the transverse but not AP dimension. Biforaminal mild narrowing secondary to facet joint hypertrophy. L3-4: Posterior decompression laminectomy and mature interbody fusion at this level. Posterior to the interbody fusion, focal disc-osteophyte with mild deformity of the anterior thecal sac. In spite of posterior decompression, residual central canal narrowing which measures 7 mm in the AP dimension. Ferromagnetic artifact from pedicle screws and, as visualized, bilateral neuroforamina are patent. L4-5: Posterior decompression laminectomy. No central canal or foraminal narrowing at this level. Stable circumscribed oval fluid collection posterior to the thecal sac at the laminectomy bed. The fluid collection is simple in appearance without MR findings of abscess or infection. L5-S1: Posterior decompression laminectomy. No central canal or foraminal narrowing identified. MRI/Spine Lumbar (Routine) IMPRESSION: 1. Lumbar laminectomy with surgical fusion and stable findings compared to prior MRI. 2. L2-3 moderate central canal narrowing and this level lies above the surgical laminectomy levels. 3. L3-4 residual mild central canal narrowing in spite of decompression laminectomy at this level. 4. No significant foraminal identified. 5. No fracture or acute osseous abnormality. at 0800 Reported and signed by: Sage Rodriges MD Electronically Signed: Sage Rodriges, at 8:00 EST Tel , Service support ,
--- NOTE | 2019-07-08 16:50 | MRI_ITS ---
HISTORY: c/o low back pain, bilateral leg weakness EXAMINATION: MR Spine Thoracic W/O Contrast TECHNIQUE: Multiplanar and multisequence MR images of the thoracic spine. IV Contrast dosage and agent: None. COMPARISON: CTA chest 07/08/2019, thoracic spine MRI 12/23/2018 FINDINGS: MR exam partly degraded by respiratory motion artifact. The exam remains diagnostic. Stable findings with comparison to previous. Thoracic vertebra show normal height and alignment. No fracture, marrow edema, or suspicious bony lesion. The thoracic cord chest normal thickness and signal intensity without findings of myelomalacia, syrinx, or atrophy. No thoracic cord compression. Neuroforamina are patent. The paravertebral soft tissues show no significant pathology. Multilevel degenerative disc disease. Anterolateral endplate spurring of the mid and lower dorsal spine. T8-T9: Degenerative disc disease with mild disc space narrowing accompanied by anterolateral endplate spurring. Right paracentral small posterior disc protrusion with mild effacement of the anterior subarachnoid space. No thoracic cord compression or significant central canal narrowing. MRI/Spine Thoracic (Routine) IMPRESSION: 1. Stable exam. No fracture or acute osseous abnormality. Normal thoracic vertebral alignment. 2. No thoracic cord compression, central canal stenosis, or foraminal stenosis identified. 3. Multilevel degenerative disc disease and spondylosis. at 2303 Reported and signed by: Sage Rodriges MD Electronically Signed: Sage Rodriges, at 23:02 EST Tel , Service support ,
--- NOTE | 2019-07-08 17:17 | CON.PCM_ITS ---
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 She was admitted through the ED on 07/08/2019 with a complaint of tachycardia. Patient was just discharged from the hospital. In the previous admission, patient was admitted with left-sided paresthesias and stroke was ruled out with negative CT and MRI. Subsequently complained of chest pain and a stress test done was negative and 2D echo was also unremarkable. Patient was discharged home on 07/07/2019. She states when she went home, she went to take a shower and felt very dizzy on getting up. She checked her heart rate and was 180. She therefore decided to come into the ED today. She complains of chest pain and palpitations and says she has occasional dizziness. Patient also says she has abdominal pain which she thinks is due to her gastric sleeve surgery she had in 2018 at [facility]. Patient had a multitude of vague complaints and says she also had back pain which was chronic and still had tingling and numbness in her feet and extremities. Heart rate was 138 in the ED but has subsequently normalized at time of review. Vitals were otherwise within normal limits. Patient states she does not think it was due to her anxiety as she took Vistaril to help control the heart rate. CBC and CMP were unremarkable and initial troponin was negative. On admission she had a CT of the chest which was negative for PE. Chest x-ray showed no acute cardiopulmonary process and EKG showed sinus tachycardia with heart rate been in the low 110s. She has been admitted to be managed for tachycardia. Patient states that she has not been eating or drinking much because of nausea for the last few days. She has noticed that her heart rate goes up when she gets up and that is when she also gets dizzy and her blood pressure drops. Unfortunately we are unable to check orthostatic vitals now because patient was complaining of lower extremity numbness and is unable to stand up at this time.[ Review of systems: All systems reviewed. All others negative except that in the HPI.] [] Past Medical History Allergies/Adverse Reactions: Allergies buspirone HCl [From BuSpar] Allergy (Verified 07/08/19 02:32) Hives fentanyl Allergy (Verified 07/08/19 02:32) hallucinations only with patch hallucinations allargy to patch only. does fine with iv latex Allergy (Verified 07/08/19 02:32) Rash Home Medications: Ambulatory Orders Medication Instructions Recorded Amlodipine [Norvasc] 5 mg PO BID 08/01/15 Gabapentin [Neurontin] 300 mg PO TID 11/27/18 Hydroxyzine HCl 25 mg PO QHS PRN PRN 11/27/18 Oxybutynin [Ditropan] 5 mg PO BID 11/27/18 Quetiapine Fumarate [Seroquel] 300 mg PO QHS 11/27/18 Venlafaxine HCl [Effexor] 100 mg PO BID 11/27/18 Multivitamin [Multivitamins] 1 tab PO DAILY 07/05/19 Past Medical History (Chronic Problems): Chronic Problems (Last Reviewed 07/05/19 @ 18:42 by Yuri Walsh DO) Essential hypertension (Chronic) Morbid obesity with body mass index of 50 or higher (Chronic) Pulmonary emboli (Chronic) Surgical History: - Psychiatric History: Anxiety, Depression ACUTE CARE 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 THERAPIST History: No pertinent ACUTE CARE 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 THERAPIST history - *Family History Maternal Family History: Family History (Last Reviewed 07/05/19 @ 18:42 by Yuri Walsh DO) Other CVA (cerebral vascular accident) Cancer Diabetes Heart disease History Items: Heart Disease, Stroke Paternal Family History: Family History (Last Reviewed 07/05/19 @ 18:42 by Yuri Walsh DO) Other CVA (cerebral vascular accident) Cancer Diabetes Heart disease History Items: Cancer, Diabetes, Heart Disease Lives: With Family Smoking Status: Former smoker Tobacco Use: Cigarettes Objective: Vital Signs Temp Pulse Resp BP Pulse Ox 97.5 F L 91 21 H 99/78 100 07/08/19 13:44 07/08/19 15:00 07/08/19 13:44 07/08/19 13:44 07/08/19 14:00 Oxygen Flow Rate (L/min) 2 Oxygen Delivery Method Nasal Cannula Weight: 251 lb 8.759 oz Body Mass Index (BMI) 40.6 Finger Stick Blood Glucose 169 Intake and Output for Last 24 Hours 07/06/19 07/07/19 07/08/19 23:59 23:59 23:59 Intake Total 1000 / 1000 Output Total 700 / 700 Balance 300 / 300 General: Awake, Alert, Oriented x 3 HEENT: Atraumatic Oral: Moist Mucosa Neck: Supple Lungs: Clear to auscultation Cardiovascular: Regular Rhythm Abdomen: Soft Extremities: No edema Skin: No Rashes 07/08/19 03:00: WBC 9.3, RBC 4.71, Hgb 14.5, Hct 42.2, MCV 89.6 D, MCH 30.8, MCHC 34.4, Plt Count 297, MPV 8.7, Immature Gran % (Auto) 0.200, Neut % (Auto) 70.1 H, Lymph % (Auto) 22.8, [place] % (Auto) 6.0, Eos % (Auto) 0.4, Baso % (Auto) 0.5, Absolute Neuts (auto) 6.5, Nucleated RBC % 0 07/08/19 03:00: Sodium 139, Potassium 4.0, Chloride 109 H, Carbon Dioxide 22.0, Anion Gap 8, BUN 7, Creatinine 0.95, Est GFR (MDRD) Af Amer 82, Est GFR (MDRD) Non-Af 68, BUN/Creatinine Ratio 7.3 L, Glucose 117 H, Calcium 9.1, Troponin I < 0.015 Rhythm: EKG: ECHO: Stress Test: Cardiac Cath: PCI: CT Surgery: Holter monitor: EPS: PPM: CXR: Chest CT Scan: Assessment/Plan 1. Chest pain: Cardiac work-up of this chest pain has been unremarkable. Chest pain appears to be noncardiac in etiology. 2. Tachycardia: Patient has not had any significant SVT or V. tach. She has had sinus tachycardia. I would recommend giving her some IV fluids at this time and when she appears to be well-hydrated check orthostatic vitals again. If she continues to have orthostatic hypotension or orthostatic dizziness we can consider adding midodrine.
[2019-07-08] MEDS: 0.9% Normal Saline 1,000 ML 100 ML IV (18:03)
--- NOTE | 2019-07-08 20:42 | NURSING ---
pt returned from MRI at 2036
[2019-07-08] MEDS: Oxybutynin 5 MG Tablet PO (20:48)
[2019-07-08] MEDS: amLODIPine 5 MG Tablet PO (20:49)
[2019-07-08] MEDS: hydrOXYzine PAM 25 MG Capsule PO (20:56)
[2019-07-09] VITALS (15 sets, daily range): BP systolic 93–119; BP diastolic 61–88; PULSE 63–122; RESP 12–21; TEMP 36.3–37.2; O2SAT 94–100
[2019-07-09 04:28] LABS: Absolute Lymphocyte Count 1.96 X10^3/uL (0.83-4.51); Absolute Neutrophil Count 2.7 X10^3/uL (2.0-7.7); Basophil# 0.04 X10^3/uL; Basophil% 0.7 % (0-1); Eosinophil# 0.13 X10^3/uL; Eosinophils% 2.4 % (0-5); Hematocrit 39.8 % (37-47); Lymphocyte # 1.96 X10^3/ul (4.0); Lymphocyte % 36.6 % (19-41); Mean Corp Hgb Conc 32.7 g/dL (32-36); Mean Corpuscular Hgb 30.7 pg (27.0-32.0); Mean Corpuscular Volume 93.9 fL (81-99); Mean Platelet Vol. 8.5 fl (6.2-12.0); Monocyte# 0.47 X10^3/uL; Monocyte% 8.8 % (0-10); NRBC Flagged by Analyzer 0 % (0-5); Neutrophil # 2.74 X10^3/uL (2.7-7.7); Neutrophil % 51.3 % (47-70); Platelet Count 238 K/mm3 (150-450); RBC Distribution Width SD 40.9 fl (35.1-43.9); Red Blood Count 4.24 M/mm3 (4.2-5.4); White Blood Count 5.4 K/mm3 (4.4-11.0)
[2019-07-09 04:54] LABS: Anion Gap 4 (5-15); BUN 8 mg/dL (7-18); BUN/Creat Ratio 8.4 RATIO (10-20); Calcium,Total 8.4 mg/dL (8.5-10.1); Chloride 114 mmol/L (98-107); Creatinine, Serum 0.95 mg/dL (0.55-1.02); EST Glomerular Filtration Rate 68 mL/min (>60); Est Glom Filt Rate - Afr Amer 82 mL/min (>60); Estimated Creatinine Clearance 70.74 ml/min; Glucose 89 mg/dL (74-106); Potassium 3.6 mmol/L (3.5-5.1); Sodium Level 143 mmol/L (136-145); Thyroid Stim Hormone (TSH) 5.61 uIU/mL (0.358-3.74)
[2019-07-09] MEDS: Gabapentin 300 MG Capsule PO ×3 (06:12→21:46)
[2019-07-09] MEDS: 0.9% Normal Saline 1,000 ML 100 ML IV ×2 (06:12→15:35)
[2019-07-09 10:23] LABS: Free T3 2.2 pg/mL (2.18-3.98); T4 Free Direct 0.97 ng/dL (0.76-1.46)
[2019-07-09] MEDS: Oxybutynin 5 MG Tablet PO ×2 (10:32→21:45)
[2019-07-09] MEDS: amLODIPine 5 MG Tablet PO (10:32)
[2019-07-09] MEDS: QUEtiapine 100 MG Tablet 150 MG PO ×2 (10:32→21:53)
[2019-07-09] MEDS: Multivitamins,Therapeutic Tablet 1 TABLET PO (10:32)
--- NOTE | 2019-07-09 14:14 | PCM.PN.CARD ---
Subjectve: Patient was able to stand up today. She did not have orthostatic drop in blood pressure. Her heart rate did go up greater than 20 bpm upon standing up. Patient states that she does get dizziness when she gets up. Family members also mention the patient drinks a lot of energy drinks. Patient apparently denies this. Objective: Vital Signs Temp Pulse Resp BP Pulse Ox 97.4 F L 75 12 105/68 94 07/09/19 04:25 07/09/19 09:43 07/09/19 04:25 07/09/19 09:43 07/09/19 04:25 Oxygen Flow Rate (L/min) 1 Oxygen Delivery Method Room Air Weight: 251 lb 8.759 oz Body Mass Index (BMI) 40.6 Finger Stick Blood Glucose 169 Orthostatic Vital Signs Start: 07/09/19 09:43 Freq: q24h Status: Active Protocol: Activity Type Activity Date Activity User E-Sign Co-Sign Detail Recorded Client Recorded Date Recorded By Document 07/09/19 09:43 [facility] [id number] 07/09/19 09:46 [facility] 07/09/19 09:43 Orthostatic Vitals Standing -Blood Pressure (90/60-120/80) 119/86 H -Extremity Use Left Arm -Pulse Rate (60-100) 122 H Sitting -Blood Pressure (90/60-120/80) 107/78 -Extremity Use Left Arm -Pulse Rate (60-100) 105 H Lying -Blood Pressure (90/60-120/80) 105/68 -Extremity Use Left Arm -Pulse Rate (60-100) 75 Intake and Output for Last 24 Hours 07/07/19 07/08/19 07/09/19 23:59 23:59 23:59 Intake Total 1045 / 1285 1176.67 / 1176.67 Output Total 700 / 700 0 / 0 Balance 345 / 585 1176.67 / 1176.67 General: Awake, Alert, Oriented x 3 HEENT: Atraumatic Oral: Moist Mucosa Neck: Supple Lungs: Clear to auscultation Cardiovascular: Normal S1, Normal S2 Abdomen: Soft Extremities: No edema Skin: No Rashes 07/09/19 04:20: WBC 5.4, RBC 4.24, Hgb 13.0, Hct 39.8, MCV 93.9, MCH 30.7, MCHC 32.7, Plt Count 238, MPV 8.5, Immature Gran % (Auto) 0.200, Neut % (Auto) 51.3, Lymph % (Auto) 36.6, [place] % (Auto) 8.8, Eos % (Auto) 2.4, Baso % (Auto) 0.7, Absolute Neuts (auto) 2.7, Nucleated RBC % 0 07/09/19 04:20: Sodium 143, Potassium 3.6, Chloride 114 H, Carbon Dioxide 25.0, Anion Gap 4 L, BUN 8, Creatinine 0.95, Est GFR (MDRD) Af Amer 82, Est GFR (MDRD) Non-Af 68, BUN/Creatinine Ratio 8.4 L, Glucose 89, Calcium 8.4 L Rhythm: EKG: ECHO: Stress Test: Cardiac Cath: PCI: CT Surgery: Holter monitor: EPS: PPM: CXR: Chest CT Scan: Medical Necessity - Tobacco Use Smoking Status: Former smoker Tobacco Use: Cigarettes Assessment/Plan 1. Chest pain: Cardiac work-up of this chest pain has been unremarkable. Chest pain appears to be noncardiac in etiology. 2. Tachycardia: Patient has not had any significant SVT or V. tach. She has had sinus tachycardia. I agree with switching from amlodipine to beta-darnell. Patient was advised to stay of caffeinated products. Patient blood pressure did not drop significantly upon standing up. However her heart rate did go up. Advised patient to stay well-hydrated. Patient had complained of dizziness but did not have any significant arrhythmias either.
[2019-07-09] MEDS: Acetaminophen 325 MG Tablet 650 MG PO (14:25)
[2019-07-09] MEDS: Nystatin Powder 15gm Bottle 1 APPLIC TOPICAL (14:25)
--- NOTE | 2019-07-09 14:40 | PN_ITS ---
Patient Problems: Active and Suspected Problems (Last Reviewed 07/05/19 @ 18:42 by Yuri Walsh DO) Anxiety (Acute) Chest pain (Acute) Subjective: Patient seen and examined. She had no active complaints this morning. Of note, patient complained yesterday like she had weakness and numbness in her lower extremities as well as tingling sensation up to her abdomen. However this morning, patient was sleeping when I walked in. I touched her likely on her leg and patient immediately jumped out of bed and woke up. She tells me that she still has numbness and weakness in the lower extremities when I pointed out to her that with just light touch she was able to detect the sensation in jump out of bed with all her extremities moving, she said well that she must be better than she thought. Systems otherwise negative. She still is having tachycardia per discussion with nurse, her family came in yesterday and said patient drinks a lot of energy drinks and we think this is contributing to her symptoms. Labs and vitals reviewed. Vitals/I&O's: Vital Signs Temp Pulse Resp BP Pulse Ox 97.4 F L 75 12 105/68 94 07/09/19 04:25 07/09/19 09:43 07/09/19 04:25 07/09/19 09:43 07/09/19 04:25 Oxygen Flow Rate (L/min) 1 Oxygen Delivery Method Room Air Weight: 251 lb 8.759 oz Body Mass Index (BMI) 40.6 Finger Stick Blood Glucose 169 Orthostatic Vital Signs Start: 07/09/19 09:43 Freq: q24h Status: Active Protocol: Activity Type Activity Date Activity User E-Sign Co-Sign Detail Recorded Client Recorded Date Recorded By Document 07/09/19 09:43 [facility] [id number] 07/09/19 09:46 [facility] 07/09/19 09:43 Orthostatic Vitals Standing -Blood Pressure (90/60-120/80) 119/86 H -Extremity Use Left Arm -Pulse Rate (60-100) 122 H Sitting -Blood Pressure (90/60-120/80) 107/78 -Extremity Use Left Arm -Pulse Rate (60-100) 105 H Lying -Blood Pressure (90/60-120/80) 105/68 -Extremity Use Left Arm -Pulse Rate (60-100) 75 Intake and Output for Last 24 Hours 07/07/19 07/08/19 07/09/19 23:59 23:59 23:59 Intake Total 1045 / 1285 1676.67 / 1676.67 Output Total 700 / 700 900 / 900 Balance 345 / 585 776.67 / 776.67 General: Alert, Oriented x3, Cooperative, No apparent distress HEENT: Atraumatic, PERRLA, EOMI, Normocephalic Oral: Moist Mucosa Neck: Supple, No JVD, Negative Carotid Bruits Lungs: Clear to auscultation, Normal air movement, No rhonchi, No wheeze, No rales Cardiovascular: tachycardic, Regular Rhythm, Normal S1, Normal S2, No murmurs Abdomen: Bowel Sounds Present, Soft, Non Tender, Non-Distended, No Hepato- splenomegaly Extremities: No clubbing, No cyanosis, No edema, Capillary Refill Less than 3 Seconds Skin: No rashes, No breakdown Musculoskeletal: No Tenderness to Palpation of Joints or Extremities Neurological: Cranial nerves II-XII grossly intact, Neuro grossly intact, Motor Exam 5/5 strength throughout Psych/Mental Status: Anxious, Alert and oriented to time, place, person, mood and affect Laboratory Results 07/09/19 04:20: WBC 5.4, RBC 4.24, Hgb 13.0, Hct 39.8, MCV 93.9, MCH 30.7, MCHC 32.7, RDW Std Deviation 40.9, RDW Coeff of Satya 12.0, Plt Count 238, MPV 8.5, Immature Gran % (Auto) 0.200, Neut % (Auto) 51.3, Lymph % (Auto) 36.6, [place] % (Auto) 8.8, Eos % (Auto) 2.4, Baso % (Auto) 0.7, Absolute Neuts (auto) 2.7, Absolute Lymphs (auto) 1.96, Nucleated RBC % 0 07/09/19 04:20: Sodium 143, Potassium 3.6, Chloride 114 H, Carbon Dioxide 25.0, Anion Gap 4 L, BUN 8, Creatinine 0.95, Estim Creat Clear Calc 70.74, Est GFR (MDRD) Af Amer 82, Est GFR (MDRD) Non-Af 68, BUN/Creatinine Ratio 8.4 L, Glucose 89, Calcium 8.4 L, TSH 5.61 H 07/09/19 04:20: Free T4 0.97, Free T3 pg/dL 2.2 Diagnostic Data Chest X-Ray 07/08/19 03:05 IMPRESSION: No acute cardiopulmonary disease. at 0321 Reported and signed by: Sage Rodriges MD Electronically Signed: Sage Rodriges at 3:20 EST Tel , Service support , Chest CTA 07/08/19 03:26 IMPRESSION: 1. No PE, pneumonia, or acute chest disease identified. 2. Tiny pericardial effusion, improved compared to previous. 3. Gastric sleeve surgery and upper abdominal midline ventral hernia, unchanged. Individualized dose optimization techniques were used for this CT. at 0507 Reported and signed by: Sage Rodriges MD Electronically Signed: Sage Rodriges at 5:06 EST Tel , Service support , Cervical Spine MRI 07/08/19 16:49 IMPRESSION: 1. C5-6 acquired spinal stenosis with mild central canal narrowing together with foraminal narrowing on the right at this level. 2. No cervical myelomalacia or suspicious cord compression. 3. Normal cervical vertebral alignment. at 0427 Reported and signed by: Sage Rodriges MD Electronically Signed: Sage Rodriges at 4:26 EST Tel , Service support , Lumbar Spine MRI 07/08/19 16:50 IMPRESSION: 1. Lumbar laminectomy with surgical fusion and stable findings compared to prior MRI. 2. L2-3 moderate central canal narrowing and this level lies above the surgical laminectomy levels. 3. L3-4 residual mild central canal narrowing in spite of decompression laminectomy at this level. 4. No significant foraminal identified. 5. No fracture or acute osseous abnormality. at 0800 Reported and signed by: Sage Rodriges MD Electronically Signed: Sage Rodriges, at 8:00 EST Tel , Service support , Thoracic Spine MRI 07/08/19 16:50 IMPRESSION: 1. Stable exam. No fracture or acute osseous abnormality. Normal thoracic vertebral alignment. 2. No thoracic cord compression, central canal stenosis, or foraminal stenosis identified. 3. Multilevel degenerative disc disease and spondylosis. at 2303 Reported and signed by: Sage Rodriges MD Electronically Signed: Sage Rodriges at 23:02 EST Tel , Service support , Current Medications Acetaminophen (Tylenol) 650 mg PO Q6H PRN PRN PRN Reason: Pain Score 1-3/10 Last Admin: 07/09/19 14:25 Dose: 650 mg Documented by: Hydrocodone Bitart/Acetaminophen ([place] 5mg-325mg) 1 tablet PO Q6H PRN PRN PRN Reason: Pain Score 6-10/10 Last Admin: 07/08/19 18:03 Dose: 1 tablet Documented by: Gabapentin (Neurontin) 300 mg PO TID [facility] Last Admin: 07/09/19 14:25 Dose: 300 mg Documented by: Glucagon () 1 mg IM .X1 PRN PRN Reason: Hypoglycemia Hydroxyzine Pamoate (Vistaril Pamoate Capsule) 25 mg PO QHS PRN PRN PRN Reason: ANXIETY Last Admin: 07/08/19 20:56 Dose: 25 mg Documented by: Dextrose (Dextrose 10%-Water) 250 mls @ 999 mls/hr IV .Q16M PRN; Protocol PRN Reason: HYPOGLYCEMIA Sodium Chloride () 1,000 mls @ 100 mls/hr IV .Q10H [facility] Last Admin: 07/09/19 14:25 Dose: Not Given Documented by: Metoprolol Tartrate (Lopressor (Beta Karla)) 25 mg PO BID [facility] Multivitamins (Multivitamin) 1 tablet PO DAILY@0800 [facility] Last Admin: 07/09/19 10:32 Dose: 1 tablet Documented by: Nystatin (Mycostatin Powder) 1 applic TOPICAL BID [facility]; Protocol Last Admin: 07/09/19 14:25 Dose: 1 applicatio Documented by: Oxybutynin Chloride (Ditropan) 5 mg PO BID [facility] Last Admin: 07/09/19 10:32 Dose: 5 mg Documented by: Quetiapine Fumarate (Seroquel) 150 mg PO BID [facility] Last Admin: 07/09/19 10:32 Dose: 150 mg Documented by: Sodium Chloride () 10 - 40 ml IV UD PRN PRN Reason: SALINE FLUSH Venlafaxine HCl (Effexor) 100 mg PO BID [facility] Last Admin: 07/09/19 10:32 Dose: 100 mg Documented by: Medical Necessity - Tobacco Use Smoking Status: Former smoker Tobacco Use: Cigarettes Assessment/Plan All Active Problems (Last Reviewed 07/05/19 @ 18:42 by Yuri Walsh DO) Spondylosis of lumbar region without myelopathy or radiculopathy (Acute) Spondylosis of lumbar region without myelopathy or radiculopathy (Acute) Left leg paresthesias (Acute) Dehydration (Acute) Anxiety (Acute) Status post left heart catheterization (LHC) (Resolved ~12/23/18) NSVT (nonsustained ventricular tachycardia) (Acute) Urinary retention (Acute) Chest pain (Acute) Sinus tachycardia seen on patient monitor (Resolved) Cellulitis of right leg without foot (Resolved) Pericardial effusion (Ruled-out) 44 y/o admitted with a complaint of chest pain and tachycardia 1.SInus tachycardia * Patient was tachycardic this morning with heart rate been in the 120s. * GRETCHEN was elevated at 5.61 with normal T3 and T4 which is indicated for subclinical hypothyroidism. * Family, patient consumes a lot of energy drinks and this is likely contributing to her tachycardia. * 2D echo: as under 2. * cardiology on board; * patient started on PO metoprolol 25mg bid; amlodipine dc'd. * * * 2. Chest pain rule out ACS * Patient was just discharged on 07/08/2019 after she was here complaining of chest pain and had a negative stress test. * 2D echo on 07/05/2018 showed EF of 65% with impaired relaxation of left ventricle and no regional motion abnormalities there was trivial pericardial effusion. * She had a negative cardiac cath in November 2018 the patient denies ever having a cardiac cath. * cardiology on board- for conservative management now. * 3. Abdominal pain * Complaint of abdominal pain since yesterday. Does have a history of umbilical hernia. Follow-up with PCP on outpatient basis. * Gastric sleeve bypass and thinks of it may be the cause. Currently stable. * To follow-up with her surgical team at [facility] upon discharge. 4. Parasthesia and weakness * Patient had an apparent sudden onset of lower extremity weakness and numbness which extended up to her umbilicus. Patient stated that she had sensation in her right and left lower quadrant but in the middle part of her abdomen she did not have any sensation. On examination it appeared that patient was malingering as she looked to be actively trying to keep her lower extremities flaccid. * Cervical spine MRI shows C5-6 acquired spinal stenosis with mild central canal narrowing together with foraminal narrowing on the right at this level with no cervical myelomalacia or suspicious cord compression. * Thoracic spine MRI: No thoracic cord compression, central canal stenosis or foraminal stenosis and no fracture or acute osseous abnormality. Multilevel degenerative disc disease and spondylosis. * Lumbar spine MRI showed lumbar laminectomy with L2-3 moderate central canal narrowing and L3-4 residual mild central canal narrowing in spite of decompression laminectomy at this level. * This morning, patient's symptoms are fully resolved and she is able to move all extremities successfully. She was noted on the video monitor in the ICU to be moving her extremities even at the time that she said she could not move them. * Will up with PCP on outpatient basis. I believe patient is malingering. Neurology was consulted and also thought same. * 4. ? hematochezia * Patient states she has been having dark stools as well as bright red blood per rectum. She complained of this on previous admission but rectal exam done was negative and hemoglobin is remained stable at 14.4. * Stool for occult blood ordered and is pending. * To follow-up with PCP on outpatient basis. Hemoglobin is remained stable. * DVT prophylaxis: SCDs Code Visit OBSV E&M: 85231 Subsequent observation care L2
[2019-07-09] MEDS: 0.9% Saline Lock 10 ML Syringe IV (15:35)
[2019-07-09] MEDS: HYDROcodone Bitartrate/Apap 5/325 Tablet PO (16:19)
[2019-07-09] MEDS: Metoprolol Tartrate 25 MG Tablet PO (21:46)
[2019-07-10] VITALS (11 sets, daily range): BP systolic 72–129; BP diastolic 44–82; PULSE 69–115; RESP 10–18; TEMP 36.5–36.7; O2SAT 95–97
[2019-07-10] MEDS: 0.9% Normal Saline 1,000 ML 100 ML IV ×2 (01:14→06:37)
[2019-07-10] MEDS: HYDROcodone Bitartrate/Apap 5/325 Tablet PO (01:17)
[2019-07-10] MEDS: Gabapentin 300 MG Capsule PO ×2 (05:19→14:16)
[2019-07-10] MEDS: 0.9% Normal Saline 1,000 ML 999 ML IV ×2 (08:30→11:53)
[2019-07-10] MEDS: Oxybutynin 5 MG Tablet PO (08:34)
[2019-07-10] MEDS: Multivitamins,Therapeutic Tablet 1 TABLET PO (08:34)
[2019-07-10] MEDS: QUEtiapine 100 MG Tablet 150 MG PO (08:35)
[2019-07-10] MEDS: Metoprolol Tartrate 25 MG Tablet 12.5 MG PO (09:59)
--- NOTE | 2019-07-10 11:00 | NURSING ---
Pt states that she felt she was saying weird stuff to her brother last night, like talking about their mother as if she was still alive even though she has been for awhile. Pt's brother in today to see pt, states pt is not saying anything out of her normal to him today. Pt is alert and oriented in conversation, no signs of confusion or delusions.
--- NOTE | 2019-07-10 11:58 | PCM.DC ---
- Discharge Diagnoses Current Active Problems: Current Active and Chronic Problems (Last Reviewed 07/05/19 @ 18:42 by Yuri Walsh DO) Anxiety (Acute) Chest pain (Acute) You will use the following diet at home:: No restrictions Your food should be the consistency of: Regular Your liquids should be the consistency of: Regular/Thin Discharge Activity: Return to Normal Activity Weight Bearing Status: Weight bearing as tolerated Call your doctor if you observe: Shortness of breath, Dizziness, Fainting spells, Increased palpitations (irregular heartbeat) Instructions: CHEST PAIN, NonCardiac Allergies/Adverse Reactions: Allergies buspirone HCl [From BuSpar] Allergy (Verified 07/08/19 02:32) Hives fentanyl Allergy (Verified 07/08/19 02:32) hallucinations only with patch hallucinations allargy to patch only. does fine with iv latex Allergy (Verified 07/08/19 02:32) Rash Medications to take at Discharge Gabapentin [Neurontin] 300 mg PO TID 11/27/18 Hydroxyzine HCl 25 mg PO QHS PRN PRN 11/27/18 Oxybutynin [Ditropan] 5 mg PO BID 11/27/18 Quetiapine Fumarate [Seroquel] 300 mg PO QHS 11/27/18 Venlafaxine HCl [Effexor] 100 mg PO BID 11/27/18 Multivitamin [Multivitamins] 1 tab PO DAILY 07/05/19 Metoprolol Tartrate [Lopressor (beta darnell)] 12.5 mg PO BID #30 tab 07/10/19 The following prescriptions were given: Metoprolol Tartrate [Lopressor (beta darnell)] 12.5 mg PO BID #30 tab Transmission Status: Pending to [id number] Primary Care Physician: Taran Wall MD [Primary Care Provider] - Please follow up with your Primary Care Physician in: one week Test Results: Test results from this visit will be discussed in further detail at your follow-up appointment, if applicable. Please Follow Up With: Roderick Richards MD Proposed Discharge Date: 07/10/19
--- NOTE | 2019-07-10 12:01 | DS.PCM_ITS ---
Discharge Date and Diagnosis - Problem List Patient Problems: Active and Suspected Problems (Last Reviewed 07/05/19 @ 18:42 by Yuri Walsh DO) Anxiety (Acute) Chest pain (Acute) Date of Admission: 07/08/19 Date of Discharge: 07/10/19 - Primary Discharge Diagnosis Active and Suspected Problems (Last Reviewed 07/05/19 @ 18:42 by Yuri Walsh DO) Anxiety (Acute) Chest pain (Acute) tachycardia - Secondary Discharge Diagnosis Chronic Problems (Last Reviewed 07/05/19 @ 18:42 by Yuri Walsh DO) Essential hypertension (Chronic) Morbid obesity with body mass index of 50 or higher (Chronic) Pulmonary emboli (Chronic) Hospital Course and Treatment Imaging Results: Diagnostic Data Chest X-Ray 07/08/19 03:05 IMPRESSION: No acute cardiopulmonary disease. at 0321 Reported and signed by: Sage Rodriges MD Electronically Signed: Sage Rodriges at 3:20 EST Tel , Service support , Chest CTA 07/08/19 03:26 IMPRESSION: 1. No PE, pneumonia, or acute chest disease identified. 2. Tiny pericardial effusion, improved compared to previous. 3. Gastric sleeve surgery and upper abdominal midline ventral hernia, unchanged. Individualized dose optimization techniques were used for this CT. at 0507 Reported and signed by: Sage Rodriges MD Electronically Signed: Sage Rodriges at 5:06 EST Tel , Service support , Cervical Spine MRI 07/08/19 16:49 IMPRESSION: 1. C5-6 acquired spinal stenosis with mild central canal narrowing together with foraminal narrowing on the right at this level. 2. No cervical myelomalacia or suspicious cord compression. 3. Normal cervical vertebral alignment. at 0427 Reported and signed by: Sage Rodriges MD Electronically Signed: Sage Rodriges, at 4:26 EST Tel , Service support , Lumbar Spine MRI 07/08/19 16:50 IMPRESSION: 1. Lumbar laminectomy with surgical fusion and stable findings compared to prior MRI. 2. L2-3 moderate central canal narrowing and this level lies above the surgical laminectomy levels. 3. L3-4 residual mild central canal narrowing in spite of decompression laminectomy at this level. 4. No significant foraminal identified. 5. No fracture or acute osseous abnormality. at 0800 Reported and signed by: Sage Rodriges MD Electronically Signed: Sage Rodriges at 8:00 EST Tel , Service support , Thoracic Spine MRI 07/08/19 16:50 IMPRESSION: 1. Stable exam. No fracture or acute osseous abnormality. Normal thoracic vertebral alignment. 2. No thoracic cord compression, central canal stenosis, or foraminal stenosis identified. 3. Multilevel degenerative disc disease and spondylosis. at 2303 Reported and signed by: Sage Rodriges MD Electronically Signed: Sage Rodriges, at 23:02 EST Tel , Service support , neurology- SOC Telemed cardiology- Dr Richards Operations: None Procedures: None Summary of Care Provided: The patient is a 44 year old F with a past medical history as listed. She was admitted through the ED on 07/08/2019 with a complaint of tachycardia. Patient is well-known to me from her previous admission and was just discharged 1 day ago. In the previous admission, patient was admitted with left-sided paresthesias and stroke was ruled out with negative CT and MRI. Subsequently complained of chest pain and a stress test done was negative and 2D echo was also unremarkable. Patient was discharged home on 07/07/2019. She states when she went home, she went to take a shower and felt very dizzy on getting up. She checked her heart rate and was 180. She therefore decided to come into the ED today. She complains of chest pain and palpitations and says she has occasional dizziness. Patient also says she has abdominal pain which she thinks is due to her gastric sleeve surgery she had in 2018 at [facility]. Patient had a multitude of vague complaints and says she also had back pain which was chronic and still had tingling and numbness in her feet and extremities. Heart rate was 138 in the ED but has subsequently normalized at time of review. Vitals were otherwise within normal limits. Patient states he does not think it was due to her anxiety as she took Vistaril to help control the heart rate. CBC and CMP were unremarkable and initial troponin was negative. On admission she had a CT of the chest which was negative for PE. Chest x-ray showed no acute cardiopulmonary process and EKG showed sinus tachycardia with heart rate been in the low 110s. She was admitted to be managed for tachycardia. SH was checked and was mildly elevated at around 5 and free T3 and T4 within normal limits. Per family, patient had been taking a lot of energy drinks and this was thought to be contributing to her tachycardia. She was started on metoprolol 25 mg twice daily and amlodipine was discontinued. Of note, during admission patient complained of lower extremity numbness and weakness. Neurology was consulted and MRI of the lumbar and thoracic and cervical spine showed no acute findings that could explain her symptoms. It was thought to be malingering and this was also agreed by neurology as patient was seen on, moving her extremities when no one was in there but was subsequently stated that she was too weak to move her extremities. Symptoms had fully resolved by the next day. Of note, when I went to review patient on subsequent days, patient will be sleeping soundly and on very light touch patient jumped out of bed with all extremities moving. She however said that she was too weak to get out of bed and says she still has lower extremity numbness and weakness. It was however pointed out to her the discrepancy between her complaints and her actions and she was noted to be moving all limbs spontaneously. Patient experienced some mild hypotension which was asymptomatic and this was thought to be due to metoprolol dose. Orthostatics were positive and this resolved with administration of IV fluids. Metoprolol was cut down to 12.5 mg twice daily. On day of discharge, patient was in the bathroom and claims that she fell. She states she hit her elbow but on examination, she had full range of movement of her right elbow and had minimal tenderness. Patient also states that she hit her face but had no bruising and had no tenderness on her face. This was an unwitnessed fall. During this admission, patient also demanded to be transferred to [facility] for further care as she said she felt that she had had bariatric surgery namely gastric sleeve surgery done at [facility] and wanted to be transferred to [facility] because she fell there was a problem with her surgery. Despite being told that she would need to return to [facility] where she had a surgery, patient insisted on transfer to [facility]. When transfer line was called, the hospitalist team refused to accept patient as she did not meet any transfer criteria. Patient then requested transfer to [facility] but was counseled that there was no acute need for transfer and was doubtful that they would accept patient. Patient was discharged home on 07/10/2019. She is to follow-up with her primary care doctor. She was given a prescription for p.o. metoprolol 12.5 mg twice daily. Patient seen and examined prior to discharge. She had no complaints. Review of systems otherwise negative. Labs and vitals reviewed. Home medication reviewed and reconciled. o/e: Vital Signs Height 5 ft 6 in Weight: 251 lb 8.759 oz Weight in Pounds 251.5 lbs Pulse Ox 95 Temperature 98.0 F Pulse Rate [Standing] 115 Pulse Rate [Sitting] 99 Pulse Rate [Lying] 82 Pulse Rate 69 Respiratory Rate 18 Blood Pressure [Standing] 113/72 Blood Pressure [Sitting] 129/77 Blood Pressure [Lying] 92/44 Blood Pressure [2nd BP] 99/53 Blood Pressure [BP] 121/67 Blood Pressure 92/44 Blood Pressure Position [2nd Semi-Fowlers BP] Blood Pressure Position [BP] Semi-Fowlers Blood Pressure Position Semi-Fowlers General: Alert, Oriented x3, Cooperative, No apparent distress HEENT: Atraumatic, PERRLA, EOMI, Normocephalic Oral: Moist Mucosa Neck: Supple, No JVD, Negative Carotid Bruits Lungs: Clear to auscultation, Normal air movement, No rhonchi, No wheeze, No rales Cardiovascular: tachycardic, Regular Rhythm, Normal S1, Normal S2, No murmurs Abdomen: Bowel Sounds Present, Soft, Non Tender, Non-Distended, No Hepato- splenomegaly Extremities: No clubbing, No cyanosis, No edema, Capillary Refill Less than 3 Seconds Skin: No rashes, No breakdown Musculoskeletal: No Tenderness to Palpation of Joints or Extremities Neurological: Cranial nerves II-XII grossly intact, Neuro grossly intact, Motor Exam 5/5 strength throughout Psych/Mental Status: Anxious, Alert and oriented to time, place, person, mood and affect Plan is for discharge home today. Was counseled to abstain from drinking energy drinks and coffee as they could cause tachycardia. Patient Problems: Active and Suspected Problems (Last Reviewed 07/05/19 @ 18:42 by Yuri Walsh DO) Anxiety (Acute) Chest pain (Acute) - Physical Exam Vitals/I&O's: Vital Signs Temp Pulse Resp BP Pulse Ox 98.0 F 71 18 121/67 H 95 07/10/19 09:53 07/10/19 11:55 07/10/19 09:53 07/10/19 11:55 07/10/19 09:53 Oxygen Flow Rate (L/min) 1 Oxygen Delivery Method Room Air Weight: 251 lb 8.759 oz Body Mass Index (BMI) 40.6 Finger Stick Blood Glucose 169 Orthostatic Vital Signs Start: 07/09/19 09:43 Freq: q24h Status: Active Protocol: Activity Type Activity Date Activity User E-Sign Co-Sign Detail Recorded Client Recorded Date Recorded By Document 07/10/19 09:53 AA [id number] 07/10/19 11:33 AA 07/10/19 09:53 Orthostatic Vitals Standing -Blood Pressure (90/60-120/80 mm Hg) 113/72 -Extremity Use Left Arm -Pulse Rate (60-100 beats/min) 115 H Sitting -Blood Pressure (90/60-120/80 mm Hg) 129/77 H -Extremity Use Left Arm -Pulse Rate (60-100 beats/min) 99 Lying -Blood Pressure (90/60-120/80 mm Hg) 92/44 L -Extremity Use Left Arm -Pulse Rate (60-100 beats/min) 82 Intake and Output for Last 24 Hours 07/08/19 07/09/19 07/10/19 23:59 23:59 23:59 Intake Total 1045 / 1285 3822.00 / 3822.00 3445.00 / 3445.00 Output Total 700 / 700 975 / 975 0 / 0 Balance 345 / 585 2847.00 / 2847.00 3445.00 / 3445.00 Current Medications Acetaminophen (Tylenol) 650 mg PO Q6H PRN PRN PRN Reason: Pain Score 1-3 Last Admin: 07/09/19 14:25 Dose: 650 mg Documented by: Hydrocodone Bitart/Acetaminophen ([place] 5mg-325mg) 1 tablet PO Q6H PRN PRN PRN Reason: Pain Score 6-04/08 Last Admin: 07/10/19 01:17 Dose: 1 tablet Documented by: Gabapentin (Neurontin) 300 mg PO TID [facility] Last Admin: 07/10/19 05:19 Dose: 300 mg Documented by: Glucagon () 1 mg IM .X1 PRN PRN Reason: Hypoglycemia Hydroxyzine Pamoate (Vistaril Pamoate Capsule) 25 mg PO QHS PRN PRN PRN Reason: ANXIETY Last Admin: 07/08/19 20:56 Dose: 25 mg Documented by: Dextrose (Dextrose 10%-Water) 250 mls @ 999 mls/hr IV .Q16M PRN; Protocol PRN Reason: HYPOGLYCEMIA Sodium Chloride () 1,000 mls @ 100 mls/hr IV .Q10H [facility] Last Infusion: 07/10/19 11:54 Dose: 0 mls/hr Documented by: Sodium Chloride () 1,000 mls @ 999 mls/hr IV .Q1H1M ONE Stop: 07/10/19 12:34 Last Admin: 07/10/19 11:53 Dose: 999 mls/hr Documented by: Metoprolol Tartrate (Lopressor (Beta Karla)) 12.5 mg PO BID [facility] Last Admin: 07/10/19 09:59 Dose: 12.5 mg Documented by: Multivitamins (Multivitamin) 1 tablet PO DAILY@0800 [facility] Last Admin: 07/10/19 08:34 Dose: 1 tablet Documented by: Nystatin (Mycostatin Powder) 1 applic TOPICAL BID [facility]; Protocol Last Admin: 07/10/19 08:33 Dose: Not Given Documented by: Oxybutynin Chloride (Ditropan) 5 mg PO BID [facility] Last Admin: 07/10/19 08:34 Dose: 5 mg Documented by: Quetiapine Fumarate (Seroquel) 150 mg PO BID [facility] Last Admin: 07/10/19 08:35 Dose: 150 mg Documented by: Sodium Chloride () 10 - 40 ml IV UD PRN PRN Reason: SALINE FLUSH Last Admin: 07/09/19 15:35 Dose: 10 ml Documented by: Venlafaxine HCl (Effexor) 100 mg PO BID [facility] Last Admin: 07/10/19 08:35 Dose: 100 mg Documented by: Discharge Diet: Low fat/ Low Cholesterol Discharge Activity: Return to Normal Activity Weight Bearing Status: Weight bearing as tolerated Call your doctor if you observe: Shortness of breath, Dizziness, Fainting spells, Increased palpitations (irregular heartbeat) Home Medications: Medications to take at Discharge Gabapentin [Neurontin] 300 mg PO TID 11/27/18 Hydroxyzine HCl 25 mg PO QHS PRN PRN 11/27/18 Oxybutynin [Ditropan] 5 mg PO BID 11/27/18 Quetiapine Fumarate [Seroquel] 300 mg PO QHS 11/27/18 Venlafaxine HCl [Effexor] 100 mg PO BID 11/27/18 Multivitamin [Multivitamins] 1 tab PO DAILY 07/05/19 Metoprolol Tartrate [Lopressor (beta karla)] 12.5 mg PO BID #30 tab 07/10/19 Following Prescrptions Were Given to Patient: Metoprolol Tartrate [Lopressor (beta karla)] 12.5 mg PO BID #30 tab Transmission Status: Received by [facility] Primary Care Physician: Taran Wall MD [Primary Care Provider] - Please follow up with your Primary Care Physician in: one week Please Follow Up With: Roderick Richards MD Patient Instructions: CHEST PAIN, NonCardiac Disposition: Home Minutes spent on discharge:: 50 Patient Condition:: Stable Medical Necessity - Tobacco Use Smoking Status: Former smoker Tobacco Use: Cigarettes Meaningful Use Info Meaningful Use Diagnoses (Choose all that apply): None applicable Code Visit Inpatient E&M: 58295 Disch Hosp
--- NOTE | 2019-07-10 13:05 | NURSING ---
This nurse walked with pt into bathroom. Pt used walker and had steady gait. Denies dizziness when out of bed and while walking. Undersigned standing right outside pt's bathroom door while Pt in bathroom. Beadle pt make noise, undersigned opened bathroom door to see pt sitting on floor on right side of body, leaning on right leg and right elbow. Pt states I sat too far forward on the toilet and I just fell off. Pt states she hit right side of face on door surrounding shower. No apparent injuries noted, no redness or injury noted to right side of face or right elbow. Pt assisted off floor x4 assist and walked back to bed with walker. VS taken. Right side of body further examined, no injury noted. Pt able to move right arm, bend elbow, shrug shoulders. Neuro assessment done- hand grasps strong and equal, foot pushes equal, tongue symmetrical, shoulder shrug equal, pupils equal and reactive to light. Pt denies pain to elbow or anywhere after resting in bed. Bed alarm in place. Discussed with pt that she would either have to use BSC for safety or staff would have to stand with her in bathroom for safety. Pt voices understanding of same.
--- NOTE | 2019-07-10 14:16 | NURSING ---
Pt resting in bed with eyes closed, arouses easily. Pt denies complaints at this time, denies pain to right elbow at this time. Pt moves right elbow with no flinching or issue.
--- NOTE | 2019-07-10 14:45 | NURSING ---
Dr. Harper up to floor to see pt at this time. Pt to be discharged as planned.
== END 2019-07-10 11:59 | disposition home or self-care (01) ==
LOC: ED 05:20 → ICU 09:14 → PCU 07-09 15:32
PROVIDERS: Admitting Provider Student in an Organized Health Care Education/Training Program; Emergency Provider Emergency Medicine; Family Provider Family Medicine; PCP Family Medicine; Referring Provider Student in an Organized Health Care Education/Training Program; Visit Provider Student in an Organized Health Care Education/Training Program
DX: R07.89 Other chest pain (principal); F41.9 Anxiety disorder, unspecified; R20.0 Anesthesia of skin; E66.01 Morbid (severe) obesity due to excess calories; I10 Essential (primary) hypertension; R00.0 Tachycardia, unspecified; K92.1 Melena; G89.29 Other chronic pain; R42 Dizziness and giddiness; Z79.899 Other long term (current) drug therapy; Z86.711 Personal history of pulmonary embolism; Z87.891 Personal history of nicotine dependence; Z68.41 Body mass index [BMI] 40.0-44.9, adult; Z71.3 Dietary counseling and surveillance; Z98.84 Bariatric surgery status
CPT/HCPCS: 71045; 71275; 72141; 72146; 72148; 80048; 84439; 84443; 84481; 84484; 85025; 93005; 96361; 96374; 96375; 96376; 97162; 97166; 97802; 99218; 99285; J7030; J7040; Q9967; A4216; G0378; J2405

== ENCOUNTER 2019-08-06 12:08 | Day surgery (SDC) | payer OTHER, SELFPAY ==
[2019-07-08 09:59] VITALS: BMI 40.6
[2019-08-06] VITALS (7 sets, daily range): BP systolic 107–120; BP diastolic 64–87; PULSE 67–81; RESP 16; TEMP 36.7–37.2; O2SAT 96–100; BMI 40.8
[2019-08-06] MEDS: Lactated Ringers 1,000 ML 100 ML IV (13:17)
--- NOTE | 2019-08-06 14:13 | DCINST_ITS ---
- Discharge Diagnoses Current Active Problems: Right sacroiliitis, piriformis muscle spasm Reason(s) for Visit for Discharge Instructions: Receiving sacroiliac joint injection piriformis muscle injection You will use the following diet at home:: No restrictions Your food should be the consistency of: Regular Discharge Activity: Return to Normal Activity, No Restrictions May shower in (days): 1 May resume sexual activity in: No Restrictions Weight Bearing Status: Weight bearing as tolerated, Full weight bearing, Partial weight bearing, Toe touch weight bearing, No weight bearing Call your doctor if your incision/area has: Continuous Slow Oozing, Sudden Increased Bleeding, Increased Pain/ Swelling, Increased Redness, Foul Smelling Discharge, Swelling at the incision site Call your doctor if you observe: Fever of 101 or Higher, Numbness or Tingling, Uncontrolled pain Suture Line Care: Avoid Pulling/Pushing, Avoid Pinching/Bending Remove Dressing in (days):: 1 Cleanse incision/area with: Soap & Water, Keep Dressing Clean & Dry Allergies/Adverse Reactions: Allergies buspirone HCl [From BuSpar] Allergy (Verified 08/06/19 13:08) Hives fentanyl Allergy (Verified 08/06/19 13:08) hallucinations only with patch hallucinations allargy to patch only. does fine with iv latex Allergy (Verified 08/06/19 13:08) Rash Medications to take at Discharge Gabapentin [Neurontin] 300 mg PO TID 11/27/18 Hydroxyzine HCl 25 mg PO QHS PRN PRN 11/27/18 Oxybutynin [Ditropan] 5 mg PO BID 11/27/18 Quetiapine Fumarate [Seroquel] 300 mg PO QHS 11/27/18 Venlafaxine HCl [Effexor] 100 mg PO BID 11/27/18 Multivitamin [Multivitamins] 1 tab PO DAILY 07/05/19 traZODone [Desyrel] 50 mg PO QHS 08/05/19 Primary Care Physician: Taran Wall MD [Primary Care Provider] - Test Results: Test results from this visit will be discussed in further detail at your follow- up appointment, if applicable. Please Follow Up With: Shantanu Landa MD
[2019-08-06] MEDS: Triamcinolone Acetonide 40 MG/ML Vial (14:19)
--- NOTE | 2019-08-06 14:20 | RAD_ITS ---
STUDY: X-RAY - PELVIS REASON FOR EXAM: Female, 44 years old. RT SI JOINT AND PERIFORMIS MUSCLE INJECTION TECHNIQUE: One view of the pelvis was obtained. COMPARISON: None. FINDINGS: 10 seconds of fluoroscopy of the pelvis was utilized and operating room and 3 images made of for interpretation. RAD/Fluoro Guided Needle Placement IMPRESSION: Fluoroscopy during a sacroiliac joint injection. Electronically Signed: Troy Mahmood MD at 15:23 EST Tel , Service support ,
[2019-08-06] MEDS: Bupivacaine 0.25% 30 ML Vial (14:21)
--- NOTE | 2019-08-06 14:25 | OP.PCM_ITS ---
Problem List (1) Sacroiliitis, not elsewhere classified Status: Acute (2) Spasm of piriformis muscle Status: Acute (3) Spasm of piriformis muscle Status: Acute Report of Operation Date of Procedure: 08/06/19 Pre-Operative Diagnosis: Sacroiliitis and piriformis muscle spasm/pain Post-Operative Diagnosis: Same Surgery/Procedure Performed:: Right sacroiliac joint injection and right piriformis muscle injection under fluoroscopy guidance Description of Surgical Findings:: Under sterile conditions. Patient placed in the prone position, pressure points were padded, patient was ready from the nursing and the anesthesia team. After identification of the side and the target area for the block under guided fluoroscopy, the entry site was marked with marking pen. I used Betadine for sterilization of the skin, sterile draping were applied. Using 25-gauge needle to infiltrate the skin with local anesthesia using preservative-free lidocaine 0.5% injected 2.5 mL at each site of entry. Using oblique fluoroscopy, accessed the right sacroiliac joint and right piriformis muscle using 22-gauge spinal needle. After confirmation of appropriate needle placement to the targeted area with AP and lateral fluoroscopy, injected both sites ( Right SI and RIght Piriformis muscle ) 10 mL mixture of preservative-free Marcaine 0.5% and Kenalog [80] mg at each site. [place] was removed, pressure dressing were applied. Patient tolerated the procedure well and was taken to the recovery. Type of Anesthesia:: Local MAC
== END 2019-08-06 15:20 | disposition home or self-care (01) ==
LOC: SDC 12:11 → AC 12:12
PROVIDERS: PCP Family Medicine; Visit Provider Anesthesiology
PROC: 3E0U3GC Introduction of Other Therapeutic Substance into Joints, Percutaneous Approach (ICD-10-PCS; CPT 27096; principal; 2019-08-06 13:55)
DX: M46.1 Sacroiliitis, not elsewhere classified (principal); M62.838 Other muscle spasm; M96.1 Postlaminectomy syndrome, not elsewhere classified; M51.16 Intervertebral disc disorders with radiculopathy, lumbar region; M51.17 Intervertebral disc disorders with radiculopathy, lumbosacral region; M47.816 Spondylosis without myelopathy or radiculopathy, lumbar region; M47.817 Spondylosis without myelopathy or radiculopathy, lumbosacral region; M48.062 Spinal stenosis, lumbar region with neurogenic claudication; G89.4 Chronic pain syndrome; I10 Essential (primary) hypertension; F32.9 Major depressive disorder, single episode, unspecified; F41.9 Anxiety disorder, unspecified; F17.200 Nicotine dependence, unspecified, uncomplicated; Z86.711 Personal history of pulmonary embolism; Z86.73 Personal history of transient ischemic attack (TIA), and cerebral infarction without residual deficits
CPT/HCPCS: 20552; 27096; 76000; 77002; J7120; J2405

== ENCOUNTER 2019-08-20 13:10 | Day surgery (SDC) | payer OTHER, SELFPAY ==
[2019-08-06 13:09] VITALS: BMI 40.8
[2019-08-20] VITALS (7 sets, daily range): BP systolic 134–155; BP diastolic 87–100; PULSE 68–75; RESP 16; TEMP 36.5–36.7; O2SAT 99–100; BMI 40.4
[2019-08-20] MEDS: Lactated Ringers 1,000 ML 100 ML IV (13:37)
[2019-08-20 14:06] LABS: Internal QC Validated? YES +Cl - CLEAR BKGD; Pregnancy, Urine Negative Negative
--- NOTE | 2019-08-20 14:53 | DCINST_ITS ---
- Discharge Diagnoses Current Active Problems: Lower back pain and left lower gluteal region pain Reason(s) for Visit for Discharge Instructions: Left sacroiliac joint injection and left pyriformis muscle injection under fluoroscopy guidance You will use the following diet at home:: No restrictions Your food should be the consistency of: Regular Your liquids should be the consistency of: Regular/Thin Discharge Activity: Return to Normal Activity, No Restrictions May shower in (days): 1 May resume sexual activity in: No Restrictions Weight Bearing Status: Weight bearing as tolerated, Toe touch weight bearing Call your doctor if your incision/area has: Continuous Slow Oozing, Sudden Increased Bleeding, Increased Pain/ Swelling, Increased Redness, Foul Smelling Discharge, Swelling at the incision site Call your doctor if you observe: Fever of 101 or Higher, Coldness, Increased Pain, Numbness or Tingling, Change in Color, Increased palpitations (irregular heartbeat), Calf discomfort, Uncontrolled pain Remove Dressing in (days):: 1 Cleanse incision/area with: Soap & Water Allergies/Adverse Reactions: Allergies buspirone HCl [From BuSpar] Allergy (Verified 08/20/19 13:29) Hives fentanyl Allergy (Verified 08/20/19 13:29) hallucinations only with patch hallucinations allargy to patch only. does fine with iv latex Allergy (Verified 08/20/19 13:29) Rash Medications to take at Discharge Gabapentin [Neurontin] 300 mg PO TID 11/27/18 Hydroxyzine HCl 25 mg PO QHS PRN PRN 11/27/18 Oxybutynin [Ditropan] 5 mg PO BID 11/27/18 Quetiapine Fumarate [Seroquel] 300 mg PO QHS 11/27/18 Venlafaxine HCl [Effexor] 100 mg PO BID 11/27/18 Multivitamin [Multivitamins] 1 tab PO DAILY 07/05/19 traZODone [Desyrel] 50 mg PO QHS 08/05/19 Primary Care Physician: Taran Wall MD [Primary Care Provider] - Test Results: Test results from this visit will be discussed in further detail at your follow- up appointment, if applicable. Please Follow Up With: Shantanu Landa MD
--- NOTE | 2019-08-20 14:55 | OP.PCM_ITS ---
Problem List (1) Spasm of piriformis muscle Status: Acute (2) Spasm of piriformis muscle Status: Acute (3) Sacroiliitis, not elsewhere classified Status: Acute Report of Operation Date of Procedure: 08/20/19 Pre-Operative Diagnosis: Left sacroiliitis, left pyriformis muscle syndrome and pain Post-Operative Diagnosis: Same Surgery/Procedure Performed:: Left sacroiliac joint injection and left piriformis muscle injection under fluoroscopy Description of Surgical Findings:: Under sterile conditions. Patient placed in the prone position, pressure points were padded, patient was ready from the nursing and the anesthesia team. After identification of the side and the target area for the block under guided fluoroscopy, directed oblique fluoroscopy to align the left sacroiliac joint, also directed on top of the gluteal region to image the piriformis muscle, the entry site was marked with marking pen. I used Betadine for sterilization of the skin, sterile draping were applied. Using 25-gauge needle to infiltrate the skin with local anesthesia using preservative-free lidocaine 0.5% injected 2.5 mL at each site of entry. Using oblique fluoroscopy, accessed the left sacroiliac joint and left pyriformis muscle using 22-gauge spinal needle. After confirmation of appropriate needle placement to the targeted area with AP and lateral fluoroscopy, injected 10 mL mixture of preservative-free Marcaine 0.5% and Kenalog [total of 80] mg at a dose injection site [place] was removed, pressure dressing were applied. Patient tolerated the procedure well and was taken to the recovery. Type of Anesthesia:: Local MAC - Complications None
--- NOTE | 2019-08-20 14:55 | RAD_ITS ---
PROCEDURE: Fluoroscopic guided injection of left sacroiliac joint DATE OF EXAMINATION: 09/18/2019 INDICATION: Female, 44 years old. Pain PHYSICIAN: FLUOROSCOPY TIME (if supplied): 15 seconds RADIATION DOSAGE (If Supplied By Facility): CTDIvol = ( ) mGy, DLP = ( ) mGycm Technique: 4 fluoroscopic guided images were obtained during left sacroiliac joint injection as per clinical history.. Findings: Intraoperative placement of left sacroiliac joint needle was demonstrated followed by injection. For more complete information recommend correlation with surgical notes RAD/Fluoro Guided Needle Placement IMPRESSION: Fluoroscopic guided left sacroiliac joint needle placement Electronically Signed: Ej Contreras MD at 16:12 EST , Service support ,
[2019-08-20] MEDS: Bupivacaine 0.25% 30 ML Vial (15:11)
[2019-08-20] MEDS: Triamcinolone Acetonide 40 MG/ML Vial (15:11)
== END 2019-08-20 16:16 | disposition home or self-care (01) ==
LOC: SDC 13:11 → AC 13:12
PROVIDERS: PCP Family Medicine; Referring Provider Anesthesiology; Visit Provider Anesthesiology
PROC: 3E0U3GC Introduction of Other Therapeutic Substance into Joints, Percutaneous Approach (ICD-10-PCS; CPT 27096; principal; 2019-08-20 14:25)
DX: M46.1 Sacroiliitis, not elsewhere classified (principal); M62.838 Other muscle spasm; M51.16 Intervertebral disc disorders with radiculopathy, lumbar region; M47.26 Other spondylosis with radiculopathy, lumbar region; M51.26 Other intervertebral disc displacement, lumbar region; M48.062 Spinal stenosis, lumbar region with neurogenic claudication; M51.17 Intervertebral disc disorders with radiculopathy, lumbosacral region; M47.27 Other spondylosis with radiculopathy, lumbosacral region; M48.07 Spinal stenosis, lumbosacral region; M96.1 Postlaminectomy syndrome, not elsewhere classified; G89.4 Chronic pain syndrome; G47.30 Sleep apnea, unspecified; F32.9 Major depressive disorder, single episode, unspecified; F41.9 Anxiety disorder, unspecified; Z79.899 Other long term (current) drug therapy; Z86.711 Personal history of pulmonary embolism; Z87.891 Personal history of nicotine dependence
CPT/HCPCS: 01992; 20552; 27096; 76000; 77002; 81025; J7120

== ENCOUNTER 2019-10-20 14:25 | Emergency (ER) | payer OTHER, SELFPAY ==
[2019-08-20 13:29] VITALS: BMI 40.4
[2019-10-20 14:26] VITALS: BP 157/102; PULSE 95; RESP 17; TEMP 36.2; O2SAT 95; BMI 40.1
--- NOTE | 2019-10-20 14:51 | RAD_ITS ---
STUDY: X-RAY - LEFT KNEE REASON FOR EXAM: Female, 44 years old. Post fall knee pain TECHNIQUE: 4 view(s) of the knee. COMPARISON: Comparison is made with prior examination dated November 13, 2018. FINDINGS: Normal visualized distal femur. Normal visualized proximal tibia and fibula. Normal proximal tibiofibular articulation. There is mild degenerative arthrosis of the medial femorotibial compartment. Normal lateral femorotibial compartment. Normal patellofemoral articulation. The soft tissue structures are unremarkable. RAD/Knee 4 or More Views IMPRESSION: Degenerative arthrosis. Electronically Signed: Wesly Llanes, at 15:19 EDT , Service support ,
--- NOTE | 2019-10-20 15:19 | ED.VISSUMM ---
- ER Visit Summary Date of Service: 10/20/19 Chief Complaint: Falls with left knee pain History of Present Illness: The patient is a 44 F prior stroke and multiple back surgeries with an L3, 4, 5 fusion. Patient states she is had more back pain. Recently when she walks she gets weakness in her legs and falls. States she injured her knee on 1 of the falls. Denies hitting her head no LOC no other complaints. Denies bowel or bladder incontinence. No fever. Physical Examination: Middle-aged female no acute distress vital signs stable afebrile. H EENT exam unremarkable atraumatic. Pupils round reactive light. C-spine nontender. Neck nontender. Lungs clear to auscultation bilaterally. Heart regular rhythm no murmur. Abdomen soft nontender normal bowel sounds no peritoneal signs. Patient moving all 4 extremities. She has decreased sensation in her right foot which is chronic from her back surgeries. Her left knee is mildly tender, swollen and bruised. There is no gross bony deformity. She has decreased range of motion her knee due to pain. She has normal dorsi plantarflexion of the left foot. No cauda equina. Normal medial thigh sensation. Back she has a well-healed old midline lumbar surgical scar. She does have tenderness above it. There is no ecchymosis, bruising or deformity. Neurologically she is chronic decreased sensation in her right foot. But no acute signs of cauda equina. She is awake and alert. She is moving all 4 extremities. Test Results: X-ray of the left knee 4 views shows no acute abnormality. Chronic changes. No fracture. Emergency Department Course and Treatment: Patient requested is receiving 1 Vicodin for pain. Her primary issue is her back and she does need a repeat MRI but does not need it emergently today. I did obtain x-ray of her left knee which showed no acute abnormality. Treatment Plan: Ice to her knee. Tylenol and Motrin for pain. Follow-up with your doctor for an outpatient MRI of her lumbar spine to see if she has recurrent worsening degenerative disc disease. Disposition: Discharge Impression: Multiple falls Left knee contusion Acute on chronic back pain rule out recurrent degenerative disc disease will need outpatient follow-up and most likely outpatient MRI History of lumbar fusion secondary to degenerative disc disease This note was generated with [employer] software. It may contain incorrect words, spelling, and punctuation that were not noted in review of the chart prior to signing ED Disposition - Plan for ED Patient: Referrals: Taran Wall MD [Primary Care Provider] -
--- NOTE | 2019-10-20 15:25 | ED.DEP ---
ED Disposition - Plan for ED Patient: Disposition: Home or Assisted Living Instructions: ED EXTREMITY CONTUSION Lower Referrals: Taran Wall MD [Primary Care Provider] - As soon as possible Additional Instructions: Your knee x-ray look good. You just bruised your knee. I am more concerned with your back pain. You need outpatient follow-up and need to get recurrent MRI of your lower back to rule out recurrent degenerative disc disease. Follow-up with your doctor to get your MRI. Return if worsening back pain, fever or bowel or bladder incontinence.
[2019-10-20] MEDS: HYDROcodone Bitartrate/Apap 5/325 Tablet PO (15:31)
[2019-10-20 15:34] VITALS: BP 153/104; PULSE 89; RESP 18
== END 2019-10-20 15:51 | disposition home or self-care (01) ==
PROVIDERS: Emergency Provider Emergency Medicine; PCP Family Medicine
DX: S80.02XA Contusion of left knee, initial encounter (principal); W19.XXXA Unspecified fall, initial encounter; Y93.9 Activity, unspecified; Y92.9 Unspecified place or not applicable; Y99.9 Unspecified external cause status; M54.9 Dorsalgia, unspecified; G89.29 Other chronic pain; R53.1 Weakness; R29.6 Repeated falls; Z79.899 Other long term (current) drug therapy; Z98.1 Arthrodesis status; Z86.73 Personal history of transient ischemic attack (TIA), and cerebral infarction without residual deficits
CPT/HCPCS: 73564; 99282

== ENCOUNTER 2019-12-24 11:54 | Day surgery (SDC) | payer OTHER, SELFPAY ==
[2019-12-24] VITALS (8 sets, daily range): BP systolic 101–128; BP diastolic 66–84; PULSE 67–81; RESP 16–18; TEMP 36.1–36.6; O2SAT 97–100; BMI 39.4
[2019-12-24] MEDS: Lactated Ringers 1,000 ML 75 ML IV (12:36)
[2019-12-24 12:51] LABS: Internal QC Validated? YES +Cl - CLEAR BKGD; Pregnancy, Urine Negative Negative
--- NOTE | 2019-12-24 14:10 | RAD_ITS ---
STUDY: X-RAY - LUMBAR SPINE REASON FOR EXAM: Female, 44 years old. STEROID INJECTION. 8.5 SEC. FL TECHNIQUE: 3 cone down intraoperative view(s) of the lumbar spine were obtained. COMPARISON: None FINDINGS: Intraoperative imaging provided for caudal block. RAD/Lumbar Spine 2 or 3 Views IMPRESSION: Intraoperative imaging provided for caudal block. Electronically Signed: Wesly Llanes, at 14:31 EDT , Service support ,
[2019-12-24] MEDS: Triamcinolone Acetonide 40 MG/ML Vial ×2 (14:15)
[2019-12-24] MEDS: 0.9% Normal Saline (Pres. free 10 ML Vial (14:15)
--- NOTE | 2019-12-24 14:21 | DCINST_ITS ---
- Discharge Diagnoses Current Active Problems: Lower back pain Reason(s) for Visit for Discharge Instructions: Receiving caudal epidural steroid injection under fluoroscopy guidance You will use the following diet at home:: No restrictions Your food should be the consistency of: Regular Your liquids should be the consistency of: Regular/Thin Discharge Activity: Return to Normal Activity Return to work on:: 12/27/19 May shower in (days): 1 May resume sexual activity in: No Restrictions Weight Bearing Status: Weight bearing as tolerated Call your doctor if your incision/area has: Continuous Slow Oozing, Sudden Increased Bleeding, Increased Pain/ Swelling, Increased Redness, Foul Smelling Discharge, Swelling at the incision site Call your doctor if you observe: Fever of 101 or Higher, Coldness, Increased Pain, Numbness or Tingling, Uncontrolled pain Suture Line Care: Avoid Pulling/Pushing, Avoid Pinching/Bending Remove Dressing in (days):: 1 Cleanse incision/area with: Soap & Water Allergies/Adverse Reactions: Allergies buspirone HCl [From BuSpar] Allergy (Verified 12/24/19 12:12) Hives fentanyl Allergy (Verified 12/24/19 12:12) hallucinations only with patch hallucinations allargy to patch only. does fine with iv latex Allergy (Verified 12/24/19 12:12) Rash Medications to take at Discharge Gabapentin [Neurontin] 300 mg PO TID 11/27/18 Hydroxyzine HCl 25 mg PO QHS PRN PRN 11/27/18 Oxybutynin [Ditropan] 5 mg PO BID 11/27/18 Quetiapine Fumarate [Seroquel] 300 mg PO QHS 11/27/18 Venlafaxine HCl [Effexor] 100 mg PO BID 11/27/18 Multivitamin [Multivitamins] 1 tab PO DAILY 07/05/19 traZODone [Desyrel] 50 mg PO QHS 08/05/19 Methocarbamol [Robaxin] 500 mg PO BID 12/24/19 Primary Care Physician: Taran Wall MD [Primary Care Provider] - Test Results: Test results from this visit will be discussed in further detail at your follow- up appointment, if applicable. Please Follow Up With: Shantanu Landa MD
--- NOTE | 2019-12-24 14:23 | PCM.OPRPT ---
Problem List (1) Failed back syndrome of lumbar spine Status: Acute (2) Failed back syndrome of lumbar spine Status: Acute (3) Intervertebral disc disorders with radiculopathy, lumbar region Status: Acute (4) Intervertebral disc disorders with radiculopathy, lumbar region Status: Acute (5) Other intervertebral disc degeneration, lumbar region Status: Acute (6) Other intervertebral disc degeneration, lumbar region Status: Acute Report of Operation Date of Procedure: 12/24/19 Pre-Operative Diagnosis: Lumbar postlaminectomy syndrome and lumbar radiculopathy Surgery/Procedure Performed:: Caudal epidural steroid injection under fluoroscopy guidance Description of Surgical Findings:: Under sterile conditions. Patient placed in the prone position, pressure points were padded, patient was ready from the nursing and the anesthesia team. After identification of the side and the target area for the block under guided fluoroscopy, the entry site was marked with marking pen. I used Betadine for sterilization of the skin, sterile draping were applied. Using 25-gauge needle to infiltrate the skin with local anesthesia using preservative-free lidocaine 0.5% injected 2.5 mL at site of entry. Using guided fluoroscopy, accessed the the posterior lower caudal epidural space using 22-gauge spinal needles under midline approach, accessed the site was assisted with lateral fluoroscopy, followed by Injected contrast solution [2.5] mL under live fluoroscopy which showed good spread of the contrast to the posterior lower quadrant and upper lumbar, stopped at the fusion area and laminectomy site epidural space and to the targeted area of the injection at[ L caudal/lumbar L5]. Injected [5] mL of mixture of preservative-free lidocaine and Kenalog [80] mg for the procedure which showed appropriate spread in the epidural space. [place] was removed, pressure dressing were applied. Patient tolerated the procedure well and was taken to the recovery. Type of Anesthesia:: MAC and Topical Anesth, MAC/Supplemental/Local - Complications No complication
== END 2019-12-24 15:14 | disposition home or self-care (01) ==
LOC: SDC 11:54 → AC 11:55
PROVIDERS: Anesthesiology; PCP Family Medicine; Referring Provider Anesthesiology; Visit Provider Anesthesiology
PROC: 3E0S3BZ Introduction of Anesthetic Agent into Epidural Space, Percutaneous Approach (ICD-10-PCS; CPT 62282; principal; 2019-12-24 13:25)
DX: M96.1 Postlaminectomy syndrome, not elsewhere classified (principal); M51.16 Intervertebral disc disorders with radiculopathy, lumbar region; Z87.891 Personal history of nicotine dependence; Z79.899 Other long term (current) drug therapy; E66.9 Obesity, unspecified; G89.4 Chronic pain syndrome; Z86.711 Personal history of pulmonary embolism; Z98.84 Bariatric surgery status
CPT/HCPCS: 64483; 72100; 81025; J7120; J3490